=== PATIENT | male | born 1955 | race Caucasian/White ===

== ENCOUNTER 2016-08-08 09:49 | Inpatient (IN) | payer OTHER ==
[2016-08-08] MEDS ORDERED: NS 0.9% 1000 ML* 1,000 ML IV ONE (10:41)
[2016-08-08 10:58] LABS: Hematocrit 36 % (42-52); Hemoglobin 11.7 g/dl (14.0-18.0); Mean Corpuscular HGB Conc 33 g/dl (31-36); Mean Corpuscular Hemoglobin 27 pg (27-31); Mean Corpuscular Volume 82 fL (80-94); Mean Platelet Volume 8 um3 (7.4-10.4); Red Blood Count 4.42 10^6/ul (4.0-5.4); Red Cell Distribution Width 16 % (10.5-15); White Blood Count 9.4 10^3/ul (3.5-10.8)
--- NOTE | 2016-08-08 11:05 | RAD ---
HISTORY: Leg swelling COMPARISONS: June 24, 2016 VIEWS:1: Single frontal portable view of the chest at 10:30 AM FINDINGS: LINES AND TUBES: None. CARDIOMEDIASTINAL SILHOUETTE: The cardiomediastinal silhouette is stable. PLEURA: The costophrenic angles are sharp. No pleural abnormalities are noted. LUNG PARENCHYMA: There is prominence of the central pulmonary vasculature. ABDOMEN: The upper abdomen is clear. There is no subphrenic gas. BONES AND SOFT TISSUES: No bone or soft tissue abnormalities are noted. IMPRESSION: PULMONARY VASCULAR CONGESTION
[2016-08-08 11:08] LABS: Albumin 3.8 g/dL (3.2-5.2); C Reactive Protein 43.41 mg/L (< 5.00); Calcium 9.7 mg/dL (8.6-10.3); EGFR African American 125.4 (>60); EGFR Non-African American 97.5 (>60); Globulin 4.3 g/dL (2-4); Potassium 3.4 mmol/L (3.5-5.0); Total Bilirubin 0.4 mg/dL (0.2-1.0); Total Protein 8.1 g/dL (6.4-8.9)
[2016-08-08 11:10] LABS: Troponin I 0.01 ng/mL (<0.04)
--- NOTE | 2016-08-08 13:17 | RAD ---
HISTORY: Left lower extremity pain and edema TECHNIQUE: Multiple transverse and longitudinal ultrasound images were obtained of the veins of the left lower extremity using grayscale, color Doppler, and spectral Doppler imaging with and without compression and with augmentation. FINDINGS: VEINS: The common femoral vein, deep femoral vein, femoral vein and popliteal vein are compressible throughout their course, with normal flow on color Doppler imaging and normal response to augmentation on spectral Doppler imaging. SOFT TISSUES: Grossly normal. No large popliteal fossa cyst was identified. IMPRESSION: No sonographic evidence of deep vein thrombosis.
[2016-08-08 13:22] LABS: Urine Bilirubin Negative (Negative); Urine Glucose Negative (Negative); Urine Nitrite Negative (Negative)
[2016-08-08 13:52] LABS: Erythrocyte Sed Rate 94 mm/Hr (0-20)
[2016-08-08] MEDS ORDERED: Acetaminophen TAB* 325 MG PO PRN (14:12)
[2016-08-08] MEDS ORDERED: Dextrose 50% Syringe 50 ML* 25 GM/50 ML SYRINGE IV PUSH PRN (14:15)
[2016-08-08] MEDS ORDERED: Potassium Chlor TAB* 20 MEQ TAB.ER PO ONE (14:20)
[2016-08-08] MEDS ORDERED: Albuterol 2.5 MG/3 ML NEB.SOL* (0.083%) INH PRN (14:33)
[2016-08-08] MEDS ORDERED: NS 0.9% ONE (14:46)
[2016-08-08] MEDS ORDERED: Vancomycin(*) 2,000 MG in NS 0.9% 500 ML BAG* 500 ML IVPB ONE (15:00)
[2016-08-08] MEDS: Cefepime(*) 2 GM in NS 0.9% 50 ML* 50 ML IVPB SCH (15:05)
[2016-08-08] MEDS ORDERED: Vancomycin per Pharmacy* NOTE FOLLOW UP PRN (16:17)
[2016-08-08] MEDS: Insulin LISPRO* 1 UNITS UNIT SUBCUT SCH (17:28)
[2016-08-08] MEDS: oxyCODONE/Acetamin 5/325 MG* TAB PO PRN ×2 (18:04→22:55)
--- NOTE | 2016-08-08 20:44 | ED ---
alana Lawrence Timothy, scribed for Zaida Reddy MD on 08/08/16 at 1046 . Lower Extremity - HPI Summary HPI Summary: Priyank Cosby is a 60 yo DM male presenting to [facility], referred by Dr. Galo, as failure of outpt treatment with doxycycline for osteomyelitis and a nonhealing ulcer on his left heel for which he has been receiving Tx since 18 weeks, but has noticed increased swelling with 9/10 pain and erythema in the past few days. Dr. Galo is concerned about possible DVT or cellulitis. He states he had a fever of 99.6 but no fever since. He is c/o dizziness today. He denies any CP or SOB. He states he had a cast on his left leg for weeks, which came off in the last week. His glucose levels were 140 yesterday. His MHx includes CAD, HLD, HTN, COPD, BiPAP dependent, respiratory failure 2012, arthritis, DM, cellulitis tobacco use. He sees Dr. Renteria, Dr. Goode at the CT, Dr. Mosqueda (ID) and the wound clinic. - History of Current Complaint Chief Complaint: EDExtremityLower Stated Complaint: LT LEG COMPLAINT Time Seen by Provider: 08/08/16 10:50 Hx Obtained From: Patient, Medical Records Mechanism Of Injury: Unknown Onset of Pain: Prior to Arrival Onset/Duration: Still Present Severity Initially: Moderate Severity Currently: Moderate Pain Intensity: 9 Pain Scale Used: 0-10 Numeric Timing: Constant Location: Is Discrete @ - left heel Character Of Pain: Sharp Associated Signs And Symptoms: Positive: Swelling, Redness, Other - drainage from left heel Aggravating Factor(s): Standing Alleviating Factor(s): Nothing Able to Bear Weight: No - Risk Factors Gout Risk Factors: Age Over 40, Male - Allergies/Home Medications Allergies/Adverse Reactions: Allergies Allergy/AdvReac Type Severity Reaction Status Date / Time No Known Allergies Allergy Verified 07/05/16 13:11 Home Medications: Home Medications Atorvastatin* [Lipitor*] 80 mg PO DAILY 08/08/16 [History Confirmed 08/08/16] Buprenorphine HCl-Naloxone HCl [Suboxone] 0.5 strip SL BID 08/08/16 [History Confirmed 08/08/16] Calcium Carbonate CHEW TAB* [Tums*] 1,000 mg PO BID PRN 08/08/16 [History Confirmed 08/08/16] Cholecalciferol TAB* [Vitamin D TAB*] 400 unit PO DAILY 08/08/16 [History Confirmed 08/08/16] Insulin Aspart PEN(NF) [Novolog Flexpen(NF)] 0 - 100 unit SUBCUT DAILY 08/08/16 [History Confirmed 08/08/16] Lidocaine 4% GEL* [Topicaine 4% GEL*] 1 applic TOPICAL DAILY PRN 08/08/16 [ History Confirmed 08/08/16] Lisinopril [Lisinopril 30 MG-] 30 mg PO DAILY 08/08/16 [History Confirmed ] LoraTADine TAB(NF) [Claritin 10 MG TAB(NF)] 20 mg PO DAILY PRN 08/08/16 [ History Confirmed 08/08/16] Omeprazole CAP* [Prilosec CAP* 20 MG] 20 mg PO DAILY 08/08/16 [History Confirmed 08/08/16] Vitamin B Complex TAB* [Complex B-100*] 1 tab PO DAILY 08/08/16 [History Confirmed 08/08/16] metFORMIN* [Glucophage 1000 MG TAB *] 1,000 mg PO BID 08/08/16 [History Confirmed 08/08/16] zzInsulin GLARGINE(*) [zzLantus(*)] 38 units SUBCUT BID 08/08/16 [History Confirmed 08/08/16] PMH/Surg Hx/FS Hx/Imm Hx Endocrine/Hematology History: Reports: Hx Diabetes Denies: Hx Anticoagulant Therapy, Hx Thyroid Disease Cardiovascular History: Reports: Hx Coronary Artery Disease, Hx Hypercholesterolemia, Hx Hypertension - ON MEDS Denies: Hx Congestive Heart Failure, Hx Pacemaker/ICD, Other Cardiovascular Problems/Disorders Respiratory History: Reports: Hx Chronic Obstructive Pulmonary Disease (COPD), Hx Sleep Apnea Denies: Hx Asthma History: Denies: Hx Dialysis, Hx Renal Disease Musculoskeletal History: Reports: Hx Arthritis - DEGENERATIVE ARTHRITIS, Hx Back Problems - CHRONIC KNEE AND BACK PAIN Sensory History: Reports: Hx Contacts or Glasses Denies: Hx Hearing Aid Opthamlomology History: Reports: Hx Contacts or Glasses Neurological History: Denies: Hx Dementia, Hx Seizures, Other Neuro Impairments/Disorders Psychiatric History: Denies: Hx Panic Disorder, Hx Substance Abuse, Other Psychiatric Issues/ Disorders - Surgical History Surgery Procedure, Year, and Place: BARIATRIC SURGERY, RT FOOT OSTEO(LITTLE TOE) , RT KNEE SCOPE Hx Anesthesia Reactions: No Infectious Disease History: No Infectious Disease History: Denies: Hx Clostridium Difficile, Hx Hepatitis, Hx Human Immunodeficiency Virus (HIV), Hx of Known/Suspected MRSA, Hx Shingles, Hx Tuberculosis, Hx Known/ Suspected VRE, Hx Known/Suspected VRSA, History Other Infectious Disease, Traveled Outside the [place] in Last 30 Days - Family History Known Family History: Positive: Diabetes - grand parents - Social History Alcohol Use: None Substance Use Type: Reports: None Substance Use Comment - Amount & Last Used: OCCASIONAL Smoking Status (MU): Former Smoker Type: Cigarettes Amount Used/How Often: 1 PPD Length of Time of Smoking/Using Tobacco: 35 YEARS Have You Smoked in the Last Year: No Review of Systems Positive: Fever Eyes: Negative ENT: Negative Cardiovascular: Negative Respiratory: Negative Gastrointestinal: Negative Genitourinary: Negative Musculoskeletal: Other - left heel ulcer Positive: Edema - left heel/leg Skin: Other - erythema left heel and left lower leg Neurological: Other - dizziness Psychological: Normal All Other Systems Reviewed And Are Negative: Yes Physical Exam Triage Information Reviewed: Yes Vital Signs On Initial Exam: Initial Vitals Temp Pulse Resp Pulse Ox 97.7 F 73 20 97 08/08/16 09:52 08/08/16 09:52 08/08/16 09:52 08/08/16 09:52 BP 150/101 Vital Signs Reviewed: Yes Appearance: Positive: Well-Appearing, Well-Nourished, Pain Distress Skin: Positive: Warm, Skin Color Reflects Adequate Perfusion, Dry, Erythema @ - bilat lower extrem, left worse than right, Other - 7cm x 5cm x 2cm ulcer on left heel, open and draining, through the dermis. Diffuse redness, swelling, and open areas on the LLE and RLE from the foot to the knee. Weepy area between the great and second toe on the right. Open areas on the medial aspect of the RLE at the ankle, and the distal tip. Head/Face: Positive: Normal Head/Face Inspection Eyes: Positive: EOMI, Conjunctiva Clear ENT: Positive: Normal ENT inspection, Pharynx normal. Negative: Muffled/hoarse voice Neck: Positive: Supple, Nontender Respiratory/Lung Sounds: Positive: Clear to Auscultation, Breath Sounds Present Cardiovascular: Positive: RRR, Pulses are Symmetrical in both Upper and Lower Extremities. Negative: Murmur, Rub, Other - gallop Abdomen Description: Positive: Nontender, Soft Bowel Sounds: Positive: Present Musculoskeletal: Positive: Strength/ROM Intact, Edema Left, Edema Right, Other - external brace on the right knee. Lymphedema wraps on RLE. Post-op shoe on the left foot, bandages on the right leg. see skin exam above Neurological: Positive: Sensory/Motor Intact, Alert, Oriented to Person Place, Time. Negative: Focal Deficit @, Slurred Speech Psychiatric: Positive: Normal, Affect/Mood Appropriate Diagnostics - Vital Signs Vital Signs Temp Pulse Resp BP Pulse Ox 08/08/16 09:56 97.7 F 74 16 145/93 98 08/08/16 09:52 97.7 F 73 20 97 - Laboratory Lab Results: Lab Results 08/08/16 08/08/16 08/08/16 Range/Units 10:10 10:29 10:29 WBC 9.4 (3.5-10.8) 10^3/ul RBC 4.42 (4.0-5.4) 10^6/ul Hgb 11.7 L (14.0-18.0) g/dl Hct 36 L (42-52) % MCV 82 (80-94) fL MCH 27 (27-31) pg MCHC 33 (31-36) g/dl RDW 16 H (10.5-15) % Plt Count 326 (150-450) 10^3/ul MPV 8 (7.4-10.4) um3 Neut % (Auto) 74.1 (38-83) % Lymph % (Auto) 13.5 L (25-47) % [place] % (Auto) 10.0 H (1-9) % Eos % (Auto) 1.9 (0-6) % Baso % (Auto) 0.5 (0-2) % Absolute Neuts (auto) 7.0 (1.5-7.7) 10^3/ul Absolute Lymphs (auto) 1.3 (1.0-4.8) 10^3/ul Absolute Monos (auto) 0.9 H (0-0.8) 10^3/ul Absolute Eos (auto) 0.2 (0-0.6) 10^3/ul Absolute Basos (auto) 0 (0-0.2) 10^3/ul Absolute Nucleated RBC 0 10^3/ul Nucleated RBC % 0 ESR 94 H (0-20) mm/Hr INR (Anticoag Therapy) 0.98 (0.89-1.11) APTT 30.6 (26.0-36.3) seconds Sodium (133-145) mmol/L Potassium (3.5-5.0) mmol/L Chloride (101-111) mmol/L Carbon Dioxide (22-32) mmol/L Anion Gap (2-11) mmol/L BUN (6-24) mg/dL Creatinine (0.67-1.17) mg/dL Est GFR ( Amer) (>60) Est GFR (Non-Af Amer) (>60) BUN/Creatinine Ratio (8-20) Glucose (70-100) mg/dL Lactic Acid (0.5-2.0) mmol/L Calcium (8.6-10.3) mg/dL Total Bilirubin (0.2-1.0) mg/dL AST (13-39) U/L ALT (7-52) U/L Alkaline Phosphatase (34-104) U/L Total Creatine Kinase (10-223) U/L Troponin I (<0.04) ng/mL C-Reactive Protein (< 5.00) mg/L Total Protein (6.4-8.9) g/dL Albumin (3.2-5.2) g/dL Globulin (2-4) g/dL Albumin/Globulin Ratio (1-3) Urine Color Straw Urine Appearance Clear Urine pH 7.0 (5-9) Ur Specific [place] 1.008 L (1.010-1.030) Urine Protein Negative (Negative) Urine Ketones Negative (Negative) Urine Blood Negative (Negative) Urine Nitrate Negative (Negative) Urine Bilirubin Negative (Negative) Urine Urobilinogen Negative (Negative) Ur Leukocyte Esterase Negative (Negative) Urine Glucose Negative (Negative) 08/08/16 08/08/16 Range/Units 10:29 10:29 WBC (3.5-10.8) 10^3/ul RBC (4.0-5.4) 10^6/ul Hgb (14.0-18.0) g/dl Hct (42-52) % MCV (80-94) fL MCH (27-31) pg MCHC (31-36) g/dl RDW (10.5-15) % Plt Count (150-450) 10^3/ul MPV (7.4-10.4) um3 Neut % (Auto) (38-83) % Lymph % (Auto) (25-47) % [place] % (Auto) (1-9) % Eos % (Auto) (0-6) % Baso % (Auto) (0-2) % Absolute Neuts (auto) (1.5-7.7) 10^3/ul Absolute Lymphs (auto) (1.0-4.8) 10^3/ul Absolute Monos (auto) (0-0.8) 10^3/ul Absolute Eos (auto) (0-0.6) 10^3/ul Absolute Basos (auto) (0-0.2) 10^3/ul Absolute Nucleated RBC 10^3/ul Nucleated RBC % ESR (0-20) mm/Hr INR (Anticoag Therapy) (0.89-1.11) APTT (26.0-36.3) seconds Sodium 136 (133-145) mmol/L Potassium 3.4 L (3.5-5.0) mmol/L Chloride 94 L (101-111) mmol/L Carbon Dioxide 38 H (22-32) mmol/L Anion Gap 4 (2-11) mmol/L BUN 17 (6-24) mg/dL Creatinine 0.81 (0.67-1.17) mg/dL Est GFR ( Amer) 125.4 (>60) Est GFR (Non-Af Amer) 97.5 (>60) BUN/Creatinine Ratio 21.0 H (8-20) Glucose 61 L (70-100) mg/dL Lactic Acid 1.4 (0.5-2.0) mmol/L Calcium 9.7 (8.6-10.3) mg/dL Total Bilirubin 0.40 (0.2-1.0) mg/dL AST 10 L (13-39) U/L ALT 13 (7-52) U/L Alkaline Phosphatase 77 (34-104) U/L Total Creatine Kinase 37 (10-223) U/L Troponin I 0.01 (<0.04) ng/mL C-Reactive Protein 43.41 H (< 5.00) mg/L Total Protein 8.1 (6.4-8.9) g/dL Albumin 3.8 (3.2-5.2) g/dL Globulin 4.3 H (2-4) g/dL Albumin/Globulin Ratio 0.9 L (1-3) Urine Color Urine Appearance Urine pH (5-9) Ur Specific [place] (1.010-1.030) Urine Protein (Negative) Urine Ketones (Negative) Urine Blood (Negative) Urine Nitrate (Negative) Urine Bilirubin (Negative) Urine Urobilinogen (Negative) Ur Leukocyte Esterase (Negative) Urine Glucose (Negative) Result Diagrams: 08/08/16 10:29 08/08/16 10:29 Lab Statement: Any lab studies that have been ordered have been reviewed, and results considered in the medical decision making process. - Radiology CXR Xray Interpretation: Positive (See Comments) - IMPRESSION: PULMONARY VASCULAR CONGESTION Radiology Interpretation Completed By: Radiologist - Ultrasound No standard instances Ultrasound Interpretation: No Acute Changes - IMPRESSION: No sonographic evidence of deep vein thrombosis. Ultrasound Interpretation Completed By: Radiologist - venous doppler - EKG 1107 Cardiac Rate: NL - 71 BPM EKG Interpretation: NSR @ 71 BPM, prolonged IV, RBBB, LPFB, axis 113, no acute changes EKG Comparison: No Significant Change - compared to 04/05/2012 Re-Evaluation - Re-Evaluation First Eval Re-Evaluation Time: 13:58 Change: Unchanged Comment: Pt is informed of lab and imaging study results, and is agreeable to be admitted. Lower Extremity Course/Dx - Course Assessment/Plan: Priyank Cosby is a 60 yo male presenting to [facility] with 9/10 pain in his leftheel with edema and erythema, concerned for DVT/cellulitis. In the ED he received IV fluids. His CXR suggests pulmonary vascular congestion. His EKG shows NSR with prolonged IV conduction time and RBBB, LPFB. After clinical examination and review of his imaging and lab studies, as well as discussion with Dr. Rodgers, he will be admitted to [facility] for further evaluation and treatment due to failure of outpt treatment for osteomyelitis with doxycycline. No evidence for DVT on US of LLE. - Diagnoses Differential Diagnosis/HQI/PQRI: Positive: Cellulitis, DVT, Osteomyelitis Provider Diagnoses: Cellulitis, Osteomyelitis, DIABETIC FOOT ULCER - Physician Notifications Discussed Care of Patient With: 1344 - Dr. Rodgers (hospitalist) - discussed Pt condition, agrees to admit Instructed by Provider To: Admit As Inpatient Discharge - Discharge Plan Condition: Stable Disposition: ADMITTED TO [facility] Discharge Disposition Comment: admission for further evaluation and treatment The documentation as recorded by the alana morgan Timothy accurately reflects the service I personally performed and the decisions made by me, Zaida Reddy MD.
--- NOTE | 2016-08-08 21:47 | HP ---
HISTORY AND PHYSICAL: DATE OF ADMISSION: 08/08/16 ATTENDING PHYSICIAN WHILE IN THE HOSPITAL: Dr. Vikas Rodgers* (report being dictated by Jayson Eugene NP). PRIMARY CARE PHYSICIAN: Dr. Goode at the [facility]. CONSULTING ID SPECIALIST: Dr. Mosqueda. CONSULTING SURGEON: Dr. Carmona. CHIEF COMPLAINT: Left lower extremity redness and swelling. HISTORY OF PRESENT ILLNESS: Mr. Cosby is a 60-year-old male patient who has a history of diabetes. He has a history of MASON, COPD, lymphedema, chronic back pain, osteomyelitis in the past who recently completed a long course of IV antibiotics with Dr. Mosqueda in the outpatient setting. He had been off antibiotics for possibly 2 to 3 weeks. He has been doing okay, has been following with his wound clinic. Unfortunately though, the last couple of days he has noticed his left leg has gotten more red, swelling. It has become hot, he noticed that the redness had been increasing up into his groin. He does admit to having some clear discharge from both of his legs and he does state that he has not had any drainage from the wound or any purulent discharge. He did admit to having some chills. He states the redness was getting worse. He was evaluated 2 days ago and was started on doxycycline tablets by the wound clinic. He was reevaluated today and the redness, despite the doxycycline, was getting worse and he was sent to the ER for evaluation. He was evaluated here. It was noted that his ESR and CRP were climbing despite p.o. antibiotics. With his history of diabetes and the fact that the redness was getting worse and he had failed outpatient therapy, we were asked to evaluate in consult. He does state that the wound is not getting any bigger. He has been on a wound vac for sometime, but this had been discontinued because of the possibility of infection. He states that his sugars have been running in the 150s. He states that he has not had any fevers, but he did have some chills and there has been no other symptoms. No chest pain, shortness of breath, nausea, or vomiting. He was evaluated by Dr. Reddy here in the ER. We were asked to evaluate because it was felt he is going to need IV antibiotics. PAST MEDICAL HISTORY: Significant for: 1. Diabetes. 2. Hypertension. 3. Lymphedema. 4. Back pain. 5. COPD. 6. Osteomyelitis. 7. MASON. PAST SURGICAL HISTORY: 1. He has had a right partial toe amputation. 2. Cardiac catheterization with no intervention. 3. He has had a partial gastrectomy. 4. He has had knee arthroscopies. HOME MEDICATIONS: According to the list sent over from wound clinic include: 1. Lidocaine 4% 1 application topically daily as needed. 2. Doxycycline 100 mg p.o. b.i.d. 3. Vitamin B 1 tablet daily. 4. Omeprazole 20 mg daily. 5. Insulin aspart 0 to 100 units subcu with meals. 6. Lantus 38 units subcu b.i.d. 7. Lisinopril 30 mg daily. 8. Atorvastatin 80 mg daily. 9. Atenolol 50 mg daily. 10. Metformin 1000 mg p.o. b.i.d. 11. Claritin 20 mg p.o. daily as needed. 12. Vitamin D 400 units p.o. daily. 13. Calcium carbonate 1000 mg p.o. b.i.d. as needed. 14. Suboxone half a strip sublingual b.i.d. ALLERGIES TO MEDICATIONS: Include no known drug allergies. FAMILY HISTORY: His mother had cancer. Father had an AL. SOCIAL HISTORY: He is a former smoker, he quit about 4 years ago. He does not drink alcohol. Surrogate decision maker is his . REVIEW OF SYSTEMS: There is no documented fever. He did admit to having chills. There is no double vision. He denies having any rhinorrhea. No sore throat. No thyroid enlargement. Denies having any chest pain. There is no orthopnea. No nocturnal dyspnea. There is no abdominal pain. No nausea. No vomiting. No dysuria. No frequency. No seizure. No loss of consciousness. No pruritus. There is skin ulceration per my HPI. Review of 14 systems completed, all others negative. PHYSICAL EXAMINATION GENERAL: At this time, Mr. Cosby is a 60-year-old male patient. He is chronically ill appearing. He is morbidly obese. He is sitting on the ER stretcher. VITAL SIGNS: Blood pressure 118/63, pulse 75, respirations 16, O2 sat 100% on room air, temperature 97.7. HEENT: Head atraumatic and normocephalic. Eyes: EOMs intact. Sclerae anicteric. Throat: Oral mucosa appeared to be moist. No oropharyngeal erythema. NECK: Supple. LUNGS: Clear to auscultation bilaterally. No wheezes, rales, or rhonchi. HEART: Sounds S1 and S2. Regular rate and rhythm. No murmurs, rubs, or gallops. ABDOMEN: Soft, flat, nontender. Bowel sounds are present. EXTREMITIES: Pulses 2+ throughout. He had +2 pitting edema bilaterally. NEUROLOGICAL: He is awake, alert, oriented x3. Speech is clear. Tongue midline. No facial droops. No gross focal deficits. SKIN: Intact with the exception he has got a left heel ulcer measuring approximately 6 x 8 cm, it is about 1 cm deep to the left heel. He has erythema extending from his foot all the way up into his groin. The left leg is hot and edematous. The right leg does also have erythema and he also has a slight ulceration between his 2 toes as well and again erythema extending up into his midcalf region. Otherwise, skin is intact. LABORATORY DATA: Today revealed WBC 9.4, RBC of 4.42, hemoglobin 11.7, hematocrit of 36, platelet count 326. ESR is 94, last ESR was 456. INR 0.98, PTT at 30.6. The sodium was 136, potassium 3.4, chloride 94, bicarb 38, BUN 17, creatinine 0.81, glucose 61, lactate 1.4, calcium 9.7, total bili 0.4, AST 10, ALT 13, alk phos 77, troponin 0.01, CRP of 43, albumin of 3.8. Urine obtained was negative. He did have a venous Doppler study which revealed no evidence of DVT. He had an EKG obtained today which showed a normal sinus rhythm, rate of 71 with a right bundle branch block. He has had history of right bundle branch block. His last EKG from 5 years ago shows this as well. No acute changes. He had a chest x-ray obtained today, impression, pulmonary vascular congestion. Old medical records were reviewed. ASSESSMENT AND PLAN: Mr. Cosby is a 60-year-old male patient coming into the ER today with complaints of a worsening redness and swelling of the left lower extremity. The hospitalist service was asked to evaluate for admission. He will be admitted under inpatient status for: 1. Left lower extremity osteomyelitis. He did have an MRI on 08/14/15, which did show calcaneal osteomyelitis. In addition to this, he finished IV antibiotics, he thinks about 3 weeks ago and then now comes in with worsening redness and swelling despite being on 2 days of doxycycline. I will go ahead and put him on vancomycin and cefepime. I will get a consult with Dr. Carmona and a consult with Dr. Mosqueda to evaluate. For the time being, we will continue his vancomycin, continue his cefepime. We will send off blood cultures as well and we will continue to monitor. Cellulitis. There was a wound culture that was done in the ER according to Dr. Reddy. 2. Diabetes. We will go ahead and put him on Lispro sliding scale. I will check A1c tomorrow. I will continue his Lantus. 3. Lymphedema. Will elevate the extremities. 4. Diabetic foot ulcer. We will change this dressing daily. The wound care did put in recommendations for the care of this, which have been ordered. 5. Chronic obstructive pulmonary disease. We will go ahead and put him on p.r.n. albuterol. He does not appear to be having an exacerbation currently. 6. Obstructive sleep apnea. Continue with CPAP. 7. History of osteomyelitis. Again, he will be on IV antibiotics. 8. DVT prophylaxis. He will be placed on heparin subcu. 9. Fluids, electrolytes, nutrition. He can have a consistent carb diet. 10. Code status. He is a full code. TIME SPENT: On admission was approximately 60 minutes, greater than half the time was spent [id number] with the patient obtaining my history and physical, other half the time spent going over the plan of care with the patient and implementing plan of care. I did discuss the plan of care with my attending, Dr. Rodgers; he is in agreement. JAYSON EUGENE NP CC: Dr. Goode; Dr. Mosqueda; Dr. Carmona; Dr. Renteria* [id number]/[facility] #: [id number] MTDD
[2016-08-08] MEDS: Insulin GLARGINE(*) 1 UNITS UNIT SUBCUT SCH (22:52)
[2016-08-08] MEDS: Heparin VIAL(*) 5000 UNITS/ML VIAL (FIVE THOUSAND) SUBCUT SCH (22:53)
[2016-08-08] MEDS: Buprenorphine/Naloxone 8-2 MG SL TAB* 1 TAB SL SCH (22:56)
[2016-08-09] MEDS: Vancomycin(*) 1,250 MG in NS 0.9% 250 ML* 250 ML IVPB SCH ×3 (01:48→17:51)
[2016-08-09] MEDS ORDERED: NS 0.9% 250 ML* 500 ML ONE (03:03)
[2016-08-09] MEDS: oxyCODONE/Acetamin 5/325 MG* TAB PO PRN ×5 (03:04→21:03)
[2016-08-09] MEDS: Cefepime(*) 2 GM in NS 0.9% 50 ML* 50 ML IVPB SCH ×3 (04:34→15:48)
[2016-08-09] MEDS: Heparin VIAL(*) 5000 UNITS/ML VIAL (FIVE THOUSAND) SUBCUT SCH ×3 (04:35→21:05)
[2016-08-09 07:10] LABS: Hematocrit 34 % (42-52); Hemoglobin 10.9 g/dl (14.0-18.0); Mean Corpuscular HGB Conc 32 g/dl (31-36); Mean Corpuscular Hemoglobin 27 pg (27-31); Mean Corpuscular Volume 82 fL (80-94); Mean Platelet Volume 8 um3 (7.4-10.4); Red Blood Count 4.11 10^6/ul (4.0-5.4); Red Cell Distribution Width 16 % (10.5-15); White Blood Count 7.3 10^3/ul (3.5-10.8)
[2016-08-09 07:25] LABS: BUN/Creatinine Ratio 20.8 (8-20); EGFR Non-African American 103.4 (>60); Potassium 3.9 mmol/L (3.5-5.0)
[2016-08-09] MEDS: Lisinopril TAB* 10 MG PO SCH (07:46)
[2016-08-09] MEDS: Omeprazole CAP* 20 MG PO SCH (07:46)
[2016-08-09] MEDS: Insulin GLARGINE(*) 1 UNITS UNIT SUBCUT SCH ×2 (07:47→21:04)
[2016-08-09] MEDS: Atorvastatin* 80 MG TAB PO SCH (07:47)
[2016-08-09] MEDS: Atenolol TAB* 50 MG PO SCH (07:47)
[2016-08-09] MEDS: Buprenorphine/Naloxone 8-2 MG SL TAB* 1 TAB SL SCH ×2 (07:48→21:02)
[2016-08-09] MEDS: Insulin LISPRO* 1 UNITS UNIT SUBCUT SCH ×3 (09:53→17:51)
--- NOTE | 2016-08-09 10:25 | PN ---
Progress Note - Progress Note Note: Brief Surgery Note: (full note dictated) S: Mr. Cosby is well-known to us from his bariatric surgery (sleeve gastrectomy ) in 01/2016. He was admitted from wound clinic yesterday for worsening cellulitis of the Left LE. He has a pre-existing L heel ulcer (+ MRI and prior bone scan for osteo) for which he has completed a 6 week course of IV abx as well as wound care (debridement, total contact casting, off-loading footwear, and most recently a Wound VAC). The LLE pain and redness seemed to increase over the past 5-7 days. Pain is localized primarily to the posterior heel and lower leg. He has weeping of both LEs r/t his chronic venous insufficiency and lymphedema. He normally uses lymphedema wraps at home. He had a neg venous duplex on admission and a recent CTA that demonstrated moderate occlusive disease but nothing requiring intervention. O: Vital Signs - 8 hr 08/09/16 08/09/16 08/09/16 03:04 03:16 04:46 Temperature 98.2 F Pulse Rate 83 Respiratory 14 16 16 Rate Blood Pressure 136/92 (mmHg) O2 Sat by Pulse 94 Oximetry 08/09/16 08/09/16 08/09/16 07:27 07:48 09:27 Temperature Pulse Rate Respiratory 16 16 16 Rate Blood Pressure (mmHg) O2 Sat by Pulse Oximetry Right LE: chronic stasis changes w/ hyperpigmentation, scaling, weeping of clear serous fluid, and dull erythema. This includes the foot and toes. Left LE: similar to R LE; there is also an open heel wound (plantar surface) which is actually fairly clean w/ good granulation base, measuring ~ 4 x 6 cm. It is minimally tender, a bit boggy, but no obvious exposed bone. He is most tender over the posterior heel and lower leg. A: cellulitis Left LE; open Left heel wound (w/ osteo? based on most recent imaging) P: cont abx per hosp/ID; no need for surg debridement at present; he does need some form of compression in addition to his wound care (ordered). Will follow periodically and at your request if any changes.
--- NOTE | 2016-08-09 14:03 | PN ---
Subjective Date of Service: 08/09/16 Interval History: Patient reports his LE's appear "more red" today. Reports some weeping form his RLE. No fevers or chills. Reports good appetite. No abdominal pain. Objective Active Medications: Acetaminophen (Tylenol Tab*) 650 mg PO Q4H PRN PRN Reason: FEVER/PAIN Albuterol (Ventolin 2.5 Mg/3 Ml Neb.Malissa*) 2.5 mg INH Q2H PRN PRN Reason: SOB/WHEEZING Atenolol (Tenormin Tab*) 50 mg PO QAM [facility] Last Admin: 08/09/16 07:47 Dose: 50 mg Atorvastatin Calcium (Lipitor*) 80 mg PO DAILY [facility] Last Admin: 08/09/16 07:47 Dose: 80 mg Buprenorphine/Naloxone (Suboxone 8-2 Mg Sl Tab*) 0.5 tab.sl SL BID [facility] Last Admin: 08/09/16 07:48 Dose: 0.5 tab.sl Dextrose (D50w Syringe 50 Ml*) 12.5 gm IV PUSH .FOR FS < 60 - SS PRN PRN Reason: FS < 60 Heparin Sodium (Porcine) (Heparin Vial(*)) 5,000 units SUBCUT Q8HR [facility] Last Admin: 08/09/16 13:24 Dose: 5,000 units Cefepime HCl 2 gm/ Sodium (Chloride) 50 mls @ 100 mls/hr IVPB 0300,1500 [facility] Last Admin: 08/09/16 04:37 Dose: 100 mls/hr Vancomycin HCl 1,250 mg/ (Sodium Chloride) 250 mls @ 166.667 mls/hr IVPB Q8H [facility] Last Admin: 08/09/16 09:34 Dose: 166.667 mls/hr Insulin Glargine (Lantus(*)) 38 units SUBCUT BID [facility] Last Admin: 08/09/16 07:47 Dose: 38 units Insulin Human Lispro (Humalog*) 0 units SUBCUT AC [facility] PRN Reason: Protocol Last Admin: 08/09/16 13:23 Dose: 15 units Lisinopril (Prinivil Tab*) 30 mg PO DAILY [facility] Last Admin: 08/09/16 07:46 Dose: 30 mg Omeprazole (Prilosec Cap*) 20 mg PO DAILY@0730 [facility] Last Admin: 08/09/16 07:46 Dose: 20 mg Ondansetron HCl (Zofran Inj*) 4 mg IV Q6H PRN PRN Reason: NAUSEA Oxycodone/Acetaminophen (Percocet 5/325 Tab*) 2 tab PO Q4H PRN PRN Reason: PAIN Last Admin: 08/09/16 11:34 Dose: 2 tab Pharmacy Consult (Vancomycin Per Pharmacy*) 1 note FOLLOW UP . PRN PRN Reason: PER PROTOCOL Pharmacy Profile Note (Vancomycin Trough Check) 1 note FOLLOW UP 0900 ONE Stop: 08/10/16 09:01 Vital Signs 08/08/16 08/08/16 08/08/16 16:10 16:21 16:30 Temperature 98.4 F 98.4 F Pulse Rate 88 88 Respiratory 16 16 16 Rate Blood Pressure 150/101 150/101 (mmHg) O2 Sat by Pulse 97 97 Oximetry 08/08/16 08/08/16 08/08/16 18:04 20:04 22:55 Temperature Pulse Rate Respiratory 16 16 16 Rate Blood Pressure (mmHg) O2 Sat by Pulse Oximetry 08/08/16 08/08/16 08/08/16 22:56 23:47 23:55 Temperature 99.5 F Pulse Rate 85 Respiratory 16 16 16 Rate Blood Pressure 145/76 (mmHg) O2 Sat by Pulse 94 Oximetry 08/09/16 08/09/16 08/09/16 03:04 03:16 04:46 Temperature 98.2 F Pulse Rate 83 Respiratory 14 16 16 Rate Blood Pressure 136/92 (mmHg) O2 Sat by Pulse 94 Oximetry 08/09/16 08/09/16 08/09/16 07:27 07:40 07:48 Temperature 98.1 F Pulse Rate 84 Respiratory 16 16 16 Rate Blood Pressure 155/85 (mmHg) O2 Sat by Pulse 94 Oximetry 08/09/16 08/09/16 08/09/16 08:00 09:27 09:48 Temperature Pulse Rate Respiratory 16 16 16 Rate Blood Pressure (mmHg) O2 Sat by Pulse Oximetry 08/09/16 11:34 Temperature Pulse Rate Respiratory 16 Rate Blood Pressure (mmHg) O2 Sat by Pulse Oximetry Oxygen Devices in Use Now: None Appearance: morbidly obese male sitting up in a chair in NAD. A+O x3 Eyes: No Scleral Icterus, PERRLA Ears/Nose/Mouth/Throat: NL Teeth, Lips, Gums, Mucous Membranes Moist Neck: NL Appearance and Movements; NL JVP Respiratory: Symmetrical Chest Expansion and Respiratory Effort, Clear to Auscultation Cardiovascular: NL Sounds; No Murmurs; No JVD, RRR, - - 3+ B/L edema Abdominal: - - obese, round soft, nontender Extremities: - - B/L LE have bilateral chronic venous stasis changes and noted 2 -3+ edema. LLE: has noted erythema with heal ulcer (did not underess dressing which was just reapplied by surgery). RLE: has noted erythema, weeping, possible skin tear or weeping to inner LEs. Neurological: Alert and Oriented x 3, NL Muscle Strength and Tone Lines/Tubes/Other Access: Clean, Dry and Intact Peripheral IV Nutrition: Taking PO's Result Diagrams: 08/09/16 06:50 08/09/16 06:50 Additional Lab and Data: Lab Results 08/08/16 08/08/16 08/08/16 Range/Units 10:10 10:29 10:29 WBC 9.4 (3.5-10.8) 10^3/ul RBC 4.42 (4.0-5.4) 10^6/ul Hgb 11.7 L (14.0-18.0) g/dl Hct 36 L (42-52) % MCV 82 (80-94) fL MCH 27 (27-31) pg MCHC 33 (31-36) g/dl RDW 16 H (10.5-15) % Plt Count 326 (150-450) 10^3/ul MPV 8 (7.4-10.4) um3 Neut % (Auto) 74.1 (38-83) % Lymph % (Auto) 13.5 L (25-47) % Concho % (Auto) 10.0 H (1-9) % Eos % (Auto) 1.9 (0-6) % Baso % (Auto) 0.5 (0-2) % Absolute Neuts (auto) 7.0 (1.5-7.7) 10^3/ul Absolute Lymphs (auto) 1.3 (1.0-4.8) 10^3/ul Absolute Monos (auto) 0.9 H (0-0.8) 10^3/ul Absolute Eos (auto) 0.2 (0-0.6) 10^3/ul Absolute Basos (auto) 0 (0-0.2) 10^3/ul Absolute Nucleated RBC 0 10^3/ul Nucleated RBC % 0 ESR 94 H (0-20) mm/Hr INR (Anticoag Therapy) 0.98 (0.89-1.11) APTT 30.6 (26.0-36.3) seconds Sodium (133-145) mmol/L Potassium (3.5-5.0) mmol/L Chloride (101-111) mmol/L Carbon Dioxide (22-32) mmol/L Anion Gap (2-11) mmol/L BUN (6-24) mg/dL Creatinine (0.67-1.17) mg/dL Est GFR ( Amer) (>60) Est GFR (Non-Af Amer) (>60) BUN/Creatinine Ratio (8-20) Glucose (70-100) mg/dL Lactic Acid (0.5-2.0) mmol/L Calcium (8.6-10.3) mg/dL Total Bilirubin (0.2-1.0) mg/dL AST (13-39) U/L ALT (7-52) U/L Alkaline Phosphatase (34-104) U/L Total Creatine Kinase (10-223) U/L Troponin I (<0.04) ng/mL C-Reactive Protein (< 5.00) mg/L Total Protein (6.4-8.9) g/dL Albumin (3.2-5.2) g/dL Globulin (2-4) g/dL Albumin/Globulin Ratio (1-3) Urine Color Straw Urine Appearance Clear Urine pH 7.0 (5-9) Ur Specific Martin 1.008 L (1.010-1.030) Urine Protein Negative (Negative) Urine Ketones Negative (Negative) Urine Blood Negative (Negative) Urine Nitrate Negative (Negative) Urine Bilirubin Negative (Negative) Urine Urobilinogen Negative (Negative) Ur Leukocyte Esterase Negative (Negative) Urine Glucose Negative (Negative) 08/08/16 08/08/16 Range/Units 10:29 10:29 WBC (3.5-10.8) 10^3/ul RBC (4.0-5.4) 10^6/ul Hgb (14.0-18.0) g/dl Hct (42-52) % MCV (80-94) fL MCH (27-31) pg MCHC (31-36) g/dl RDW (10.5-15) % Plt Count (150-450) 10^3/ul MPV (7.4-10.4) um3 Neut % (Auto) (38-83) % Lymph % (Auto) (25-47) % Concho % (Auto) (1-9) % Eos % (Auto) (0-6) % Baso % (Auto) (0-2) % Absolute Neuts (auto) (1.5-7.7) 10^3/ul Absolute Lymphs (auto) (1.0-4.8) 10^3/ul Absolute Monos (auto) (0-0.8) 10^3/ul Absolute Eos (auto) (0-0.6) 10^3/ul Absolute Basos (auto) (0-0.2) 10^3/ul Absolute Nucleated RBC 10^3/ul Nucleated RBC % ESR (0-20) mm/Hr INR (Anticoag Therapy) (0.89-1.11) APTT (26.0-36.3) seconds Sodium 136 (133-145) mmol/L Potassium 3.4 L (3.5-5.0) mmol/L Chloride 94 L (101-111) mmol/L Carbon Dioxide 38 H (22-32) mmol/L Anion Gap 4 (2-11) mmol/L BUN 17 (6-24) mg/dL Creatinine 0.81 (0.67-1.17) mg/dL Est GFR ( Amer) 125.4 (>60) Est GFR (Non-Af Amer) 97.5 (>60) BUN/Creatinine Ratio 21.0 H (8-20) Glucose 61 L (70-100) mg/dL Lactic Acid 1.4 (0.5-2.0) mmol/L Calcium 9.7 (8.6-10.3) mg/dL Total Bilirubin 0.40 (0.2-1.0) mg/dL AST 10 L (13-39) U/L ALT 13 (7-52) U/L Alkaline Phosphatase 77 (34-104) U/L Total Creatine Kinase 37 (10-223) U/L Troponin I 0.01 (<0.04) ng/mL C-Reactive Protein 43.41 H (< 5.00) mg/L Total Protein 8.1 (6.4-8.9) g/dL Albumin 3.8 (3.2-5.2) g/dL Globulin 4.3 H (2-4) g/dL Albumin/Globulin Ratio 0.9 L (1-3) Urine Color Urine Appearance Urine pH (5-9) Ur Specific Martin (1.010-1.030) Urine Protein (Negative) Urine Ketones (Negative) Urine Blood (Negative) Urine Nitrate (Negative) Urine Bilirubin (Negative) Urine Urobilinogen (Negative) Ur Leukocyte Esterase (Negative) Urine Glucose (Negative) Assess/Plan/Problems-Billing Assessment: 60 yo male with a PMH of morbid obesity s/p sleeve gastrectomy, Diabetes, COPD, lymphedema, pre-existing L heel ulcer with osteo for which he recently finished 6 weeks of IV abx followed by Dr. Mosqueda (off abx for 2-3 weeks) also followed by wound clinic who started him on Doxy 2 days ago who presented 08/08 with increased LLE redness and pain sent from wound clinic - Patient Problems (1) Cellulitis Comment: - with chronic osteomyelitis and non-healing DM ulcer - recent 6 weeks of IV abx , followed by ID as outpt. - Surgery consulted stating no need for wound debridment at this time. - wound cx MRSA positive. Blood cx negative day 1. - c/w vanco, cefepime - await ID consult (2) Chronic pain Comment: - suboxone started a few months ago per pt pain clinic has been weaning down narcotics. - Patient continues to report a lot of pain. Continue Pecocet prn. (3) HTN (hypertension) Comment: controlled c/w lisinopril, Atenolol. (4) Type 2 diabetes mellitus Comment: High blood sugars Increase Lantus 45 units BID and lantus sliding scale (5) History of hypertension Comment: - continue lisinopril, atenolol (6) Lymphedema Comment: - denise wraps and elevation to LE's (7) Full code status (8) DVT prophylaxis Comment: HSQ Status and Disposition: inpatient requiring IV antibiotics. Estimated LOS > 2 days.
[2016-08-09] MEDS: Ketorolac INJ* 30 MG/ML 1 ML VIAL IV PUSH PRN (17:55)
[2016-08-09] MEDS: Ondansetron INJ* 2 MG/ML VIAL IV PRN (17:59)
--- NOTE | 2016-08-09 20:41 | CONS ---
CC: Dr. Jaxon Carmona; Dr. Goode, [facility] SURGICAL CONSULT NOTE: DATE OF CONSULT: 08/09/16 ATTENDING SURGEON: Dr. Jaxon Carmona. [facility] COMPLAINT: Cellulitis, left lower extremity. HISTORY OF PRESENT ILLNESS: This is a 60-year-old morbidly obese male with chronic venous insufficiency of both lower extremities and was followed by the wound clinic. He has had a preexisting left heel ulcer with osteomyelitis of the calcaneus, previously treated with 6-week course of IV antibiotics. He was seen in the wound clinic last Monday at which time the wound VAC was apparently placed. He experienced increased pain of the left lower extremity along with redness and increase in the temperature. He was sent to the emergency room for evaluation and possible admission from the wound clinic yesterday. He had been attending wound clinic for wound care in the form of total contact cast when the ulcer first started in March. He has undergone debridement. He also has an offloading shoe and has been undergoing dressing changes. He was recently changed to the wound VAC, was unclear if it would have contributed to his current cellulitis. He has chronic edema from venous insufficiency and sleeps in the chair with consequently little or no lower extremity elevation. He normally uses lymphedema wraps at home. He states that Dr. Renteria, who follows him in the wound clinic had been considering the option of hyperbaric oxygen treatment for this slow and nonhealing left calcaneal ulcer. Venous duplex on admission was negative for DVT. A CT angiogram done on 06/21/16, showed [id number] occlusive arterial disease, but vessels were essentially patent to both feet and did not require any intervention. MRI was performed on 07/13/16, which was consistent with osteomyelitis of the left calcaneus. He states that pain significantly increased over the past 4 to 5 days in the left lower extremity, particularly the posterior heel and posterior lower leg. PAST MEDICAL HISTORY: Type 2 diabetes, hypertension, morbid obesity (he is six months status post laparoscopic sleeve gastrectomy with Dr. White), chronic venous insufficiency and lymphedema of lower extremities, chronic back pain, COPD, sleep apnea. CURRENT MEDICATIONS: Reviewed and include: 1. Lidocaine topically. 2. Doxycycline 100 mg b.i.d. 3. Omeprazole 20 mg q. day. 4. Lantus 38 units subcu b.i.d. 5. Lisinopril. 6. Atorvastatin. 7. Atenolol. 8. Metformin. 9. Claritin. 10. Vitamin D. 11. Calcium carbonate. 12. Suboxone one-half strip sublingual b.i.d. FAMILY HISTORY: Per his admission history and physical. SOCIAL HISTORY: Per his admission history and physical. REVIEW OF SYSTEMS: Per his admission history and physical. PHYSICAL EXAM: Height 6 feet, weight 352 pounds which is down 30 pounds since his sleeve gastrectomy, BMI is 47.7, T-max 99.5, blood pressure systolic from 117 to 155, diastolic 63 to 101, pulse is 70s to 80s, room air saturation 95%. General: A morbidly obese male, in no acute distress. The remainder of the exam is limited to the lower extremities. Skin of both lower extremities shows chronic venous insufficiency changes with scaling, weeping clear serous fluid, and hyperpigmentation as well as lipodermatosclerosis. The right leg also has barrier cream applied to it. There is a question of some ulceration or superficial skin breakdown between toes on the right foot though I did not examine in detail. On the left, findings of the skin are similar to the right leg. In addition, there is an open wound on the inferior plantar surface of the heel measuring approximately 6 cm. There is a healthy-appearing base of granulation tissue. There is some minor tenderness and bogginess to palpation directly on the wound, but no evidence of undrained collection or deep infection. There is no obvious bone exposed. He is most tender in the posterior heel and posterior lower leg. There is some [id number] erythema throughout the leg. LABORATORY DATA: Recent labs, white blood cell count on admission 9400, repeat this morning 7300; hemoglobin 11.7 with 10.9 on repeat. CRP is 43. ESR is 94, which is up consistent with prior. CO2 somewhat elevated at 35. [id number]-je-eryk glucose has ranged from 271 to 396. A1c is 9.0. IMPRESSION: Cellulitis, left lower extremity with open heel wound (possibly with osteomyelitis). PLAN: No need for any surgical intervention, debridement, or otherwise. We would agree with continuation of antibiotics with further direction per ID. I did add some compression in the form of 4-inch Wan wraps x2 for each lower extremity to help with the edema. We will follow with you and see the patient periodically until he is able to return to his usual baseline and follow up with the wound clinic. ELIS MCCURDY [id number]/CPS #: [id number] CRISTINA
--- NOTE | 2016-08-09 21:39 | CONS ---
CONSULTATION REPORT: DATE OF CONSULTATION: 08/09/16 REQUESTING PHYSICIAN: Jayson Eugene NP. CONSULTING SERVICE: Infectious Disease. REASON FOR CONSULTATION: Right leg cellulitis and wound infection. IMPRESSION: 1. Left calcaneal wound. Followed at the wound clinic for few months. He had a course of IV antib iotics for calcaneal osteomyelitis, now with cellulitis of the ankle periwound area and into the leg in the setting of underlying lymphedema. He has grown MRSA and Enterobacter. He has not grown MRS A in the past, seems to be a new infection for him. 2. Diabetes with neuropathy. 3. Morbid obesity. 4. Hypertension. 5. Obstructive sleep apnea. RECOMMENDATION: Agree with vancomycin goal trough 10 to 15 and cefepime 2 g every 12 hours. I will follow his progress here and depending how he does may plan on another course of IV antibiotics. Vikki reeves had apparently recently been making more progress with his wound healing but seems to now have a s econdary infection of that wound, which is spread to the soft tissues. I do not think that there is further scanning, which would change the management at this point. HISTORY OF PRESENT ILLNESS: A 60-year-old male with diabetes and left heel wound, now with worsenin g left heel pain, swelling and redness. He had been on IV cefepime for a few weeks followed by oral antibiotics and then over about the last 3 to 4 days, he started to get redness, pain, and swelling around the wound that seemed to develop he feels after removal of the cast, that seemed to help whe n it was on as far as wound healing goes. Because of those symptoms, he was seen in the wound clini c. He was directed to the ER on the . The wound culture was taken. A Gram stain showed gram-po sitive cocci and gram-negative bacilli that is growing Enterobacter. The PCR was positive for Staph aureus and MRSA. He was started on antibiotics. He has had some improvement in redness and swelli ng as well as pain, but was quite severe. He has had no fever, chills, or sweats. An ultrasound wa s negative for DVT. PAST MEDICAL HISTORY: 1. Diabetes. 2. Peripheral neuropathy. 3. Chronic left calcaneal ulceration and osteomyelitis. 4. Hypertension. 5. Lymphedema bilaterally. 6. Chronic back pain. 7. COPD. 8. Obstructive sleep apnea. 9. Status post right toe partial amputation. 10. Status post partial gastrectomy. 11. Status post bilateral knee arthroscopies. ALLERGIES: No known drug allergies. HOME MEDICATIONS: 1. Tylenol. 2. Albuterol. 3. Atenolol. 4. Lipitor. 5. Suboxone. 6. Cefepime 2 g every 12 hours. 7. Insulin glargine. 8. Ketorolac. 9. Lisinopril. 10. Omeprazole. 11. Vancomycin 1250 mg every 8 hours. SOCIAL HISTORY: He lives in [place]. No travel. No sick contacts. FAMILY HISTORY: No recurrent infections. REVIEW OF SYSTEMS: All negative except as noted above. PHYSICAL EXAMINATION: Vital Signs: Temperature is 36.7, heart rate 80, respiratory rate 14, blood pressure 150/80, O2 sat 95% on room air. General: He is awake, not in distress. Neurologic: He i s oriented x3. Follows all commands. He has decreased sensation to light touch in both feet bilater ally. HEENT: There is no conjunctival hemorrhage. Oropharynx without lesions. Neck was supple wi thout nuchal rigidity. Lymph nodes: There is no cervical, supraclavicular, inguinal, axillary or e pitrochlear lymphadenopathy. Heart: Regular rate and rhythm without murmurs, rubs, or gallops. Debbie ngs are clear to auscultation bilaterally. Abdomen: Soft, nontender, and obese. Skin: There is no rash or splinter hemorrhages. Musculoskeletal: There is no spine tenderness to palpation. There i s a left calcaneal ulcer with underlying granulation tissue. There is no foul drainage. Edges are without necrotic tissue. There is erythema extending from the heel up to the ankle and lower leg wi th tenderness. No fluctuance or crepitus. Extremities: There was no lower extremity edema. DP an d PT pulses were 2+ and symmetric. DIAGNOSTIC STUDIES/LABORATORY DATA: White blood cell count is 7, hemoglobin 10, platelets 257, crea tinine is 0.7. CRP was 40. Blood cultures are negative. Please see impression and recommendations as outlined above. Thanks for asking me to see Mr. Cosby in consultation. [id number]/[facility] #: [id number]
[2016-08-09] MEDS ORDERED: Calcium Carbonate CHEW TAB* 500 MG (TUMS) PO ONE (22:19)
[2016-08-09] MEDS ORDERED: PROCHLORPERAZINE INJ 5 MG/ML 2 ML VIAL IV PRN (22:19)
[2016-08-10] MEDS: Ketorolac INJ* 30 MG/ML 1 ML VIAL IV PUSH PRN ×3 (00:42→19:54)
[2016-08-10] MEDS: Vancomycin(*) 1,250 MG in NS 0.9% 250 ML* 250 ML IVPB SCH ×3 (00:42→17:27)
[2016-08-10] MEDS: Ondansetron INJ* 2 MG/ML VIAL IV PRN ×4 (00:43→19:54)
[2016-08-10] MEDS: oxyCODONE/Acetamin 5/325 MG* TAB PO PRN ×6 (00:47→23:47)
[2016-08-10] MEDS ORDERED: Calcium Carbonate CHEW TAB* 500 MG (TUMS) ONE (02:10)
[2016-08-10] MEDS: Calcium Carbonate CHEW TAB* 500 MG (TUMS) PO PRN ×5 (02:12→21:39)
[2016-08-10] MEDS: Cefepime(*) 2 GM in NS 0.9% 50 ML* 50 ML IVPB SCH ×2 (03:28→15:07)
[2016-08-10] MEDS: Heparin VIAL(*) 5000 UNITS/ML VIAL (FIVE THOUSAND) SUBCUT SCH ×3 (05:06→21:28)
[2016-08-10] MEDS: Omeprazole CAP* 20 MG PO SCH (07:19)
[2016-08-10] MEDS: Atenolol TAB* 50 MG PO SCH (08:47)
[2016-08-10] MEDS: Buprenorphine/Naloxone 8-2 MG SL TAB* 1 TAB SL SCH ×2 (08:47→21:21)
[2016-08-10] MEDS: Atorvastatin* 80 MG TAB PO SCH (08:47)
[2016-08-10] MEDS: Insulin LISPRO* 1 UNITS UNIT SUBCUT SCH ×3 (08:48→17:28)
[2016-08-10] MEDS: Insulin GLARGINE(*) 1 UNITS UNIT SUBCUT SCH ×2 (08:48→21:22)
[2016-08-10] MEDS: Lisinopril TAB* 10 MG PO SCH (08:48)
[2016-08-10 09:00] LABS: BUN/Creatinine Ratio 25.7 (8-20); Calcium 8.7 mg/dL (8.6-10.3); EGFR Non-African American 72.3 (>60); Potassium 4.5 mmol/L (3.5-5.0)
[2016-08-10] MEDS ORDERED: Vancomycin Trough Check NOTE FOLLOW UP ONE (09:00)
[2016-08-10 09:21] LABS: Hematocrit 34 % (42-52); Hemoglobin 11.1 g/dl (14.0-18.0); Mean Corpuscular HGB Conc 32 g/dl (31-36); Mean Corpuscular Hemoglobin 27 pg (27-31); Mean Corpuscular Volume 83 fL (80-94); Mean Platelet Volume 8 um3 (7.4-10.4); Red Blood Count 4.13 10^6/ul (4.0-5.4); Red Cell Distribution Width 16 % (10.5-15); White Blood Count 6.4 10^3/ul (3.5-10.8)
--- NOTE | 2016-08-10 12:43 | PN ---
Subjective Date of Service: 08/10/16 Interval History: Pt reports he feels better today, less LE pain. Denies fever or chills. No N/V/ D. Objective Active Medications: Acetaminophen (Tylenol Tab*) 650 mg PO Q4H PRN PRN Reason: FEVER/PAIN Albuterol (Ventolin 2.5 Mg/3 Ml Neb.Malissa*) 2.5 mg INH Q2H PRN PRN Reason: SOB/WHEEZING Atenolol (Tenormin Tab*) 50 mg PO QAM [facility] Last Admin: 08/10/16 08:47 Dose: 50 mg Atorvastatin Calcium (Lipitor*) 80 mg PO DAILY [facility] Last Admin: 08/10/16 08:47 Dose: 80 mg Buprenorphine/Naloxone (Suboxone 8-2 Mg Sl Tab*) 0.5 tab.sl SL BID [facility] Last Admin: 08/10/16 08:47 Dose: 0.5 tab.sl Calcium Carbonate (Tums*) 1,000 mg PO Q4H PRN PRN Reason: INDIGESTION Last Admin: 08/10/16 07:19 Dose: 1,000 mg Cholecalciferol (Vitamin D Tab*) 400 unit PO DAILY [facility] Dextrose (D50w Syringe 50 Ml*) 12.5 gm IV PUSH .FOR FS < 60 - SS PRN PRN Reason: FS < 60 Heparin Sodium (Porcine) (Heparin Vial(*)) 5,000 units SUBCUT Q8HR [facility] Last Admin: 08/10/16 05:06 Dose: 5,000 units Cefepime HCl 2 gm/ Sodium (Chloride) 50 mls @ 100 mls/hr IVPB 0300,1500 [facility] Last Admin: 08/10/16 03:28 Dose: 100 mls/hr Vancomycin HCl 1,250 mg/ (Sodium Chloride) 250 mls @ 166.667 mls/hr IVPB Q8H [facility] Last Admin: 08/10/16 10:47 Dose: 166.667 mls/hr Insulin Glargine (Lantus(*)) 45 units SUBCUT BID [facility] Last Admin: 08/10/16 08:48 Dose: 45 units Insulin Human Lispro (Humalog*) 0 units SUBCUT AC [facility] PRN Reason: Protocol Last Admin: 08/10/16 08:48 Dose: 9 units Ketorolac Tromethamine (Toradol Inj*) 30 mg IV PUSH Q6H PRN PRN Reason: PAIN Last Admin: 08/10/16 10:48 Dose: 30 mg Lactobacillus Rhamnosus (Culturelle*) 1 cap PO BID [facility] Lisinopril (Prinivil Tab*) 30 mg PO DAILY [facility] Last Admin: 08/10/16 08:48 Dose: 30 mg Multivitamins/Minerals (Theragran/Minerals Tab*) 1 tab PO DAILY [facility] Omeprazole (Prilosec Cap*) 20 mg PO DAILY@0730 [facility] Last Admin: 08/10/16 07:19 Dose: 20 mg Ondansetron HCl (Zofran Inj*) 4 mg IV Q6H PRN PRN Reason: NAUSEA Last Admin: 08/10/16 05:27 Dose: 4 mg Oxycodone/Acetaminophen (Percocet 5/325 Tab*) 2 tab PO Q4H PRN PRN Reason: PAIN Last Admin: 08/10/16 09:53 Dose: 2 tab Pharmacy Consult (Vancomycin Per Pharmacy*) 1 note FOLLOW UP . PRN PRN Reason: PER PROTOCOL Prochlorperazine Edisylate (Compazine Inj*) 5 mg IV Q6H PRN PRN Reason: NAUSEA/VOMITING Last Admin: 08/09/16 22:49 Dose: 5 mg Vitamin B Complex/Vitamin E (Complex B-100*) 1 tab PO DAILY [facility] Vital Signs 08/09/16 08/09/16 08/09/16 13:34 15:46 16:21 Temperature 98.9 F Pulse Rate 68 Respiratory 16 14 17 Rate Blood Pressure 128/67 (mmHg) O2 Sat by Pulse 96 Oximetry 08/09/16 08/09/16 08/09/16 17:46 20:00 21:02 Temperature Pulse Rate Respiratory 14 18 18 Rate Blood Pressure (mmHg) O2 Sat by Pulse Oximetry 08/09/16 08/09/16 08/09/16 21:03 21:39 23:02 Temperature 97.8 F Pulse Rate 67 Respiratory 18 16 18 Rate Blood Pressure 115/60 (mmHg) O2 Sat by Pulse 96 Oximetry 08/09/16 08/10/16 08/10/16 23:22 00:47 02:47 Temperature 98.8 F Pulse Rate 69 Respiratory 20 18 16 Rate Blood Pressure 129/75 (mmHg) O2 Sat by Pulse 93 Oximetry 08/10/16 08/10/16 08/10/16 05:04 07:04 08:00 Temperature Pulse Rate Respiratory 18 16 16 Rate Blood Pressure (mmHg) O2 Sat by Pulse 92 Oximetry 08/10/16 08/10/16 08/10/16 08:47 09:53 09:54 Temperature Pulse Rate 71 Respiratory 16 16 Rate Blood Pressure 114/62 (mmHg) O2 Sat by Pulse 91 Oximetry 08/10/16 08/10/16 08/10/16 09:58 10:47 11:14 Temperature 98.9 F Pulse Rate 68 63 Respiratory 14 16 14 Rate Blood Pressure 112/59 (mmHg) O2 Sat by Pulse 94 92 Oximetry 08/10/16 11:53 Temperature Pulse Rate Respiratory 16 Rate Blood Pressure (mmHg) O2 Sat by Pulse Oximetry Oxygen Devices in Use Now: None Appearance: morbidly obese male sitting up in a chair in NAD. A+O x3 Eyes: No Scleral Icterus, PERRLA Ears/Nose/Mouth/Throat: NL Teeth, Lips, Gums, Mucous Membranes Moist Neck: NL Appearance and Movements; NL JVP Respiratory: Symmetrical Chest Expansion and Respiratory Effort, Clear to Auscultation Cardiovascular: NL Sounds; No Murmurs; No JVD, RRR Abdominal: - - obese, round, soft, nontender Skin: - - B/L LE's wrapped with dressings and denise wraps Neurological: Alert and Oriented x 3, NL Sensation, NL Muscle Strength and Tone Lines/Tubes/Other Access: Clean, Dry and Intact Peripheral IV Nutrition: Taking PO's Result Diagrams: 08/10/16 09:00 08/10/16 08:23 Additional Lab and Data: Lab Results 08/08/16 08/08/16 08/08/16 Range/Units 10:10 10:29 10:29 WBC 9.4 (3.5-10.8) 10^3/ul RBC 4.42 (4.0-5.4) 10^6/ul Hgb 11.7 L (14.0-18.0) g/dl Hct 36 L (42-52) % MCV 82 (80-94) fL MCH 27 (27-31) pg MCHC 33 (31-36) g/dl RDW 16 H (10.5-15) % Plt Count 326 (150-450) 10^3/ul MPV 8 (7.4-10.4) um3 Neut % (Auto) 74.1 (38-83) % Lymph % (Auto) 13.5 L (25-47) % [place] % (Auto) 10.0 H (1-9) % Eos % (Auto) 1.9 (0-6) % Baso % (Auto) 0.5 (0-2) % Absolute Neuts (auto) 7.0 (1.5-7.7) 10^3/ul Absolute Lymphs (auto) 1.3 (1.0-4.8) 10^3/ul Absolute Monos (auto) 0.9 H (0-0.8) 10^3/ul Absolute Eos (auto) 0.2 (0-0.6) 10^3/ul Absolute Basos (auto) 0 (0-0.2) 10^3/ul Absolute Nucleated RBC 0 10^3/ul Nucleated RBC % 0 ESR 94 H (0-20) mm/Hr INR (Anticoag Therapy) 0.98 (0.89-1.11) APTT 30.6 (26.0-36.3) seconds Sodium (133-145) mmol/L Potassium (3.5-5.0) mmol/L Chloride (101-111) mmol/L Carbon Dioxide (22-32) mmol/L Anion Gap (2-11) mmol/L BUN (6-24) mg/dL Creatinine (0.67-1.17) mg/dL Est GFR ( Amer) (>60) Est GFR (Non-Af Amer) (>60) BUN/Creatinine Ratio (8-20) Glucose (70-100) mg/dL Lactic Acid (0.5-2.0) mmol/L Calcium (8.6-10.3) mg/dL Total Bilirubin (0.2-1.0) mg/dL AST (13-39) U/L ALT (7-52) U/L Alkaline Phosphatase (34-104) U/L Total Creatine Kinase (10-223) U/L Troponin I (<0.04) ng/mL C-Reactive Protein (< 5.00) mg/L Total Protein (6.4-8.9) g/dL Albumin (3.2-5.2) g/dL Globulin (2-4) g/dL Albumin/Globulin Ratio (1-3) Urine Color Straw Urine Appearance Clear Urine pH 7.0 (5-9) Ur Specific [place] 1.008 L (1.010-1.030) Urine Protein Negative (Negative) Urine Ketones Negative (Negative) Urine Blood Negative (Negative) Urine Nitrate Negative (Negative) Urine Bilirubin Negative (Negative) Urine Urobilinogen Negative (Negative) Ur Leukocyte Esterase Negative (Negative) Urine Glucose Negative (Negative) 08/08/16 08/08/16 Range/Units 10:29 10:29 WBC (3.5-10.8) 10^3/ul RBC (4.0-5.4) 10^6/ul Hgb (14.0-18.0) g/dl Hct (42-52) % MCV (80-94) fL MCH (27-31) pg MCHC (31-36) g/dl RDW (10.5-15) % Plt Count (150-450) 10^3/ul MPV (7.4-10.4) um3 Neut % (Auto) (38-83) % Lymph % (Auto) (25-47) % [place] % (Auto) (1-9) % Eos % (Auto) (0-6) % Baso % (Auto) (0-2) % Absolute Neuts (auto) (1.5-7.7) 10^3/ul Absolute Lymphs (auto) (1.0-4.8) 10^3/ul Absolute Monos (auto) (0-0.8) 10^3/ul Absolute Eos (auto) (0-0.6) 10^3/ul Absolute Basos (auto) (0-0.2) 10^3/ul Absolute Nucleated RBC 10^3/ul Nucleated RBC % ESR (0-20) mm/Hr INR (Anticoag Therapy) (0.89-1.11) APTT (26.0-36.3) seconds Sodium 136 (133-145) mmol/L Potassium 3.4 L (3.5-5.0) mmol/L Chloride 94 L (101-111) mmol/L Carbon Dioxide 38 H (22-32) mmol/L Anion Gap 4 (2-11) mmol/L BUN 17 (6-24) mg/dL Creatinine 0.81 (0.67-1.17) mg/dL Est GFR ( Amer) 125.4 (>60) Est GFR (Non-Af Amer) 97.5 (>60) BUN/Creatinine Ratio 21.0 H (8-20) Glucose 61 L (70-100) mg/dL Lactic Acid 1.4 (0.5-2.0) mmol/L Calcium 9.7 (8.6-10.3) mg/dL Total Bilirubin 0.40 (0.2-1.0) mg/dL AST 10 L (13-39) U/L ALT 13 (7-52) U/L Alkaline Phosphatase 77 (34-104) U/L Total Creatine Kinase 37 (10-223) U/L Troponin I 0.01 (<0.04) ng/mL C-Reactive Protein 43.41 H (< 5.00) mg/L Total Protein 8.1 (6.4-8.9) g/dL Albumin 3.8 (3.2-5.2) g/dL Globulin 4.3 H (2-4) g/dL Albumin/Globulin Ratio 0.9 L (1-3) Urine Color Urine Appearance Urine pH (5-9) Ur Specific [place] (1.010-1.030) Urine Protein (Negative) Urine Ketones (Negative) Urine Blood (Negative) Urine Nitrate (Negative) Urine Bilirubin (Negative) Urine Urobilinogen (Negative) Ur Leukocyte Esterase (Negative) Urine Glucose (Negative) Assess/Plan/Problems-Billing Assessment: 60 yo male with a PMH of morbid obesity s/p sleeve gastrectomy, Diabetes, COPD, lymphedema, pre-existing L heel ulcer with osteo for which he recently finished 6 weeks of IV abx followed by Dr. Mosqueda (off abx for 2-3 weeks) also followed by wound clinic who started him on Doxy 2 days ago who presented 08/08 with increased LLE redness and pain sent from wound clinic - Patient Problems (1) Cellulitis Comment: - with chronic osteomyelitis and non-healing DM ulcer - recent 6 weeks of IV abx , followed by ID as outpt. - Surgery consulted stating no need for wound debridment at this time. - wound cx MRSA positive. Blood cx negative day 1. - c/w vanco, cefepime - ID following, (2) Chronic pain Comment: - suboxone started a few months ago per pt pain clinic has been weaning down narcotics. - Patient continues to report a lot of pain. Continue Pecocet prn. (3) HTN (hypertension) Comment: controlled c/w lisinopril, Atenolol. (4) Type 2 diabetes mellitus Comment: Continues to have high blood sugars, slightly improved today Continue increased Lantus 45 units BID and lantus sliding scale (5) History of hypertension Comment: - continue lisinopril, atenolol (6) Lymphedema Comment: - denise wraps and elevation to LE's (7) Full code status (8) DVT prophylaxis Comment: HSQ Status and Disposition: inpatient requiring IV antibiotics. Estimated LOS > 2 days.
[2016-08-10] MEDS ORDERED: NS 0.9% 1000 ML* 1,000 ML IV SCH (12:45)
[2016-08-10] MEDS: Lactobacillus Acidophilu (GG)* 1 CAP CAP PO SCH (21:23)
[2016-08-11] MEDS: Calcium Carbonate CHEW TAB* 500 MG (TUMS) PO PRN ×4 (02:00→22:43)
[2016-08-11] MEDS: Vancomycin(*) 1,250 MG in NS 0.9% 250 ML* 250 ML IVPB SCH ×3 (02:30→17:22)
[2016-08-11] MEDS: Ketorolac INJ* 30 MG/ML 1 ML VIAL IV PUSH PRN ×3 (02:40→22:47)
[2016-08-11] MEDS: Cefepime(*) 2 GM in NS 0.9% 50 ML* 50 ML IVPB SCH ×2 (04:30→15:01)
[2016-08-11] MEDS: oxyCODONE/Acetamin 5/325 MG* TAB PO PRN ×4 (05:26→20:32)
[2016-08-11] MEDS: Heparin VIAL(*) 5000 UNITS/ML VIAL (FIVE THOUSAND) SUBCUT SCH ×3 (05:40→20:34)
[2016-08-11] MEDS: Lisinopril TAB* 10 MG PO SCH (07:53)
[2016-08-11] MEDS: Multivitamins/Minerals TAB PO SCH (07:54)
[2016-08-11] MEDS: Cholecalciferol TAB* 400 UNIT PO SCH (07:54)
[2016-08-11] MEDS: Atenolol TAB* 50 MG PO SCH (07:54)
[2016-08-11] MEDS: Atorvastatin* 80 MG TAB PO SCH (07:54)
[2016-08-11] MEDS: Buprenorphine/Naloxone 8-2 MG SL TAB* 1 TAB SL SCH ×2 (07:54→20:32)
[2016-08-11] MEDS: Omeprazole CAP* 20 MG PO SCH (07:55)
[2016-08-11] MEDS: Insulin LISPRO* 1 UNITS UNIT SUBCUT SCH ×3 (07:55→16:56)
[2016-08-11 08:03] LABS: BUN/Creatinine Ratio 27.4 (8-20); Calcium 8.8 mg/dL (8.6-10.3); EGFR African American 104.4 (>60); EGFR Non-African American 81.1 (>60); Potassium 4.8 mmol/L (3.5-5.0)
[2016-08-11 08:05] LABS: Hematocrit 34 % (42-52); Hemoglobin 10.8 g/dl (14.0-18.0); Mean Corpuscular HGB Conc 32 g/dl (31-36); Mean Corpuscular Hemoglobin 27 pg (27-31); Mean Corpuscular Volume 83 fL (80-94); Mean Platelet Volume 8 um3 (7.4-10.4); Red Blood Count 4.07 10^6/ul (4.0-5.4); Red Cell Distribution Width 16 % (10.5-15)
[2016-08-11] MEDS ORDERED: NS 0.9% 250 ML* 250 ML ONE (09:39)
[2016-08-11] MEDS: Insulin GLARGINE(*) 1 UNITS UNIT SUBCUT SCH ×2 (09:44→20:34)
[2016-08-11] MEDS: Vitamin B Complex TAB PO SCH (09:45)
[2016-08-11] MEDS: Lactobacillus Acidophilu (GG)* 1 CAP CAP PO SCH ×2 (09:45→20:41)
--- NOTE | 2016-08-11 09:48 | PN ---
Subjective Date of Service: 08/11/16 Interval History: Patient reports he feels "much, much better and has a lot less pain". Reports less LE swelling. Denies fever or chills. No SOB or CP. Reports good appetite. No N/V/D or rash noted. Objective Active Medications: Acetaminophen (Tylenol Tab*) 650 mg PO Q4H PRN PRN Reason: FEVER/PAIN Albuterol (Ventolin 2.5 Mg/3 Ml Neb.Malissa*) 2.5 mg INH Q2H PRN PRN Reason: SOB/WHEEZING Atenolol (Tenormin Tab*) 50 mg PO QAM [facility] Last Admin: 08/11/16 07:54 Dose: 50 mg Atorvastatin Calcium (Lipitor*) 80 mg PO DAILY [facility] Last Admin: 08/11/16 07:54 Dose: 80 mg Buprenorphine/Naloxone (Suboxone 8-2 Mg Sl Tab*) 0.5 tab.sl SL BID [facility] Last Admin: 08/11/16 07:54 Dose: 0.5 tab.sl Calcium Carbonate (Tums*) 1,000 mg PO Q4H PRN PRN Reason: INDIGESTION Last Admin: 08/11/16 05:40 Dose: 1,000 mg Cholecalciferol (Vitamin D Tab*) 400 unit PO DAILY [facility] Last Admin: 08/11/16 07:54 Dose: 400 unit Dextrose (D50w Syringe 50 Ml*) 12.5 gm IV PUSH .FOR FS < 60 - SS PRN PRN Reason: FS < 60 Heparin Sodium (Porcine) (Heparin Vial(*)) 5,000 units SUBCUT Q8HR [facility] Last Admin: 08/11/16 05:40 Dose: 5,000 units Cefepime HCl 2 gm/ Sodium (Chloride) 50 mls @ 100 mls/hr IVPB 0300,1500 [facility] Last Admin: 08/11/16 04:30 Dose: 100 mls/hr Vancomycin HCl 1,250 mg/ (Sodium Chloride) 250 mls @ 166.667 mls/hr IVPB Q8H [facility] Last Admin: 08/11/16 02:30 Dose: 166.667 mls/hr Insulin Glargine (Lantus(*)) 45 units SUBCUT BID [facility] Last Admin: 08/10/16 21:22 Dose: 45 units Insulin Human Lispro (Humalog*) 0 units SUBCUT AC [facility] PRN Reason: Protocol Last Admin: 08/11/16 07:55 Dose: 9 units Ketorolac Tromethamine (Toradol Inj*) 30 mg IV PUSH Q6H PRN PRN Reason: PAIN Last Admin: 08/11/16 02:40 Dose: 30 mg Lactobacillus Rhamnosus (Culturelle*) 1 cap PO BID [facility] Last Admin: 08/10/16 21:23 Dose: 1 cap Lisinopril (Prinivil Tab*) 30 mg PO DAILY [facility] Last Admin: 08/11/16 07:53 Dose: 30 mg Multivitamins/Minerals (Theragran/Minerals Tab*) 1 tab PO DAILY [facility] Last Admin: 08/11/16 07:54 Dose: 1 tab Omeprazole (Prilosec Cap*) 20 mg PO DAILY@0730 [facility] Last Admin: 08/11/16 07:55 Dose: 20 mg Ondansetron HCl (Zofran Inj*) 4 mg IV Q6H PRN PRN Reason: NAUSEA Last Admin: 08/10/16 19:54 Dose: 4 mg Oxycodone/Acetaminophen (Percocet 5/325 Tab*) 2 tab PO Q4H PRN PRN Reason: PAIN Last Admin: 08/11/16 05:26 Dose: 2 tab Pharmacy Consult (Vancomycin Per Pharmacy*) 1 note FOLLOW UP . PRN PRN Reason: PER PROTOCOL Pharmacy Profile Note (Vancomycin Trough Check) 1 note FOLLOW UP .ENTER TIME ONE Stop: 08/12/16 09:01 Prochlorperazine Edisylate (Compazine Inj*) 5 mg IV Q6H PRN PRN Reason: NAUSEA/VOMITING Last Admin: 08/09/16 22:49 Dose: 5 mg Vitamin B Complex/Vitamin E (Complex B-100*) 1 tab PO DAILY [facility] 08/10/16 08/10/16 08/10/16 22:54 23:21 23:22 Temperature 97.9 F Pulse Rate 59 Respiratory 16 16 16 Rate Blood Pressure 129/78 (mmHg) O2 Sat by Pulse 96 Oximetry 08/10/16 08/11/16 08/11/16 23:47 00:28 01:47 Temperature Pulse Rate Respiratory 16 16 Rate Blood Pressure (mmHg) O2 Sat by Pulse 97 Oximetry 08/11/16 08/11/16 08/11/16 05:26 07:29 07:54 Temperature 98.1 F Pulse Rate 59 Respiratory 16 18 19 Rate Blood Pressure 143/83 (mmHg) O2 Sat by Pulse 96 Oximetry Oxygen Devices in Use Now: None Appearance: morbidly obese male sitting up in a chair in NAD. A+O x3 Eyes: No Scleral Icterus, PERRLA Ears/Nose/Mouth/Throat: NL Teeth, Lips, Gums, Mucous Membranes Moist Neck: NL Appearance and Movements; NL JVP Respiratory: Symmetrical Chest Expansion and Respiratory Effort, Clear to Auscultation Cardiovascular: NL Sounds; No Murmurs; No JVD, RRR Abdominal: NL Sounds; No Tenderness; No Distention, - - obese, soft, nontender Extremities: No Clubbing, Cyanosis Skin: - - BLE are wrapped with CD+I dressing - just evaluated by ID - did not take off dressings Neurological: Alert and Oriented x 3, NL Sensation, NL Muscle Strength and Tone Lines/Tubes/Other Access: Clean, Dry and Intact Peripheral IV Nutrition: Taking PO's Result Diagrams: 08/11/16 06:04 08/11/16 06:04 Additional Lab and Data: Lab Results 08/08/16 08/08/16 08/08/16 Range/Units 10:10 10:29 10:29 WBC 9.4 (3.5-10.8) 10^3/ul RBC 4.42 (4.0-5.4) 10^6/ul Hgb 11.7 L (14.0-18.0) g/dl Hct 36 L (42-52) % MCV 82 (80-94) fL MCH 27 (27-31) pg MCHC 33 (31-36) g/dl RDW 16 H (10.5-15) % Plt Count 326 (150-450) 10^3/ul MPV 8 (7.4-10.4) um3 Neut % (Auto) 74.1 (38-83) % Lymph % (Auto) 13.5 L (25-47) % [place] % (Auto) 10.0 H (1-9) % Eos % (Auto) 1.9 (0-6) % Baso % (Auto) 0.5 (0-2) % Absolute Neuts (auto) 7.0 (1.5-7.7) 10^3/ul Absolute Lymphs (auto) 1.3 (1.0-4.8) 10^3/ul Absolute Monos (auto) 0.9 H (0-0.8) 10^3/ul Absolute Eos (auto) 0.2 (0-0.6) 10^3/ul Absolute Basos (auto) 0 (0-0.2) 10^3/ul Absolute Nucleated RBC 0 10^3/ul Nucleated RBC % 0 ESR 94 H (0-20) mm/Hr INR (Anticoag Therapy) 0.98 (0.89-1.11) APTT 30.6 (26.0-36.3) seconds Sodium (133-145) mmol/L Potassium (3.5-5.0) mmol/L Chloride (101-111) mmol/L Carbon Dioxide (22-32) mmol/L Anion Gap (2-11) mmol/L BUN (6-24) mg/dL Creatinine (0.67-1.17) mg/dL Est GFR ( Amer) (>60) Est GFR (Non-Af Amer) (>60) BUN/Creatinine Ratio (8-20) Glucose (70-100) mg/dL Lactic Acid (0.5-2.0) mmol/L Calcium (8.6-10.3) mg/dL Total Bilirubin (0.2-1.0) mg/dL AST (13-39) U/L ALT (7-52) U/L Alkaline Phosphatase (34-104) U/L Total Creatine Kinase (10-223) U/L Troponin I (<0.04) ng/mL C-Reactive Protein (< 5.00) mg/L Total Protein (6.4-8.9) g/dL Albumin (3.2-5.2) g/dL Globulin (2-4) g/dL Albumin/Globulin Ratio (1-3) Urine Color Straw Urine Appearance Clear Urine pH 7.0 (5-9) Ur Specific [place] 1.008 L (1.010-1.030) Urine Protein Negative (Negative) Urine Ketones Negative (Negative) Urine Blood Negative (Negative) Urine Nitrate Negative (Negative) Urine Bilirubin Negative (Negative) Urine Urobilinogen Negative (Negative) Ur Leukocyte Esterase Negative (Negative) Urine Glucose Negative (Negative) 04/17/17 04/17/17 Range/Units 10:29 10:29 WBC (3.5-10.8) 10^3/ul RBC (4.0-5.4) 10^6/ul Hgb (14.0-18.0) g/dl Hct (42-52) % MCV (80-94) fL MCH (27-31) pg MCHC (31-36) g/dl RDW (10.5-15) % Plt Count (150-450) 10^3/ul MPV (7.4-10.4) um3 Neut % (Auto) (38-83) % Lymph % (Auto) (25-47) % [place] % (Auto) (1-9) % Eos % (Auto) (0-6) % Baso % (Auto) (0-2) % Absolute Neuts (auto) (1.5-7.7) 10^3/ul Absolute Lymphs (auto) (1.0-4.8) 10^3/ul Absolute Monos (auto) (0-0.8) 10^3/ul Absolute Eos (auto) (0-0.6) 10^3/ul Absolute Basos (auto) (0-0.2) 10^3/ul Absolute Nucleated RBC 10^3/ul Nucleated RBC % ESR (0-20) mm/Hr INR (Anticoag Therapy) (0.89-1.11) APTT (26.0-36.3) seconds Sodium 136 (133-145) mmol/L Potassium 3.4 L (3.5-5.0) mmol/L Chloride 94 L (101-111) mmol/L Carbon Dioxide 38 H (22-32) mmol/L Anion Gap 4 (2-11) mmol/L BUN 17 (6-24) mg/dL Creatinine 0.81 (0.67-1.17) mg/dL Est GFR ( Amer) 125.4 (>60) Est GFR (Non-Af Amer) 97.5 (>60) BUN/Creatinine Ratio 21.0 H (8-20) Glucose 61 L (70-100) mg/dL Lactic Acid 1.4 (0.5-2.0) mmol/L Calcium 9.7 (8.6-10.3) mg/dL Total Bilirubin 0.40 (0.2-1.0) mg/dL AST 10 L (13-39) U/L ALT 13 (7-52) U/L Alkaline Phosphatase 77 (34-104) U/L Total Creatine Kinase 37 (10-223) U/L Troponin I 0.01 (<0.04) ng/mL C-Reactive Protein 43.41 H (< 5.00) mg/L Total Protein 8.1 (6.4-8.9) g/dL Albumin 3.8 (3.2-5.2) g/dL Globulin 4.3 H (2-4) g/dL Albumin/Globulin Ratio 0.9 L (1-3) Urine Color Urine Appearance Urine pH (5-9) Ur Specific [place] (1.010-1.030) Urine Protein (Negative) Urine Ketones (Negative) Urine Blood (Negative) Urine Nitrate (Negative) Urine Bilirubin (Negative) Urine Urobilinogen (Negative) Ur Leukocyte Esterase (Negative) Urine Glucose (Negative) Assess/Plan/Problems-Billing Assessment: 60 yo male with a PMH of morbid obesity s/p sleeve gastrectomy, Diabetes, COPD, lymphedema, pre-existing L heel ulcer with osteo for which he recently finished 6 weeks of IV abx followed by Dr. Mosqueda (off abx for 2-3 weeks) also followed by wound clinic who started him on Doxy 2 days ago who presented 08/08 with increased LLE redness and pain sent from wound clinic - Patient Problems (1) Cellulitis Comment: - with chronic osteomyelitis and non-healing DM ulcer - recent 6 weeks of IV abx , followed by ID and wound clinic as outpt. - Surgery consulted stating no need for wound debridment at this time. - wound cx growing MRSA, enterobacter & enterococcus . Blood cx negative - c/w vanco, cefepime - ID following. Plan for PICC with plan to send home with Vanco for a few weeks. (2) Chronic pain Comment: - suboxone started a few months ago per pt pain clinic has been weaning down narcotics. - Patient continues to report a lot of pain. Continue Pecocet prn. (3) HTN (hypertension) Comment: controlled c/w lisinopril, Atenolol. (4) Type 2 diabetes mellitus Comment: Continues to have high blood sugars, slightly improved today Increased Lantus 50 units BID and lantus sliding scale (5) History of hypertension Comment: - continue lisinopril, atenolol (6) Lymphedema Comment: - denise wraps and elevation to LE's (7) Full code status (8) DVT prophylaxis Comment: HSQ Status and Disposition: inpatient requiring IV antibiotics. Estimated LOS > 2 days.
--- NOTE | 2016-08-11 10:54 | PN ---
Progress Note - Progress Note SOAP: Subjective: DOS: 08/11/16 CC: left leg infection HPI: 60 year old man with chronic left calcaneous ulcer,recently treated for osteomyelitis, now with heel pain up to calf with diffuse erythema and swelling. Improved on antibiotics, pain, redness, swelling better. No fever, rash, or diarrhea. Objective: [] Vital Signs Temp 36.7 C 08/11/16 07:29 Pulse 59 08/11/16 07:29 Resp 20 08/11/16 10:14 BP 143/83 08/11/16 07:29 Pulse Ox 96 08/11/16 07:29 Intake & Output 08/10/16 08/11/16 08/11/16 18:59 06:59 18:59 Intake Total 3160 2337 350 Output Total 400 2100 Balance 2760 237 350 Intake: IV Fluids 1035 NS (0.9%) 1035 IVPB 300 722 ABX - CEFEPIME 50 ABX - VANCOMYCIN 250 NS (0.9%) 722 Oral 2860 580 350 Output: Urine 400 2100 Other: Estimated Void Medium Medium # Bowel Movements 0 Estimated Stool Amount Large # Voids 1 Gen:awake, no distress HEENT:PERRL, MMM Neck:supple Heart:RRR no murmur Lungs:CTA BL Abd:+BS NTND soft Skin: no rash MSK: left heel ulcer, erythema decreased in intensity up the leg and receded from thigh BL non pitting edema Laboratory Results - last 24 hr 08/10/16 08/10/16 08/10/16 12:22 12:43 16:58 WBC RBC Hgb Hct MCV MCH MCHC RDW Plt Count MPV Neut % (Auto) Lymph % (Auto) [place] % (Auto) Eos % (Auto) Baso % (Auto) Absolute Neuts (auto) Absolute Lymphs (auto) Absolute Monos (auto) Absolute Eos (auto) Absolute Basos (auto) Absolute Nucleated RBC Nucleated RBC % Sodium Potassium Chloride Carbon Dioxide Anion Gap BUN Creatinine Est GFR ( Amer) Est GFR (Non-Af Amer) BUN/Creatinine Ratio Glucose 356 H POC Glucose (mg/dL) 414 H* 335 H Calcium 08/10/16 08/11/16 08/11/16 21:11 06:04 06:04 WBC 6.0 RBC 4.07 Hgb 10.8 L Hct 34 L MCV 83 MCH 27 MCHC 32 RDW 16 H Plt Count 227 MPV 8 Neut % (Auto) 72.6 Lymph % (Auto) 11.1 L [place] % (Auto) 9.8 H Eos % (Auto) 5.9 Baso % (Auto) 0.6 Absolute Neuts (auto) 4.4 Absolute Lymphs (auto) 0.7 L Absolute Monos (auto) 0.6 Absolute Eos (auto) 0.4 Absolute Basos (auto) 0 Absolute Nucleated RBC 0.01 Nucleated RBC % 0.2 Sodium 132 L Potassium 4.8 Chloride 96 L Carbon Dioxide 30 Anion Gap 6 BUN 26 H Creatinine 0.95 Est GFR ( Amer) 104.4 Est GFR (Non-Af Amer) 81.1 BUN/Creatinine Ratio 27.4 H Glucose 175 H POC Glucose (mg/dL) 259 H Calcium 8.8 08/11/16 07:32 WBC RBC Hgb Hct MCV MCH MCHC RDW Plt Count MPV Neut % (Auto) Lymph % (Auto) [place] % (Auto) Eos % (Auto) Baso % (Auto) Absolute Neuts (auto) Absolute Lymphs (auto) Absolute Monos (auto) Absolute Eos (auto) Absolute Basos (auto) Absolute Nucleated RBC Nucleated RBC % Sodium Potassium Chloride Carbon Dioxide Anion Gap BUN Creatinine Est GFR ( Amer) Est GFR (Non-Af Amer) BUN/Creatinine Ratio Glucose POC Glucose (mg/dL) 261 H Calcium Assessment: 1. polymicrobial wound infection and cellulitis, left lower leg; improving 2. chronic left calcaneal ulcer non pressure related 3. diabetes 4. morbid obesity 5. bilateral LE lymphedema Plan: 1. continue vancomycin goal tr 10-15, cefepime; orders written for 2 more weeks of vancomycin at home with weekly lab testing, in addition to cipro 750 mg po bid x14 days. Discussed with Merary Rhodes NP 35 minutes floor time >50% face to face time in counseling regarding next steps in abx treatment, side effect monitoring, lymphedema management.
--- NOTE | 2016-08-11 14:33 | RAD ---
Indication: PICC line placement. Single frontal view of the chest performed at 1405 hours was reviewed. Comparison is made with previous exam dated August 08, 2016. Cardiomegaly is noted. Interstitial edema and hyperinflated lung laughlin are noted. No alveolar consolidation is noted. PICC line tip is in the superior vena cava. IMPRESSION: HYPERINFLATED LUNG LAUGHLIN WITHOUT EVIDENCE OF ACTIVE CARDIOPULMONARY DISEASE. PICC LINE IS IN THE SUPERIOR VENA CAVA
[2016-08-11] MEDS: Ondansetron INJ* 2 MG/ML VIAL IV PRN (15:01)
[2016-08-12] MEDS: Vancomycin(*) 1,250 MG in NS 0.9% 250 ML* 250 ML IVPB SCH ×3 (02:01→17:24)
[2016-08-12] MEDS: Cefepime(*) 2 GM in NS 0.9% 50 ML* 50 ML IVPB SCH ×2 (03:48→14:46)
[2016-08-12] MEDS: Lactobacillus Acidophilu (GG)* 1 CAP CAP PO SCH ×2 (07:24→20:22)
[2016-08-12] MEDS: Vitamin B Complex TAB PO SCH (07:25)
[2016-08-12] MEDS: Heparin VIAL(*) 5000 UNITS/ML VIAL (FIVE THOUSAND) SUBCUT SCH ×3 (07:26→21:58)
[2016-08-12] MEDS: Calcium Carbonate CHEW TAB* 500 MG (TUMS) PO PRN ×2 (07:28→21:57)
[2016-08-12] MEDS: oxyCODONE/Acetamin 5/325 MG* TAB PO PRN ×2 (07:28→12:05)
[2016-08-12] MEDS: Omeprazole CAP* 20 MG PO SCH (07:28)
[2016-08-12] MEDS: Cholecalciferol TAB* 400 UNIT PO SCH (08:53)
[2016-08-12] MEDS: Atenolol TAB* 50 MG PO SCH (08:53)
[2016-08-12] MEDS: Lisinopril TAB* 10 MG PO SCH (08:53)
[2016-08-12] MEDS: Atorvastatin* 80 MG TAB PO SCH (08:53)
[2016-08-12] MEDS: Buprenorphine/Naloxone 8-2 MG SL TAB* 1 TAB SL SCH ×2 (08:53→20:22)
[2016-08-12] MEDS: Multivitamins/Minerals TAB PO SCH (08:53)
[2016-08-12] MEDS: Insulin LISPRO* 1 UNITS UNIT SUBCUT SCH ×6 (08:54→20:25)
[2016-08-12] MEDS: Insulin GLARGINE(*) 1 UNITS UNIT SUBCUT SCH ×2 (08:54→20:20)
[2016-08-12] MEDS ORDERED: Vancomycin Trough Check NOTE FOLLOW UP ONE (09:00)
--- NOTE | 2016-08-12 09:43 | PN ---
Progress Note - Progress Note SOAP: Subjective: Doing much better today, ambulatory. Denies lower extremities pain or welling. Seen by ID consultations, plan for him to go home soon on Vanco. Denies fever or chills. Objective: Awake and alert, up walking around, in NAD. VSS, afebrile Lower extremities RHONDA wrap appears clean and dry. Assessment: A 60 y/o male with chronic LLE wounds. Plan: Patient is likely to be discharged home today. Had a PICC line placed and will be going home on IV Vanco. He will also F/U with wound clinic as an outpatient for his chronic LE wounds. At this point, no surgical interventions needed, will sign off patient. Please contact surgical services if any issues arise.
[2016-08-12] MEDS ORDERED: Dextrose 50% Syringe 50 ML* 25 GM/50 ML SYRINGE IV PUSH PRN (13:29)
--- NOTE | 2016-08-12 13:33 | PN ---
Subjective Date of Service: 08/12/16 Interval History: Patient reports he is feeling better everyday. He continues to c/o LE pain and is asking for pain medication at discharge but states overall he is feeling much better. I explained to the patient that since he is on suboxone the goal will be to wean him off the narcotics he has been receiving, Pt agrees with this plan at this time. He denies CP or SOB. No fevers or chills. Reports mild nausea but states this is common due to his gastric sleeve. No vomiting. Denies diarrhea. Objective Active Medications: Acetaminophen (Tylenol Tab*) 650 mg PO Q4H PRN PRN Reason: FEVER/PAIN Albuterol (Ventolin 2.5 Mg/3 Ml Neb.Malissa*) 2.5 mg INH Q2H PRN PRN Reason: SOB/WHEEZING Atenolol (Tenormin Tab*) 50 mg PO QAM [facility] Last Admin: 08/12/16 08:53 Dose: 50 mg Atorvastatin Calcium (Lipitor*) 80 mg PO DAILY [facility] Last Admin: 08/12/16 08:53 Dose: 80 mg Buprenorphine/Naloxone (Suboxone 8-2 Mg Sl Tab*) 0.5 tab.sl SL BID [facility] Last Admin: 08/12/16 08:53 Dose: 0.5 tab.sl Calcium Carbonate (Tums*) 1,000 mg PO Q4H PRN PRN Reason: INDIGESTION Last Admin: 08/12/16 07:28 Dose: 1,000 mg Cholecalciferol (Vitamin D Tab*) 400 unit PO DAILY [facility] Last Admin: 08/12/16 08:53 Dose: 400 unit Dextrose (D50w Syringe 50 Ml*) 12.5 gm IV PUSH .FOR FS < 60 - SS PRN PRN Reason: FS < 60 Dextrose (D50w Syringe 50 Ml*) 12.5 gm IV PUSH .FOR FS < 60 - SS PRN PRN Reason: FS < 60 Heparin Sodium (Porcine) (Heparin Vial(*)) 5,000 units SUBCUT Q8HR [facility] Last Admin: 08/12/16 07:26 Dose: 5,000 units Heparin Sodium (Porcine) (Heparin Flush Picc/Ml/Cvc(*)) 1 - 3 ml FLUSH 0600, 1800 [facility] PRN Reason: Protocol Last Admin: 08/12/16 07:32 Dose: 1 ml Cefepime HCl 2 gm/ Sodium (Chloride) 50 mls @ 100 mls/hr IVPB 0300,1500 [facility] Last Admin: 08/12/16 03:48 Dose: 100 mls/hr Vancomycin HCl 1,250 mg/ (Sodium Chloride) 250 mls @ 166.667 mls/hr IVPB Q8H [facility] Last Admin: 08/12/16 10:34 Dose: 166.667 mls/hr Insulin Glargine (Lantus(*)) 50 units SUBCUT BID [facility] Last Admin: 08/12/16 08:54 Dose: 50 units Insulin Human Lispro (Humalog*) 0 units SUBCUT ACHS [facility] PRN Reason: Protocol Insulin Human Lispro (Humalog*) 0 units SUBCUT ACHS [facility] PRN Reason: Protocol Ketorolac Tromethamine (Toradol Inj*) 30 mg IV PUSH Q6H PRN PRN Reason: PAIN Last Admin: 08/11/16 22:47 Dose: 30 mg Lactobacillus Rhamnosus (Culturelle*) 1 cap PO BID [facility] Last Admin: 08/12/16 07:24 Dose: 1 cap Lisinopril (Prinivil Tab*) 30 mg PO DAILY [facility] Last Admin: 08/12/16 08:53 Dose: 30 mg Multivitamins/Minerals (Theragran/Minerals Tab*) 1 tab PO DAILY [facility] Last Admin: 08/12/16 08:53 Dose: 1 tab Omeprazole (Prilosec Cap*) 20 mg PO DAILY@0730 [facility] Last Admin: 08/12/16 07:28 Dose: 20 mg Ondansetron HCl (Zofran Inj*) 4 mg IV Q6H PRN PRN Reason: NAUSEA Last Admin: 08/11/16 15:01 Dose: 4 mg Oxycodone/Acetaminophen (Percocet 5/325 Tab*) 2 tab PO Q4H PRN PRN Reason: PAIN Last Admin: 08/12/16 12:05 Dose: 2 tab Pharmacy Consult (Vancomycin Per Pharmacy*) 1 note FOLLOW UP . PRN PRN Reason: PER PROTOCOL Prochlorperazine Edisylate (Compazine Inj*) 5 mg IV Q6H PRN PRN Reason: NAUSEA/VOMITING Last Admin: 08/09/16 22:49 Dose: 5 mg Vitamin B Complex/Vitamin E (Complex B-100*) 1 tab PO DAILY [facility] Last Admin: 08/12/16 07:25 Dose: 1 tab Vital Signs 08/11/16 08/11/16 08/11/16 14:52 16:52 20:32 Temperature Pulse Rate Respiratory 14 18 18 Rate Blood Pressure (mmHg) O2 Sat by Pulse Oximetry 08/11/16 08/11/16 08/11/16 20:45 22:32 23:10 Temperature 97.3 F Pulse Rate 65 Respiratory 20 20 16 Rate Blood Pressure 166/87 (mmHg) O2 Sat by Pulse 96 Oximetry 08/12/16 08/12/16 08/12/16 07:28 07:59 08:00 Temperature Pulse Rate 69 Respiratory 18 18 20 Rate Blood Pressure 183/76 (mmHg) O2 Sat by Pulse 94 Oximetry 08/12/16 08/12/16 08/12/16 08:01 08:44 08:53 Temperature Pulse Rate 66 68 Respiratory 14 16 Rate Blood Pressure 170/68 (mmHg) O2 Sat by Pulse 94 Oximetry 08/12/16 08/12/16 08/12/16 09:28 10:53 12:05 Temperature Pulse Rate Respiratory 18 18 18 Rate Blood Pressure (mmHg) O2 Sat by Pulse Oximetry Oxygen Devices in Use Now: None Appearance: mornidly obese male standing in his room A+O x3 in NAD Eyes: No Scleral Icterus, PERRLA Ears/Nose/Mouth/Throat: NL Teeth, Lips, Gums, Mucous Membranes Moist Neck: NL Appearance and Movements; NL JVP Respiratory: Symmetrical Chest Expansion and Respiratory Effort, Clear to Auscultation Cardiovascular: NL Sounds; No Murmurs; No JVD, RRR, - - 2-3+ b/l edema Abdominal: - - obese distended soft non tender Extremities: No Clubbing, Cyanosis, - - B/L LE appears less erythematous, no weeping noted Neurological: Alert and Oriented x 3, NL Sensation Lines/Tubes/Other Access: Clean, Dry and Intact PICC Line Nutrition: Taking PO's Result Diagrams: 08/11/16 06:04 08/11/16 06:04 Additional Lab and Data: Lab Results 08/08/16 08/08/16 08/08/16 Range/Units 10:10 10:29 10:29 WBC 9.4 (3.5-10.8) 10^3/ul RBC 4.42 (4.0-5.4) 10^6/ul Hgb 11.7 L (14.0-18.0) g/dl Hct 36 L (42-52) % MCV 82 (80-94) fL MCH 27 (27-31) pg MCHC 33 (31-36) g/dl RDW 16 H (10.5-15) % Plt Count 326 (150-450) 10^3/ul MPV 8 (7.4-10.4) um3 Neut % (Auto) 74.1 (38-83) % Lymph % (Auto) 13.5 L (25-47) % [place] % (Auto) 10.0 H (1-9) % Eos % (Auto) 1.9 (0-6) % Baso % (Auto) 0.5 (0-2) % Absolute Neuts (auto) 7.0 (1.5-7.7) 10^3/ul Absolute Lymphs (auto) 1.3 (1.0-4.8) 10^3/ul Absolute Monos (auto) 0.9 H (0-0.8) 10^3/ul Absolute Eos (auto) 0.2 (0-0.6) 10^3/ul Absolute Basos (auto) 0 (0-0.2) 10^3/ul Absolute Nucleated RBC 0 10^3/ul Nucleated RBC % 0 ESR 94 H (0-20) mm/Hr INR (Anticoag Therapy) 0.98 (0.89-1.11) APTT 30.6 (26.0-36.3) seconds Sodium (133-145) mmol/L Potassium (3.5-5.0) mmol/L Chloride (101-111) mmol/L Carbon Dioxide (22-32) mmol/L Anion Gap (2-11) mmol/L BUN (6-24) mg/dL Creatinine (0.67-1.17) mg/dL Est GFR ( Amer) (>60) Est GFR (Non-Af Amer) (>60) BUN/Creatinine Ratio (8-20) Glucose (70-100) mg/dL Lactic Acid (0.5-2.0) mmol/L Calcium (8.6-10.3) mg/dL Total Bilirubin (0.2-1.0) mg/dL AST (13-39) U/L ALT (7-52) U/L Alkaline Phosphatase (34-104) U/L Total Creatine Kinase (10-223) U/L Troponin I (<0.04) ng/mL C-Reactive Protein (< 5.00) mg/L Total Protein (6.4-8.9) g/dL Albumin (3.2-5.2) g/dL Globulin (2-4) g/dL Albumin/Globulin Ratio (1-3) Urine Color Straw Urine Appearance Clear Urine pH 7.0 (5-9) Ur Specific [place] 1.008 L (1.010-1.030) Urine Protein Negative (Negative) Urine Ketones Negative (Negative) Urine Blood Negative (Negative) Urine Nitrate Negative (Negative) Urine Bilirubin Negative (Negative) Urine Urobilinogen Negative (Negative) Ur Leukocyte Esterase Negative (Negative) Urine Glucose Negative (Negative) 08/08/16 08/08/16 Range/Units 10:29 10:29 WBC (3.5-10.8) 10^3/ul RBC (4.0-5.4) 10^6/ul Hgb (14.0-18.0) g/dl Hct (42-52) % MCV (80-94) fL MCH (27-31) pg MCHC (31-36) g/dl RDW (10.5-15) % Plt Count (150-450) 10^3/ul MPV (7.4-10.4) um3 Neut % (Auto) (38-83) % Lymph % (Auto) (25-47) % [place] % (Auto) (1-9) % Eos % (Auto) (0-6) % Baso % (Auto) (0-2) % Absolute Neuts (auto) (1.5-7.7) 10^3/ul Absolute Lymphs (auto) (1.0-4.8) 10^3/ul Absolute Monos (auto) (0-0.8) 10^3/ul Absolute Eos (auto) (0-0.6) 10^3/ul Absolute Basos (auto) (0-0.2) 10^3/ul Absolute Nucleated RBC 10^3/ul Nucleated RBC % ESR (0-20) mm/Hr INR (Anticoag Therapy) (0.89-1.11) APTT (26.0-36.3) seconds Sodium 136 (133-145) mmol/L Potassium 3.4 L (3.5-5.0) mmol/L Chloride 94 L (101-111) mmol/L Carbon Dioxide 38 H (22-32) mmol/L Anion Gap 4 (2-11) mmol/L BUN 17 (6-24) mg/dL Creatinine 0.81 (0.67-1.17) mg/dL Est GFR ( Amer) 125.4 (>60) Est GFR (Non-Af Amer) 97.5 (>60) BUN/Creatinine Ratio 21.0 H (8-20) Glucose 61 L (70-100) mg/dL Lactic Acid 1.4 (0.5-2.0) mmol/L Calcium 9.7 (8.6-10.3) mg/dL Total Bilirubin 0.40 (0.2-1.0) mg/dL AST 10 L (13-39) U/L ALT 13 (7-52) U/L Alkaline Phosphatase 77 (34-104) U/L Total Creatine Kinase 37 (10-223) U/L Troponin I 0.01 (<0.04) ng/mL C-Reactive Protein 43.41 H (< 5.00) mg/L Total Protein 8.1 (6.4-8.9) g/dL Albumin 3.8 (3.2-5.2) g/dL Globulin 4.3 H (2-4) g/dL Albumin/Globulin Ratio 0.9 L (1-3) Urine Color Urine Appearance Urine pH (5-9) Ur Specific [place] (1.010-1.030) Urine Protein (Negative) Urine Ketones (Negative) Urine Blood (Negative) Urine Nitrate (Negative) Urine Bilirubin (Negative) Urine Urobilinogen (Negative) Ur Leukocyte Esterase (Negative) Urine Glucose (Negative) Assess/Plan/Problems-Billing Assessment: 60 yo male with a PMH of morbid obesity s/p sleeve gastrectomy, Diabetes, COPD, lymphedema, pre-existing L heel ulcer with osteo for which he recently finished 6 weeks of IV abx followed by Dr. Mosqueda (off abx for 2-3 weeks) also followed by wound clinic who started him on Doxy 2 days ago who presented 4/17 with increased LLE redness and pain sent from wound clinic - Patient Problems (1) Cellulitis Comment: - with chronic osteomyelitis and non-healing DM ulcer - recent 6 weeks of IV abx , followed by ID and wound clinic as outpt. - Surgery consulted stating no need for wound debridment at this time. - wound cx growing MRSA, enterobacter & enterococcus . Blood cx negative - c/w vanco, cefepime - ID following. PICC with plan to send home with Vanco for a few weeks. Plan for DC tomorrow (2) Chronic pain Comment: - suboxone started a few months ago per pt pain clinic due to chronic opioid use (3) HTN (hypertension) Comment: mostly well controlled, a little high today - will continue to monitor. c/w lisinopril, Atenolol. (4) Type 2 diabetes mellitus Comment: Continues to have high blood sugars Continue Lantus 50 units BID and lantus sliding scale with addition of carb counting lispro scale (5) History of hypertension Comment: - continue lisinopril, atenolol (6) Lymphedema Comment: - denise wraps and elevation to LE's (7) Full code status (8) DVT prophylaxis Comment: HSQ Status and Disposition: inpatient requiring IV antibiotics. Plan for DC to home tomorrow
[2016-08-12] MEDS ORDERED: oxyCODONE/Acetamin 5/325 MG* TAB PO PRN (13:34)
[2016-08-12] MEDS: Acetaminophen TAB* 325 MG PO SCH ×3 (14:45→21:57)
[2016-08-12] MEDS: oxyCODONE TAB* 5 MG TAB PO PRN ×2 (16:27→21:57)
[2016-08-12] MEDS ORDERED: Insulin LISPRO* 1 UNITS UNIT SUBCUT SCH (16:30)
[2016-08-13] MEDS: Vancomycin(*) 1,250 MG in NS 0.9% 250 ML* 250 ML IVPB SCH ×2 (01:07→08:51)
[2016-08-13] MEDS: Acetaminophen TAB* 325 MG PO SCH ×3 (02:07→09:35)
[2016-08-13] MEDS: Cefepime(*) 2 GM in NS 0.9% 50 ML* 50 ML IVPB SCH (03:08)
[2016-08-13] MEDS: oxyCODONE TAB* 5 MG TAB PO PRN (04:37)
[2016-08-13] MEDS: Heparin VIAL(*) 5000 UNITS/ML VIAL (FIVE THOUSAND) SUBCUT SCH (05:18)
[2016-08-13] MEDS: Buprenorphine/Naloxone 8-2 MG SL TAB* 1 TAB SL SCH (08:13)
[2016-08-13] MEDS: Atorvastatin* 80 MG TAB PO SCH (08:13)
[2016-08-13] MEDS: Cholecalciferol TAB* 400 UNIT PO SCH (08:13)
[2016-08-13] MEDS: Vitamin B Complex TAB PO SCH (08:13)
[2016-08-13] MEDS: Lisinopril TAB* 10 MG PO SCH (08:14)
[2016-08-13] MEDS: Multivitamins/Minerals TAB PO SCH (08:14)
[2016-08-13] MEDS: Atenolol TAB* 50 MG PO SCH (08:14)
[2016-08-13] MEDS: Omeprazole CAP* 20 MG PO SCH (08:14)
[2016-08-13] MEDS: Lactobacillus Acidophilu (GG)* 1 CAP CAP PO SCH (08:14)
[2016-08-13] MEDS: Insulin GLARGINE(*) 1 UNITS UNIT SUBCUT SCH (08:50)
[2016-08-13] MEDS: Insulin LISPRO* 1 UNITS UNIT SUBCUT SCH ×2 (08:50)
[2016-08-13] MEDS: Calcium Carbonate CHEW TAB* 500 MG (TUMS) PO PRN (09:34)
[2016-08-13 09:40] VITALS: BP 157/91
--- NOTE | 2016-08-13 11:34 | DCNOTE ---
Subjective Date of Service: 08/13/16 Interval History: patient reports he feels ready to go home but is concerned about the pain he is in. I discussed with him the concerns about percocet/opioids and suboxone, he plans to follow up with Dr. Gan on Monday. The patient denies any fever chills N/V/D. Objective Active Medications: Acetaminophen (Tylenol Tab*) 650 mg PO Q4H [facility] Last Admin: 08/13/16 09:35 Dose: 650 mg Albuterol (Ventolin 2.5 Mg/3 Ml Neb.Malissa*) 2.5 mg INH Q2H PRN PRN Reason: SOB/WHEEZING Atenolol (Tenormin Tab*) 50 mg PO QAM [facility] Last Admin: 08/13/16 08:14 Dose: 50 mg Atorvastatin Calcium (Lipitor*) 80 mg PO DAILY [facility] Last Admin: 08/13/16 08:13 Dose: 80 mg Buprenorphine/Naloxone (Suboxone 8-2 Mg Sl Tab*) 0.5 tab.sl SL BID [facility] Last Admin: 08/13/16 08:13 Dose: 0.5 tab.sl Calcium Carbonate (Tums*) 1,000 mg PO Q4H PRN PRN Reason: INDIGESTION Last Admin: 08/13/16 09:34 Dose: 1,000 mg Cholecalciferol (Vitamin D Tab*) 400 unit PO DAILY [facility] Last Admin: 08/13/16 08:13 Dose: 400 unit Dextrose (D50w Syringe 50 Ml*) 12.5 gm IV PUSH .FOR FS < 60 - SS PRN PRN Reason: FS < 60 Heparin Sodium (Porcine) (Heparin Vial(*)) 5,000 units SUBCUT Q8HR [facility] Last Admin: 08/13/16 05:18 Dose: 5,000 units Heparin Sodium (Porcine) (Heparin Flush Picc/Ml/Cvc(*)) 1 - 3 ml FLUSH 0600, 1800 [facility] PRN Reason: Protocol Last Admin: 08/13/16 05:17 Dose: 1 ml Cefepime HCl 2 gm/ Sodium (Chloride) 50 mls @ 100 mls/hr IVPB 0300,1500 [facility] Last Admin: 08/13/16 03:08 Dose: 100 mls/hr Vancomycin HCl 1,250 mg/ (Sodium Chloride) 250 mls @ 166.667 mls/hr IVPB Q8H [facility] Last Admin: 08/13/16 08:51 Dose: 166.667 mls/hr Insulin Glargine (Lantus(*)) 50 units SUBCUT BID [facility] Last Admin: 08/13/16 08:50 Dose: 50 units Insulin Human Lispro (Humalog*) 0 units SUBCUT ACHS [facility] PRN Reason: Protocol Last Admin: 08/13/16 08:50 Dose: 6 units Insulin Human Lispro (Humalog*) 0 units SUBCUT ACHS [facility] PRN Reason: Protocol Last Admin: 08/13/16 08:50 Dose: 6 unit Lactobacillus Rhamnosus (Culturelle*) 1 cap PO BID [facility] Last Admin: 08/13/16 08:14 Dose: 1 cap Lisinopril (Prinivil Tab*) 30 mg PO DAILY [facility] Last Admin: 08/13/16 08:14 Dose: 30 mg Multivitamins/Minerals (Theragran/Minerals Tab*) 1 tab PO DAILY [facility] Last Admin: 08/13/16 08:14 Dose: 1 tab Omeprazole (Prilosec Cap*) 20 mg PO DAILY@0730 [facility] Last Admin: 08/13/16 08:14 Dose: 20 mg Ondansetron HCl (Zofran Inj*) 4 mg IV Q6H PRN PRN Reason: NAUSEA Last Admin: 08/11/16 15:01 Dose: 4 mg Oxycodone HCl (Roxycodone Tab*) 5 mg PO Q6H PRN PRN Reason: PAIN Last Admin: 08/13/16 04:37 Dose: 5 mg Pharmacy Consult (Vancomycin Per Pharmacy*) 1 note FOLLOW UP . PRN PRN Reason: PER PROTOCOL Prochlorperazine Edisylate (Compazine Inj*) 5 mg IV Q6H PRN PRN Reason: NAUSEA/VOMITING Last Admin: 08/09/16 22:49 Dose: 5 mg Vitamin B Complex/Vitamin E (Complex B-100*) 1 tab PO DAILY [facility] Last Admin: 08/13/16 08:13 Dose: 1 tab Vital Signs 08/12/16 08/12/16 08/12/16 12:05 14:05 15:07 Temperature 98.2 F Pulse Rate 64 Respiratory 18 16 20 Rate Blood Pressure 150/78 (mmHg) O2 Sat by Pulse 92 Oximetry 08/12/16 08/12/16 08/12/16 16:27 18:27 20:00 Temperature Pulse Rate Respiratory 18 18 18 Rate Blood Pressure (mmHg) O2 Sat by Pulse Oximetry 08/12/16 08/12/16 08/12/16 20:22 21:11 21:57 Temperature 98.1 F Pulse Rate 63 Respiratory 18 16 18 Rate Blood Pressure 151/83 (mmHg) O2 Sat by Pulse Oximetry 08/12/16 08/12/16 08/13/16 22:22 23:57 01:25 Temperature 97.9 F Pulse Rate 69 Respiratory 18 18 16 Rate Blood Pressure 180/98 (mmHg) O2 Sat by Pulse 95 Oximetry 08/13/16 08/13/16 08/13/16 01:29 04:37 06:37 Temperature Pulse Rate 68 Respiratory 16 18 Rate Blood Pressure 184/89 (mmHg) O2 Sat by Pulse 98 Oximetry 08/13/16 08/13/16 08/13/16 08:00 08:13 09:03 Temperature 97.4 F Pulse Rate 75 Respiratory 18 18 16 Rate Blood Pressure 157/91 (mmHg) O2 Sat by Pulse 96 Oximetry Oxygen Devices in Use Now: None Result Diagrams: 08/11/16 06:04 08/11/16 06:04 Additional Lab and Data: Lab Results 08/08/16 08/08/16 08/08/16 Range/Units 10:10 10:29 10:29 WBC 9.4 (3.5-10.8) 10^3/ul RBC 4.42 (4.0-5.4) 10^6/ul Hgb 11.7 L (14.0-18.0) g/dl Hct 36 L (42-52) % MCV 82 (80-94) fL MCH 27 (27-31) pg MCHC 33 (31-36) g/dl RDW 16 H (10.5-15) % Plt Count 326 (150-450) 10^3/ul MPV 8 (7.4-10.4) um3 Neut % (Auto) 74.1 (38-83) % Lymph % (Auto) 13.5 L (25-47) % [place] % (Auto) 10.0 H (1-9) % Eos % (Auto) 1.9 (0-6) % Baso % (Auto) 0.5 (0-2) % Absolute Neuts (auto) 7.0 (1.5-7.7) 10^3/ul Absolute Lymphs (auto) 1.3 (1.0-4.8) 10^3/ul Absolute Monos (auto) 0.9 H (0-0.8) 10^3/ul Absolute Eos (auto) 0.2 (0-0.6) 10^3/ul Absolute Basos (auto) 0 (0-0.2) 10^3/ul Absolute Nucleated RBC 0 10^3/ul Nucleated RBC % 0 ESR 94 H (0-20) mm/Hr INR (Anticoag Therapy) 0.98 (0.89-1.11) APTT 30.6 (26.0-36.3) seconds Sodium (133-145) mmol/L Potassium (3.5-5.0) mmol/L Chloride (101-111) mmol/L Carbon Dioxide (22-32) mmol/L Anion Gap (2-11) mmol/L BUN (6-24) mg/dL Creatinine (0.67-1.17) mg/dL Est GFR ( Amer) (>60) Est GFR (Non-Af Amer) (>60) BUN/Creatinine Ratio (8-20) Glucose (70-100) mg/dL Lactic Acid (0.5-2.0) mmol/L Calcium (8.6-10.3) mg/dL Total Bilirubin (0.2-1.0) mg/dL AST (13-39) U/L ALT (7-52) U/L Alkaline Phosphatase (34-104) U/L Total Creatine Kinase (10-223) U/L Troponin I (<0.04) ng/mL C-Reactive Protein (< 5.00) mg/L Total Protein (6.4-8.9) g/dL Albumin (3.2-5.2) g/dL Globulin (2-4) g/dL Albumin/Globulin Ratio (1-3) Urine Color Straw Urine Appearance Clear Urine pH 7.0 (5-9) Ur Specific [place] 1.008 L (1.010-1.030) Urine Protein Negative (Negative) Urine Ketones Negative (Negative) Urine Blood Negative (Negative) Urine Nitrate Negative (Negative) Urine Bilirubin Negative (Negative) Urine Urobilinogen Negative (Negative) Ur Leukocyte Esterase Negative (Negative) Urine Glucose Negative (Negative) 08/08/16 08/08/16 Range/Units 10:29 10:29 WBC (3.5-10.8) 10^3/ul RBC (4.0-5.4) 10^6/ul Hgb (14.0-18.0) g/dl Hct (42-52) % MCV (80-94) fL MCH (27-31) pg MCHC (31-36) g/dl RDW (10.5-15) % Plt Count (150-450) 10^3/ul MPV (7.4-10.4) um3 Neut % (Auto) (38-83) % Lymph % (Auto) (25-47) % [place] % (Auto) (1-9) % Eos % (Auto) (0-6) % Baso % (Auto) (0-2) % Absolute Neuts (auto) (1.5-7.7) 10^3/ul Absolute Lymphs (auto) (1.0-4.8) 10^3/ul Absolute Monos (auto) (0-0.8) 10^3/ul Absolute Eos (auto) (0-0.6) 10^3/ul Absolute Basos (auto) (0-0.2) 10^3/ul Absolute Nucleated RBC 10^3/ul Nucleated RBC % ESR (0-20) mm/Hr INR (Anticoag Therapy) (0.89-1.11) APTT (26.0-36.3) seconds Sodium 136 (133-145) mmol/L Potassium 3.4 L (3.5-5.0) mmol/L Chloride 94 L (101-111) mmol/L Carbon Dioxide 38 H (22-32) mmol/L Anion Gap 4 (2-11) mmol/L BUN 17 (6-24) mg/dL Creatinine 0.81 (0.67-1.17) mg/dL Est GFR ( Amer) 125.4 (>60) Est GFR (Non-Af Amer) 97.5 (>60) BUN/Creatinine Ratio 21.0 H (8-20) Glucose 61 L (70-100) mg/dL Lactic Acid 1.4 (0.5-2.0) mmol/L Calcium 9.7 (8.6-10.3) mg/dL Total Bilirubin 0.40 (0.2-1.0) mg/dL AST 10 L (13-39) U/L ALT 13 (7-52) U/L Alkaline Phosphatase 77 (34-104) U/L Total Creatine Kinase 37 (10-223) U/L Troponin I 0.01 (<0.04) ng/mL C-Reactive Protein 43.41 H (< 5.00) mg/L Total Protein 8.1 (6.4-8.9) g/dL Albumin 3.8 (3.2-5.2) g/dL Globulin 4.3 H (2-4) g/dL Albumin/Globulin Ratio 0.9 L (1-3) Urine Color Urine Appearance Urine pH (5-9) Ur Specific [place] (1.010-1.030) Urine Protein (Negative) Urine Ketones (Negative) Urine Blood (Negative) Urine Nitrate (Negative) Urine Bilirubin (Negative) Urine Urobilinogen (Negative) Ur Leukocyte Esterase (Negative) Urine Glucose (Negative) Assess/Plan/Problems-Billing Assessment: 60 yo male with a PMH of morbid obesity s/p sleeve gastrectomy, Diabetes, COPD, lymphedema, pre-existing L heel ulcer with osteo for which he recently finished 6 weeks of IV abx followed by Dr. Mosqueda (off abx for 2-3 weeks) also followed by wound clinic who started him on Doxy 2 days ago who presented 08/08 with increased LLE redness and pain sent from wound clinic - Patient Problems (1) Cellulitis Comment: - with chronic osteomyelitis and non-healing DM ulcer - recent 6 weeks of IV abx , followed by ID and wound clinic as outpt now with cellulitis - Surgery consulted stating no need for wound debridment at this time. Plan to follow up with wound clinic. - wound cx growing MRSA, enterobacter & enterococcus . Blood cx negative - ID following. PICC with plan to send home with Vanco for a few weeks. Plan for DC today (2) Chronic pain Comment: - chronic back pain and acute leg pain - suboxone started a few months ago per pt pain clinic due to chronic opioid use. Tried to call Dr. Gan to discuss chronic pain and management but he is away until Monday. Discussed with patient to follow up this week with Dr. Gan. Discussed with Dr. Aponte attending and we agreed to send pt home on a few days of opoids for breakthrough pain since pt has been reporting improvement with percocet - plan to f/u closely with [facility] this week. (3) HTN (hypertension) Comment: mostly well controlled, a little high during the night c/w lisinopril, Atenolol - added on norvasc at night (4) Type 2 diabetes mellitus Comment: improving but continues to be in the 200s plan for patient to restart home meds and regimen on discharge (5) History of hypertension Comment: - continue lisinopril, atenolol (6) Lymphedema Comment: - denise wraps and elevation to LE's (7) Full code status (8) DVT prophylaxis Comment: HSQ Status and Disposition: inpatient requiring IV antibiotics. Plan for DC to home today
[2016-08-13] MEDS ORDERED: Atenolol TAB* 50 MG PO SCH (21:00)
--- NOTE | 2016-08-13 23:26 | DS ---
DISCHARGE SUMMARY: DATE OF ADMISSION: 08/08/16 DATE OF DISCHARGE: 08/13/16 ATTENDING PHYSICIAN: Kary Jacobson MD *(report dictated by Mita Colón NP). PRIMARY CARE PROVIDER: Dr. Goode at the [facility]. PAIN SPECIALIST: Dr. aGn. ID SPECIALIST: Dr. Mosqueda. OUTSIDE SALES CONSULTANT: Dr. Torres. PRIMARY DIAGNOSES: 1. Left lower extremity cellulitis with left calcaneal wound with osteomyelitis in the setting of underlying lymphedema with positive wound cultures for MRSA and Enterobacter. 2. Insulin-dependent diabetes with neuropathy. 3. Morbid obesity. 4. Hypertension, uncontrolled. SECONDARY DIAGNOSES: 1. Obstructive sleep apnea. 2. Back pain/chronic pain, on Suboxone. 3. Chronic obstructive pulmonary disease, on CPAP. DISCHARGE MEDICATIONS: 1. Lidocaine 4% 1 application topical daily as needed. 2. Vitamin B12, 1 tablet p.o. daily. 3. Omeprazole 20 mg p.o. daily. 4. Insulin aspart 0 to 100 units subcu with meals per sliding scale. 5. Lantus 38 units subcu b.i.d. 6. Lisinopril 30 mg p.o. daily. 7. Atorvastatin 80 mg p.o. daily. 8. Atenolol 50 mg p.o. daily. 9. Metformin 1000 mg p.o. b.i.d. 10. Claritin 20 mg p.o. daily p.r.n. 11. Vitamin D 400 units p.o. daily. 12. Calcium carbonate 1000 mg p.o. b.i.d. as needed. 13. Suboxone 8/2 mg half strip sublingual b.i.d. 14. Ciprofloxacin 750 mg p.o. b.i.d. x2 weeks. 15. Vancomycin 2 weeks. This has been set up per Dr. Mosqueda. NEW MEDICATIONS: 1. Percocet 5/325 mg 1 to 2 tablets p.o. q.6 hours p.r.n., max daily dose 8. 2. Norvasc 5 mg p.o. at bedtime for uncontrolled hypertension. 3. Probiotic Culturelle 1 cap p.o. b.i.d. HISTORY OF PRESENT ILLNESS AND HOSPITAL COURSE: Please see history and physical by Jayson Eugene NP, for full admission details, but in summary this is a 60-year-old male who has a past medical history as stated above who presented to the emergency department on 08/08/16 for increase in left lower extremity redness, swelling, and pain. The patient had recently been on a long course of IV antibiotics and followed by Dr. Mosqueda as an outpatient. IV anti -biotics were discontinued a few weeks ago followed by oral antibiotics and recently had a wound VAC removed. Over the course of the past 3 to 4 days prior to admission, he started to get some redness, pain, swelling around the left calcaneus wound and he was directed to the emergency department on by the wound clinic for concern for worsening infection. The wound culture was taken and a Gram stain showed showed gram- positive cocci, gram-negative bacilli that is growing Enterobacter. The PCR was positive for Staph aureus and MRSA. The patient was started on IV antibiotics with vancomycin and cefepime. He has had much improvement throughout his hospitalization with decrease in pain, redness, and swelling. However, he has continued to complain of lot of lower extremity pain, which is not being covered by his Suboxone. I discussed this with Dr. Mosqueda as well as my attending physician who agree that the patient probably is requiring opiates in the setting of this acute on chronic pain. I do know the patient is on Suboxone. I discussed with the patient at length. He reports the Percocet for breakthrough has been improving his pain. I did call Dr. Gan's office yesterday on 08/12/16, and he is out of the office until Monday. I discussed with the patient. The plan will be to send him home on a few days' supply of Percocet, but he needs to follow up closely with Dr. Gan as he is managing his pain and is currently on Suboxone. The patient has been set up with a PICC line and the plan will be for the patient to go home with IV infusions of vancomycin. Dr. Mosqueda will continue to follow as an outpatient. The patient will also follow closely with the wound clinic. The patient was seen in consultation by our surgical team, Dr. Carmona, who did not feel that the patient needed debridement of his wound. The patient's blood sugars were noted to be quite high in the 200s; however, we did take him off his home regimen. This is most likely part of the problem along with the initial infection that was going on. His blood sugars have trended down to the low 200s and the plan will be for the patient to restart his home regimen on discharge and monitor closely. It was discussed with the patient if he consistently is over 200s in the next couple of days, he needs to contact his primary care provider. The patient has been noted to have some uncontrolled hypertension with systolic blood pressures in the 180s early in the morning or in the middle of the night. I have added on an additional Norvasc to be taken at bedtime. The patient has been started on probiotic b.i.d. He has been tolerating the IV antibiotics well with no diarrhea or rash noted. He has remained afebrile throughout hospitalization and hemodynamically stable. He has had no leukocytosis throughout hospitalization. His labs have been fairly unremarkable other than requiring some electrolyte replacement of potassium. The patient's blood cultures were no growth, day 5. DISCHARGE PLAN: 1. The patient will be discharged to home today. I discussed the discharge plan with the patient as well as his . Again, the pain management was discussed with the patient and the . At this time, the patient will continue the Suboxone and has been given a couple of days' supply of Percocet and was instructed to call Dr. Gan on Monday morning for a followup appointment this week. 2. Follow up with Dr. Mosqueda. Please call his office for a followup appointment. 3. The patient was instructed to call Dr. Goode's office for a followup within 1 week. 4. The patient has been set up with IV infusions at home that Dr. Mosqueda will be following for vancomycin 2 weeks with weekly labs. TIME SPENT: Approximately 60 minutes was spent on this admission. MITA COLÓN NP CC: Dr. Gan; Dr. Mosqueda; Dr. Torres; Dr. Goode * [id number]/[facility] #: [id number] MTDD
== END 2016-08-13 12:30 | disposition home or self-care (01) | DRG 638 ==
LOC: ED 09:49 → MED 14:10
PROVIDERS: ADMIT Internal Medicine; ATTEND Internal Medicine
PROC: 5A09357 Assistance with Respiratory Ventilation, Less than 24 Consecutive Hours, Continuous Positive Airway Pressure (ICD-10-PCS; principal; 2016-08-09)
PROC: 02HV33Z Insertion of Infusion Device into Superior Vena Cava, Percutaneous Approach (ICD-10-PCS; 2016-08-11)
DX: E11.69 Type 2 diabetes mellitus with other specified complication (principal); M86.672 Other chronic osteomyelitis, left ankle and foot; E11.42 Type 2 diabetes mellitus with diabetic polyneuropathy; E11.621 Type 2 diabetes mellitus with foot ulcer; L03.116 Cellulitis of left lower limb; E11.65 Type 2 diabetes mellitus with hyperglycemia; Z68.42 Body mass index [BMI] 45.0-49.9, adult; L97.429 Non-pressure chronic ulcer of left heel and midfoot with unspecified severity; I25.10 Atherosclerotic heart disease of native coronary artery without angina pectoris; E78.5 Hyperlipidemia, unspecified; I10 Essential (primary) hypertension; J44.9 Chronic obstructive pulmonary disease, unspecified; M19.90 Unspecified osteoarthritis, unspecified site; E78.00 Pure hypercholesterolemia, unspecified; G47.33 Obstructive sleep apnea (adult) (pediatric); G89.29 Other chronic pain; M54.9 Dorsalgia, unspecified; M25.569 Pain in unspecified knee; F17.210 Nicotine dependence, cigarettes, uncomplicated; I45.10 Unspecified right bundle-branch block; I89.0 Lymphedema, not elsewhere classified; E66.01 Morbid (severe) obesity due to excess calories; I87.2 Venous insufficiency (chronic) (peripheral); B95.62 Methicillin resistant Staphylococcus aureus infection as the cause of diseases classified elsewhere; B95.2 Enterococcus as the cause of diseases classified elsewhere; B96.89 Other specified bacterial agents as the cause of diseases classified elsewhere; Z98.84 Bariatric surgery status; Z83.3 Family history of diabetes mellitus; Z89.421 Acquired absence of other right toe(s); Z82.49 Family history of ischemic heart disease and other diseases of the circulatory system; Z80.9 Family history of malignant neoplasm, unspecified; Z79.4 Long term (current) use of insulin
CPT/HCPCS: 36415; 71010; 80048; 80053; 80202; 81003; 82550; 82947; 83036; 83605; 84484; 85025; 85610; 85652; 85730; 86140; 87040; 87070; 87077; 87186; 87205; 87640; 87641; 93005; 94660; 94760; A9270-GY; C1751; J0692; J0780; J1644; J1885; J2405; J3370

== ENCOUNTER 2016-09-20 11:24 | Inpatient (IN) | payer OTHER ==
--- NOTE | 2016-09-20 13:08 | HP ---
ADMISSION HISTORY AND PHYSICAL: DATE OF ADMISSION: 09/20/16 ADMISSION DIAGNOSES: Diabetes with neuropathic ulcer, right forefoot and left heel, with cellulitis and edema. HISTORY OF PRESENT ILLNESS: Priyank is a 60-year-old gentleman who has had chronic lymphedema, cellulitis of both lower extremities. He has been treated in the wound clinic and by software applications specialist for the left heel ulcer which is right in the plantar heel. He has had IV antibiotics, silver alginate dressings and has been recently seen by Infectious Disease. He also in the last week has had breakdown and swelling and drainage of his right forefoot, second and great toe. This has caused foul smelling discharge and increased cellulitis of the right foot. He presents to my office today with these above findings. Purulent drainage from the left heel and the right forefoot, symptoms of fevers and chills and malaise for the last 3 to 4 days, and slightly elevated sugars. The plan currently will be an admission to the medical service for elevation of IV antibiotics and evaluation by the infectious disease service as well as medical optimization. Orthopedics will follow along with recommendations for surgery as indicated. PAST MEDICAL HISTORY: Priyank has multiple diagnoses including hypertension, high cholesterol, osteoarthritis, type 2 diabetes, and chronic pain issues. PAST SURGICAL HISTORY: He has had previous surgeries including arthroscopy, right foot surgery by Podiatry. Bariatric surgery January 2016. MEDICATIONS: Include: 1. Doxycycline 100 mg twice a day. 2. Suboxone 8 mg 3 times a day. 3. Metformin 1000 mg twice a day. 4. Lisinopril twice a day. 5. Atenolol 50 mg per day. 6. Atorvastatin 80 mg per day. 7. Lantus 38 units b.i.d. 8. NovoLog sliding scale. 9. Omeprazole 20 mg a day. ALLERGIES: He has no known drug allergies. SOCIAL HISTORY: The patient lives with his . He is disabled. Previously worked in [employer] and no tobacco use. He has been in pain treatment off and on, recently been started on the Suboxone by Dr. Gan in [place]. PHYSICAL EXAMINATION GENERAL: Priyank is a heavy set gentleman with a slightly flat affect, appropriate mood and conversant and knowledgeable with his history. He is complaining of persistent pain throughout the encounter and claiming that his Suboxone is not helping his pain. VITAL SIGNS: Currently are as follows: Temperature 98.6, pulse 64, respirations 16, and the patient is 6 feet 1 inches, 340 pounds, and pressure 98 /62. HEENT: His oropharynx is clear. Dentition is poor. NECK: Supple. CHEST EXAM: Clear to auscultation in all lung sandoval. I do not hear wheezing or rales. CARDIAC EXAM: Shows a regular rate. No extra sounds noted. ABDOMEN: Large, distended, relatively soft, nontender. EXTREMITIES: Exam shows him to have warm feet bilaterally but massive cellulitis with thickened skin and weeping lymphedema diffusely below the mid calf bilaterally. Very difficult to feel the pulse because of the induration and edema in both ankles. Right forefoot with weeping, enlarged second and great toe, slightly foul smelling discharge, and again massive cellulitis. Left heel with a silver dollar sized ulcer chronic, edematous, weeping serous thick, foul smelling fluid. DIAGNOSTIC STUDIES/LABORATORY DATA: MRI previously showed some edema in the left calcaneus, posterior and lateral portions. IMPRESSION: The patient with massive lymphedema cellulitis and draining ulcers , bilateral lower extremity, in the case of diabetes and neuropathy. PLAN: At this point is admission for elevation, dressing changes, IV antibiotics, Infectious Disease consultation, and medical optimization. Orthopedics to follow up in the hospital. [id number]/CPS #: [id number] CRISTINA
--- NOTE | 2016-09-20 14:20 | RAD ---
INDICATION: Fever. COMPARISON: Comparison is made with prior chest x-ray studies from our 2016 and August 11, 2016. TECHNIQUE: Dual-energy PA and lateral views of the chest were obtained. FINDINGS: The heart is within normal limits in size. Mediastinal and hilar contours appear within normal limits. The lungs are hyperinflated. There is mild diffuse prominence of the interstitial markings which are unchanged. No focal infiltrate or pleural effusion is seen. IMPRESSION: FINDINGS CONSISTENT WITH COPD, NO EVIDENCE FOR ACUTE FINDING.
[2016-09-20 14:39] LABS: Hematocrit 35 % (42-52); Mean Corpuscular HGB Conc 31 g/dl (31-36); Mean Corpuscular Hemoglobin 25 pg (27-31); Mean Corpuscular Volume 79 fL (80-94); Mean Platelet Volume 7 um3 (7.4-10.4); Red Blood Count 4.43 10^6/ul (4.0-5.4); Red Cell Distribution Width 17 % (10.5-15); White Blood Count 11.7 10^3/ul (3.5-10.8)
[2016-09-20 14:54] LABS: Albumin 3.5 g/dL (3.2-5.2); Calcium 9.3 mg/dL (8.6-10.3); EGFR African American 88.1 (>60); EGFR Non-African American 68.5 (>60); Globulin 3.8 g/dL (2-4); Potassium 4.5 mmol/L (3.5-5.0); Total Bilirubin 0.4 mg/dL (0.2-1.0); Total Protein 7.3 g/dL (6.4-8.9)
[2016-09-20] MEDS: oxyCODONE TAB* 5 MG TAB PO PRN ×2 (14:57→19:46)
[2016-09-20] MEDS: Acetaminophen TAB* 325 MG PO PRN (14:57)
[2016-09-20] MEDS ORDERED: Dextrose 50% Syringe 50 ML* 25 GM/50 ML SYRINGE IV PUSH PRN (15:02)
[2016-09-20] MEDS: Heparin VIAL(*) 5000 UNITS/ML VIAL (FIVE THOUSAND) SUBCUT SCH ×2 (15:13→22:42)
[2016-09-20] MEDS ORDERED: Vancomycin(*) 2,000 MG in NS 0.9% 500 ML BAG* 500 ML IVPB ONE (16:00)
[2016-09-20 16:58] LABS: C Reactive Protein 51.05 mg/L (< 5.00)
[2016-09-20] MEDS: metFORMIN* 1,000 MG TAB PO SCH (17:42)
[2016-09-20] MEDS: Insulin LISPRO* 1 UNITS UNIT SUBCUT SCH (17:42)
[2016-09-20] MEDS: Ondansetron INJ* 2 MG/ML VIAL IV PRN (19:45)
[2016-09-20] MEDS: Calcium Carbonate CHEW TAB* 500 MG (TUMS) PO PRN (19:45)
[2016-09-20] MEDS: amLODIPine TAB* 5 MG PO SCH (19:51)
--- NOTE | 2016-09-20 21:06 | HP ---
ADMISSION HISTORY AND PHYSICAL: DATE OF ADMISSION: 09/20/16 PRIMARY CARE PROVIDER: Dr. Goode associated with [place]. INFECTIOUS DISEASE SPECIALIST: Abbe Mosqueda MD. REFERRING ORTHOPEDIC SURGEON: Dr. Meyers. ADMITTING PROVIDER: ELIS Arce. SUPERVISING PHYSICIAN: FRANC Florence (dictated by ELIS Arce). CHIEF COMPLAINT: Chronic osteomyelitis of the left calcaneus with concern for acute cellulitis and increased edema. HISTORY OF PRESENT ILLNESS: This is a 60-year-old gentleman with insulin- dependent diabetes, chronic lymphedema, known osteomyelitis of the left calcaneus as well as obstructive sleep apnea, significant chronic pain as well as hypertension who was referred directly to the hospital following an office visit with Dr. Meyers earlier today. The patient had a wound on his left heel for several months and was actually admitted just over a month ago in July of this year for treatment of ulcer of his left foot with an associated cellulitis at that time. MRI imaging from the month prior in June had confirmed the presence of osteomyelitis. Micro from his prior admission grew Enterobacter. PCR was positive for MRSA and the patient received 6 to 8 weeks of IV vancomycin and has been continued on oral doxycycline which he states that he has been compliant with. The patient has also been participating with the wound care center. Over perhaps the last week or so, there may have been some increased breakdown and drainage noted from his wound. The osteomyelitis is in his left heel, but he had some additional breakdown in his right foot as well. He believes that the leg perhaps looks slightly more erythematous and edematous and he has been kind of chilled and had some occasional sweats recently. No documented fevers. In terms of wound care, the patient has been applying calcium alginate to his left heel ulcer and has been otherwise keeping both legs wrapped to the knees with Wan bandages and changing this daily. The patient also reports that he has been struggling with pain control. He is prescribed Suboxone 8 mg [address] Gan out of [place], but states that he has been receiving incomplete pain relief from the Suboxone and took himself off it a couple of days ago in hopes of finding an alternate medication that may provide better relief. PAST MEDICAL HISTORY: 1. Chronic lymphedema. 2. Insulin-dependent diabetes - poor control. 3. COPD. 4. Hypertension. 5. Osteomyelitis of the left calcaneus. 6. Obstructive sleep apnea, noncompliant with CPAP. 7. Chronic pain for which he is currently prescribed Suboxone. 8. Morbid obesity with a BMI of 50. PAST SURGICAL HISTORY: 1. Partial amputation of the right toe. 2. Gastric sleeve procedure within the last 12 months. 3. Knee arthroscopy. HOME MEDICATIONS: 1. Atenolol 50 mg p.o. daily. 2. Atorvastatin 80 mg p.o. daily. 3. Suboxone 8 mg sublingual 3 times daily. 4. Tums 1000 mg p.o. twice daily. 5. Vitamin D 400 units p.o. daily. 6. NovoLog at mealtime per sliding scale. 7. Lactobacillus 1 capsule p.o. twice daily. 8. Lisinopril 30 mg p.o. daily. 9. Loratadine 20 mg p.o. daily. 10. Omeprazole 20 mg p.o. daily. 11. Vitamin B complex 1 tablet p.o. daily. 12. Amlodipine 5 mg p.o. at bedtime. 13. Metformin 1000 mg p.o. twice daily. 14. Lantus 38 units subcu twice daily. SOCIAL HISTORY: The patient lives at home with his . 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 He is a former smoker, quit several years ago, unsure of exact pack year history. No regular alcohol consumption. REVIEW OF SYSTEMS: As listed above in HPI. All other systems reviewed and otherwise negative. PHYSICAL EXAMINATION GENERAL: This is a pleasant middle-aged gentleman who is in no acute distress. INITIAL VITAL SIGNS: Temperature 98.1 degrees Fahrenheit, pulse 72 beats per minute, respiratory rate 18 per minute, oxygen saturation 91% on room air, and blood pressure 115/58 mmHg. HEENT: Head is normocephalic, atraumatic. Mucous membranes are pink and moist. RESPIRATORY: Lungs are clear to auscultation without wheezes, crackles, or rhonchi. CARDIOVASCULAR: Heart has a regular rate and rhythm without murmurs, rubs, or gallops. ABDOMEN: Soft and nontender to palpation. EXTREMITIES: The patient has Wan wraps to just below the knee which are taken down revealing perhaps 1+ to 2+ edema bilaterally. SKIN: The patient has severely macerated skin over both feet with some breakdown over the dorsal aspect of his first and second toes with what appears to be a new blister on the medial aspect of his right great toe without associated ulceration. On the left side, he has a large what appears to be chronic ulcer over the plantar aspect of his left calcaneus measuring perhaps 6 x 4 cm and approximately 1 cm in depth. No active drainage appreciated. There is some perhaps faint hyperpigmentation versus erythema covering both lower extremities to just below the knee. There is a weeping drainage coming from both legs, right greater than left. PSYCH: The patient is alert and appropriately oriented. LABORATORY EVALUATION: CBC shows a white blood cell count of 11,000, hemoglobin of 11, platelet count of 320,000. Comprehensive metabolic panel largely unremarkable. Sodium of 137 mmol/L, potassium 4.5, BUN of 33, creatinine 1.1, estimated GFR of 68, random glucose of 104 mg/dL. Transaminases and total bilirubin within normal limits. CRP is pending. IMAGING: Chest x-ray shows chronic findings consistent with COPD, but no acute findings. EKG is pending. MRI reviewed from June 2016 which confirmed presence of osteomyelitis in the left calcaneus. ASSESSMENT AND PLAN: This is a 60-year-old gentleman with chronic lymphedema, insulin-dependent diabetes, hypertension, chronic obstructive pulmonary disease , and known osteomyelitis of the left calcaneus as well as obstructive sleep apnea and chronic pain who was referred to the hospital by Dr. Meyers for concern for an acute cellulitis on top of a known left calcaneal osteomyelitis. 1. Left calcaneal osteomyelitis with perhaps a secondary cellulitis - the patient is currently afebrile with a mild leukocytosis. CRP is currently pending. There is no purulent drainage appreciated from the left foot ulcer at this time, but there is significant serous weeping from both legs with significant breakdown of both feet and what appears to be wet macerated skin. In terms of treatment, we will resume IV vancomycin at this time. We will ask Dr. Abbe Mosqueda to reevaluate. I do not see utility in re-imaging at this time as there is known osteomyelitis in the left calcaneus. In terms of surgical planning, we will defer to Orthopedic Surgery to help with decision. I do not see that there is obvious debridement necessary at this time with the left ulcer, but perhaps consideration for amputation may be necessary as there seems to have been very little wound healing over the last several months despite active engagement in the wound care center and appropriate antibiotics. We will ask the wound care nurses to please evaluate for appropriate dressings , but it seems like the amount of moisture present is the biggest culprit. Advised nursing to wrap an ABD pads to help whip away some of the moisture and then secure with Wan bandages and silver alginate to be applied to the left heel ulcer. Requested Dr. Mosqueda to please evaluate this patient tomorrow. 2. Chronic lymphedema - this is managed with lower extremity compression. 3. Insulin-dependent diabetes - the patient has a normal random glucose at this time. His hemoglobin A1c from about a month ago was 9%. Plan to repeat this and continue his home insulin regimen including twice daily Lantus, oral metformin, and mealtime short-acting insulin. 4. Chronic obstructive pulmonary disease - without acute exacerbation. 5. Chronic pain - the patient is followed by Dr. Gan who prescribed Suboxone at high doses. The patient reports that he gets incomplete pain relief from this. Reviewed prescription monitoring program online and it does appear that he has filled his Suboxone from Dr. Gan only at appropriate intervals. Called and spoke with Dr. Gan as after my interview with him, I was concerned about him discontinuing his own Suboxone and requesting an alternate medication. Had a nice discussion with Dr. Gan who states that he started seeing the patient about 9 months ago and he had inherited the patient from Dr. James. There does not appear to be a significant abuse history and agrees with the assessment that he is likely receiving incomplete pain relief from the Suboxone. The patient had been telling him that as well for the last several months and prior to that, his pain control was relatively good. The patient's sources of pain involved multiple joints including his back , shoulders, knees, and feet. We will plan to discontinue his Suboxone at this time and start oral oxycodone. The patient will like a referral to pain management here through our hospital at the time of discharge. 6. Obstructive sleep apnea - noncompliant with CPAP. 7. Hypertension - continue home antihypertensives at this time. 8. Morbid obesity with a BMI of 50. 9. Code status: The patient is a full code. Healthcare proxy is the patient' s . 10. DVT prophylaxis: The patient will be started on subcu heparin. DISPOSITION: He is being admitted to inpatient status with anticipated length of stay to be greater than 2 days. ELIS ARCE CC: Dr. Goode, CHRISTIANA* [id number]/[facility] #: [id number] MTDD
[2016-09-20] MEDS: Insulin GLARGINE(*) 1 UNITS UNIT SUBCUT SCH (22:42)
[2016-09-20] MEDS: Lactobacillus Acidophilu (GG)* 1 CAP CAP PO SCH (22:43)
[2016-09-21] MEDS: Vancomycin(*) 1,250 MG in NS 0.9% 250 ML* 250 ML IVPB SCH ×4 (00:32→23:09)
[2016-09-21] MEDS: oxyCODONE TAB* 5 MG TAB PO PRN ×4 (03:51→15:57)
[2016-09-21] MEDS: Heparin VIAL(*) 5000 UNITS/ML VIAL (FIVE THOUSAND) SUBCUT SCH ×3 (07:16→21:58)
[2016-09-21] MEDS: Omeprazole CAP* 20 MG PO SCH (07:30)
[2016-09-21] MEDS: Insulin LISPRO* 1 UNITS UNIT SUBCUT SCH ×3 (07:46→17:40)
[2016-09-21 08:09] LABS: Hematocrit 36 % (42-52); Hemoglobin 11.1 g/dl (14.0-18.0); Mean Corpuscular HGB Conc 31 g/dl (31-36); Mean Corpuscular Hemoglobin 25 pg (27-31); Mean Corpuscular Volume 79 fL (80-94); Mean Platelet Volume 8 um3 (7.4-10.4); Red Blood Count 4.49 10^6/ul (4.0-5.4); Red Cell Distribution Width 17 % (10.5-15); White Blood Count 11.4 10^3/ul (3.5-10.8)
[2016-09-21 08:20] LABS: Calcium 9.1 mg/dL (8.6-10.3); EGFR Non-African American 83.2 (>60); Potassium 4.9 mmol/L (3.5-5.0)
[2016-09-21] MEDS: Lactobacillus Acidophilu (GG)* 1 CAP CAP PO SCH ×2 (08:25→21:58)
[2016-09-21] MEDS: metFORMIN* 1,000 MG TAB PO SCH ×2 (08:25→17:39)
[2016-09-21] MEDS: Lisinopril TAB* 10 MG PO SCH (08:25)
[2016-09-21] MEDS: Atenolol TAB* 50 MG PO SCH (08:25)
[2016-09-21] MEDS: Atorvastatin* 80 MG TAB PO SCH (08:25)
[2016-09-21] MEDS: Morphine INJ* 4 MG/ML 1 ML SYRINGE IV PRN ×6 (09:19→23:05)
[2016-09-21] MEDS: Insulin GLARGINE(*) 1 UNITS UNIT SUBCUT SCH ×2 (09:19→21:57)
[2016-09-21] MEDS: Calcium Carbonate CHEW TAB* 500 MG (TUMS) PO PRN ×2 (10:55→21:58)
--- NOTE | 2016-09-21 12:12 | CONS ---
CONSULTATION REPORT: DATE OF CONSULT: 09/21/16 REQUESTING PROVIDER: ELIS Aguirre. CONSULTING SERVICE: Infectious Disease. REASON FOR CONSULTATION: Right great toe ulceration, left heel ulcer and associated cellulitis. IMPRESSION: 1. Chronic left calcaneal ulceration with chronic osteomyelitis, diabetes related now associated with cellulitis usually gram positive organisms. 2. Right great toe blister and ulceration with associated cellulitis underlying osteomyelitis is a distinct possibility. 3. Bilateral lower extremity lymphedema. 4. Morbid obesity. 5. Diabetes with neuropathy. RECOMMENDATIONS: Agree with vancomycin goal trough of 15 to 20. Will follow his leg exma and continue the efforts at leg elevation and perhaps some diuresis to see about improving his lymphedema, which is a contributing factor to all of his conditions. HISTORY OF PRESENT ILLNESS: This is a 60-year-old man with morbid obesity, diabetes, bilateral lower extremity lymphedema admitted with worsening left foot pain, swelling, and new right toe blister. He was seen by Dr. Meyers recently who noted him to have a large blister on the medial aspect of the right great toe with worsening lymphedema in both legs. He has had more pain in the left heel over the last 2 days with associated redness and swelling. He has been on doxycycline, which he had tolerated well. A couple of months ago, he had a long course of cefepime and Flagyl with some improvement. He is followed by the wound clinic. His white blood cell count on admission was 11. He is afebrile. His CRP was 50. He is started on vancomycin overnight. The pain is a little bit better today though that is the worst in his left calcaneus. He has had no fever, chills, or sweats. PAST MEDICAL HISTORY: 1. Diabetes with neuropathy. 2. Left calcaneus osteomyelitis, chronic. 3. Hyperlipidemia. 4. Hypertension. 5. Morbid obesity. 6. Chronic lower extremity lymphedema bilaterally. 7. Obstructive sleep apnea. 8. Chronic pain had been on Suboxone. ALLERGIES: SULFA. MEDICATIONS: 1. Tylenol. 2. Altenol. 3. Lipitor. 4. Calcium carbonate. 5. Heparin subcutaneous injection. 6. Insulin glargine. 7. Lactobacillus. 8. Lisinopril. 9. Omeprazole. 10. Vancomycin 1250 mg every 8 hours. 11. Amlodipine. 12. Metformin. 13. Oxycodone. SOCIAL HISTORY: He lives in [place] with his . He is on disability. No travel. No sick contacts. He is nonsmoker. FAMILY HISTORY: No recurrent infections. REVIEW OF SYSTEMS: All negative except as noted above. PHYSICAL EXAM: Vital Signs: Temperature 37, heart rate 80, respiratory rate 17 , blood pressure 130/60, O2 sat 97% on room air. In general, he is awake not in distress. Neurologic: He is oriented x3. Follows all commands. He has decreased sensation to light touch in both feet bilaterally. Neck is supple without nuchal rigidity. HEENT: There is no conjunctival hemorrhage. Oropharynx without lesions. Heart: Regular rate and rhythm without murmurs, rubs, or gallops. Lungs are clear to auscultation bilaterally. Abdomen: Soft , nontender, nondistended, it is obese. There are bowel sounds present. Skin: There are no splinter hemorrhages. He has bilateral lower extremity venous stasis changes with bilateral lower extremity lymphedema and active serous weeping from both legs. Musculoskeletal: There is no spine tenderness to palpation. He has a large left calcaneal ulcer, most of the left lateral foot is macerated. There is erythema from there up through the ankle. There is no other ulceration. On the right great toe, there is a medial ulceration with blister and some serous fluid. There is maceration of the right foot as well with diffuse edema. LABORATORY DATA: Creatinine 0.9, white blood cell count 11, hemoglobin 11, platelets 322, MCV 79, vancomycin trough 13.7. Please see impressions and recommendations as outlined above, which I have discussed. [id number]/[facility] #: [id number] CRISTINA
[2016-09-21] MEDS: Ondansetron INJ* 2 MG/ML VIAL IV PRN ×2 (13:36→23:04)
--- NOTE | 2016-09-21 13:54 | PN ---
Progress Note - Progress Note SOAP: Subjective: []Patient seen today OOB in chair with legs in a dependent position. He is awaiting dressing change on both lower extremities. He states his pain is better managed today. Objective: [] Vital Signs Temp 98.6 F 09/21/16 11:40 Pulse 67 09/21/16 11:40 Resp 20 09/21/16 13:32 BP 105/57 09/21/16 11:40 Pulse Ox 96 09/21/16 11:40 Intake & Output 09/20/16 09/21/16 09/21/16 18:59 06:59 18:59 Intake Total 0 1720 880 Output Total 500 200 Balance 0 1220 680 Weight 367 lb Intake: IV Fluids 1060 ABX - VANCOMYCIN 1000 NS (0.9%) 60 Oral 0 660 880 Output: Urine 500 200 Other: Estimated Void Medium # Bowel Movements 0 0 # Voids 1 Laboratory Results - last 24 hr 09/20/16 09/20/16 09/20/16 14:31 14:31 14:31 WBC 11.7 H RBC 4.43 Hgb 11.0 L Hct 35 L MCV 79 L MCH 25 L MCHC 31 RDW 17 H Plt Count 320 MPV 7 L Neut % (Auto) 76.1 Lymph % (Auto) 9.3 L [place] % (Auto) 10.8 H Eos % (Auto) 2.9 Baso % (Auto) 0.9 Absolute Neuts (auto) 8.9 H Absolute Lymphs (auto) 1.1 Absolute Monos (auto) 1.3 H Absolute Eos (auto) 0.3 Absolute Basos (auto) 0.1 Absolute Nucleated RBC 0 Nucleated RBC % 0 Sodium 137 Potassium 4.5 Chloride 96 L Carbon Dioxide 34 H Anion Gap 7 BUN 33 H Creatinine 1.10 Est GFR ( Amer) 88.1 Est GFR (Non-Af Amer) 68.5 BUN/Creatinine Ratio 30.0 H Glucose 104 H POC Glucose (mg/dL) Hemoglobin A1c 9.7 H Calcium 9.3 Total Bilirubin 0.40 AST 11 L ALT 12 Alkaline Phosphatase 69 C-Reactive Protein 51.05 H Total Protein 7.3 Albumin 3.5 Globulin 3.8 Albumin/Globulin Ratio 0.9 L Vancomycin Trough 09/20/16 09/20/16 09/21/16 16:44 22:34 07:42 WBC RBC Hgb Hct MCV MCH MCHC RDW Plt Count MPV Neut % (Auto) Lymph % (Auto) [place] % (Auto) Eos % (Auto) Baso % (Auto) Absolute Neuts (auto) Absolute Lymphs (auto) Absolute Monos (auto) Absolute Eos (auto) Absolute Basos (auto) Absolute Nucleated RBC Nucleated RBC % Sodium Potassium Chloride Carbon Dioxide Anion Gap BUN Creatinine Est GFR ( Amer) Est GFR (Non-Af Amer) BUN/Creatinine Ratio Glucose POC Glucose (mg/dL) 168 H 228 H 265 H Hemoglobin A1c Calcium Total Bilirubin AST ALT Alkaline Phosphatase C-Reactive Protein Total Protein Albumin Globulin Albumin/Globulin Ratio Vancomycin Trough 09/21/16 09/21/16 09/21/16 07:54 07:55 07:55 WBC 11.4 H RBC 4.49 Hgb 11.1 L Hct 36 L MCV 79 L MCH 25 L MCHC 31 RDW 17 H Plt Count 322 MPV 8 Neut % (Auto) 86.5 H Lymph % (Auto) 5.2 L [place] % (Auto) 6.1 Eos % (Auto) 1.5 Baso % (Auto) 0.7 Absolute Neuts (auto) 9.8 H Absolute Lymphs (auto) 0.6 L Absolute Monos (auto) 0.7 Absolute Eos (auto) 0.2 Absolute Basos (auto) 0.1 Absolute Nucleated RBC 0 Nucleated RBC % 0 Sodium 134 Potassium 4.9 Chloride 93 L Carbon Dioxide 35 H Anion Gap 6 BUN 26 H Creatinine 0.93 Est GFR ( Amer) 107.0 Est GFR (Non-Af Amer) 83.2 BUN/Creatinine Ratio 28.0 H Glucose 250 H POC Glucose (mg/dL) Hemoglobin A1c Calcium 9.1 Total Bilirubin AST ALT Alkaline Phosphatase C-Reactive Protein Total Protein Albumin Globulin Albumin/Globulin Ratio Vancomycin Trough 13.7 09/21/16 11:00 WBC RBC Hgb Hct MCV MCH MCHC RDW Plt Count MPV Neut % (Auto) Lymph % (Auto) [place] % (Auto) Eos % (Auto) Baso % (Auto) Absolute Neuts (auto) Absolute Lymphs (auto) Absolute Monos (auto) Absolute Eos (auto) Absolute Basos (auto) Absolute Nucleated RBC Nucleated RBC % Sodium Potassium Chloride Carbon Dioxide Anion Gap BUN Creatinine Est GFR ( Amer) Est GFR (Non-Af Amer) BUN/Creatinine Ratio Glucose POC Glucose (mg/dL) 319 H Hemoglobin A1c Calcium Total Bilirubin AST ALT Alkaline Phosphatase C-Reactive Protein Total Protein Albumin Globulin Albumin/Globulin Ratio Vancomycin Trough Dressings were removed from bilateral lower extremities with help of nursing staff. Both legs continue to weep serous fluid from mid calf down to ankles Right foot G toe blister is dry, 2nd toe dorsally and dorsum of the foot also weepy and erythematous Left foot large plantar heel ulcer noted with moderately macerated base slight foul odor noted Silver alginate dressings with ABD and RHONDA wraps applied as directed to bilateral low extremities Assessment: []Bilateral LE weepy lympadema Bilateral LE cellulitis Chronic Osteomyelitis left calcaneous, with large plantar ulceration Right great toe ulceration/ cellulitis Plan: []Elevation lower extremites Dressing changes 1-2 times daily as instructed Vancomycin as recommended by Dr. Mosqueda Continued diuresis and medical optimization Will continue to follow
--- NOTE | 2016-09-21 14:45 | PN ---
Subjective Date of Service: 09/21/16 Interval History: Patient reports some improvement in pain control, but this is still a major concern. No fevers, CP, SOB, abd pain, n/v. Noted hypoxia overnight. Objective Active Medications: Acetaminophen (Tylenol Tab*) 650 mg PO Q4H PRN PRN Reason: FEVER/PAIN Last Admin: 09/20/16 14:57 Dose: 650 mg Amlodipine Besylate (Norvasc Tab*) 5 mg PO BEDTIME [facility] Last Admin: 09/20/16 19:51 Dose: 5 mg Atenolol (Tenormin Tab*) 50 mg PO QAM [facility] Last Admin: 09/21/16 08:25 Dose: 50 mg Atorvastatin Calcium (Lipitor*) 80 mg PO DAILY [facility] Last Admin: 09/21/16 08:25 Dose: 80 mg Calcium Carbonate (Tums*) 1,000 mg PO Q4H PRN PRN Reason: reflux Last Admin: 09/21/16 10:55 Dose: 1,000 mg Dextrose (D50w Syringe 50 Ml*) 12.5 gm IV PUSH .FOR FS < 60 - SS PRN PRN Reason: FS < 60 Furosemide (Lasix Tab*) 20 mg PO DAILY [facility] Heparin Sodium (Porcine) (Heparin Vial(*)) 5,000 units SUBCUT Q8HR [facility] Last Admin: 09/21/16 13:36 Dose: 5,000 units Vancomycin HCl 1,250 mg/ (Sodium Chloride) 250 mls @ 166.667 mls/hr IVPB Q8H [facility] Last Admin: 09/21/16 08:02 Dose: 166.667 mls/hr Insulin Glargine (Lantus(*)) 38 units SUBCUT BID [facility] Last Admin: 09/21/16 09:19 Dose: 38 units Insulin Human Lispro (Humalog*) 0 units SUBCUT AC [facility] PRN Reason: Protocol Last Admin: 09/21/16 12:49 Dose: 12 units Lactobacillus Rhamnosus (Culturelle*) 1 cap PO BID [facility] Last Admin: 09/21/16 08:25 Dose: 1 cap Lisinopril (Prinivil Tab*) 30 mg PO DAILY [facility] Last Admin: 09/21/16 08:25 Dose: 30 mg Metformin HCl (Glucophage*) 1,000 mg PO BID WITH MEALS [facility] Last Admin: 09/21/16 08:25 Dose: 1,000 mg Morphine Sulfate (Morphine Inj (Syringe)*) 4 mg IV Q4H PRN PRN Reason: PAIN Last Admin: 09/21/16 13:32 Dose: 4 mg Omeprazole (Prilosec Cap*) 20 mg PO DAILY@0730 [facility] Last Admin: 09/21/16 07:30 Dose: 20 mg Ondansetron HCl (Zofran Inj*) 4 mg IV Q4H PRN PRN Reason: NAUSEA/VOMITING Last Admin: 09/21/16 13:36 Dose: 4 mg Oxycodone HCl (Roxycodone Tab*) 10 mg PO Q4H PRN PRN Reason: PAIN Last Admin: 09/21/16 11:35 Dose: 10 mg Oxycodone HCl (Oxycontin(*)) 20 mg PO BID [facility] Pharmacy Profile Note (Vancomycin Trough Check) 1 note FOLLOW UP ONCE ONE Stop: 09/22/16 07:31 Vital Signs: Temp Pulse Resp BP Pulse Ox 98.6 F 67 20 105/57 96 09/21/16 11:40 09/21/16 11:40 09/21/16 13:32 09/21/16 11:40 09/21/16 11:40 Oxygen Devices in Use Now: None Appearance: Slightly uncomfortable appearing middle aged gentleman in NAD Respiratory: Symmetrical Chest Expansion and Respiratory Effort, Clear to Auscultation Cardiovascular: NL Sounds; No Murmurs; No JVD, RRR Abdominal: NL Sounds; No Tenderness; No Distention Extremities: - - 2+ LE edema, lower legs covered in HRONDA wraps Neurological: Alert and Oriented x 3 Result Diagrams: 09/21/16 07:55 09/21/16 07:55 Diagnostic Imaging: Echo 08/29/16 - LVEF 55-60%, mod LVH, diastolic dysfunction, mild to mod reduced RV function, unable to assess RV function Assess/Plan/Problems-Billing Assessment: This is a 60 yo gentleman with known osteomyelitis of L calcaneus, poorly controlled diabetes, chronic RV failure and diastolic dysfunction with significant LE edema as well as untreated MASON, HTN, COPD, morbid obesity and chronic pain who was referred to the hospital by Dr Meyers - Patient Problems (1) Cellulitis Comment: With chronic osteomyelitis and non-healing DM ulcer Recently treated with 6-8 weeks of Vanco and oral doxycycline Vanco resumed per ID recommendations (2) Osteomyelitis Comment: Chronic L calcaneal osteomyelitis Ortho surgery team following, unsure of surgical plan, will work to clarify with Dr Meyers (3) Chronic heart failure Comment: Review of echo from earlier this month shows RV failure and diastolic dysfunction which appears to be chronic in nature. RV pressure unable to be measured, but assumed he has pulm HTN from untreated MASON Start diuretics and patient agreed to trying CPAP again (4) Lymphedema Comment: Chronic Likely related to RV and diastolic failure Cont compression and will start diuresis (5) MASON (obstructive sleep apnea) Comment: Non-compliant with CPAP at home He reports that the machine woke him up so he stopped using it He is willing to try CPAP again during his hospital stay after explanation as to how it may be contributing to his edema and poorly healing wounds (6) COPD (chronic obstructive pulmonary disease) Comment: No acute exacerbation (7) Diabetes Comment: IDDM HgbA1c 9.7% Increase Lantus, cont SS mealtime coverage with Humalog (8) Chronic pain Comment: Chronic back, knee, shoulder, and leg pain Prescribed Suboxone by Dr Gan Spoke with Dr Gan at admission He had incomplete pain relief from Suboxone, which has been stopped Incomplete relief from prn oxycodone Start oxycontin with cont prn oxycodone Referral to pain management at discharge (9) Hyperlipidemia Comment: Cont statin (10) Morbid obesity Comment: BMI 50 Bariatric surgery within the last 12 months with 65# weight loss (11) HTN (hypertension) Comment: Normotensive Cont home antihypertensives (12) Full code status (13) DVT prophylaxis Comment: HSQ Status and Disposition: Inpatient. Discharge planning will depend on surgical plan, call has been placed to Dr Meyers to discuss
[2016-09-21] MEDS: oxyCODONE SR TAB(*) 20 MG TAB.SR PO SCH ×2 (15:21→21:58)
[2016-09-21] MEDS: Furosemide TAB* 20 MG PO SCH (15:22)
[2016-09-21] MEDS: amLODIPine TAB* 5 MG PO SCH (21:58)
[2016-09-22] MEDS: Heparin VIAL(*) 5000 UNITS/ML VIAL (FIVE THOUSAND) SUBCUT SCH ×3 (06:13→21:26)
[2016-09-22] MEDS: Calcium Carbonate CHEW TAB* 500 MG (TUMS) PO PRN (06:14)
[2016-09-22] MEDS: oxyCODONE TAB* 5 MG TAB PO PRN (06:14)
[2016-09-22] MEDS ORDERED: Vancomycin Trough Check NOTE FOLLOW UP ONE (07:30)
[2016-09-22 07:35] LABS: Hematocrit 35 % (42-52); Mean Corpuscular HGB Conc 31 g/dl (31-36); Mean Corpuscular Hemoglobin 25 pg (27-31); Mean Corpuscular Volume 80 fL (80-94); Mean Platelet Volume 8 um3 (7.4-10.4); Red Blood Count 4.43 10^6/ul (4.0-5.4); Red Cell Distribution Width 17 % (10.5-15); White Blood Count 9.6 10^3/ul (3.5-10.8)
[2016-09-22 08:13] LABS: BUN/Creatinine Ratio 29.3 (8-20); Calcium 9.4 mg/dL (8.6-10.3); EGFR African American 108.3 (>60); EGFR Non-African American 84.2 (>60); Potassium 5.2 mmol/L (3.5-5.0)
[2016-09-22] MEDS ORDERED: LORazepam TAB(*) 1 MG PO ONE (08:34)
[2016-09-22] MEDS: Insulin GLARGINE(*) 1 UNITS UNIT SUBCUT SCH ×2 (08:35→21:28)
[2016-09-22] MEDS: Insulin LISPRO* 1 UNITS UNIT SUBCUT SCH ×4 (08:35→17:23)
[2016-09-22] MEDS: Atorvastatin* 80 MG TAB PO SCH (08:36)
[2016-09-22] MEDS: Omeprazole CAP* 20 MG PO SCH (08:36)
[2016-09-22] MEDS: Atenolol TAB* 50 MG PO SCH (08:36)
[2016-09-22] MEDS: Lactobacillus Acidophilu (GG)* 1 CAP CAP PO SCH ×2 (08:36→21:25)
[2016-09-22] MEDS: Vancomycin(*) 1,250 MG in NS 0.9% 250 ML* 250 ML IVPB SCH ×2 (08:36→16:26)
[2016-09-22] MEDS: metFORMIN* 1,000 MG TAB PO SCH ×2 (08:36→17:23)
[2016-09-22] MEDS: Furosemide TAB* 20 MG PO SCH (08:36)
[2016-09-22] MEDS: Lisinopril TAB* 10 MG PO SCH (08:37)
[2016-09-22] MEDS: oxyCODONE SR TAB(*) 20 MG TAB.SR PO SCH ×2 (08:39→21:30)
[2016-09-22] MEDS: Morphine INJ* 4 MG/ML 1 ML SYRINGE IV PRN ×3 (10:26→21:27)
[2016-09-22] MEDS ORDERED: Vancomycin per Pharmacy* NOTE FOLLOW UP PRN (11:50)
--- NOTE | 2016-09-22 12:20 | RAD ---
INDICATION: Calcaneal osteomyelitis, reevaluation. COMPARISON: Comparison is made with a prior MRI of the left ankle from July 13, 2016. TECHNIQUE: Axial, sagittal and coronal T1 and T2-weighted images of the left ankle were obtained. FINDINGS: There is diffuse soft tissue swelling and fluid tracking within the subcutaneous tissues which is most prominent along the dorsal aspect of the foot. There is a moderate size area of bone marrow edema present in the posterior inferior aspect of the calcaneus. This involves a larger portion of the calcaneus than on the prior study and would be most consistent with osteomyelitis. No abscess is seen. IMPRESSION: FINDINGS MOST CONSISTENT WITH CALCANEAL OSTEOMYELITIS CENTERED IN THE POSTERIOR INFERIOR ASPECT OF THE CALCANEUS DEMONSTRATING INTERVAL PROGRESSION.
[2016-09-22 13:03] LABS: BUN/Creatinine Ratio 26.3 (8-20); Calcium 9.2 mg/dL (8.6-10.3); EGFR African American 104.4 (>60); EGFR Non-African American 81.1 (>60); Potassium 4.9 mmol/L (3.5-5.0)
[2016-09-22] MEDS: Nystatin CREAM* 15 GM TUBE TOPICAL SCH ×2 (13:24→21:25)
--- NOTE | 2016-09-22 13:56 | PN ---
Subjective Date of Service: 09/22/16 Interval History: Patient reports that he was unable to tolerate CPAP last night, it caused severe heart burn. He worn O2 overnight and stated he slept well. He refused the MRI last night due to pain and agreed this am, but only able to tolerate the L side. He is agreeable to try again with more pain medication to the get the R imaged as well. He was started on Lasix but states he has not diuressed significantly with that. Denies CP and SOB. Objective Active Medications: Acetaminophen (Tylenol Tab*) 650 mg PO Q4H PRN PRN Reason: FEVER/PAIN Last Admin: 09/20/16 14:57 Dose: 650 mg Amlodipine Besylate (Norvasc Tab*) 5 mg PO BEDTIME [facility] Last Admin: 09/21/16 21:58 Dose: 5 mg Atenolol (Tenormin Tab*) 50 mg PO QAM [facility] Last Admin: 09/22/16 08:36 Dose: 50 mg Atorvastatin Calcium (Lipitor*) 80 mg PO DAILY [facility] Last Admin: 09/22/16 08:36 Dose: 80 mg Calcium Carbonate (Tums*) 1,000 mg PO Q4H PRN PRN Reason: reflux Last Admin: 09/22/16 06:14 Dose: 1,000 mg Dextrose (D50w Syringe 50 Ml*) 12.5 gm IV PUSH .FOR FS < 60 - SS PRN PRN Reason: FS < 60 Furosemide (Lasix Tab*) 20 mg PO DAILY [facility] Last Admin: 09/22/16 08:36 Dose: 20 mg Heparin Sodium (Porcine) (Heparin Vial(*)) 5,000 units SUBCUT Q8HR [facility] Last Admin: 09/22/16 13:24 Dose: 5,000 units Vancomycin HCl 1,250 mg/ (Sodium Chloride) 250 mls @ 166.667 mls/hr IVPB Q8H [facility] Last Admin: 09/22/16 08:36 Dose: 166.667 mls/hr Insulin Glargine (Lantus(*)) 45 units SUBCUT BID [facility] Last Admin: 09/22/16 08:35 Dose: 45 units Insulin Human Lispro (Humalog*) 15 units SUBCUT AC [facility] PRN Reason: Protocol Last Admin: 09/22/16 13:23 Dose: 15 units Lactobacillus Rhamnosus (Culturelle*) 1 cap PO BID [facility] Last Admin: 09/22/16 08:36 Dose: 1 cap Lisinopril (Prinivil Tab*) 30 mg PO DAILY [facility] Last Admin: 09/22/16 08:37 Dose: 30 mg Metformin HCl (Glucophage*) 1,000 mg PO BID WITH MEALS [facility] Last Admin: 09/22/16 08:36 Dose: 1,000 mg Morphine Sulfate (Morphine Inj (Syringe)*) 4 mg IV Q2H PRN PRN Reason: PAIN Last Admin: 09/22/16 10:26 Dose: 4 mg Nystatin (Nystatin Cream*) 1 applic TOPICAL BID [facility] Last Admin: 09/22/16 13:24 Dose: 1 applic Omeprazole (Prilosec Cap*) 20 mg PO DAILY@0730 [facility] Last Admin: 09/22/16 08:36 Dose: 20 mg Ondansetron HCl (Zofran Inj*) 4 mg IV Q4H PRN PRN Reason: NAUSEA/VOMITING Last Admin: 09/21/16 23:04 Dose: 4 mg Oxycodone HCl (Roxycodone Tab*) 10 mg PO Q4H PRN PRN Reason: PAIN Last Admin: 09/22/16 06:14 Dose: 10 mg Oxycodone HCl (Oxycontin(*)) 20 mg PO BID [facility] Last Admin: 09/22/16 08:39 Dose: 20 mg Pharmacy Consult (Vancomycin Per Pharmacy*) 1 note FOLLOW UP . PRN PRN Reason: PER PROTOCOL Vital Signs: Temp Pulse Resp BP Pulse Ox 98.6 F 73 17 116/76 94 09/22/16 08:04 09/22/16 08:04 09/22/16 11:58 09/22/16 08:04 09/22/16 08:04 Oxygen Devices in Use Now: None Appearance: Well appearing middle aged gentleman in [facility]. Lying in recliner with legs elevated. Respiratory: Symmetrical Chest Expansion and Respiratory Effort, Clear to Auscultation Cardiovascular: NL Sounds; No Murmurs; No JVD, RRR Extremities: - - both legs covered in RHONDA wraps, obvious firm edema still present and mostly unchanged Neurological: Alert and Oriented x 3 Result Diagrams: 09/22/16 07:25 09/22/16 12:35 Microbiology and Other Data: Microbiology 09/21/16 07:54 Aerobic Blood Culture - Preliminary Blood Venous No Growth Day 1 Anaerobic Blood Culture - Preliminary No Growth Day 1 09/20/16 23:34 Aerobic Blood Culture - Preliminary Blood Venous No Growth Day 1 Anaerobic Blood Culture - Preliminary No Growth Day 1 Diagnostic Imaging: Echo 08/29/16 - LVEF 55-60%, mod LVH, diastolic dysfunction, mild to mod reduced RV function, unable to assess RV function MRI L ankle - osteomyelitis of the L calcaneus that looks to have significantly advanced when compared to 06/2016 Assess/Plan/Problems-Billing Assessment: This is a 60 yo gentleman with known osteomyelitis of L calcaneus, poorly controlled diabetes, chronic RV failure and diastolic dysfunction with significant LE edema as well as untreated MASON, HTN, COPD, morbid obesity and chronic pain who was referred to the hospital by Dr Meyers - Patient Problems (1) Cellulitis Comment: With chronic osteomyelitis and non-healing DM ulcer Recently treated with 6-8 weeks of Vanco and oral doxycycline Vanco resumed per ID recommendations (2) Osteomyelitis Comment: Chronic L calcaneal osteomyelitis Discussed case with Dr Meyers yesterday Repeat MRI completed today which shows rather significant progression of the osteomyelitis since June BKA appears to be indicated, Dr Meyers still to re-evaluate MRI of the R foot is pending (3) Chronic heart failure Comment: Review of echo from earlier this month shows RV failure and diastolic dysfunction which appears to be chronic in nature. RV pressure unable to be measured, but assumed he has pulm HTN from untreated MASON Attempted CPAP, but still unable to tolerate Little diuresis with oral Lasix, will get more aggressive with IV Lasix (4) Lymphedema Comment: Chronic Likely related to RV and diastolic failure Cont compression and will start diuresis (5) MASON (obstructive sleep apnea) Comment: Non-compliant with CPAP at home He reports that the machine woke him up so he stopped using it Attempted CPAP again last night, unable to tolerate (6) COPD (chronic obstructive pulmonary disease) Comment: No acute exacerbation (7) Diabetes Comment: IDDM HgbA1c 9.7% Increased Lantus, will also increase mealtime Humalog coverage (8) Chronic pain Comment: Chronic back, knee, shoulder, and leg pain Prescribed Suboxone by Dr Gan Spoke with Dr Gan at admission He had incomplete pain relief from Suboxone, which has been stopped Incomplete relief from prn oxycodone Start oxycontin with cont prn oxycodone Referral to pain management at discharge (9) Hyperlipidemia Comment: Cont statin (10) Morbid obesity Comment: BMI 50 Bariatric surgery within the last 12 months with 65# weight loss (11) HTN (hypertension) Comment: Normotensive Cont home antihypertensives (12) Full code status (13) DVT prophylaxis Comment: HSQ Status and Disposition: Inpatient.
--- NOTE | 2016-09-22 14:50 | PN ---
Progress Note - Progress Note SOAP: Subjective: []Patient seen OOB sitting in chair with BLE in dependent position. No new complaints. He understands the gravity of the situation in his lower extremities, most notably the left heel, which shows worsening of the osteomyelitis in the calcaneous. He continues to have the dressings changed 1- 2 times daily and continue to saturate through the ABDs and RHONDA wraps. Objective: [] Vital Signs Temp 98.6 F 09/22/16 08:04 Pulse 73 09/22/16 08:04 Resp 17 09/22/16 11:58 BP 116/76 09/22/16 08:04 Pulse Ox 94 09/22/16 08:04 Intake & Output 09/21/16 09/22/16 09/22/16 18:59 06:59 18:59 Intake Total 1620 1850 640 Output Total 200 2300 1050 Balance 1420 -450 -410 Weight 367 lb Intake: IVPB 260 250 ABX - VANCOMYCIN 260 250 Oral 1360 1600 640 Output: Urine 200 2300 1050 Other: Estimated Void Medium Medium # Bowel Movements 0 0 # Voids 3 3 Laboratory Results - last 24 hr 09/21/16 09/21/16 09/22/16 17:20 21:09 07:25 WBC RBC Hgb Hct MCV MCH MCHC RDW Plt Count MPV Neut % (Auto) Lymph % (Auto) [place] % (Auto) Eos % (Auto) Baso % (Auto) Absolute Neuts (auto) Absolute Lymphs (auto) Absolute Monos (auto) Absolute Eos (auto) Absolute Basos (auto) Absolute Nucleated RBC Nucleated RBC % Sodium Potassium Chloride Carbon Dioxide Anion Gap BUN Creatinine Est GFR ( Amer) Est GFR (Non-Af Amer) BUN/Creatinine Ratio Glucose POC Glucose (mg/dL) 231 H 269 H Calcium C-Reactive Protein Vancomycin Trough 15.5 09/22/16 09/22/16 09/22/16 07:25 07:25 07:57 WBC 9.6 RBC 4.43 Hgb 11.0 L Hct 35 L MCV 80 MCH 25 L MCHC 31 RDW 17 H Plt Count 271 MPV 8 Neut % (Auto) 79.6 Lymph % (Auto) 7.4 L [place] % (Auto) 10.1 H Eos % (Auto) 2.2 Baso % (Auto) 0.7 Absolute Neuts (auto) 7.7 Absolute Lymphs (auto) 0.7 L Absolute Monos (auto) 1.0 H Absolute Eos (auto) 0.2 Absolute Basos (auto) 0.1 Absolute Nucleated RBC 0 Nucleated RBC % 0 Sodium 130 L Potassium 5.2 H Chloride 95 L Carbon Dioxide 29 Anion Gap 6 BUN 27 H Creatinine 0.92 Est GFR ( Amer) 108.3 Est GFR (Non-Af Amer) 84.2 BUN/Creatinine Ratio 29.3 H Glucose 278 H POC Glucose (mg/dL) 306 H Calcium 9.4 C-Reactive Protein 39.00 H Vancomycin Trough 09/22/16 12:35 WBC RBC Hgb Hct MCV MCH MCHC RDW Plt Count MPV Neut % (Auto) Lymph % (Auto) [place] % (Auto) Eos % (Auto) Baso % (Auto) Absolute Neuts (auto) Absolute Lymphs (auto) Absolute Monos (auto) Absolute Eos (auto) Absolute Basos (auto) Absolute Nucleated RBC Nucleated RBC % Sodium 132 L Potassium 4.9 Chloride 94 L Carbon Dioxide 33 H Anion Gap 5 BUN 25 H Creatinine 0.95 Est GFR ( Amer) 104.4 Est GFR (Non-Af Amer) 81.1 BUN/Creatinine Ratio 26.3 H Glucose 247 H POC Glucose (mg/dL) Calcium 9.2 C-Reactive Protein Vancomycin Trough Foul odor noted upon entering the room BLE LE ulcers and weeping lymphadema unchanged from yesterday Assessment: []Left calcaneal osteomyelitis- worsening Right great toe ulcer- new MRI pending weepy lymphedema BL LE's mid calf down Plan: []Continue diuresis Continue dressing changes prn saturation, minimally BID Continue Vancomycin Encourage elevation of lower extremities Await MRI Right LE Probable BKA Left LE, await Dr. Meyers's final recommendations
[2016-09-22] MEDS: Acetaminophen TAB* 325 MG PO PRN (16:24)
[2016-09-22] MEDS: Furosemide IV* 10 MG/ML 2 ML VIAL (20 MG) IV SLOW PU SCH (16:24)
--- NOTE | 2016-09-22 16:40 | RAD ---
Indication: Evaluate for osteomyelitis. Sequences: Sagittal T1, STIR, axial T1, STIR, coronal T1 and STIR images of the right foot were obtained. The phalanges and metatarsals demonstrates no evidence of increased signal to suggest osteomyelitis. No evidence of bone marrow replacement is noted. Motion artifact degrades the images. There is mild diffuse soft tissue swelling in the lateral aspect of the foot as well as in the dorsal aspect of the foot. No drainable fluid collections are identified. IMPRESSION: Moderate degree of subcutaneous edema. No evidence of bone marrow edema or replacement to suggest osteomyelitis is present.
[2016-09-22] MEDS: amLODIPine TAB* 5 MG PO SCH (21:25)
[2016-09-23] MEDS: Vancomycin(*) 1,250 MG in NS 0.9% 250 ML* 250 ML IVPB SCH ×3 (02:24→18:10)
[2016-09-23] MEDS: Heparin VIAL(*) 5000 UNITS/ML VIAL (FIVE THOUSAND) SUBCUT SCH ×3 (06:26→21:28)
[2016-09-23 06:48] LABS: Hematocrit 36 % (42-52); Hemoglobin 11.3 g/dl (14.0-18.0); Mean Corpuscular HGB Conc 32 g/dl (31-36); Mean Corpuscular Hemoglobin 25 pg (27-31); Mean Corpuscular Volume 78 fL (80-94); Mean Platelet Volume 8 um3 (7.4-10.4); Red Blood Count 4.56 10^6/ul (4.0-5.4); Red Cell Distribution Width 16 % (10.5-15); White Blood Count 9.5 10^3/ul (3.5-10.8)
[2016-09-23 07:01] LABS: BUN/Creatinine Ratio 22.8 (8-20); C Reactive Protein 31.7 mg/L (< 5.00); Calcium 9.5 mg/dL (8.6-10.3); EGFR African American 129.1 (>60); EGFR Non-African American 100.4 (>60); Potassium 4.4 mmol/L (3.5-5.0)
[2016-09-23] MEDS: Omeprazole CAP* 20 MG PO SCH (08:50)
[2016-09-23] MEDS: metFORMIN* 1,000 MG TAB PO SCH ×2 (08:51→17:07)
[2016-09-23] MEDS: Atenolol TAB* 50 MG PO SCH (08:51)
[2016-09-23] MEDS: Lisinopril TAB* 10 MG PO SCH (08:51)
[2016-09-23] MEDS: oxyCODONE SR TAB(*) 20 MG TAB.SR PO SCH ×2 (08:51→21:25)
[2016-09-23] MEDS: Insulin LISPRO* 1 UNITS UNIT SUBCUT SCH ×3 (08:53→17:08)
[2016-09-23] MEDS: Atorvastatin* 80 MG TAB PO SCH (09:06)
[2016-09-23] MEDS: Morphine INJ* 4 MG/ML 1 ML SYRINGE IV PRN ×6 (09:57→23:07)
[2016-09-23] MEDS: Lactobacillus Acidophilu (GG)* 1 CAP CAP PO SCH ×2 (09:58→23:04)
[2016-09-23] MEDS: Nystatin CREAM* 15 GM TUBE TOPICAL SCH ×2 (09:58→23:00)
[2016-09-23] MEDS: Furosemide IV* 10 MG/ML 2 ML VIAL (20 MG) IV SLOW PU SCH (09:58)
[2016-09-23] MEDS: Insulin GLARGINE(*) 1 UNITS UNIT SUBCUT SCH ×2 (10:00→21:27)
--- NOTE | 2016-09-23 10:20 | PN ---
PROGRESS NOTE: DATE: 09/23/16 - ROOM #415 HISTORY OF PRESENT ILLNESS: Priyank is now going on his third day of his in- house stay for lower extremity lymphedema, borderline cardiac failure, and cellulitis and osteomyelitis of the left foot. As stated numerous times in the record, he is a 60- year-old gentleman with insulin-dependent diabetes, lymphedema, osteomyelitis of his left calcaneus, obstructive sleep apnea, chronic back pain, mostly back pain, hypertension. He has been on IV vancomycin, oral doxycycline, and there has been no significant improvement in either lower extremity. The right lower extremity recently becoming increasingly cellulitic, swollen, and weeping serous fluid. He has had an MRI of the right forefoot, which has not shown osteomyelitis. The examination today at the bedside shows the right forefoot still significantly edematous and weeping serous fluid, but there is no significant skin failure in the first or second toe. There is no significant cracking or ulceration noted clinically. The left foot MRI does reveal significant calcaneal osteomyelitis. The ulcer is large on the plantar aspect, and is clearly a burden to him in terms of recurrent bacteremia. His examination of the left leg has shown significant lymphedema and thickened hyperkeratotic skin. In my opinion, no foot salvage procedure would be feasible given the extreme lymphedema and poor generalized lymph drainage from the left dependent extremity. Mr. Cosby and I have discussed frankly his situation with the chronic calcaneal osteomyelitis, persistent pain in the left heel, poor control of his glucose, generalized metabolic decline. I would recommend to him that he consider a transtibial amputation, which I think at least comes close to a good healing level in the proximal calf where his skin improves. This is something that we could consider in the near future, potentially in 2 or 3 days, and I will contact his spouse to discuss this as well as the medical team. [id number]/[facility] #: [id number] CRISTINA
--- NOTE | 2016-09-23 12:11 | PN ---
Progress Note - Progress Note SOAP: Subjective: [] Objective: General -sitting in chair, c/o pain LE's MSK- RLE- dressing removed, + muliple areas of weeping skin, + erythema diffuse from knee down, + edematous from knee down, dry, flaking skin. Dressing with silver alg applied. LLE- + weeping skin from knee down, ~ 3.5 cm ulceration at bottom heel, + severe tender to touch, + purulent drainage noted. Redressed with silver alg, ABD, RHONDA. Vital Signs Temp 97.5 F 09/23/16 08:33 Pulse 84 09/23/16 08:33 Resp 16 09/23/16 10:57 BP 133/87 09/23/16 08:33 Pulse Ox 93 09/23/16 08:33 Intake & Output 09/22/16 09/23/16 09/23/16 18:59 06:59 18:59 Intake Total 1340 2257 1020 Output Total 1800 1950 Balance -847 613 9513 Weight 367 lb 362 lb 3.2 oz Intake: IV Fluids 307 ABX - VANCOMYCIN 257 NS (0.9%) 50 IVPB 510 ABX - VANCOMYCIN 510 Oral 1340 1440 1020 Output: Urine 1050 1950 Mckee 750 Other: Estimated Void Large # Bowel Movements 0 # Voids 4 Laboratory Results - last 24 hr 09/22/16 09/22/16 09/23/16 12:35 16:32 06:42 WBC 9.5 RBC 4.56 Hgb 11.3 L Hct 36 L MCV 78 L MCH 25 L MCHC 32 RDW 16 H Plt Count 333 MPV 8 Neut % (Auto) 77.7 Lymph % (Auto) 10.1 L [place] % (Auto) 8.7 Eos % (Auto) 2.9 Baso % (Auto) 0.6 Absolute Neuts (auto) 7.4 Absolute Lymphs (auto) 1.0 Absolute Monos (auto) 0.8 Absolute Eos (auto) 0.3 Absolute Basos (auto) 0.1 Absolute Nucleated RBC 0 Nucleated RBC % 0 Sodium 132 L Potassium 4.9 Chloride 94 L Carbon Dioxide 33 H Anion Gap 5 BUN 25 H Creatinine 0.95 Est GFR ( Amer) 104.4 Est GFR (Non-Af Amer) 81.1 BUN/Creatinine Ratio 26.3 H Glucose 247 H POC Glucose (mg/dL) 268 H Calcium 9.2 C-Reactive Protein 09/23/16 09/23/16 06:42 07:43 WBC RBC Hgb Hct MCV MCH MCHC RDW Plt Count MPV Neut % (Auto) Lymph % (Auto) [place] % (Auto) Eos % (Auto) Baso % (Auto) Absolute Neuts (auto) Absolute Lymphs (auto) Absolute Monos (auto) Absolute Eos (auto) Absolute Basos (auto) Absolute Nucleated RBC Nucleated RBC % Sodium 134 Potassium 4.4 Chloride 93 L Carbon Dioxide 37 H Anion Gap 4 BUN 18 Creatinine 0.79 Est GFR ( Amer) 129.1 Est GFR (Non-Af Amer) 100.4 BUN/Creatinine Ratio 22.8 H Glucose 162 H POC Glucose (mg/dL) 175 H Calcium 9.5 C-Reactive Protein 31.70 H Assessment: []Left calcaneal osteomyelitis- worsening RIght weepy lymphedema BL LE's mid calf down Plan: Continue dressing changes prn saturation, minimally BID- leave silver alginate in place x 24 hours Continue Vancomycin per ID recs Encourage elevation of lower extremities MRI- RLE- negative for osteo, continue silver, abx for cellulitis Probable BKA Left LE, await Dr. Meyers's final recommendations, NPOpMN Monday , pending clearance per hospitalist Active Medications Generic Name Dose Route Start Last Admin Trade Name Freq PRN Reason Stop Dose Admin Acetaminophen 650 mg 09/20/16 13:29 09/22/16 16:24 Tylenol Tab* PO 650 mg Q4H PRN Administration FEVER/PAIN Amlodipine Besylate 5 mg 09/20/16 21:00 09/22/16 21:25 Norvasc Tab* PO 5 mg BEDTIME MICHELLE Administration Atenolol 50 mg 09/21/16 09:00 09/23/16 08:51 Tenormin Tab* PO 50 mg QAM MICHELLE Administration Atorvastatin Calcium 80 mg 09/21/16 09:00 09/23/16 09:06 Lipitor* PO 80 mg DAILY MICHELLE Administration Calcium Carbonate 1,000 mg 09/20/16 16:56 09/22/16 06:14 Tums* PO 1,000 mg Q4H PRN Administration reflux Dextrose 12.5 gm 09/20/16 15:02 D50w Syringe 50 Ml* IV PUSH .FOR FS < 60 - SS PRN FS < 60 Furosemide 20 mg 09/22/16 15:00 09/23/16 09:58 Lasix Iv* IV SLOW PU 20 mg DAILY MICHELLE Administration Heparin Sodium (Porcine) 5,000 units 09/20/16 14:00 09/23/16 06:26 Heparin Vial(*) SUBCUT 5,000 units Q8HR MICHELLE Administration Heparin Sodium (Porcine) 1 ml 09/23/16 18:00 Heparin Flush Picc/Ml/Cvc(*) FLUSH 0600,1800 [facility] Protocol Vancomycin HCl 1,250 mg/ 250 mls @ 166.667 mls/hr 09/21/16 00:00 09/23/16 09: 58 Sodium Chloride IVPB 166.667 mls/hr Q8H MICHELLE Administration Insulin Glargine 50 units 09/22/16 21:00 09/23/16 10:00 Lantus(*) SUBCUT 50 units BID MICHELLE Administration Insulin Human Lispro 15 units 09/22/16 16:37 09/23/16 08:53 Humalog* SUBCUT 15 units AC MICHELLE Administration Protocol Lactobacillus Rhamnosus 1 cap 09/20/16 21:00 09/23/16 09:58 Culturelle* PO 1 cap BID MICHELLE Administration Lisinopril 30 mg 09/21/16 09:00 09/23/16 08:51 Prinivil Tab* PO 30 mg DAILY MICHELLE Administration Metformin HCl 1,000 mg 09/20/16 17:00 09/23/16 08:51 Glucophage* PO 1,000 mg BID WITH MEALS MICHELLE Administration Morphine Sulfate 4 mg 09/21/16 15:48 09/23/16 09:57 Morphine Inj (Syringe)* IV 4 mg Q2H PRN Administration PAIN Nystatin 1 applic 09/22/16 12:00 09/23/16 09:58 Nystatin Cream* TOPICAL 1 applic BID MICHELLE Administration Omeprazole 20 mg 09/21/16 07:30 09/23/16 08:50 Prilosec Cap* PO 20 mg DAILY@0730 MICHELLE Administration Ondansetron HCl 4 mg 09/20/16 13:29 09/21/16 23:04 Zofran Inj* IV 4 mg Q4H PRN Administration NAUSEA/VOMITING Oxycodone HCl 10 mg 09/20/16 14:46 09/22/16 06:14 Roxycodone Tab* PO 10 mg Q4H PRN Administration PAIN Oxycodone HCl 20 mg 09/21/16 14:40 09/23/16 08:51 Oxycontin(*) PO 20 mg BID MICHELLE Administration Pharmacy Consult 1 note 09/22/16 11:50 Vancomycin Per Pharmacy* FOLLOW UP . PRN PER PROTOCOL Pharmacy Profile Note 1 note 09/24/16 07:30 Vancomycin Trough Check FOLLOW UP 09/24/16 07:31 0730 ONE
[2016-09-23] MEDS: oxyCODONE TAB* 5 MG TAB PO PRN ×2 (14:02→19:56)
--- NOTE | 2016-09-23 15:17 | PN ---
Subjective Date of Service: 09/23/16 Interval History: Patient reports that he is urinating quite a bit and he feels that his edema is improving. He is having some trouble emotionally processing the idea of a BKA. No SOB, CP, abd pain, n/v. Objective Active Medications: Acetaminophen (Tylenol Tab*) 650 mg PO Q4H PRN PRN Reason: FEVER/PAIN Last Admin: 09/22/16 16:24 Dose: 650 mg Amlodipine Besylate (Norvasc Tab*) 5 mg PO BEDTIME [facility] Last Admin: 09/22/16 21:25 Dose: 5 mg Atenolol (Tenormin Tab*) 50 mg PO QAM [facility] Last Admin: 09/23/16 08:51 Dose: 50 mg Atorvastatin Calcium (Lipitor*) 80 mg PO DAILY [facility] Last Admin: 09/23/16 09:06 Dose: 80 mg Calcium Carbonate (Tums*) 1,000 mg PO Q4H PRN PRN Reason: reflux Last Admin: 09/22/16 06:14 Dose: 1,000 mg Dextrose (D50w Syringe 50 Ml*) 12.5 gm IV PUSH .FOR FS < 60 - SS PRN PRN Reason: FS < 60 Furosemide (Lasix Iv*) 20 mg IV SLOW PU DAILY [facility] Last Admin: 09/23/16 09:58 Dose: 20 mg Heparin Sodium (Porcine) (Heparin Vial(*)) 5,000 units SUBCUT Q8HR [facility] Last Admin: 09/23/16 13:44 Dose: 5,000 units Heparin Sodium (Porcine) (Heparin Flush Picc/Ml/Cvc(*)) 1 ml FLUSH 0600,1800 MICHELLE PRN Reason: Protocol Vancomycin HCl 1,250 mg/ (Sodium Chloride) 250 mls @ 166.667 mls/hr IVPB Q8H [facility] Last Admin: 09/23/16 09:58 Dose: 166.667 mls/hr Insulin Glargine (Lantus(*)) 50 units SUBCUT BID [facility] Last Admin: 09/23/16 10:00 Dose: 50 units Insulin Human Lispro (Humalog*) 15 units SUBCUT AC MICHELLE PRN Reason: Protocol Last Admin: 09/23/16 12:52 Dose: 15 units Lactobacillus Rhamnosus (Culturelle*) 1 cap PO BID [facility] Last Admin: 09/23/16 09:58 Dose: 1 cap Lisinopril (Prinivil Tab*) 30 mg PO DAILY [facility] Last Admin: 09/23/16 08:51 Dose: 30 mg Metformin HCl (Glucophage*) 1,000 mg PO BID WITH MEALS [facility] Last Admin: 09/23/16 08:51 Dose: 1,000 mg Morphine Sulfate (Morphine Inj (Syringe)*) 4 mg IV Q2H PRN PRN Reason: PAIN Last Admin: 09/23/16 12:31 Dose: 4 mg Nystatin (Nystatin Cream*) 1 applic TOPICAL BID [facility] Last Admin: 09/23/16 09:58 Dose: 1 applic Omeprazole (Prilosec Cap*) 20 mg PO DAILY@0730 [facility] Last Admin: 09/23/16 08:50 Dose: 20 mg Ondansetron HCl (Zofran Inj*) 4 mg IV Q4H PRN PRN Reason: NAUSEA/VOMITING Last Admin: 09/21/16 23:04 Dose: 4 mg Oxycodone HCl (Roxycodone Tab*) 10 mg PO Q4H PRN PRN Reason: PAIN Last Admin: 09/23/16 14:02 Dose: 10 mg Oxycodone HCl (Oxycontin(*)) 20 mg PO BID [facility] Last Admin: 09/23/16 08:51 Dose: 20 mg Pharmacy Consult (Vancomycin Per Pharmacy*) 1 note FOLLOW UP . PRN PRN Reason: PER PROTOCOL Pharmacy Profile Note (Vancomycin Trough Check) 1 note FOLLOW UP 0730 ONE Stop: 09/24/16 07:31 Vital Signs: Temp Pulse Resp BP Pulse Ox 97.5 F 84 16 133/87 93 09/23/16 08:33 09/23/16 08:33 09/23/16 14:02 09/23/16 08:33 09/23/16 08:33 Oxygen Devices in Use Now: None Appearance: This is a well appearing middle aged male in NAD Respiratory: Symmetrical Chest Expansion and Respiratory Effort, Clear to Auscultation Cardiovascular: NL Sounds; No Murmurs; No JVD, RRR Extremities: - - improving, non-pitting LE edema Skin: - - RHONDA wraps to the distal knee bilaterally Neurological: Alert and Oriented x 3 Result Diagrams: 09/23/16 06:42 09/23/16 06:42 Microbiology and Other Data: Microbiology 09/21/16 07:54 Aerobic Blood Culture - Preliminary Blood Venous No Growth Day 1 Anaerobic Blood Culture - Preliminary No Growth Day 1 09/20/16 23:34 Aerobic Blood Culture - Preliminary Blood Venous No Growth Day 1 Anaerobic Blood Culture - Preliminary No Growth Day 1 Diagnostic Imaging: Echo 08/29/16 - LVEF 55-60%, mod LVH, diastolic dysfunction, mild to mod reduced RV function, unable to assess RV function MRI L ankle - osteomyelitis of the L calcaneus that looks to have significantly advanced when compared to 06/2016 Assess/Plan/Problems-Billing Assessment: This is a 60 yo gentleman with known osteomyelitis of L calcaneus, poorly controlled diabetes, chronic RV failure and diastolic dysfunction with significant LE edema as well as untreated MASON, HTN, COPD, morbid obesity and chronic pain who was referred to the hospital by Dr Meyers - Patient Problems (1) Cellulitis Comment: With chronic osteomyelitis and non-healing DM ulcer Recently treated with 6-8 weeks of Vanco and oral doxycycline Vanco resumed per ID recommendations (2) Osteomyelitis Comment: Chronic L calcaneal osteomyelitis Repeat MRI completed today which shows rather significant progression of the osteomyelitis since June Plan for BKA by Dr Meyers Monday MRI of the R foot is pending (3) Chronic heart failure Comment: Review of echo from earlier this month shows RV failure and diastolic dysfunction which appears to be chronic in nature. RV pressure unable to be measured, but assumed he has pulm HTN from untreated MASON Attempted CPAP, but still unable to tolerate Edema improving with IV Lasix (4) Lymphedema Comment: Chronic Likely related to RV and diastolic failure Cont compression and diuresis (5) MASON (obstructive sleep apnea) Comment: Non-compliant with CPAP at home He reports that the machine woke him up so he stopped using it Attempted CPAP again last night, unable to tolerate (6) COPD (chronic obstructive pulmonary disease) Comment: No acute exacerbation (7) Diabetes Comment: IDDM HgbA1c 9.7% Increased Lantus, will also cont to increase mealtime Humalog coverage (8) Chronic pain Comment: Chronic back, knee, shoulder, and leg pain Prescribed Suboxone by Dr Gan Spoke with Dr Gan at admission He had incomplete pain relief from Suboxone, which has been stopped Incomplete relief from prn oxycodone Start oxycontin with cont prn oxycodone Referral to pain management at discharge (9) Hyperlipidemia Comment: Cont statin (10) Morbid obesity Comment: BMI 50 Bariatric surgery within the last 12 months with 65# weight loss (11) HTN (hypertension) Comment: Normotensive Cont home antihypertensives (12) Full code status (13) DVT prophylaxis Comment: HSQ Status and Disposition: Inpatient. SAMEERA planned for Monday
[2016-09-23] MEDS: amLODIPine TAB* 5 MG PO SCH (21:25)
[2016-09-23] MEDS: Calcium Carbonate CHEW TAB* 500 MG (TUMS) PO PRN (23:17)
[2016-09-24] MEDS: oxyCODONE TAB* 5 MG TAB PO PRN ×4 (00:34→21:49)
[2016-09-24] MEDS: Vancomycin(*) 1,250 MG in NS 0.9% 250 ML* 250 ML IVPB SCH ×3 (01:16→18:31)
[2016-09-24] MEDS: Morphine INJ* 4 MG/ML 1 ML SYRINGE IV PRN ×8 (01:17→19:42)
[2016-09-24] MEDS: Heparin VIAL(*) 5000 UNITS/ML VIAL (FIVE THOUSAND) SUBCUT SCH ×3 (05:22→21:52)
[2016-09-24] MEDS ORDERED: Vancomycin Trough Check NOTE FOLLOW UP ONE (07:30)
[2016-09-24] MEDS: Furosemide IV* 10 MG/ML 2 ML VIAL (20 MG) IV SLOW PU SCH (08:01)
[2016-09-24] MEDS: Atorvastatin* 80 MG TAB PO SCH (08:08)
[2016-09-24] MEDS: Omeprazole CAP* 20 MG PO SCH (08:08)
[2016-09-24] MEDS: oxyCODONE SR TAB(*) 20 MG TAB.SR PO SCH ×2 (08:08→21:49)
[2016-09-24] MEDS: Lactobacillus Acidophilu (GG)* 1 CAP CAP PO SCH ×2 (08:08→21:48)
[2016-09-24] MEDS: metFORMIN* 1,000 MG TAB PO SCH ×2 (08:08→16:41)
[2016-09-24] MEDS: Atenolol TAB* 50 MG PO SCH (08:08)
[2016-09-24] MEDS: Lisinopril TAB* 10 MG PO SCH (08:08)
[2016-09-24] MEDS: Insulin GLARGINE(*) 1 UNITS UNIT SUBCUT SCH ×2 (08:09→21:50)
[2016-09-24] MEDS: Insulin LISPRO* 1 UNITS UNIT SUBCUT SCH ×3 (08:09→16:39)
[2016-09-24] MEDS: Nystatin CREAM* 15 GM TUBE TOPICAL SCH ×2 (08:11→21:52)
[2016-09-24 09:08] LABS: Vancomycin Trough 16.9 mcg/mL
--- NOTE | 2016-09-24 09:57 | PN ---
Progress Note - Progress Note SOAP: Subjective: Pt states that he is having discomfort in his left lower leg. The pain medications help reduce the pain. He denies f/c, CP or SOB. VSS overnight Objective: PE: General- 60 y/o M in NAD sitting comfortably in chair Bilateral lower extremities- dressing intact, able to flex and extend toes, edema with chronic skin changes of the LE, + 2 DP pulse, sensation intact to light touch distally Vital Signs Temp Pulse Resp BP Pulse Ox 98.5 F 76 14 119/62 100 09/23/16 19:50 09/23/16 19:50 09/24/16 08:08 09/23/16 19:50 09/23/16 19:50 Laboratory Results - last 24 hr 09/23/16 09/23/16 09/24/16 12:40 17:04 07:54 BUN Creatinine Est GFR ( Amer) Est GFR (Non-Af Amer) POC Glucose (mg/dL) 294 H 229 H 218 H Vancomycin Trough 09/24/16 08:20 BUN 14 Creatinine 0.76 Est GFR ( Amer) 135.0 Est GFR (Non-Af Amer) 105.0 POC Glucose (mg/dL) Vancomycin Trough 16.9 Assessment: Left calcaneal osteomyelitis- worsening Right weepy lymphedema BL LE's mid calf down Plan: Continue dressing changes prn saturation, minimally BID- leave silver alginate in place x 24 hours Continue Vanco per ID recommendation Encourage elevation of lower extremities MRI- RLE- negative for osteo, continue silver, abx for cellulitis Dressing change by provider tomorrow am. Probable BKA Left LE, await Dr. Meyers's final recommendations, NPO after midnight Monday, pending clearance per hospitalist
[2016-09-24] MEDS: Calcium Carbonate CHEW TAB* 500 MG (TUMS) PO PRN ×2 (11:30→21:47)
--- NOTE | 2016-09-24 16:40 | PN ---
Subjective Date of Service: 09/24/16 Interval History: Patient seen and examined at bedside. Patient states that he is feeling well today, but reports nasal congestion. Denies fever, chills, shortness of breath, chest discomfort, N/V/D. Pt states that he is urinating a large amount and feels that his edema is overall improving. Pt reports a blister that appeared yesterday on his right lower lip. Family History: Unchanged from Admission Social History: Unchanged from Admission Past Medical History: Unchanged from Admission Objective Active Medications: Acetaminophen (Tylenol Tab*) 650 mg PO Q4H PRN Reason: FEVER/PAIN Amlodipine Besylate (Norvasc Tab*) 5 mg PO BEDTIME MICHELLE Atenolol (Tenormin Tab*) 50 mg PO QAM MICHELLE Atorvastatin Calcium (Lipitor*) 80 mg PO DAILY MICHELLE Calcium Carbonate (Tums*) 1,000 mg PO Q4H PRN Reason: reflux Dextrose (D50w Syringe 50 Ml*) 12.5 gm IV PUSH .FOR FS < 60 - SS PRN Reason: FS < 60 Furosemide (Lasix Iv*) 20 mg IV SLOW PU DAILY [facility] Heparin Sodium (Porcine) (Heparin Vial(*)) 5,000 units SUBCUT Q8HR [facility] Heparin Sodium (Porcine) (Heparin Flush Picc/Ml/Cvc(*)) 1 ml FLUSH 0600,1800 [facility] Reason: Protocol Vancomycin HCl 1,250 mg/ (Sodium Chloride) 250 mls @ 166.667 mls/hr IVPB Q8H [facility] Insulin Glargine (Lantus(*)) 50 units SUBCUT BID [facility] Insulin Human Lispro (Humalog*) 20 units SUBCUT AC [facility] Reason: Protocol Lactobacillus Rhamnosus (Culturelle*) 1 cap PO BID MICHELLE Lisinopril (Prinivil Tab*) 30 mg PO DAILY [facility] Metformin HCl (Glucophage*) 1,000 mg PO BID WITH MEALS MICHELLE Morphine Sulfate (Morphine Inj (Syringe)*) 4 mg IV Q2H PRN Reason: PAIN Nystatin (Nystatin Cream*) 1 applic TOPICAL BID MICHELLE Omeprazole (Prilosec Cap*) 20 mg PO DAILY@0730 [facility] Ondansetron HCl (Zofran Inj*) 4 mg IV Q4H PRN Reason: NAUSEA/VOMITING Oxycodone HCl (Roxycodone Tab*) 10 mg PO Q4H PRN Reason: PAIN Oxycodone HCl (Oxycontin(*)) 20 mg PO BID [facility] Pharmacy Consult (Vancomycin Per Pharmacy*) 1 note FOLLOW UP . PRN Vital Signs 09/23/16 09/23/16 09/23/16 18:10 19:10 19:50 Temperature 98.5 F Pulse Rate 76 Respiratory 20 12 20 Rate Blood Pressure 119/62 (mmHg) O2 Sat by Pulse 100 Oximetry 09/24/16 09/24/16 09/24/16 07:59 08:08 08:31 Temperature 98.2 F Pulse Rate 78 Respiratory 14 14 18 Rate Blood Pressure 126/69 (mmHg) O2 Sat by Pulse 100 Oximetry 09/24/16 09/24/16 09/24/16 12:31 14:00 15:54 Temperature 98.1 F Pulse Rate 78 Respiratory 16 16 16 Rate Blood Pressure 131/70 (mmHg) O2 Sat by Pulse 98 Oximetry Oxygen Devices in Use Now: None Appearance: NAD, sitting up in a chair Eyes: No Scleral Icterus Respiratory: Symmetrical Chest Expansion and Respiratory Effort, Clear to Auscultation Cardiovascular: NL Sounds; No Murmurs; No JVD, RRR, - - Bilateral LE non- pitting edema Abdominal: NL Sounds; No Tenderness; No Distention Extremities: No Edema Skin: - - RHONDA wraps to bilateral LEs, there is some mild blancable redness to right LE from the knee down. Blister noted to right side of lower lip. Neurological: Alert and Oriented x 3, NL Muscle Strength and Tone Lines/Tubes/Other Access: Clean, Dry and Intact Peripheral IV - site benign Nutrition: Taking PO's Result Diagrams: 09/23/16 06:42 09/24/16 08:20 Microbiology and Other Data: Microbiology 09/21/16 07:54 Aerobic Blood Culture - Preliminary Blood Venous No Growth Day 1 Anaerobic Blood Culture - Preliminary No Growth Day 1 09/20/16 23:34 Aerobic Blood Culture - Preliminary Blood Venous No Growth Day 1 Anaerobic Blood Culture - Preliminary No Growth Day 1 Diagnostic Imaging: Echo 08/29/16 - LVEF 55-60%, mod LVH, diastolic dysfunction, mild to mod reduced RV function, unable to assess RV function MRI L ankle - osteomyelitis of the L calcaneus that looks to have significantly advanced when compared to 06/2016 Assess/Plan/Problems-Billing Assessment: Mr. Cosby is a 60 yo gentleman with known osteomyelitis of L calcaneus, poorly controlled diabetes, chronic RV failure and diastolic dysfunction with significant LE edema as well as untreated MASON, HTN, COPD, morbid obesity and chronic pain who was referred to the hospital by Dr Meyers. - Patient Problems (1) Cellulitis Code(s): L03.90 - CELLULITIS, UNSPECIFIED SNOMED Code(s): 485341185 Comment: - With chronic osteomyelitis and non-healing DM ulcer - Recently treated with 6-8 weeks of Vanco and oral doxycycline - Continue Vanco per ID recommendations - Plan for left BKA on Monday (2) Osteomyelitis Code(s): M86.9 - OSTEOMYELITIS, UNSPECIFIED SNOMED Code(s): 33177841 Comment: - Chronic L calcaneal osteomyelitis - Repeat MRI shows rather significant progression of the osteomyelitis since June - Plan for left BKA by Dr Meyers Monday - MRI of the R foot is pending (3) Chronic heart failure Code(s): I50.9 - HEART FAILURE, UNSPECIFIED SNOMED Code(s): 41048709 Comment: - Echo from earlier this month shows RV failure and diastolic dysfunction which appears to be chronic in nature. RV pressure unable to be measured, but assumed he has pulm HTN from untreated MASON - Attempted CPAP, but still unable to tolerate - Edema improving with IV Lasix (4) Lymphedema Code(s): I89.0 - LYMPHEDEMA, NOT ELSEWHERE CLASSIFIED SNOMED Code(s): 172601076 Comment: - Chronic - Likely related to RV and diastolic failure - Continue compression and diuresis (5) MASON (obstructive sleep apnea) Code(s): G47.33 - OBSTRUCTIVE SLEEP APNEA (ADULT) (PEDIATRIC) SNOMED Code(s): 04209553 Comment: - Non-compliant with CPAP at home - He reports that the machine woke him up so he stopped using it - Attempted CPAP again last night, unable to tolerate (6) COPD (chronic obstructive pulmonary disease) Code(s): J44.9 - CHRONIC OBSTRUCTIVE PULMONARY DISEASE, UNSPECIFIED SNOMED Code(s): 08163463 Comment: - No acute exacerbation (7) Diabetes Code(s): E11.9 - TYPE 2 DIABETES MELLITUS WITHOUT COMPLICATIONS SNOMED Code(s) : 03947879 Comment: - IDDM - HgbA1c 9.7% - Continue mealtime Humalog coverage - Will increase Lantus (8) Hyperlipidemia Code(s): E78.5 - HYPERLIPIDEMIA, UNSPECIFIED SNOMED Code(s): 10047317 Comment: - Continue statin (9) Chronic pain Code(s): G89.29 - OTHER CHRONIC PAIN SNOMED Code(s): 37382457 Comment: - Chronic back, knee, shoulder, and leg pain - Prescribed Suboxone by Dr Gan, He had incomplete pain relief from Suboxone , which has been stopped - Incomplete relief from prn oxycodone - Start oxycontin with continue prn oxycodone - Referral to pain management at discharge (10) HTN (hypertension) Code(s): I10 - ESSENTIAL (PRIMARY) HYPERTENSION SNOMED Code(s): 42377031 Comment: - Normotensive - Continue home antihypertensives (11) DVT prophylaxis Code(s): CDA7996 - SNOMED Code(s): 084839798 Comment: - HSQ (12) Full code status Code(s): Z78.9 - OTHER SPECIFIED HEALTH STATUS SNOMED Code(s): 281483884 Status and Disposition: Inpatient. BKA planned for Monday.
[2016-09-24] MEDS: Ondansetron INJ* 2 MG/ML VIAL IV PRN (18:36)
[2016-09-24] MEDS: Cetirizine* 10 MG TAB PO SCH (18:36)
[2016-09-24] MEDS: Docosanol 10%* CREAM 2 GM TUBE TOPICAL SCH ×2 (19:43→21:52)
[2016-09-24] MEDS: amLODIPine TAB* 5 MG PO SCH (21:48)
[2016-09-25] MEDS: Morphine INJ* 4 MG/ML 1 ML SYRINGE IV PRN ×6 (00:36→21:02)
[2016-09-25] MEDS: Vancomycin(*) 1,250 MG in NS 0.9% 250 ML* 250 ML IVPB SCH ×4 (00:37→23:37)
[2016-09-25] MEDS: Calcium Carbonate CHEW TAB* 500 MG (TUMS) PO PRN ×2 (00:43→05:16)
[2016-09-25] MEDS: Ondansetron INJ* 2 MG/ML VIAL IV PRN (02:01)
[2016-09-25] MEDS: oxyCODONE TAB* 5 MG TAB PO PRN (02:47)
[2016-09-25] MEDS: Heparin VIAL(*) 5000 UNITS/ML VIAL (FIVE THOUSAND) SUBCUT SCH ×3 (05:18→23:37)
[2016-09-25] MEDS: Docosanol 10%* CREAM 2 GM TUBE TOPICAL SCH ×5 (05:19→20:55)
[2016-09-25] MEDS: Lactobacillus Acidophilu (GG)* 1 CAP CAP PO SCH ×2 (07:49→20:55)
[2016-09-25] MEDS: Atorvastatin* 80 MG TAB PO SCH (07:49)
[2016-09-25] MEDS: Furosemide IV* 10 MG/ML 2 ML VIAL (20 MG) IV SLOW PU SCH (07:49)
[2016-09-25] MEDS: Omeprazole CAP* 20 MG PO SCH (07:50)
[2016-09-25] MEDS: Atenolol TAB* 50 MG PO SCH (07:50)
[2016-09-25] MEDS: Lisinopril TAB* 10 MG PO SCH (07:50)
[2016-09-25] MEDS: metFORMIN* 1,000 MG TAB PO SCH ×2 (07:50→17:27)
[2016-09-25] MEDS: Cetirizine* 10 MG TAB PO SCH (07:51)
[2016-09-25] MEDS: oxyCODONE SR TAB(*) 20 MG TAB.SR PO SCH ×2 (07:51→20:55)
[2016-09-25] MEDS: Insulin LISPRO* 1 UNITS UNIT SUBCUT SCH ×3 (07:51→17:28)
[2016-09-25] MEDS: Insulin GLARGINE(*) 1 UNITS UNIT SUBCUT SCH ×2 (07:52→20:54)
[2016-09-25] MEDS: Nystatin CREAM* 15 GM TUBE TOPICAL SCH ×2 (07:54→23:37)
[2016-09-25 08:24] LABS: Hematocrit 36 % (42-52); Hemoglobin 11.4 g/dl (14.0-18.0); Mean Corpuscular HGB Conc 32 g/dl (31-36); Mean Corpuscular Hemoglobin 25 pg (27-31); Mean Corpuscular Volume 78 fL (80-94); Mean Platelet Volume 8 um3 (7.4-10.4); Red Blood Count 4.58 10^6/ul (4.0-5.4); Red Cell Distribution Width 17 % (10.5-15); White Blood Count 12.9 10^3/ul (3.5-10.8)
--- NOTE | 2016-09-25 10:03 | PN ---
Progress Note - Progress Note SOAP: Subjective: Pt is doing well. He continues to have pain in his left lower leg. He denies CP, SOB, or F/C. I spoke to his on the phone who [facility] [place] [facility] like [facility] have pt go there after surgery. Objective: 60 y/o overweight male in NAD, sitting comfortably in chair, A&Ox3 LLE- skin flaking, weeping discharge, deep ulcer on the heel, lower extremity swelling, calf nontender, able PF/DF ankle, +2 DP pulse sensation intact RLE- Skin flaking, weeping discharge, lower leg edema, closed blister on posterior aspect of heel, calf nontender, + DF/PF ankle, +2 DP pulse, sensation intact Vital Signs Temp Pulse Resp BP Pulse Ox 98.5 F 72 18 130/73 91 09/25/16 16:08 09/25/16 16:08 09/25/16 17:28 09/25/16 16:08 09/25/16 16:08 Laboratory Results - last 24 hr 09/25/16 09/25/16 09/25/16 07:17 08:12 11:38 WBC 12.9 H RBC 4.58 Hgb 11.4 L Hct 36 L MCV 78 L MCH 25 L MCHC 32 RDW 17 H Plt Count 315 MPV 8 Neut % (Auto) 79.3 Lymph % (Auto) 7.6 L [place] % (Auto) 9.1 H Eos % (Auto) 2.4 Baso % (Auto) 1.6 Absolute Neuts (auto) 10.2 H Absolute Lymphs (auto) 1.0 Absolute Monos (auto) 1.2 H Absolute Eos (auto) 0.3 Absolute Basos (auto) 0.2 Absolute Nucleated RBC 0 Nucleated RBC % 0 POC Glucose (mg/dL) 258 H 251 H 09/25/16 16:28 WBC RBC Hgb Hct MCV MCH MCHC RDW Plt Count MPV Neut % (Auto) Lymph % (Auto) [place] % (Auto) Eos % (Auto) Baso % (Auto) Absolute Neuts (auto) Absolute Lymphs (auto) Absolute Monos (auto) Absolute Eos (auto) Absolute Basos (auto) Absolute Nucleated RBC Nucleated RBC % POC Glucose (mg/dL) 297 H Assessment: Left calcaneal osteomyelitis- worsening Right weeping lymphedema BL LE's mid calf down Plan: Continue dressing changes prn saturation, minimally BID- leave silver alginate in place x 24 hours Continue Vanco per ID recommendation Encourage elevation of lower extremities MRI- RLE- negative for osteo, continue silver, abx for cellulitis Plan for BKA Left LE Monday, await Dr. Meyers's final recommendations, NPO after midnight Monday, spoke to hospitalist who plans to clear him for surgery Dispo: [facility]covery [facility]
[2016-09-25] MEDS ORDERED: Al Hydrox/Mg Hydrox/Simet LIQ* 30 ML UDC PO PRN (17:45)
--- NOTE | 2016-09-25 17:45 | PN ---
Subjective Date of Service: 09/25/16 Interval History: Patient seen and examined at bedside. Pt states that he is feeling well today with the exception of some breakthrough heat burn and nasal congestion. Denies fever, chills, shortness of breath, chest discomfort, N/V/D. Pt continues to report frequent urination and feels that overall his edema in the LEs is improving. Family History: Unchanged from Admission Social History: Unchanged from Admission Past Medical History: Unchanged from Admission Objective Active Medications: Acetaminophen (Tylenol Tab*) 650 mg PO Q4H PRN Reason: FEVER/PAIN Amlodipine Besylate (Norvasc Tab*) 5 mg PO BEDTIME MICHELLE Atenolol (Tenormin Tab*) 50 mg PO QAM MICHELLE Atorvastatin Calcium (Lipitor*) 80 mg PO DAILY MICHELLE Calcium Carbonate (Tums*) 1,000 mg PO Q4H PRN Reason: reflux Cetirizine HCl (Zyrtec*) 10 mg PO DAILY MICHELLE Reason: Protocol Dextrose (D50w Syringe 50 Ml*) 12.5 gm IV PUSH .FOR FS < 60 - SS PRN Reason: FS < 60 Docosanol (Abreva 10%*) 1 applic TOPICAL FIVE TIMES DAILY MICHELLE Furosemide (Lasix Iv*) 20 mg IV SLOW PU DAILY MICHELLE Heparin Sodium (Porcine) (Heparin Vial(*)) 5,000 units SUBCUT Q8HR MICHELLE Heparin Sodium (Porcine) (Heparin Flush Picc/Ml/Cvc(*)) 1 ml FLUSH 0600,1800 MICHELLE Reason: Protocol Vancomycin HCl 1,250 mg/ (Sodium Chloride) 250 mls @ 166.667 mls/hr IVPB Q8H MICHELLE Insulin Glargine (Lantus(*)) 55 units SUBCUT BID MICHELLE Insulin Human Lispro (Humalog*) 20 units SUBCUT AC MICHELLE Reason: Protocol Lactobacillus Rhamnosus (Culturelle*) 1 cap PO BID MICHELLE Lisinopril (Prinivil Tab*) 30 mg PO DAILY MICHELLE Metformin HCl (Glucophage*) 1,000 mg PO BID WITH MEALS MICHELLE Morphine Sulfate (Morphine Inj (Syringe)*) 4 mg IV Q2H PRN Reason: PAIN Nystatin (Nystatin Cream*) 1 applic TOPICAL BID MICHELLE Omeprazole (Prilosec Cap*) 20 mg PO DAILY@0730 MICHELLE Ondansetron HCl (Zofran Inj*) 4 mg IV Q4H PRN Reason: NAUSEA/VOMITING Oxycodone HCl (Roxycodone Tab*) 10 mg PO Q4H PRN Reason: PAIN Oxycodone HCl (Oxycontin(*)) 20 mg PO BID [facility] Pharmacy Consult (Vancomycin Per Pharmacy*) 1 note FOLLOW UP . PRN Reason: PER PROTOCOL Vital Signs 09/24/16 09/24/16 09/25/16 21:49 23:49 00:07 Temperature 99.2 F Pulse Rate 76 Respiratory 18 18 16 Rate Blood Pressure 103/55 (mmHg) O2 Sat by Pulse 95 Oximetry 09/25/16 09/25/16 09/25/16 04:47 05:01 05:14 Temperature 98.4 F Pulse Rate 92 Respiratory 18 16 18 Rate Blood Pressure 137/80 (mmHg) O2 Sat by Pulse 89 Oximetry 09/25/16 09/25/16 09/25/16 06:14 07:45 07:51 Temperature 98.6 F Pulse Rate 75 Respiratory 18 16 20 Rate Blood Pressure 103/71 (mmHg) O2 Sat by Pulse 90 Oximetry 09/25/16 09/25/16 16:08 17:28 Temperature 98.5 F Pulse Rate 72 Respiratory 17 18 Rate Blood Pressure 130/73 (mmHg) O2 Sat by Pulse 91 Oximetry Oxygen Devices in Use Now: None Appearance: NAD, sitting up in a chair Eyes: No Scleral Icterus Respiratory: Symmetrical Chest Expansion and Respiratory Effort, Clear to Auscultation - , diminished Cardiovascular: NL Sounds; No Murmurs; No JVD, RRR Abdominal: NL Sounds; No Tenderness; No Distention Extremities: - - Bilateral LE edema Skin: - - Dressings to bilateral LE with drainage Neurological: Alert and Oriented x 3, NL Muscle Strength and Tone Nutrition: Taking PO's Result Diagrams: 09/25/16 08:12 09/24/16 08:20 Microbiology and Other Data: Microbiology 09/21/16 07:54 Aerobic Blood Culture - Preliminary Blood Venous No Growth Day 1 Anaerobic Blood Culture - Preliminary No Growth Day 1 09/20/16 23:34 Aerobic Blood Culture - Preliminary Blood Venous No Growth Day 1 Anaerobic Blood Culture - Preliminary No Growth Day 1 Diagnostic Imaging: Echo 08/29/16 - LVEF 55-60%, mod LVH, diastolic dysfunction, mild to mod reduced RV function, unable to assess RV function MRI L ankle - osteomyelitis of the L calcaneus that looks to have significantly advanced when compared to 06/2016 Assess/Plan/Problems-Billing Assessment: Mr. Cosby is a 60 yo gentleman with known osteomyelitis of L calcaneus, poorly controlled diabetes, chronic RV failure and diastolic dysfunction with significant LE edema as well as untreated MASON, HTN, COPD, morbid obesity and chronic pain who was referred to the hospital by Dr Meyers. - Patient Problems (1) Cellulitis Code(s): L03.90 - CELLULITIS, UNSPECIFIED SNOMED Code(s): 820850280 Comment: - With chronic osteomyelitis and non-healing DM ulcer - Recently treated with 6-8 weeks of Vanco and oral doxycycline - Continue Vanco per ID recommendations - Plan for left BKA on Monday According to the RCRI the patient has 2 point, placing him at a class III risk and a 6.6% chance of a major cardiac event. METs score <4. The patient is medically optimized at this time and may proceed to the OR. (2) Osteomyelitis Code(s): M86.9 - OSTEOMYELITIS, UNSPECIFIED SNOMED Code(s): 55666265 Comment: - Chronic L calcaneal osteomyelitis - Repeat MRI shows rather significant progression of the osteomyelitis since June - Plan for left BKA by Dr Meyers Monday - MRI of the R foot is pending (3) Chronic heart failure Code(s): I50.9 - HEART FAILURE, UNSPECIFIED SNOMED Code(s): 41649315 Comment: - Echo from earlier this month shows RV failure and diastolic dysfunction which appears to be chronic in nature. RV pressure unable to be measured, but assumed he has pulm HTN from untreated MASON - Attempted CPAP, but still unable to tolerate - Edema improving with IV Lasix (4) Lymphedema Code(s): I89.0 - LYMPHEDEMA, NOT ELSEWHERE CLASSIFIED SNOMED Code(s): 428566947 Comment: - Chronic - Likely related to RV and diastolic failure - Continue compression and diuresis (5) MASON (obstructive sleep apnea) Code(s): G47.33 - OBSTRUCTIVE SLEEP APNEA (ADULT) (PEDIATRIC) SNOMED Code(s): 71796226 Comment: - Non-compliant with CPAP at home - He reports that the machine woke him up so he stopped using it - Attempted CPAP unable to tolerate (6) COPD (chronic obstructive pulmonary disease) Code(s): J44.9 - CHRONIC OBSTRUCTIVE PULMONARY DISEASE, UNSPECIFIED SNOMED Code(s): 54575347 Comment: - No acute exacerbation (7) Diabetes Code(s): E11.9 - TYPE 2 DIABETES MELLITUS WITHOUT COMPLICATIONS SNOMED Code(s) : 88583097 Comment: - IDDM - HgbA1c 9.7% - Continue mealtime Humalog coverage - Will increase Lantus (8) Hyperlipidemia Code(s): E78.5 - HYPERLIPIDEMIA, UNSPECIFIED SNOMED Code(s): 76689137 Comment: - Continue statin (9) Chronic pain Code(s): G89.29 - OTHER CHRONIC PAIN SNOMED Code(s): 55711035 Comment: - Chronic back, knee, shoulder, and leg pain - Prescribed Suboxone by Dr Gan, He had incomplete pain relief from Suboxone , which has been stopped - Incomplete relief from prn oxycodone - Start oxycontin with continue prn oxycodone - Referral to pain management at discharge (10) HTN (hypertension) Code(s): I10 - ESSENTIAL (PRIMARY) HYPERTENSION SNOMED Code(s): 06873908 Comment: - Normotensive - Continue home antihypertensives (11) DVT prophylaxis Code(s): VWD4979 - SNOMED Code(s): 184343090 Comment: - HSQ (12) Full code status Code(s): Z78.9 - OTHER SPECIFIED HEALTH STATUS SNOMED Code(s): 869336750 Status and Disposition: Inpatient. BKA planned for Monday.
[2016-09-25] MEDS: amLODIPine TAB* 5 MG PO SCH (20:54)
[2016-09-26] MEDS: Heparin VIAL(*) 5000 UNITS/ML VIAL (FIVE THOUSAND) SUBCUT SCH ×3 (04:20→22:44)
[2016-09-26] MEDS: Morphine INJ* 4 MG/ML 1 ML SYRINGE IV PRN ×3 (06:08→11:05)
[2016-09-26] MEDS: Docosanol 10%* CREAM 2 GM TUBE TOPICAL SCH ×5 (06:08→22:45)
[2016-09-26] MEDS: metFORMIN* 1,000 MG TAB PO SCH ×2 (07:21→19:59)
[2016-09-26] MEDS: Vancomycin(*) 1,250 MG in NS 0.9% 250 ML* 250 ML IVPB SCH ×2 (08:08→20:32)
[2016-09-26] MEDS: Insulin GLARGINE(*) 1 UNITS UNIT SUBCUT SCH ×2 (08:09→20:01)
[2016-09-26] MEDS: Furosemide IV* 10 MG/ML 2 ML VIAL (20 MG) IV SLOW PU SCH (08:09)
[2016-09-26] MEDS: Nystatin CREAM* 15 GM TUBE TOPICAL SCH ×2 (08:17→22:22)
[2016-09-26] MEDS: Insulin LISPRO* 1 UNITS UNIT SUBCUT SCH ×3 (08:34→20:28)
--- NOTE | 2016-09-26 11:13 | PN ---
Subjective Date of Service: 09/26/16 Interval History: Patient seen and examined at bedside. Pt states that he is feeling well with the exception of increased pain in his left LE, he states that it hurts to bear weight on it today. Denies fever, chill, lightheadedness, shortness of breath, chest discomfort, N/V/D. Pt states that he is urinating and moving his bowels without difficultly. Pt also feels that the blister on his lip is improving. Family History: Unchanged from Admission Social History: Unchanged from Admission Past Medical History: Unchanged from Admission Objective Active Medications: Acetaminophen (Tylenol Tab*) 650 mg PO Q4H PRN Reason: FEVER/PAIN Al Hydrox/Mg Hydrox/Simethicone (Maalox Plus*) 30 ml PO Q6H PRN Reason: INDIGESTION Amlodipine Besylate (Norvasc Tab*) 5 mg PO BEDTIME MICHELLE Atenolol (Tenormin Tab*) 50 mg PO QAM MICHELLE Atorvastatin Calcium (Lipitor*) 80 mg PO DAILY MICHELLE Calcium Carbonate (Tums*) 1,000 mg PO Q4H PRN Reason: reflux Cetirizine HCl (Zyrtec*) 10 mg PO DAILY MICHELLE Reason: Protocol Dextrose (D50w Syringe 50 Ml*) 12.5 gm IV PUSH .FOR FS < 60 - SS PRN Reason: FS < 60 Docosanol (Abreva 10%*) 1 applic TOPICAL FIVE TIMES DAILY MICHELLE Furosemide (Lasix Iv*) 20 mg IV SLOW PU DAILY [facility] Heparin Sodium (Porcine) (Heparin Vial(*)) 5,000 units SUBCUT Q8HR [facility] Heparin Sodium (Porcine) (Heparin Flush Picc/Ml/Cvc(*)) 1 ml FLUSH 0600,1800 MICHELLE Reason: Protocol Vancomycin HCl 1,250 mg/ (Sodium Chloride) 250 mls @ 166.667 mls/hr IVPB Q8H MICHELLE Insulin Glargine (Lantus(*)) 55 units SUBCUT BID MICHELLE Insulin Human Lispro (Humalog*) 20 units SUBCUT AC MICHELLE Reason: Protocol Lactobacillus Rhamnosus (Culturelle*) 1 cap PO BID MICHELLE Lisinopril (Prinivil Tab*) 30 mg PO DAILY MICHELLE Metformin HCl (Glucophage*) 1,000 mg PO BID WITH MEALS [facility] Morphine Sulfate (Morphine Inj (Syringe)*) 4 mg IV Q2H PRN Reason: PAIN Nystatin (Nystatin Cream*) 1 applic TOPICAL BID [facility] Omeprazole (Prilosec Cap*) 20 mg PO DAILY@0730 [facility] Ondansetron HCl (Zofran Inj*) 4 mg IV Q4H PRN Reason: NAUSEA/VOMITING Oxycodone HCl (Roxycodone Tab*) 10 mg PO Q4H PRN Reason: PAIN Oxycodone HCl (Oxycontin(*)) 20 mg PO BID [facility] Pharmacy Consult (Vancomycin Per Pharmacy*) 1 note FOLLOW UP . PRN Reason: PER PROTOCOL Pharmacy Profile Note (Vancomycin Trough Check) 1 note FOLLOW UP 0730 ONE Stop : 09/27/16 07:31 Vital Signs 09/25/16 09/25/16 09/25/16 12:31 13:31 16:08 Temperature 98.5 F Pulse Rate 72 Respiratory 18 18 17 Rate Blood Pressure 130/73 (mmHg) O2 Sat by Pulse 91 Oximetry 09/26/16 09/26/16 09/26/16 00:22 06:08 07:08 Temperature 99.7 F Pulse Rate 88 Respiratory 17 16 18 Rate Blood Pressure 115/52 (mmHg) O2 Sat by Pulse 94 Oximetry 09/26/16 09/26/16 09/26/16 07:54 08:00 08:08 Temperature 98.0 F Pulse Rate 77 Respiratory 16 18 16 Rate Blood Pressure 115/56 (mmHg) O2 Sat by Pulse 86 Oximetry Oxygen Devices in Use Now: None Appearance: NAD, sitting up in a chair Eyes: No Scleral Icterus Ears/Nose/Mouth/Throat: Mucous Membranes Moist Respiratory: Symmetrical Chest Expansion and Respiratory Effort, Clear to Auscultation - , diminished Cardiovascular: NL Sounds; No Murmurs; No JVD, RRR, - - Bilateral LE edema Skin: - - RHONDA wrap dressings to bilateral LE with drainage. Bilster to right side of lower lip improving. Neurological: Alert and Oriented x 3, NL Muscle Strength and Tone Nutrition: Taking PO's Result Diagrams: 09/25/16 08:12 09/24/16 08:20 Microbiology and Other Data: Microbiology 09/21/16 07:54 Aerobic Blood Culture - Preliminary Blood Venous No Growth Day 1 Anaerobic Blood Culture - Preliminary No Growth Day 1 09/20/16 23:34 Aerobic Blood Culture - Preliminary Blood Venous No Growth Day 1 Anaerobic Blood Culture - Preliminary No Growth Day 1 Diagnostic Imaging: Echo 08/29/16 - LVEF 55-60%, mod LVH, diastolic dysfunction, mild to mod reduced RV function, unable to assess RV function MRI L ankle - osteomyelitis of the L calcaneus that looks to have significantly advanced when compared to 06/2016 MRI R foot - Moderate degree of subcutaneous edema. No evidence of bone marrow edema or replacement to suggest osteomyelitis is present. Assess/Plan/Problems-Billing Assessment: Mr. Cosby is a 60 yo gentleman with known osteomyelitis of L calcaneus, poorly controlled diabetes, chronic RV failure and diastolic dysfunction with significant LE edema as well as untreated MASON, HTN, COPD, morbid obesity and chronic pain who was referred to the hospital by Dr Meyers. - Patient Problems (1) Cellulitis Code(s): L03.90 - CELLULITIS, UNSPECIFIED SNOMED Code(s): 449307845 Comment: - With chronic osteomyelitis and non-healing DM ulcer - Recently treated with 6-8 weeks of Vanco and oral doxycycline - Continue Vanco per ID recommendations - Plan for left BKA Today According to the RCRI the patient has 2 point, placing him at a class III risk and a 6.6% chance of a major cardiac event. METs score <4. The patient is medically optimized at this time and may proceed to the OR. (2) Osteomyelitis Code(s): M86.9 - OSTEOMYELITIS, UNSPECIFIED SNOMED Code(s): 35034116 Comment: - Chronic L calcaneal osteomyelitis - Repeat MRI shows rather significant progression of the osteomyelitis since June - MRI of the R foot - moderate degree of subcutaneous edema. No evidence bone marrow edema ot replacement to suggest ostromyelitits. - Plan for left BKA by Dr Meyers Today (3) Chronic heart failure Code(s): I50.9 - HEART FAILURE, UNSPECIFIED SNOMED Code(s): 45819320 Comment: - Echo from earlier this month shows RV failure and diastolic dysfunction which appears to be chronic in nature. RV pressure unable to be measured, but assumed he has pulm HTN from untreated MASON - Attempted CPAP, but still unable to tolerate - Edema improving with IV Lasix - Continue IV Lasix for now (4) Lymphedema Code(s): I89.0 - LYMPHEDEMA, NOT ELSEWHERE CLASSIFIED SNOMED Code(s): 101417940 Comment: - Chronic - Likely related to RV and diastolic failure - Continue compression and diuresis (5) MASON (obstructive sleep apnea) Code(s): G47.33 - OBSTRUCTIVE SLEEP APNEA (ADULT) (PEDIATRIC) SNOMED Code(s): 92380504 Comment: - Non-compliant with CPAP at home - He reports that the machine woke him up so he stopped using it - Attempted CPAP unable to tolerate (6) COPD (chronic obstructive pulmonary disease) Code(s): J44.9 - CHRONIC OBSTRUCTIVE PULMONARY DISEASE, UNSPECIFIED SNOMED Code(s): 72920533 Comment: - No acute exacerbation (7) Diabetes Code(s): E11.9 - TYPE 2 DIABETES MELLITUS WITHOUT COMPLICATIONS SNOMED Code(s) : 30993543 Comment: - IDDM - HgbA1c 9.7% - Continue mealtime Humalog coverage - Continue Lantus BID (8) Hyperlipidemia Code(s): E78.5 - HYPERLIPIDEMIA, UNSPECIFIED SNOMED Code(s): 50180221 Comment: - Continue statin (9) Chronic pain Code(s): G89.29 - OTHER CHRONIC PAIN SNOMED Code(s): 49448094 Comment: - Chronic back, knee, shoulder, and leg pain - Prescribed Suboxone by Dr Gan, He had incomplete pain relief from Suboxone , which has been stopped - Incomplete relief from prn oxycodone - Continue oxycontin with prn oxycodone - Referral to pain management at discharge (10) HTN (hypertension) Code(s): I10 - ESSENTIAL (PRIMARY) HYPERTENSION SNOMED Code(s): 80703947 Comment: - Normotensive - Continue home antihypertensives (11) DVT prophylaxis Code(s): TZJ8423 - SNOMED Code(s): 904984273 Comment: - HSQ (12) Full code status Code(s): Z78.9 - OTHER SPECIFIED HEALTH STATUS SNOMED Code(s): 348456766 Status and Disposition: Inpatient. BKA planned for Monday. Pt will likely need rehab.
[2016-09-26] MEDS ORDERED: oxyCODONE SR TAB(*) 10 MG TAB.SR ONE (13:42)
[2016-09-26] MEDS ORDERED: Atenolol TAB* 25 MG ONE (13:43)
[2016-09-26] MEDS: Atenolol TAB* 50 MG PO SCH (13:46)
[2016-09-26] MEDS: oxyCODONE TAB* 5 MG TAB PO PRN ×2 (13:47→20:31)
[2016-09-26] MEDS ORDERED: Midazolam* 1 MG/ML 5 ML VIAL (5 MG) ONE ×3 (15:53→17:02)
[2016-09-26] MEDS ORDERED: fentaNYL* 50 MCG/ML 2 ML VIAL (100 MCG VIAL) ONE ×3 (15:59→17:42)
[2016-09-26] MEDS ORDERED: Propofol* 10 MG/ML 20 ML BTL IV PUSH ONE (16:50)
[2016-09-26] MEDS ORDERED: KETAMINE HCL* 50 MG/ML 10 ML VIAL ONE (17:09)
[2016-09-26] MEDS ORDERED: Ondansetron INJ* 2 MG/ML VIAL IV PRN (17:13)
[2016-09-26] MEDS ORDERED: HYDROmorphone* 1 MG/ML 1 ML SYR ONE (17:42)
[2016-09-26] MEDS: HYDROmorphone* 1 MG/ML 1 ML SYR IV PRN ×5 (17:44→18:19)
[2016-09-26] MEDS: fentaNYL* 50 MCG/ML 2 ML VIAL (100 MCG VIAL) IV PRN ×4 (17:45→17:55)
[2016-09-26] MEDS ORDERED: HYDROmorphone PCA* 20 MG/20 ML PCA.SYRING PCA SCH (18:00)
[2016-09-26] MEDS ORDERED: HYDROmorphone PCA* 20 MG/20 ML PCA.SYRING ONE (18:00)
[2016-09-26] MEDS: oxyCODONE SR TAB(*) 20 MG TAB.SR PO SCH ×2 (19:59→20:35)
[2016-09-26] MEDS: amLODIPine TAB* 5 MG PO SCH (19:59)
[2016-09-26] MEDS: Lisinopril TAB* 10 MG PO SCH (20:27)
[2016-09-26] MEDS: Cetirizine* 10 MG TAB PO SCH (20:27)
[2016-09-26] MEDS: Lactobacillus Acidophilu (GG)* 1 CAP CAP PO SCH ×2 (20:27→20:32)
[2016-09-26] MEDS: Omeprazole CAP* 20 MG PO SCH (20:28)
[2016-09-26] MEDS: Atorvastatin* 80 MG TAB PO SCH (20:29)
[2016-09-26] MEDS ORDERED: LORazepam INJ* 2 MG/ML 1 ML VIAL IV PUSH PRN (23:40)
[2016-09-27] MEDS: oxyCODONE TAB* 5 MG TAB PO PRN ×4 (00:11→18:19)
[2016-09-27] MEDS: Vancomycin(*) 1,250 MG in NS 0.9% 250 ML* 250 ML IVPB SCH ×3 (04:14→21:16)
[2016-09-27] MEDS: Docosanol 10%* CREAM 2 GM TUBE TOPICAL SCH ×5 (05:01→23:12)
[2016-09-27] MEDS: Heparin VIAL(*) 5000 UNITS/ML VIAL (FIVE THOUSAND) SUBCUT SCH ×3 (05:03→22:24)
[2016-09-27 06:20] LABS: Hematocrit 34 % (42-52); Hemoglobin 10.6 g/dl (14.0-18.0); Mean Corpuscular HGB Conc 32 g/dl (31-36); Mean Corpuscular Hemoglobin 25 pg (27-31); Mean Corpuscular Volume 77 fL (80-94); Mean Platelet Volume 7 um3 (7.4-10.4); Red Blood Count 4.33 10^6/ul (4.0-5.4); Red Cell Distribution Width 16 % (10.5-15); White Blood Count 18.2 10^3/ul (3.5-10.8)
[2016-09-27 06:40] LABS: BUN/Creatinine Ratio 23.8 (8-20); EGFR African American 167.6 (>60); EGFR Non-African American 130.4 (>60); Potassium 3.9 mmol/L (3.5-5.0)
[2016-09-27] MEDS ORDERED: Vancomycin Trough Check NOTE FOLLOW UP ONE ×2 (07:30→12:00)
--- NOTE | 2016-09-27 08:30 | OP ---
DATE OF OPERATION: 09/26/16 - ROOM #336 DATE OF : 57 SURGEON: Vikas Meyers MD FACILITIES COORDINATOR: Bibi Sheldon PA-C ANESTHESIOLOGIST: Tod Laguerre MD ANESTHESIA: Spinal PRE-OP DIAGNOSIS: Chronic osteomyelitis, left calcaneus. POST-OP DIAGNOSIS: Chronic osteomyelitis, left calcaneus. OPERATIVE PROCEDURE: Left transtibial amputation. DESCRIPTION OF PROCEDURE: The patient was taken to the operating room where isolation bag was placed around his infected left foot. With the thigh tourniquet raised, we made a fishmouth incision at the midthird of his left calf with a shorter anterior flap. This was retracted proximally where we divided the tibia handbreadth below the tubercle and the fibula just a centimeter proximal to that. We divided the soft tissues of the anterior compartment, flexed through the osteotomy to expose the posterior compartment; this was divided with a #10 blade. The leg was then delivered to Pathology. Local cultures were made at this level. There was significant edema in the limb and some hyperemia. We attempted suture ligature of all the major vessels and then dropped the tourniquet, but there was still some fresh bleeding particularly at the inner osseous vessels, these were controlled also with suture ligature and then generally oozing controlled with the electrocautery. The irrigation was performed 2 L and then closure of #1 Vicryl for the deep fascial layers and 0 Vicryl for the more subcutaneous tissue. It was difficult closing the subcutaneous tissue because of the edema and the friability of the skin itself. 2-0 Surgipro sutures were used as well. Compression dressing, plaster splint was applied to the amputation. The blood loss was approximately 250 cc. [id number]/[facility] #: [id number] [facility]
[2016-09-27] MEDS: Cetirizine* 10 MG TAB PO SCH (09:56)
[2016-09-27] MEDS: Lactobacillus Acidophilu (GG)* 1 CAP CAP PO SCH ×2 (09:56→21:13)
[2016-09-27] MEDS: Lisinopril TAB* 10 MG PO SCH (09:57)
[2016-09-27] MEDS: Atorvastatin* 80 MG TAB PO SCH (09:57)
[2016-09-27] MEDS: Atenolol TAB* 50 MG PO SCH (09:57)
[2016-09-27] MEDS: Furosemide IV* 10 MG/ML 2 ML VIAL (20 MG) IV SLOW PU SCH (09:57)
[2016-09-27] MEDS: Omeprazole CAP* 20 MG PO SCH (09:57)
[2016-09-27] MEDS: Insulin GLARGINE(*) 1 UNITS UNIT SUBCUT SCH ×2 (09:57→21:14)
[2016-09-27] MEDS: metFORMIN* 1,000 MG TAB PO SCH (09:57)
[2016-09-27] MEDS: oxyCODONE SR TAB(*) 20 MG TAB.SR PO SCH ×2 (10:00→21:13)
[2016-09-27] MEDS: Nystatin CREAM* 15 GM TUBE TOPICAL SCH (10:05)
[2016-09-27] MEDS: Insulin LISPRO* 1 UNITS UNIT SUBCUT SCH ×3 (10:09→18:20)
--- NOTE | 2016-09-27 10:21 | PN ---
Progress Note - Progress Note SOAP: Subjective: []Patient seen after being moved via Toro lift to his chair. Reports 10 out of 10 pain despite oral pain meds and [employer]. Alert and oriented but dozes off intermittantly with myself and Linda from therapy present. 02 mask on. Objective: [] Vital Signs Temp 97.9 F 09/27/16 08:05 Pulse 110 09/27/16 08:05 Resp 16 09/27/16 10:00 BP 131/81 09/27/16 08:05 Pulse Ox 90 09/27/16 08:05 Intake & Output 09/26/16 09/27/16 09/27/16 18:59 06:59 18:59 Intake Total 1120 840 Output Total 2150 550 Balance -1030 290 Weight 350 lb 11.2 oz Intake: IV Fluids 1120 ABX - VANCOMYCIN 290 NS (0.9%) 30 lr 800 Oral 0 840 Output: Urine 2150 550 Other: Estimated Void Large Large Medium # Bowel Movements 0 0 # Voids 1 1 Laboratory Results - last 24 hr 09/26/16 09/26/16 09/26/16 11:34 13:44 17:48 WBC RBC Hgb Hct MCV MCH MCHC RDW Plt Count MPV Neut % (Auto) Lymph % (Auto) [place] % (Auto) Eos % (Auto) Baso % (Auto) Absolute Neuts (auto) Absolute Lymphs (auto) Absolute Monos (auto) Absolute Eos (auto) Absolute Basos (auto) Absolute Nucleated RBC Nucleated RBC % Sodium Potassium Chloride Carbon Dioxide Anion Gap BUN Creatinine Est GFR ( Amer) Est GFR (Non-Af Amer) BUN/Creatinine Ratio Glucose POC Glucose (mg/dL) 213 H 192 H 142 H Calcium 09/26/16 09/26/16 09/27/16 19:57 23:58 06:05 WBC RBC Hgb Hct MCV MCH MCHC RDW Plt Count MPV Neut % (Auto) Lymph % (Auto) [place] % (Auto) Eos % (Auto) Baso % (Auto) Absolute Neuts (auto) Absolute Lymphs (auto) Absolute Monos (auto) Absolute Eos (auto) Absolute Basos (auto) Absolute Nucleated RBC Nucleated RBC % Sodium Potassium Chloride Carbon Dioxide Anion Gap BUN 14 Creatinine Est GFR ( Amer) Est GFR (Non-Af Amer) BUN/Creatinine Ratio Glucose POC Glucose (mg/dL) 153 H 162 H Calcium 09/27/16 09/27/16 09/27/16 06:05 06:05 08:05 WBC 18.2 H RBC 4.33 Hgb 10.6 L Hct 34 L MCV 77 L MCH 25 L MCHC 32 RDW 16 H Plt Count 304 MPV 7 L Neut % (Auto) 87.9 H Lymph % (Auto) 3.6 L [place] % (Auto) 7.8 Eos % (Auto) 0 Baso % (Auto) 0.7 Absolute Neuts (auto) 16.0 H Absolute Lymphs (auto) 0.7 L Absolute Monos (auto) 1.4 H Absolute Eos (auto) 0 Absolute Basos (auto) 0.1 Absolute Nucleated RBC 0 Nucleated RBC % 0 Sodium 133 Potassium 3.9 Chloride 93 L Carbon Dioxide 35 H Anion Gap 5 BUN 15 Creatinine 0.63 L Est GFR ( Amer) 167.6 Est GFR (Non-Af Amer) 130.4 BUN/Creatinine Ratio 23.8 H Glucose 128 H POC Glucose (mg/dL) 169 H Calcium 9.0 Left LE stump dressing is dry and intact Assessment: []s/p transtibial amputation Left LE for chronic calcaneal osteomyelitis Plan: []PT/OT as tolerated Pain control Vancomycin Will need short term rehab
--- NOTE | 2016-09-27 12:27 | PN ---
Subjective Date of Service: 09/27/16 Interval History: Mr. Cosby denies complaint today. He specifically denies pain to her left leg. He denies chest pain, SOB, nausea, or abdominal pain. Family History: Unchanged from Admission Social History: Unchanged from Admission Past Medical History: Unchanged from Admission Objective Active Medications: Acetaminophen (Tylenol Tab*) 650 mg PO Q4H PRN Al Hydrox/Mg Hydrox/Simethicone (Maalox Plus*) 30 ml PO Q6H PRN Amlodipine Besylate (Norvasc Tab*) 5 mg PO BEDTIME [facility] Atenolol (Tenormin Tab*) 50 mg PO QAM [facility] Atorvastatin Calcium (Lipitor*) 80 mg PO DAILY [facility] Calcium Carbonate (Tums*) 1,000 mg PO Q4H PRN Cetirizine HCl (Zyrtec*) 10 mg PO DAILY [facility] Dextrose (D50w Syringe 50 Ml*) 12.5 gm IV PUSH .FOR FS < 60 - SS PRN Docosanol (Abreva 10%*) 1 applic TOPICAL FIVE TIMES DAILY [facility] Furosemide (Lasix Iv*) 20 mg IV SLOW PU DAILY [facility] Heparin Sodium (Porcine) (Heparin Vial(*)) 5,000 units SUBCUT Q8HR [facility]HEL[facility] Heparin Sodium (Porcine) (Heparin Flush Picc/Ml/Cvc(*)) 1 ml FLUSH 0600,1800 [facility] Hydromorphone HCl (Dilaudid Burring Wheel Operator*) 20 mg in 20 mls @ 0 mls/hr 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 PEER COUNSELOR .change Q24H MICHELLE; Per Protocol Lactated Ringer's (Lactated Ringers 1000 Ml Bag*) 1,000 mls @ 75 mls/hr IV PER RATE [facility] Vancomycin HCl 1,250 mg/ (Sodium Chloride) 250 mls @ 166.667 mls/hr IVPB 0430, 1230,2030 [facility] Insulin Glargine (Lantus(*)) 55 units SUBCUT BID [facility] Insulin Human Lispro (Humalog*) 20 units SUBCUT AC [facility]HEL[facility] Lactobacillus Rhamnosus (Culturelle*) 1 cap PO BID [facility] Lorazepam (Ativan Inj*) 1 mg IV PUSH Q6H PRN Metformin HCl (Glucophage*) 1,000 mg PO BID WITH MEALS MICHEL[facility] Morphine Sulfate (Morphine Inj (Syringe)*) 4 mg IV Q2H PRN Nystatin (Nystatin Cream*) 1 applic TOPICAL BID [facility] Omeprazole (Prilosec Cap*) 20 mg PO DAILY@0730 [facility] Ondansetron HCl (Zofran Inj*) 4 mg IV Q4H PRN Oxycodone HCl (Roxycodone Tab*) 10 mg PO Q4H PRN Oxycodone HCl (Oxycontin(*)) 20 mg PO BID [facility] Pharmacy Consult (Vancomycin Per Pharmacy*) 1 note FOLLOW UP . PRN Vital Signs 09/26/16 09/26/16 09/26/16 13:47 17:36 17:40 Temperature 97.9 F Pulse Rate 79 79 Respiratory 20 18 16 Rate Blood Pressure 146/99 184/106 (mmHg) O2 Sat by Pulse 95 96 Oximetry 09/26/16 09/26/16 09/26/16 17:44 17:45 17:49 Temperature Pulse Rate 79 Respiratory 16 16 15 Rate Blood Pressure 170/98 (mmHg) O2 Sat by Pulse 97 Oximetry 09/26/16 09/26/16 09/26/16 17:50 17:52 17:54 Temperature Pulse Rate 79 Respiratory 15 22 20 Rate Blood Pressure 158/99 (mmHg) O2 Sat by Pulse 97 Oximetry 09/26/16 09/26/16 09/26/16 17:55 18:00 18:10 Temperature Pulse Rate 79 Respiratory 16 20 17 Rate Blood Pressure 136/95 (mmHg) O2 Sat by Pulse 96 Oximetry 09/26/16 09/26/16 09/26/16 18:15 18:19 18:30 Temperature 97.2 F Pulse Rate 78 78 Respiratory 24 20 15 Rate Blood Pressure 123/86 147/83 (mmHg) O2 Sat by Pulse 96 96 Oximetry 09/26/16 09/26/16 09/26/16 18:45 19:00 19:15 Temperature Pulse Rate 79 80 82 Respiratory 15 15 17 Rate Blood Pressure 165/90 177/70 138/73 (mmHg) O2 Sat by Pulse 96 96 96 Oximetry 09/26/16 09/26/16 09/26/16 19:38 19:42 19:59 Temperature 98.0 F Pulse Rate 84 Respiratory 22 20 18 Rate Blood Pressure 148/71 (mmHg) O2 Sat by Pulse 92 96 Oximetry 09/26/16 09/26/16 09/26/16 20:31 20:38 20:48 Temperature Pulse Rate Respiratory 22 22 22 Rate Blood Pressure (mmHg) O2 Sat by Pulse 94 Oximetry 09/26/16 09/26/16 09/26/16 20:57 21:38 21:49 Temperature 98.5 F 98.5 F Pulse Rate 91 92 Respiratory 18 22 19 Rate Blood Pressure 151/81 158/69 (mmHg) O2 Sat by Pulse 95 94 95 Oximetry 09/26/16 09/26/16 09/26/16 21:59 22:31 22:38 Temperature Pulse Rate Respiratory 18 22 20 Rate Blood Pressure (mmHg) O2 Sat by Pulse 92 Oximetry 09/26/16 09/27/16 09/27/16 23:59 00:00 00:11 Temperature 98.8 F Pulse Rate 102 Respiratory 18 22 Rate Blood Pressure 149/76 (mmHg) O2 Sat by Pulse 96 96 Oximetry 09/27/16 09/27/16 09/27/16 00:12 00:38 01:12 Temperature Pulse Rate Respiratory 22 20 18 Rate Blood Pressure (mmHg) O2 Sat by Pulse 92 Oximetry 09/27/16 09/27/16 09/27/16 02:00 02:11 02:19 Temperature 99.6 F Pulse Rate 107 Respiratory 20 16 16 Rate Blood Pressure 166/83 (mmHg) O2 Sat by Pulse 94 95 Oximetry 09/27/16 09/27/16 09/27/16 02:22 02:24 03:39 Temperature 99.1 F Pulse Rate 107 108 Respiratory 18 Rate Blood Pressure 152/82 158/76 (mmHg) O2 Sat by Pulse 96 98 Oximetry 09/27/16 09/27/16 09/27/16 04:00 04:59 06:00 Temperature Pulse Rate Respiratory 16 18 18 Rate Blood Pressure (mmHg) O2 Sat by Pulse 92 94 Oximetry 09/27/16 09/27/16 09/27/16 06:45 08:00 08:05 Temperature 97.9 F Pulse Rate 110 Respiratory 18 18 20 Rate Blood Pressure 131/81 (mmHg) O2 Sat by Pulse 93 89 Oximetry 09/27/16 09/27/16 09/27/16 09:36 10:00 10:45 Temperature Pulse Rate Respiratory 16 16 16 Rate Blood Pressure (mmHg) O2 Sat by Pulse 94 Oximetry 09/27/16 09/27/16 09/27/16 11:36 12:00 12:01 Temperature 98.6 F Pulse Rate 82 Respiratory 18 16 20 Rate Blood Pressure 133/69 (mmHg) O2 Sat by Pulse 96 97 Oximetry Oxygen Devices in Use Now: None Eyes: No Scleral Icterus Ears/Nose/Mouth/Throat: Mucous Membranes Moist Neck: NL Appearance and Movements; NL JVP Respiratory: Symmetrical Chest Expansion and Respiratory Effort, - - diminished bilaterally Cardiovascular: NL Sounds; No Murmurs; No JVD, - - +2 pitting edema to LEs Abdominal: NL Sounds; No Tenderness; No Distention Extremities: - - +2 pitting edema to LEs Skin: - - Left BKA dressing CDI Neurological: NL Muscle Strength and Tone, - - drowsy but oriented x 3 Nutrition: Taking PO's Result Diagrams: 09/27/16 06:05 09/27/16 06:05 Microbiology and Other Data: Microbiology 09/21/16 07:54 Aerobic Blood Culture - Preliminary Blood Venous No Growth Day 1 Anaerobic Blood Culture - Preliminary No Growth Day 1 09/20/16 23:34 Aerobic Blood Culture - Preliminary Blood Venous No Growth Day 1 Anaerobic Blood Culture - Preliminary No Growth Day 1 Diagnostic Imaging: Echo 08/29/16 - LVEF 55-60%, mod LVH, diastolic dysfunction, mild to mod reduced RV function, unable to assess RV function MRI L ankle - osteomyelitis of the L calcaneus that looks to have significantly advanced when compared to 06/2016 MRI R foot - Moderate degree of subcutaneous edema. No evidence of bone marrow edema or replacement to suggest osteomyelitis is present. Assess/Plan/Problems-Billing Assessment: Mr. Cosby is a 60 yo gentleman with known osteomyelitis of L calcaneus, poorly controlled diabetes, chronic RV failure and diastolic dysfunction with significant LE edema as well as untreated MASON, HTN, COPD, morbid obesity and chronic pain who was referred to the hospital by Dr Meyers. - Patient Problems (1) Cellulitis Comment: Now s/p left BKA. Continue Vanco per ID recommendation. (2) COPD (chronic obstructive pulmonary disease) Comment: No acute exacerbation (3) Chronic heart failure Comment: Asymptomatic. Echo from earlier this month shows RV failure and diastolic dysfunction which appears to be chronic in nature. RV pressure unable to be measured, but assumed he has pulm HTN from untreated MASON. Attempted CPAP, but still unable to tolerate. Switch to oral lasix, stop IV fluids. (4) MASON (obstructive sleep apnea) Comment: Non-compliant with CPAP at home. Attempted CPAP here but pt unable to tolerate. (5) Diabetes Comment: IDDM. HgbA1c 9.7%. BG 120 this AM. Continue lantus with mealtime Humalog coverage. (6) Hyperlipidemia Comment: Continue statin (7) Morbid obesity Comment: BMI 50. Bariatric surgery within the last 12 months with 65# weight loss (8) Chronic pain Comment: Chronic back, knee, shoulder, and leg pain. Prescribed Suboxone by Dr Gan, He had incomplete pain relief from Suboxone, which has been stopped. Continue oxycontin with prn oxycodone. Referral to pain management at discharge (9) HTN (hypertension) Comment: BP well controlled. Continue lisinopril, atenolol. (10) Lymphedema Comment: Chronic, Likely related to RV and diastolic failure, Continue compression and diuresis. (11) DVT prophylaxis Comment: HSQ (12) Full code status Status and Disposition: Inpatient. Pt will likely need rehab.
[2016-09-27] MEDS ORDERED: NS 0.9% 500 ML BAG* 500 ML IV SCH (13:00)
[2016-09-27] MEDS ORDERED: HYDROmorphone PCA* 20 MG/20 ML PCA.SYRING PCA SCH (13:36)
[2016-09-27] MEDS: amLODIPine TAB* 5 MG PO SCH (21:13)
[2016-09-27] MEDS ORDERED: HYDROmorphone* 2 MG/ML 1 ML SYR IV SLOW PU PRN (22:16)
[2016-09-27] MEDS ORDERED: HYDROmorphone* 2 MG/ML 1 ML SYR ONE (22:19)
[2016-09-28] MEDS: Vancomycin(*) 1,250 MG in NS 0.9% 250 ML* 250 ML IVPB SCH ×3 (04:26→19:31)
[2016-09-28] MEDS: Nystatin TOP POWDER* 15 GM BTL TOPICAL SCH ×3 (05:45→21:17)
[2016-09-28] MEDS: oxyCODONE TAB* 5 MG TAB PO PRN (05:46)
[2016-09-28] MEDS: Heparin VIAL(*) 5000 UNITS/ML VIAL (FIVE THOUSAND) SUBCUT SCH ×3 (05:49→22:39)
[2016-09-28] MEDS: Docosanol 10%* CREAM 2 GM TUBE TOPICAL SCH ×5 (05:52→22:39)
[2016-09-28] MEDS: Atorvastatin* 80 MG TAB PO SCH (09:24)
[2016-09-28] MEDS: oxyCODONE SR TAB(*) 20 MG TAB.SR PO SCH ×2 (09:24→21:16)
[2016-09-28] MEDS: Lisinopril TAB* 10 MG PO SCH (09:25)
[2016-09-28] MEDS: Omeprazole CAP* 20 MG PO SCH (09:26)
[2016-09-28] MEDS: Atenolol TAB* 50 MG PO SCH (09:26)
[2016-09-28] MEDS: Cetirizine* 10 MG TAB PO SCH (09:26)
[2016-09-28] MEDS: Furosemide TAB* 20 MG PO SCH (09:26)
[2016-09-28] MEDS: Insulin LISPRO* 1 UNITS UNIT SUBCUT SCH ×3 (09:27→18:25)
[2016-09-28] MEDS: Insulin GLARGINE(*) 1 UNITS UNIT SUBCUT SCH ×2 (09:31→21:16)
--- NOTE | 2016-09-28 10:58 | PN ---
Progress Note - Progress Note SOAP: Subjective: []Patient working with PT and about ready to be Toro lifted from bed to chair. Pain levels are still moderate to severe, but only when moved. At rest pain is tolerable. 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 This has improved. Objective: [] Vital Signs Temp 98.3 F 09/28/16 07:29 Pulse 101 09/28/16 07:29 Resp 16 09/28/16 09:24 BP 128/64 09/28/16 07:29 Pulse Ox 94 09/28/16 09:00 Intake & Output 09/27/16 09/28/16 09/28/16 18:59 06:59 18:59 Intake Total 1275 4130 Output Total 1450 700 Balance -175 3430 Weight 350 lb 11.2 oz 340 lb 8 oz Intake: IV Fluids 985 1710 ABX - VANCOMYCIN 1110 LR 985 NS (0.9%) 600 Oral 290 2420 Output: Urine 1450 700 Other: Estimated Void Medium Large # Voids 1 1 Laboratory Results - last 24 hr 09/27/16 09/27/16 09/27/16 11:36 11:47 16:56 POC Glucose (mg/dL) 233 H 219 H Vancomycin Trough 14.0 09/27/16 09/28/16 21:25 08:39 POC Glucose (mg/dL) 313 H 186 H Vancomycin Trough Microbiology 09/26/16 18:30 Anaerobic Culture - Preliminary Wound - Left Gram Stain - Final Wound Culture - Preliminary Serratia Marcescens 09/21/16 07:54 Aerobic Blood Culture - Final Blood Venous No Growth Day 5 Anaerobic Blood Culture - Final No Growth Day 5 Blood Culture - Final 09/20/16 23:34 Aerobic Blood Culture - Final Blood Venous No Growth Day 5 Anaerobic Blood Culture - Final No Growth Day 5 Blood Culture - Final Left LE stump dressing remains dry and intact Right toe blister dried and looks improved, overall LE ankle/foot improving with minimal drainage on dressings Assessment: []s/p Left BKA for chronic osteomyelitis- wound culture grew S. marcescens Right G. toe blister and weeping lymphadema RLE- improving Plan: []Currently on Vancomycin, additional recommendations per Dr. Mosqueda based on wound culture Continue daily dressing changes to RLE Padded boot and elevation of right heel off of bed to prevent heel breakdown Continue current pain management Rehab when stable for discharge
--- NOTE | 2016-09-28 11:18 | PN ---
Progress Note - Progress Note SOAP: Subjective: DOS: 09/29/15 CC: leg infection HPI: 60 year old man with lymphedema, chronic left heel ulcer s/p BKA. Pain left foot/amp site. Right foot blister, foot wrapped. No fever, rash, or diarrhea. Objective: [] Temp Pulse Resp BP Pulse Ox 36.8 C 101 16 128/64 94 09/28/16 07:29 09/28/16 07:29 09/28/16 09:24 09/28/16 07:29 09/28/16 09:00 Gen:Awake, no distress Neuro:AAOx3 HEENT:PERRL, MMM Neck:supple Heart:RRR no murmur Lungs:CTA BL Abd:+BS NT ND soft Skin: no rash MSK:L BKA, wrapped; R foot trace edema and erythema , calcaneous and great toe small bullae; no wound Laboratory Results - last 24 hr 09/27/16 09/27/16 09/27/16 11:36 11:47 16:56 POC Glucose (mg/dL) 233 H 219 H Vancomycin Trough 14.0 09/27/16 09/28/16 21:25 08:39 POC Glucose (mg/dL) 313 H 186 H Vancomycin Trough Microbiology 09/26/16 18:30 Anaerobic Culture - Preliminary Wound - Left Gram Stain - Final Wound Culture - Preliminary Serratia Marcescens Assessment: 1. Left foot chronic osteomyelitis and cellulitis s/p BKA 2. Left foot cellulitis 3. diabetes, T2 4. obesity Plan: 1. continue vancomycin, will add cefepime for left leg soft tissue infection and right foot infection, has midline, will eventually need PICC for technician terminal and repeater antibiotics. Continue leg elevation and diuresis.
[2016-09-28] MEDS: Cefepime(*) 2 GM in NS 0.9% 50 ML* 50 ML IVPB SCH ×2 (11:30→22:37)
[2016-09-28] MEDS: Lactobacillus Acidophilu (GG)* 1 CAP CAP PO SCH ×2 (11:30→21:18)
--- NOTE | 2016-09-28 16:18 | PN ---
Subjective Date of Service: 09/28/16 Interval History: Mr. Cosby states that he is feeling relatively well. He denies chest pain, SOB , nausea, or abdominal pain. Family History: Unchanged from Admission Social History: Unchanged from Admission Past Medical History: Unchanged from Admission Objective Active Medications: Acetaminophen (Tylenol Tab*) 650 mg PO Q4H PRN Al Hydrox/Mg Hydrox/Simethicone (Maalox Plus*) 30 ml PO Q6H PRN Amlodipine Besylate (Norvasc Tab*) 5 mg PO BEDTIME MICHELLE Atenolol (Tenormin Tab*) 50 mg PO QAM [facility] Atorvastatin Calcium (Lipitor*) 80 mg PO DAILY [facility] Calcium Carbonate (Tums*) 1,000 mg PO Q4H PRN Cetirizine HCl (Zyrtec*) 10 mg PO DAILY [facility] Dextrose (D50w Syringe 50 Ml*) 12.5 gm IV PUSH .FOR FS < 60 - SS PRN Docosanol (Abreva 10%*) 1 applic TOPICAL FIVE TIMES DAILY [facility] Furosemide (Lasix Tab*) 20 mg PO DAILY [facility] Heparin Sodium (Porcine) (Heparin Vial(*)) 5,000 units SUBCUT Q8HR [facility] Heparin Sodium (Porcine) (Heparin Flush Picc/Ml/Cvc(*)) 1 ml FLUSH 0600,1800 [facility] Hydromorphone HCl (Dilaudid Iv*) 2 mg IV SLOW PU Q4H PRN Sodium Chloride (Ns 0.9% 500 Ml Bag*) 500 mls @ 0 mls/hr IV KVO MICHELLE Hydromorphone HCl (Dilaudid Audio Production Manager*) 20 mg in 20 mls @ 0 mls/hr ALLERGIST/IMMUNOLOGIST PHYSICIAN .change Q24H MICHELLE; Per Protocol Cefepime HCl 2 gm/ Sodium (Chloride) 50 mls @ 100 mls/hr IVPB Q12H [facility] Vancomycin HCl 1,250 mg/ (Sodium Chloride) 250 mls @ 166.667 mls/hr IVPB Q8H [facility] Insulin Glargine (Lantus(*)) 55 units SUBCUT BID [facility] Insulin Human Lispro (Humalog*) 0 units SUBCUT AC [facility] Lactobacillus Rhamnosus (Culturelle*) 1 cap PO BID [facility] Lisinopril (Prinivil Tab*) 30 mg PO DAILY [facility] Lorazepam (Ativan Inj*) 1 mg IV PUSH Q6H PRN Morphine Sulfate (Morphine Inj (Syringe)*) 4 mg IV Q2H PRN Nystatin (Nystatin Top Powder*) 1 applic TOPICAL BID [facility] Omeprazole (Prilosec Cap*) 20 mg PO DAILY@0730 [facility] Ondansetron HCl (Zofran Inj*) 4 mg IV Q4H PRN Oxycodone HCl (Roxycodone Tab*) 10 mg PO Q4H PRN Oxycodone HCl (Oxycontin(*)) 20 mg PO BID [facility] Pharmacy Consult (Vancomycin Per Pharmacy*) 1 note FOLLOW UP . PRN Vital Signs 09/27/16 09/27/16 09/27/16 16:20 18:19 18:37 Temperature 98.5 F Pulse Rate 80 Respiratory 20 16 16 Rate Blood Pressure 120/58 (mmHg) O2 Sat by Pulse 98 98 Oximetry 09/27/16 09/27/16 09/27/16 19:34 20:00 20:19 Temperature 98.7 F Pulse Rate 80 Respiratory 20 20 22 Rate Blood Pressure 138/66 (mmHg) O2 Sat by Pulse 99 95 Oximetry 09/27/16 09/27/16 09/27/16 20:45 21:13 22:00 Temperature Pulse Rate Respiratory 20 20 20 Rate Blood Pressure (mmHg) O2 Sat by Pulse 95 Oximetry 09/27/16 09/27/16 09/27/16 22:26 23:13 23:26 Temperature Pulse Rate Respiratory 20 20 20 Rate Blood Pressure (mmHg) O2 Sat by Pulse Oximetry 09/27/16 09/28/16 09/28/16 23:45 00:00 02:38 Temperature 99.1 F Pulse Rate 88 Respiratory 22 20 18 Rate Blood Pressure 135/72 (mmHg) O2 Sat by Pulse 97 95 98 Oximetry 09/28/16 09/28/16 09/28/16 03:51 04:27 05:46 Temperature 98.8 F Pulse Rate 91 Respiratory 20 20 20 Rate Blood Pressure 128/68 (mmHg) O2 Sat by Pulse 96 98 Oximetry 09/28/16 09/28/16 09/28/16 07:03 07:29 07:46 Temperature 98.3 F Pulse Rate 101 Respiratory 20 18 16 Rate Blood Pressure 128/64 (mmHg) O2 Sat by Pulse 98 99 Oximetry 09/28/16 09/28/16 09/28/16 08:40 09:00 09:19 Temperature Pulse Rate Respiratory 16 16 18 Rate Blood Pressure (mmHg) O2 Sat by Pulse 99 94 Oximetry 09/28/16 09/28/16 09/28/16 09:24 10:19 11:00 Temperature Pulse Rate Respiratory 16 18 18 Rate Blood Pressure (mmHg) O2 Sat by Pulse 96 Oximetry 09/28/16 09/28/16 09/28/16 11:24 11:42 13:00 Temperature 98.5 F Pulse Rate 73 Respiratory 16 18 18 Rate Blood Pressure 136/50 (mmHg) O2 Sat by Pulse 97 98 Oximetry Oxygen Devices in Use Now: None Appearance: Male sitting up in chair in NAD Eyes: No Scleral Icterus Ears/Nose/Mouth/Throat: Mucous Membranes Moist Neck: Trachea Midline Respiratory: Symmetrical Chest Expansion and Respiratory Effort, Clear to Auscultation Cardiovascular: NL Sounds; No Murmurs; No JVD Abdominal: NL Sounds; No Tenderness; No Distention Lymphatic: No Cervical Adenopathy Skin: - - R BKA stump dressing CDI Nutrition: Taking PO's Result Diagrams: 09/27/16 06:05 09/27/16 06:05 Microbiology and Other Data: Microbiology 09/21/16 07:54 Aerobic Blood Culture - Preliminary Blood Venous No Growth Day 1 Anaerobic Blood Culture - Preliminary No Growth Day 1 09/20/16 23:34 Aerobic Blood Culture - Preliminary Blood Venous No Growth Day 1 Anaerobic Blood Culture - Preliminary No Growth Day 1 Diagnostic Imaging: Echo 08/29/16 - LVEF 55-60%, mod LVH, diastolic dysfunction, mild to mod reduced RV function, unable to assess RV function MRI L ankle - osteomyelitis of the L calcaneus that looks to have significantly advanced when compared to 06/2016 MRI R foot - Moderate degree of subcutaneous edema. No evidence of bone marrow edema or replacement to suggest osteomyelitis is present. Assess/Plan/Problems-Billing Assessment: Mr. Cosby is a 60 yo gentleman with known osteomyelitis of L calcaneus, poorly controlled diabetes, chronic RV failure and diastolic dysfunction with significant LE edema as well as untreated MASON, HTN, COPD, morbid obesity and chronic pain who was referred to the hospital by Dr Meyers. - Patient Problems (1) Cellulitis Comment: Now s/p left BKA. Continue Vanco and cefepime per ID recommendation. (2) COPD (chronic obstructive pulmonary disease) Comment: No acute exacerbation (3) Chronic heart failure Comment: Asymptomatic. Echo from earlier this month shows RV failure and diastolic dysfunction which appears to be chronic in nature. RV pressure unable to be measured, but assumed he has pulm HTN from untreated MASON. Attempted CPAP, but still unable to tolerate. Switch to oral lasix, stop IV fluids. (4) MASON (obstructive sleep apnea) Comment: Non-compliant with CPAP at home. Attempted CPAP here but pt unable to tolerate. (5) Diabetes Comment: IDDM. HgbA1c 9.7%. BG 120 this AM. Continue lantus with mealtime Humalog coverage. (6) Hyperlipidemia Comment: Continue statin (7) Morbid obesity Comment: BMI 50. Bariatric surgery within the last 12 months with 65# weight loss (8) Chronic pain Comment: Chronic back, knee, shoulder, and leg pain. Prescribed Suboxone by Dr Gan, He had incomplete pain relief from Suboxone, which has been stopped. Continue oxycontin with prn oxycodone. Referral to pain management at discharge (9) HTN (hypertension) Comment: BP well controlled. Continue lisinopril, atenolol. (10) Lymphedema Comment: Chronic, Likely related to RV and diastolic failure, Continue compression and diuresis. (11) DVT prophylaxis Comment: HSQ (12) Full code status Status and Disposition: Inpatient. Pt will likely need rehab.
[2016-09-28] MEDS: amLODIPine TAB* 5 MG PO SCH (21:16)
[2016-09-28] MEDS: Acetaminophen TAB* 325 MG PO PRN (21:16)
[2016-09-29] MEDS: oxyCODONE TAB* 5 MG TAB PO PRN ×5 (00:24→21:33)
[2016-09-29] MEDS: Vancomycin(*) 1,250 MG in NS 0.9% 250 ML* 250 ML IVPB SCH ×3 (04:15→20:13)
[2016-09-29] MEDS: Docosanol 10%* CREAM 2 GM TUBE TOPICAL SCH ×5 (05:48→21:01)
[2016-09-29] MEDS: Heparin VIAL(*) 5000 UNITS/ML VIAL (FIVE THOUSAND) SUBCUT SCH ×3 (05:48→21:01)
[2016-09-29] MEDS: Omeprazole CAP* 20 MG PO SCH (07:56)
[2016-09-29] MEDS: Insulin GLARGINE(*) 1 UNITS UNIT SUBCUT SCH ×2 (08:28→21:02)
[2016-09-29] MEDS: Insulin LISPRO* 1 UNITS UNIT SUBCUT SCH ×3 (08:28→17:25)
[2016-09-29] MEDS: oxyCODONE SR TAB(*) 20 MG TAB.SR PO SCH (08:30)
[2016-09-29] MEDS: Lactobacillus Acidophilu (GG)* 1 CAP CAP PO SCH ×2 (08:31→21:01)
[2016-09-29] MEDS: Furosemide TAB* 20 MG PO SCH (08:31)
[2016-09-29] MEDS: Cetirizine* 10 MG TAB PO SCH (08:31)
[2016-09-29] MEDS: Lisinopril TAB* 10 MG PO SCH (08:31)
[2016-09-29] MEDS: Atenolol TAB* 50 MG PO SCH (08:31)
[2016-09-29] MEDS: Atorvastatin* 80 MG TAB PO SCH (08:31)
--- NOTE | 2016-09-29 09:56 | PN ---
Progress Note - Progress Note SOAP: Subjective: []Patient was seen at bedside. Pic line just placed. Overall pain a little better in the amputation site. Objective: [] Vital Signs Temp 98.1 F 09/29/16 07:45 Pulse 86 09/29/16 07:45 Resp 18 09/29/16 08:30 BP 112/58 09/29/16 07:45 Pulse Ox 95 09/29/16 08:00 Intake & Output 09/28/16 09/29/16 09/29/16 18:59 06:59 18:59 Intake Total 370 3273 320 Output Total 350 750 Balance 20 2523 320 Intake: IV Fluids 1323 ABX - VANCOMYCIN 854 NS (0.9%) 469 Oral 370 1950 320 Output: Urine 350 750 Other: Estimated Void Medium Date of Last Bowel 09/29/16 Movement # Bowel Movements 2 Estimated Stool Amount Large # Voids 1 Laboratory Results - last 24 hr 09/28/16 09/28/16 09/28/16 12:24 18:04 21:23 POC Glucose (mg/dL) 327 H 245 H 245 H 09/29/16 07:36 POC Glucose (mg/dL) 192 H Microbiology 09/26/16 18:30 Anaerobic Culture - Preliminary Wound - Left Gram Stain - Final Wound Culture - Preliminary Serratia Marcescens Staphylococcus Lugdenensis 09/21/16 07:54 Aerobic Blood Culture - Final Blood Venous No Growth Day 5 Anaerobic Blood Culture - Final No Growth Day 5 Blood Culture - Final 09/20/16 23:34 Aerobic Blood Culture - Final Blood Venous No Growth Day 5 Anaerobic Blood Culture - Final No Growth Day 5 Blood Culture - Final Left LE stump dressing/splint remains dry and intact Right foot padded boot donned, skin continues to improve, toe ulcer healing and dry Assessment: []s/p BKA LLE for chronic osteo calcaneus POD#3 Right toe ulcer, weeping lymphadema, much improved Plan: []Continue IV ABX per Dr. Mosqueda, Cefepime added 09/28 with the [facility] for transfers as needed Discharge when medically stable
[2016-09-29] MEDS: Nystatin TOP POWDER* 15 GM BTL TOPICAL SCH ×2 (10:07→21:02)
[2016-09-29] MEDS: Cefepime(*) 2 GM in NS 0.9% 50 ML* 50 ML IVPB SCH ×2 (11:02→22:59)
[2016-09-29] MEDS ORDERED: HYDROmorphone PCA* 20 MG/20 ML PCA.SYRING PCA SCH (12:34)
[2016-09-29] MEDS ORDERED: oxyCODONE SR TAB(*) 10 MG TAB.SR PO ONE (15:30)
--- NOTE | 2016-09-29 15:38 | PN ---
Subjective Date of Service: 09/29/16 Interval History: Mr. Cosby complains of generalized pain but denies other complaint including chest pain, SOB, nausea, or abdominal pain. Family History: Unchanged from Admission Social History: Unchanged from Admission Past Medical History: Unchanged from Admission Objective Active Medications: Acetaminophen (Tylenol Tab*) 650 mg PO Q4H PRN Al Hydrox/Mg Hydrox/Simethicone (Maalox Plus*) 30 ml PO Q6H PRN Amlodipine Besylate (Norvasc Tab*) 5 mg PO BEDTIME MICHELLE Atenolol (Tenormin Tab*) 50 mg PO QAM MICHELLE Atorvastatin Calcium (Lipitor*) 80 mg PO DAILY MICHELLE Calcium Carbonate (Tums*) 1,000 mg PO Q4H PRN Cetirizine HCl (Zyrtec*) 10 mg PO DAILY [facility] Dextrose (D50w Syringe 50 Ml*) 12.5 gm IV PUSH .FOR FS < 60 - SS PRN Docosanol (Abreva 10%*) 1 applic TOPICAL FIVE TIMES DAILY MICHELLE Furosemide (Lasix Tab*) 20 mg PO DAILY MICHELLE Heparin Sodium (Porcine) (Heparin Vial(*)) 5,000 units SUBCUT Q8HR MICHELLE Heparin Sodium (Porcine) (Heparin Flush Picc/Ml/Cvc(*)) 1 ml FLUSH 0600,1800 MICHELLE Heparin Sodium (Porcine) (Heparin Flush Picc/Ml/Cvc(*)) 1 - 3 ml FLUSH 0600, 1800 MICHELLE Hydromorphone HCl (Dilaudid Iv*) 1 mg IV SLOW PU Q4H PRN Sodium Chloride (Ns 0.9% 500 Ml Bag*) 500 mls @ 0 mls/hr IV KVO MICHELLE Cefepime HCl 2 gm/ Sodium (Chloride) 50 mls @ 100 mls/hr IVPB Q12H MICHELLE Vancomycin HCl 1,250 mg/ (Sodium Chloride) 250 mls @ 166.667 mls/hr IVPB Q8H MICHELLE Insulin Glargine (Lantus(*)) 55 units SUBCUT BID MICHELLE Insulin Human Lispro (Humalog*) 0 units SUBCUT AC MICHELLE Lactobacillus Rhamnosus (Culturelle*) 1 cap PO BID MICHELLE Lisinopril (Prinivil Tab*) 30 mg PO DAILY MICHELLE Lorazepam (Ativan Inj*) 1 mg IV PUSH Q6H PRN Nystatin (Nystatin Top Powder*) 1 applic TOPICAL BID [facility] Omeprazole (Prilosec Cap*) 20 mg PO DAILY@0730 [facility] Ondansetron HCl (Zofran Inj*) 4 mg IV Q4H PRN Oxycodone HCl (Roxycodone Tab*) 10 mg PO Q4H PRN Oxycodone HCl (Oxycontin(*)) 30 mg PO 0900,2100 [facility] Pharmacy Consult (Vancomycin Per Pharmacy*) 1 note FOLLOW UP . PRN Pharmacy Profile Note (Vancomycin Trough Check) 1 note FOLLOW UP ONCE ONE Vital Signs 09/28/16 09/28/16 09/28/16 15:34 16:00 17:00 Temperature 99.9 F Pulse Rate 73 Respiratory 18 18 Rate Blood Pressure 120/55 (mmHg) O2 Sat by Pulse 97 98 98 Oximetry 09/28/16 09/28/16 09/28/16 18:55 19:00 19:44 Temperature 101.0 F Pulse Rate 79 Respiratory 17 16 16 Rate Blood Pressure 124/58 (mmHg) O2 Sat by Pulse 98 92 Oximetry 09/28/16 09/28/16 09/28/16 21:00 21:16 22:50 Temperature Pulse Rate Respiratory 15 16 16 Rate Blood Pressure (mmHg) O2 Sat by Pulse 98 Oximetry 09/28/16 09/28/16 09/29/16 23:00 23:21 00:24 Temperature 98.5 F Pulse Rate 76 Respiratory 15 16 19 Rate Blood Pressure 115/61 (mmHg) O2 Sat by Pulse 96 97 Oximetry 09/29/16 09/29/16 09/29/16 01:00 02:07 03:00 Temperature Pulse Rate Respiratory 14 14 14 Rate Blood Pressure (mmHg) O2 Sat by Pulse 98 97 Oximetry 09/29/16 09/29/16 09/29/16 03:34 05:00 06:41 Temperature 98.5 F Pulse Rate 78 92 Respiratory 16 14 Rate Blood Pressure 112/62 (mmHg) O2 Sat by Pulse 94 97 92 Oximetry 09/29/16 09/29/16 09/29/16 07:00 07:45 07:56 Temperature 98.1 F Pulse Rate 86 Respiratory 15 20 18 Rate Blood Pressure 112/58 (mmHg) O2 Sat by Pulse 97 95 Oximetry 09/29/16 09/29/16 09/29/16 08:00 08:30 09:00 Temperature Pulse Rate Respiratory 16 18 18 Rate Blood Pressure (mmHg) O2 Sat by Pulse 95 96 Oximetry 09/29/16 09/29/16 09/29/16 09:56 10:30 11:00 Temperature Pulse Rate Respiratory 18 18 20 Rate Blood Pressure (mmHg) O2 Sat by Pulse 94 Oximetry 09/29/16 09/29/16 09/29/16 11:26 12:47 13:31 Temperature 98.1 F Pulse Rate 80 76 Respiratory 16 18 Rate Blood Pressure 113/58 (mmHg) O2 Sat by Pulse 96 96 Oximetry Oxygen Devices in Use Now: None Appearance: Male sitting up in bed in NAD Eyes: No Scleral Icterus Ears/Nose/Mouth/Throat: Mucous Membranes Moist Neck: NL Appearance and Movements; NL JVP Respiratory: Symmetrical Chest Expansion and Respiratory Effort, Clear to Auscultation Cardiovascular: NL Sounds; No Murmurs; No JVD, No Edema Abdominal: NL Sounds; No Tenderness; No Distention Lymphatic: No Cervical Adenopathy Extremities: No Edema Skin: - - Left BKA dressing CDI, ulceration noted to Neurological: Alert and Oriented x 3, NL Muscle Strength and Tone Nutrition: Taking PO's Result Diagrams: 09/27/16 06:05 09/27/16 06:05 Microbiology and Other Data: Microbiology 09/21/16 07:54 Aerobic Blood Culture - Preliminary Blood Venous No Growth Day 1 Anaerobic Blood Culture - Preliminary No Growth Day 1 09/20/16 23:34 Aerobic Blood Culture - Preliminary Blood Venous No Growth Day 1 Anaerobic Blood Culture - Preliminary No Growth Day 1 Diagnostic Imaging: Echo 08/29/16 - LVEF 55-60%, mod LVH, diastolic dysfunction, mild to mod reduced RV function, unable to assess RV function MRI L ankle - osteomyelitis of the L calcaneus that looks to have significantly advanced when compared to 06/2016 MRI R foot - Moderate degree of subcutaneous edema. No evidence of bone marrow edema or replacement to suggest osteomyelitis is present. Assess/Plan/Problems-Billing Assessment: Mr. Cosby is a 60 yo gentleman with known osteomyelitis of L calcaneus, poorly controlled diabetes, chronic RV failure and diastolic dysfunction with significant LE edema as well as untreated MASON, HTN, COPD, morbid obesity and chronic pain who was referred to the hospital by Dr Meyers. - Patient Problems (1) Cellulitis Comment: Now s/p left BKA. Also has blister to R great toe with erythema. Continue Vanco and cefepime per ID recommendation. PICC line placed. D/C ALGOLOGIST. (2) Chronic pain Comment: Chronic back, knee, shoulder, and leg pain. Was let go from Dr. James' s practice due to improper use of pain meds. Prescribed Suboxone by Dr Gan outpatient. D/C ALGOLOGIST and increase oxycontin with prn oxycodone. Dr. Jean consulted for management recommendations. (3) COPD (chronic obstructive pulmonary disease) Comment: No acute exacerbation (4) Chronic heart failure Comment: Asymptomatic. Echo from earlier this month shows RV failure and diastolic dysfunction which appears to be chronic in nature. RV pressure unable to be measured, but assumed he has pulm HTN from untreated MASON. Attempted CPAP, but still unable to tolerate. Continue lasix. (5) MASON (obstructive sleep apnea) Comment: Non-compliant with CPAP at home. Attempted CPAP here but pt unable to tolerate. (6) Diabetes Comment: IDDM. HgbA1c 9.7%. BG 120 this AM. Continue lantus with mealtime Humalog coverage. (7) Hyperlipidemia Comment: Continue statin (8) Morbid obesity Comment: BMI 50. Bariatric surgery within the last 12 months with 65# weight loss (9) HTN (hypertension) Comment: BP well controlled. Continue lisinopril, atenolol. (10) Lymphedema Comment: Chronic, Likely related to RV and diastolic failure, Continue compression and diuresis. (11) DVT prophylaxis Comment: HSQ (12) Full code status Status and Disposition: Inpatient. Pt will likely need rehab.
[2016-09-29] MEDS: oxyCODONE SR TAB(*) 10 MG TAB.SR PO SCH (21:00)
[2016-09-29] MEDS: amLODIPine TAB* 5 MG PO SCH (21:01)
[2016-09-29] MEDS: Acetaminophen TAB* 325 MG PO PRN (21:33)
[2016-09-29] MEDS: HYDROmorphone* 1 MG/ML 1 ML SYR IV SLOW PU PRN (21:33)
[2016-09-30] MEDS: Vancomycin(*) 1,250 MG in NS 0.9% 250 ML* 250 ML IVPB SCH ×3 (03:52→20:00)
[2016-09-30] MEDS: oxyCODONE TAB* 5 MG TAB PO PRN ×5 (03:52→22:18)
[2016-09-30] MEDS: Acetaminophen TAB* 325 MG PO PRN (05:50)
[2016-09-30] MEDS: Heparin VIAL(*) 5000 UNITS/ML VIAL (FIVE THOUSAND) SUBCUT SCH ×3 (05:51→21:00)
[2016-09-30] MEDS: Docosanol 10%* CREAM 2 GM TUBE TOPICAL SCH ×5 (05:57→21:00)
[2016-09-30] MEDS: HYDROmorphone* 1 MG/ML 1 ML SYR IV SLOW PU PRN (06:32)
[2016-09-30] MEDS: Omeprazole CAP* 20 MG PO SCH (07:59)
[2016-09-30] MEDS: Atorvastatin* 80 MG TAB PO SCH (09:41)
[2016-09-30] MEDS: Atenolol TAB* 50 MG PO SCH (09:41)
[2016-09-30] MEDS: oxyCODONE SR TAB(*) 10 MG TAB.SR PO SCH ×2 (09:41→20:53)
[2016-09-30] MEDS: Lisinopril TAB* 10 MG PO SCH (09:41)
[2016-09-30] MEDS: Lactobacillus Acidophilu (GG)* 1 CAP CAP PO SCH ×2 (09:41→20:54)
[2016-09-30] MEDS: Furosemide TAB* 20 MG PO SCH (09:41)
[2016-09-30] MEDS: Cetirizine* 10 MG TAB PO SCH (09:43)
[2016-09-30] MEDS: Insulin LISPRO* 1 UNITS UNIT SUBCUT SCH ×3 (09:43→18:01)
[2016-09-30] MEDS: Insulin GLARGINE(*) 1 UNITS UNIT SUBCUT SCH ×2 (09:44→20:55)
[2016-09-30] MEDS: Nystatin TOP POWDER* 15 GM BTL TOPICAL SCH ×2 (09:51→21:35)
--- NOTE | 2016-09-30 09:56 | PN ---
Progress Note - Progress Note SOAP: Subjective: 60 y/o male s/p L BKA 09/[address] Meyers. Patient resting in chair, c/o fatigue , falls asleep quickly, difficult to arouse. A&O to person, place. VSS overnight Objective: General- Lethargic, AO, rousable. SItting in chair comfortably MSK- Surgical dressing intact over L LE, no drainage noted, no erythema/ lymphatic streaking noted L thigh. R leg dressing intact, minimal weeping from 2nd R toe, no odor noted, dressing dry/ intact over R ankle, decreased erythema, edema from prior examinations. + tender to touch R LE. Vital Signs Temp 98.4 F 09/30/16 07:43 Pulse 89 09/30/16 07:43 Resp 16 09/30/16 09:58 BP 118/69 09/30/16 07:43 Pulse Ox 93 09/30/16 07:43 Intake & Output 09/29/16 09/30/16 09/30/16 18:59 06:59 18:59 Intake Total 1747 2330 0 Output Total 400 900 350 Balance 1347 1430 -350 Weight 345 lb 4.8 oz Intake: IV Fluids 947 ABX - VANCOMYCIN 539 NS (0.9%) 348 cefepime 60 IVPB 590 ABX - VANCOMYCIN 530 cefepime 60 Oral 800 1740 0 Output: Urine 400 900 350 Other: Estimated Void Large Medium Laboratory Results - last 24 hr 09/29/16 09/29/16 09/29/16 11:50 17:10 20:46 POC Glucose (mg/dL) 342 H 272 H 297 H 09/30/16 07:58 POC Glucose (mg/dL) 215 H Assessment: 60 y/o male s/p L BKA 09/[address] Meeyrs. Plan: - Leucocytosis- likely post-op continue to monitor - PICC placed, IV ABX per Dr. Mosqueda - F/U with Dr. Meyers within 10-14 days post-op - Likely rehab placement - Continue PT/ OT - Decrease pain medication, spoke with hosp. - Continue dressing changes Active Medications Generic Name Dose Route Start Last Admin Trade Name Freq PRN Reason Stop Dose Admin Acetaminophen 650 mg 09/20/16 13:29 09/30/16 05:50 Tylenol Tab* PO 650 mg Q4H PRN Administration FEVER/PAIN Al Hydrox/Mg Hydrox/Simethicone 30 ml 09/25/16 17:45 Maalox Plus* PO Q6H PRN INDIGESTION Amlodipine Besylate 5 mg 09/20/16 21:00 09/29/16 21:01 Norvasc Tab* PO 5 mg BEDTIME MICHELLE Administration Atenolol 50 mg 09/21/16 09:00 09/30/16 09:41 Tenormin Tab* PO 50 mg QAM MICHELLE Administration Atorvastatin Calcium 80 mg 09/21/16 09:00 09/30/16 09:41 Lipitor* PO 80 mg DAILY MICHELLE Administration Calcium Carbonate 1,000 mg 09/20/16 16:56 09/25/16 05:16 Tums* PO 1,000 mg Q4H PRN Administration reflux Cetirizine HCl 10 mg 09/24/16 18:00 09/30/16 09:43 Zyrtec* PO 10 mg DAILY MICHELLE Administration Protocol Dextrose 12.5 gm 09/20/16 15:02 D50w Syringe 50 Ml* IV PUSH .FOR FS < 60 - SS PRN FS < 60 Docosanol 1 applic 09/24/16 18:00 09/30/16 09:55 Abreva 10%* TOPICAL Not Given FIVE TIMES DAILY [facility] Furosemide 20 mg 09/28/16 09:00 09/30/16 09:41 Lasix Tab* PO 20 mg DAILY MICHELLE Administration Heparin Sodium (Porcine) 5,000 units 09/20/16 14:00 09/30/16 05:51 Heparin Vial(*) SUBCUT 5,000 units Q8HR MICHELLE Administration Heparin Sodium (Porcine) 1 ml 09/23/16 18:00 09/30/16 05:51 Heparin Flush Picc/Ml/Cvc(*) FLUSH 1 ml 0600,1800 [facility] Administration Protocol Heparin Sodium (Porcine) 1 - 3 ml 09/29/16 18:00 09/30/16 05:57 Heparin Flush Picc/Ml/Cvc(*) FLUSH Not Given 0600,1800 [facility] Protocol Hydromorphone HCl 1 mg 09/29/16 15:30 09/30/16 06:32 Dilaudid Iv* IV SLOW PU 1 mg Q4H PRN Administration PAIN Sodium Chloride 500 mls @ 0 mls/hr 09/27/16 13:00 Ns 0.9% 500 Ml Bag* IV KVO MICHELLE KVO Cefepime HCl 2 gm/ Sodium 50 mls @ 100 mls/hr 09/28/16 11:00 09/29/16 22:59 Chloride IVPB 100 mls/hr Q12H MICHELLE Administration Vancomycin HCl 1,250 mg/ 250 mls @ 166.667 mls/hr 09/28/16 12:00 09/30/16 03: 52 Sodium Chloride IVPB 166.667 mls/hr Q8H MICHELLE Administration Insulin Glargine 55 units 09/24/16 21:00 09/30/16 09:44 Lantus(*) SUBCUT 55 unit BID MICHELLE Administration Insulin Human Lispro 0 units 09/27/16 16:30 09/30/16 09:43 Humalog* SUBCUT 6 unit AC MICHELLE Administration Protocol Lactobacillus Rhamnosus 1 cap 09/20/16 21:00 09/30/16 09:41 Culturelle* PO 1 cap BID MICHELLE Administration Lisinopril 30 mg 09/21/16 09:00 09/30/16 09:41 Prinivil Tab* PO 30 mg DAILY MICHELLE Administration Lorazepam 1 mg 09/26/16 23:40 09/27/16 00:12 Ativan Inj* IV PUSH 1 mg Q6H PRN Administration ANXIETY Nystatin 1 applic 09/28/16 09:00 09/30/16 09:51 Nystatin Top Powder* TOPICAL 1 applic BID MICHELLE Administration Omeprazole 20 mg 09/21/16 07:30 09/30/16 07:59 Prilosec Cap* PO 20 mg DAILY@0730 MICHELLE Administration Ondansetron HCl 4 mg 09/20/16 13:29 09/25/16 02:01 Zofran Inj* IV 4 mg Q4H PRN Administration NAUSEA/VOMITING Oxycodone HCl 10 mg 09/20/16 14:46 09/30/16 07:58 Roxycodone Tab* PO 10 mg Q4H PRN Administration PAIN Oxycodone HCl 30 mg 09/29/16 21:00 09/30/16 09:41 Oxycontin(*) PO 30 mg 0900,2100 MICHELLE Administration Pharmacy Consult 1 note 09/22/16 11:50 Vancomycin Per Pharmacy* FOLLOW UP . PRN PER PROTOCOL Pharmacy Profile Note 1 note 10/01/16 11:30 Vancomycin Trough Check FOLLOW UP 10/01/16 11:31 ONCE ONE
[2016-09-30] MEDS ORDERED: oxyCODONE TAB* 5 MG TAB PO PRN (10:03)
[2016-09-30] MEDS: Cefepime(*) 2 GM in NS 0.9% 50 ML* 50 ML IVPB SCH ×2 (11:48→22:32)
--- NOTE | 2016-09-30 13:48 | PN ---
Subjective Date of Service: 09/30/16 Interval History: Mr. Cosby continues to complain of pain at times but feels that it is reasonably well controlled and is not requesting additional pain meds. He denies chest pain, SOB, nausea, or abdominal pain. Family History: Unchanged from Admission Social History: Unchanged from Admission Past Medical History: Unchanged from Admission Objective Active Medications: Acetaminophen (Tylenol Tab*) 650 mg PO Q4H PRN PRN Reason: FEVER/PAIN Last Admin: 09/30/16 05:50 Dose: 650 mg Al Hydrox/Mg Hydrox/Simethicone (Maalox Plus*) 30 ml PO Q6H PRN PRN Reason: INDIGESTION Amlodipine Besylate (Norvasc Tab*) 5 mg PO BEDTIME [facility] Last Admin: 09/29/16 21:01 Dose: 5 mg Atenolol (Tenormin Tab*) 50 mg PO QAM [facility] Last Admin: 09/30/16 09:41 Dose: 50 mg Atorvastatin Calcium (Lipitor*) 80 mg PO DAILY [facility] Last Admin: 09/30/16 09:41 Dose: 80 mg Calcium Carbonate (Tums*) 1,000 mg PO Q4H PRN PRN Reason: reflux Last Admin: 09/25/16 05:16 Dose: 1,000 mg Cetirizine HCl (Zyrtec*) 10 mg PO DAILY MICHELLE PRN Reason: Protocol Last Admin: 09/30/16 09:43 Dose: 10 mg Dextrose (D50w Syringe 50 Ml*) 12.5 gm IV PUSH .FOR FS < 60 - SS PRN PRN Reason: FS < 60 Docosanol (Abreva 10%*) 1 applic TOPICAL FIVE TIMES DAILY [facility] Last Admin: 09/30/16 12:28 Dose: Not Given Furosemide (Lasix Tab*) 20 mg PO DAILY [facility] Last Admin: 09/30/16 09:41 Dose: 20 mg Heparin Sodium (Porcine) (Heparin Vial(*)) 5,000 units SUBCUT Q8HR [facility] Last Admin: 09/30/16 13:24 Dose: 5,000 units Heparin Sodium (Porcine) (Heparin Flush Picc/Ml/Cvc(*)) 1 ml FLUSH 0600,1800 MICHELLE PRN Reason: Protocol Last Admin: 09/30/16 05:51 Dose: 1 ml Heparin Sodium (Porcine) (Heparin Flush Picc/Ml/Cvc(*)) 1 - 3 ml FLUSH 0600, 1800 [facility] PRN Reason: Protocol Last Admin: 09/30/16 05:57 Dose: Not Given Sodium Chloride (Ns 0.9% 500 Ml Bag*) 500 mls @ 0 mls/hr IV KVO MICHELLE PRN Reason: KVO Cefepime HCl 2 gm/ Sodium (Chloride) 50 mls @ 100 mls/hr IVPB Q12H [facility] Last Admin: 09/30/16 11:48 Dose: 100 mls/hr Vancomycin HCl 1,250 mg/ (Sodium Chloride) 250 mls @ 166.667 mls/hr IVPB Q8H [facility] Last Admin: 09/30/16 12:27 Dose: 166.667 mls/hr Insulin Glargine (Lantus(*)) 55 units SUBCUT BID [facility] Last Admin: 09/30/16 09:44 Dose: 55 unit Insulin Human Lispro (Humalog*) 0 units SUBCUT AC [facility] PRN Reason: Protocol Last Admin: 09/30/16 13:23 Dose: 3 unit Lactobacillus Rhamnosus (Culturelle*) 1 cap PO BID [facility] Last Admin: 09/30/16 09:41 Dose: 1 cap Lisinopril (Prinivil Tab*) 30 mg PO DAILY [facility] Last Admin: 09/30/16 09:41 Dose: 30 mg Nystatin (Nystatin Top Powder*) 1 applic TOPICAL BID [facility] Last Admin: 09/30/16 09:51 Dose: 1 applic Omeprazole (Prilosec Cap*) 20 mg PO DAILY@0730 [facility] Last Admin: 09/30/16 07:59 Dose: 20 mg Ondansetron HCl (Zofran Inj*) 4 mg IV Q4H PRN PRN Reason: NAUSEA/VOMITING Last Admin: 09/25/16 02:01 Dose: 4 mg Oxycodone HCl (Oxycontin(*)) 30 mg PO 0900,2100 [facility] Last Admin: 09/30/16 09:41 Dose: 30 mg Oxycodone HCl (Roxycodone Tab*) 10 mg PO Q4H PRN PRN Reason: PAIN Last Admin: 09/30/16 13:23 Dose: 10 mg Pharmacy Consult (Vancomycin Per Pharmacy*) 1 note FOLLOW UP . PRN PRN Reason: PER PROTOCOL Pharmacy Profile Note (Vancomycin Trough Check) 1 note FOLLOW UP ONCE ONE Stop: 10/01/16 11:31 Vital Signs 09/29/16 09/29/16 09/29/16 15:00 15:31 15:33 Temperature 98.5 F Pulse Rate 74 Respiratory 16 16 16 Rate Blood Pressure 107/52 (mmHg) O2 Sat by Pulse 94 94 Oximetry 09/29/16 09/29/16 09/29/16 15:36 15:45 16:14 Temperature Pulse Rate 75 Respiratory 16 Rate Blood Pressure (mmHg) O2 Sat by Pulse 94 96 Oximetry 09/29/16 09/29/16 09/29/16 17:27 17:32 19:30 Temperature 99.5 F Pulse Rate 84 Respiratory 20 16 22 Rate Blood Pressure 108/42 (mmHg) O2 Sat by Pulse 93 Oximetry 09/29/16 09/29/16 09/29/16 19:32 20:00 21:00 Temperature Pulse Rate Respiratory 16 16 18 Rate Blood Pressure (mmHg) O2 Sat by Pulse Oximetry 09/29/16 09/29/16 09/29/16 21:33 22:33 23:00 Temperature Pulse Rate Respiratory 16 12 14 Rate Blood Pressure (mmHg) O2 Sat by Pulse Oximetry 09/29/16 09/30/16 09/30/16 23:33 00:00 00:18 Temperature 98.2 F Pulse Rate 77 Respiratory 14 14 Rate Blood Pressure 114/50 (mmHg) O2 Sat by Pulse 94 94 Oximetry 09/30/16 09/30/16 09/30/16 03:49 03:52 05:52 Temperature 98.1 F Pulse Rate 83 Respiratory 16 16 14 Rate Blood Pressure 134/64 (mmHg) O2 Sat by Pulse 94 Oximetry 09/30/16 09/30/16 09/30/16 06:32 07:32 07:43 Temperature 98.4 F Pulse Rate 89 Respiratory 20 18 20 Rate Blood Pressure 118/69 (mmHg) O2 Sat by Pulse 93 Oximetry 09/30/16 09/30/16 09/30/16 07:58 08:00 09:41 Temperature Pulse Rate Respiratory 18 16 18 Rate Blood Pressure (mmHg) O2 Sat by Pulse 93 Oximetry 09/30/16 09/30/16 09/30/16 09:58 11:41 11:58 Temperature 98.2 F Pulse Rate 74 Respiratory 16 16 12 Rate Blood Pressure 102/55 (mmHg) O2 Sat by Pulse 98 Oximetry 09/30/16 13:23 Temperature Pulse Rate Respiratory 18 Rate Blood Pressure (mmHg) O2 Sat by Pulse Oximetry Oxygen Devices in Use Now: None Appearance: Obese male sitting up in chair in NAD Eyes: No Scleral Icterus Ears/Nose/Mouth/Throat: Mucous Membranes Moist Neck: Trachea Midline Respiratory: Symmetrical Chest Expansion and Respiratory Effort, Clear to Auscultation Cardiovascular: NL Sounds; No Murmurs; No JVD, No Edema Abdominal: NL Sounds; No Tenderness; No Distention Lymphatic: No Cervical Adenopathy Extremities: - - Blister to R great toe, L BKA dressing CDI Skin: No Rash or Ulcers Neurological: Alert and Oriented x 3, NL Muscle Strength and Tone Nutrition: Taking PO's Result Diagrams: 09/27/16 06:05 09/27/16 06:05 Microbiology and Other Data: Microbiology 09/21/16 07:54 Aerobic Blood Culture - Preliminary Blood Venous No Growth Day 1 Anaerobic Blood Culture - Preliminary No Growth Day 1 09/20/16 23:34 Aerobic Blood Culture - Preliminary Blood Venous No Growth Day 1 Anaerobic Blood Culture - Preliminary No Growth Day 1 Diagnostic Imaging: Echo 08/29/16 - LVEF 55-60%, mod LVH, diastolic dysfunction, mild to mod reduced RV function, unable to assess RV function MRI L ankle - osteomyelitis of the L calcaneus that looks to have significantly advanced when compared to 06/2016 MRI R foot - Moderate degree of subcutaneous edema. No evidence of bone marrow edema or replacement to suggest osteomyelitis is present. Assess/Plan/Problems-Billing Assessment: Mr. Cosby is a 60 yo gentleman with known osteomyelitis of L calcaneus, poorly controlled diabetes, chronic RV failure and diastolic dysfunction with significant LE edema as well as untreated MASON, HTN, COPD, morbid obesity and chronic pain who was referred to the hospital by Dr Meyers. - Patient Problems (1) Cellulitis Comment: Now s/p left BKA. Also has blister to R great toe with erythema. Continue Vanco and cefepime per ID recommendation. PICC line placed. D/C SAFETY SPEC. (2) Chronic pain Comment: Chronic back, knee, shoulder, and leg pain. Was let go from Dr. James' s practice due to improper use of pain meds. Prescribed Suboxone by Dr Gan outpatient. Continue oxycontin with prn oxycodone. Dr. Jean consulted for management recommendations. (3) COPD (chronic obstructive pulmonary disease) Comment: No acute exacerbation (4) Chronic heart failure Comment: Asymptomatic. Echo from earlier this month shows RV failure and diastolic dysfunction which appears to be chronic in nature. RV pressure unable to be measured, but assumed he has pulm HTN from untreated MASON. Attempted CPAP, but still unable to tolerate. Continue lasix. (5) MASON (obstructive sleep apnea) Comment: Non-compliant with CPAP at home. Attempted CPAP here but pt unable to tolerate. (6) Diabetes Comment: IDDM. HgbA1c 9.7%. BG 120 this AM. Continue lantus with mealtime Humalog coverage. (7) Hyperlipidemia Comment: Continue statin (8) Morbid obesity Comment: BMI 50. Bariatric surgery within the last 12 months with 65# weight loss (9) HTN (hypertension) Comment: BP well controlled. Continue lisinopril, atenolol. (10) Lymphedema Comment: Chronic, Likely related to RV and diastolic failure, Continue compression and diuresis. (11) DVT prophylaxis Comment: HSQ (12) Full code status Status and Disposition: Inpatient. Pt will likely need rehab.
[2016-09-30] MEDS ORDERED: oxyCODONE TAB* 5 MG TAB PO ONE (15:19)
[2016-09-30] MEDS ORDERED: HYDROmorphone* 1 MG/ML 1 ML SYR ONE (16:28)
[2016-09-30] MEDS ORDERED: HYDROmorphone* 1 MG/ML 1 ML SYR IV SLOW PU ONE (16:29)
[2016-09-30] MEDS: amLODIPine TAB* 5 MG PO SCH (20:53)
[2016-10-01] MEDS: oxyCODONE TAB* 5 MG TAB PO PRN ×6 (02:10→23:49)
[2016-10-01] MEDS: Vancomycin(*) 1,250 MG in NS 0.9% 250 ML* 250 ML IVPB SCH ×3 (03:55→19:49)
[2016-10-01] MEDS: Heparin VIAL(*) 5000 UNITS/ML VIAL (FIVE THOUSAND) SUBCUT SCH ×3 (05:55→22:29)
[2016-10-01] MEDS: Docosanol 10%* CREAM 2 GM TUBE TOPICAL SCH ×2 (06:10→08:51)
[2016-10-01 06:46] LABS: EGFR African American 143.7 (>60); EGFR Non-African American 111.7 (>60)
[2016-10-01] MEDS: Omeprazole CAP* 20 MG PO SCH (07:28)
[2016-10-01] MEDS: Nystatin TOP POWDER* 15 GM BTL TOPICAL SCH ×2 (08:25→22:27)
[2016-10-01] MEDS: Lisinopril TAB* 10 MG PO SCH (08:58)
[2016-10-01] MEDS: Lactobacillus Acidophilu (GG)* 1 CAP CAP PO SCH ×2 (08:58→22:28)
[2016-10-01] MEDS: Atorvastatin* 80 MG TAB PO SCH (08:58)
[2016-10-01] MEDS: Atenolol TAB* 50 MG PO SCH (08:59)
[2016-10-01] MEDS: oxyCODONE SR TAB(*) 10 MG TAB.SR PO SCH ×2 (08:59→22:25)
[2016-10-01] MEDS: Cetirizine* 10 MG TAB PO SCH (08:59)
[2016-10-01] MEDS: Insulin LISPRO* 1 UNITS UNIT SUBCUT SCH ×3 (08:59→17:25)
[2016-10-01] MEDS: Furosemide TAB* 20 MG PO SCH (08:59)
[2016-10-01] MEDS: Insulin GLARGINE(*) 1 UNITS UNIT SUBCUT SCH ×2 (08:59→22:26)
--- NOTE | 2016-10-01 09:51 | PN ---
Progress Note - Progress Note SOAP: Subjective: 60 y/o male s/p L BKA 09/[address] Meyers. Patient more awake, alert then yesterday, c/o pain with movement/ transfer from chair. Objective: General- Sitting in chair comfortably, NAD MSK- Dressing intact, no drainage noted, decreased edema from prior examination , Working with PT Vital Signs Temp 98.2 F 10/01/16 07:34 Pulse 84 10/01/16 07:34 Resp 18 10/01/16 08:59 BP 125/55 10/01/16 07:34 Pulse Ox 96 10/01/16 08:00 Intake & Output 09/30/16 10/01/16 10/01/16 18:59 06:59 18:59 Intake Total 564 2135 Output Total 650 2250 200 Balance -86 -115 -200 Weight 328 lb 4.8 oz Intake: IV Fluids 98 NS (0.9%) 98 IVPB 384 657 ABX - VANCOMYCIN 295 586 LR 0 NS (0.9%) 89 cefepime 71 Oral 180 1380 Output: Urine 650 2250 200 Other: Estimated Stool Amount Large Laboratory Results - last 24 hr 09/30/16 09/30/16 09/30/16 11:53 16:37 20:52 BUN Creatinine Est GFR ( Amer) Est GFR (Non-Af Amer) POC Glucose (mg/dL) 180 H 270 H 306 H 10/01/16 10/01/16 06:05 07:28 BUN 15 Creatinine 0.72 Est GFR ( Amer) 143.7 Est GFR (Non-Af Amer) 111.7 POC Glucose (mg/dL) 176 H Assessment: 60 y/o male s/p L BKA 09/[address] Meyers. Plan: - PICC placed, IV ABX per Dr. Mosqueda - F/U with Dr. Meyers within 10-14 days post-op - Likely rehab placement - Continue PT/ OT - Continue dressing changes Active Medications Generic Name Dose Route Start Last Admin Trade Name Freq PRN Reason Stop Dose Admin Acetaminophen 650 mg 09/20/16 13:29 09/30/16 05:50 Tylenol Tab* PO 650 mg Q4H PRN Administration FEVER/PAIN Al Hydrox/Mg Hydrox/Simethicone 30 ml 09/25/16 17:45 Maalox Plus* PO Q6H PRN INDIGESTION Amlodipine Besylate 5 mg 09/20/16 21:00 09/30/16 20:53 Norvasc Tab* PO 5 mg BEDTIME MICHELLE Administration Atenolol 50 mg 09/21/16 09:00 10/01/16 08:59 Tenormin Tab* PO 50 mg QAM MICHELLE Administration Atorvastatin Calcium 80 mg 09/21/16 09:00 10/01/16 08:58 Lipitor* PO 80 mg DAILY MICHELLE Administration Calcium Carbonate 1,000 mg 09/20/16 16:56 09/25/16 05:16 Tums* PO 1,000 mg Q4H PRN Administration reflux Cetirizine HCl 10 mg 09/24/16 18:00 10/01/16 08:59 Zyrtec* PO 10 mg DAILY MICHELLE Administration Protocol Dextrose 12.5 gm 09/20/16 15:02 D50w Syringe 50 Ml* IV PUSH .FOR FS < 60 - SS PRN FS < 60 Docosanol 1 applic 09/24/16 18:00 10/01/16 08:51 Abreva 10%* TOPICAL Not Given FIVE TIMES DAILY MICHELLE Furosemide 20 mg 09/28/16 09:00 10/01/16 08:59 Lasix Tab* PO 20 mg DAILY MICHELLE Administration Heparin Sodium (Porcine) 5,000 units 09/20/16 14:00 10/01/16 05:55 Heparin Vial(*) SUBCUT 5,000 units Q8HR MICHELLE Administration Heparin Sodium (Porcine) 1 ml 09/23/16 18:00 10/01/16 06:09 Heparin Flush Picc/Ml/Cvc(*) FLUSH Not Given 0600,1800 [facility] Protocol Heparin Sodium (Porcine) 1 - 3 ml 09/29/16 18:00 10/01/16 06:09 Heparin Flush Picc/Ml/Cvc(*) FLUSH 1 ml 0600,1800 [facility] Administration Protocol Sodium Chloride 500 mls @ 0 mls/hr 09/27/16 13:00 Ns 0.9% 500 Ml Bag* IV KVO MICHELLE KVO Cefepime HCl 2 gm/ Sodium 50 mls @ 100 mls/hr 09/28/16 11:00 09/30/16 22:32 Chloride IVPB 100 mls/hr Q12H MICHELLE Administration Vancomycin HCl 1,250 mg/ 250 mls @ 166.667 mls/hr 09/28/16 12:00 10/01/16 03: 55 Sodium Chloride IVPB 166.667 mls/hr Q8H MICHELLE Administration Insulin Glargine 55 units 09/24/16 21:00 10/01/16 08:59 Lantus(*) SUBCUT 55 unit BID MICHELLE Administration Insulin Human Lispro 0 units 09/27/16 16:30 10/01/16 08:59 Humalog* SUBCUT 3 unit AC MICHELLE Administration Protocol Lactobacillus Rhamnosus 1 cap 09/20/16 21:00 10/01/16 08:58 Culturelle* PO 1 cap BID MICHELLE Administration Lisinopril 30 mg 09/21/16 09:00 10/01/16 08:58 Prinivil Tab* PO 30 mg DAILY MICHELLE Administration Nystatin 1 applic 09/28/16 09:00 10/01/16 08:25 Nystatin Top Powder* TOPICAL 1 applic BID MICHELLE Administration Omeprazole 20 mg 09/21/16 07:30 10/01/16 07:28 Prilosec Cap* PO 20 mg DAILY@0730 MICHELLE Administration Ondansetron HCl 4 mg 09/20/16 13:29 09/25/16 02:01 Zofran Inj* IV 4 mg Q4H PRN Administration NAUSEA/VOMITING Oxycodone HCl 30 mg 09/29/16 21:00 10/01/16 08:59 Oxycontin(*) PO 30 mg 0900,2100 MICHELLE Administration Oxycodone HCl 15 mg 09/30/16 18:31 10/01/16 06:00 Roxycodone Tab* PO 15 mg Q4H PRN Administration PAIN Pharmacy Consult 1 note 09/22/16 11:50 Vancomycin Per Pharmacy* FOLLOW UP . PRN PER PROTOCOL Pharmacy Profile Note 1 note 10/01/16 11:30 Vancomycin Trough Check FOLLOW UP 10/01/16 11:31 ONCE ONE
[2016-10-01] MEDS: Cefepime(*) 2 GM in NS 0.9% 50 ML* 50 ML IVPB SCH ×2 (10:01→22:25)
[2016-10-01] MEDS ORDERED: Vancomycin Trough Check NOTE FOLLOW UP ONE (11:30)
[2016-10-01] MEDS ORDERED: CMCS - Melatonin (NF) 3 MG TAB PO PRN (16:40)
[2016-10-01] MEDS ORDERED: HYDROmorphone* 1 MG/ML 1 ML SYR IV SLOW PU PRN (17:15)
--- NOTE | 2016-10-01 17:15 | PN ---
Subjective Date of Service: 10/01/16 Interval History: Patient seen and examined at bedside. Pt states that he is having "burning pain " in his left LE. He is requesting more pain medication. Pt also reports that he is having difficulty sleeping. Denies fever, chills, shortness of breath, chest discomfort, N/V/D. NS staff reporting excoriation to triny area from urinary incontinence and pt only able to void a small amount at a time. Pt had a simpson placed and was found to have 1,200 ml in his bladder. Family History: Unchanged from Admission Social History: Unchanged from Admission Past Medical History: Unchanged from Admission Objective Active Medications: Acetaminophen (Tylenol Tab*) 650 mg PO Q4H PRN Reason: FEVER/PAIN Al Hydrox/Mg Hydrox/Simethicone (Maalox Plus*) 30 ml PO Q6H PRN Reason: INDIGESTION Amlodipine Besylate (Norvasc Tab*) 5 mg PO BEDTIME MICHELLE Atenolol (Tenormin Tab*) 50 mg PO QAM MICHELLE Atorvastatin Calcium (Lipitor*) 80 mg PO DAILY MICHELLE Calcium Carbonate (Tums*) 1,000 mg PO Q4H PRN Reason: reflux Cetirizine HCl (Zyrtec*) 10 mg PO DAILY MICHELLE Reason: Protocol Dextrose (D50w Syringe 50 Ml*) 12.5 gm IV PUSH .FOR FS < 60 - SS PRN Reason: FS < 60 Furosemide (Lasix Tab*) 20 mg PO DAILY [facility] Heparin Sodium (Porcine) (Heparin Vial(*)) 5,000 units SUBCUT Q8HR MICHELLE Heparin Sodium (Porcine) (Heparin Flush Picc/Ml/Cvc(*)) 1 ml FLUSH 0600,1800 MICHELLE Reason: Protocol Sodium Chloride (Ns 0.9% 500 Ml Bag*) 500 mls @ 0 mls/hr IV KVO MICHELLE Reason: KVO Cefepime HCl 2 gm/ Sodium (Chloride) 50 mls @ 100 mls/hr IVPB Q12H MICHELLE Vancomycin HCl 1,250 mg/ (Sodium Chloride) 250 mls @ 166.667 mls/hr IVPB Q8H MICHELLE Insulin Glargine (Lantus(*)) 55 units SUBCUT BID MICHELLE Insulin Human Lispro (Humalog*) 0 units SUBCUT AC MICHELLE Reason: Protocol Lactobacillus Rhamnosus (Culturelle*) 1 cap PO BID MICHELLE Lisinopril (Prinivil Tab*) 30 mg PO DAILY MICHELLE Nystatin (Nystatin Top Powder*) 1 applic TOPICAL BID MICHELLE Omeprazole (Prilosec Cap*) 20 mg PO DAILY@0730 MICHELLE Ondansetron HCl (Zofran Inj*) 4 mg IV Q4H PRN Reason: NAUSEA/VOMITING Oxycodone HCl (Oxycontin(*)) 30 mg PO 0900,2100 [facility] Oxycodone HCl (Roxycodone Tab*) 15 mg PO Q4H PRN Reason: PAIN Pharmacy Consult (Vancomycin Per Pharmacy*) 1 note FOLLOW UP . PRN Reason: PER PROTOCOL Vital Signs 09/30/16 09/30/16 09/30/16 17:27 18:25 19:15 Temperature 98.4 F Pulse Rate 77 Respiratory 18 20 18 Rate Blood Pressure 130/52 (mmHg) O2 Sat by Pulse 97 Oximetry 09/30/16 09/30/16 09/30/16 22:18 22:24 22:53 Temperature 98.3 F Pulse Rate 79 Respiratory 16 16 18 Rate Blood Pressure 109/68 (mmHg) O2 Sat by Pulse 99 Oximetry 10/01/16 10/01/16 10/01/16 00:18 02:10 03:49 Temperature 97.9 F Pulse Rate 78 Respiratory 16 18 18 Rate Blood Pressure 105/54 (mmHg) O2 Sat by Pulse 95 Oximetry 10/01/16 10/01/16 10/01/16 04:10 06:00 07:34 Temperature 98.2 F Pulse Rate 84 Respiratory 18 16 18 Rate Blood Pressure 125/55 (mmHg) O2 Sat by Pulse 96 Oximetry 10/01/16 10/01/16 10/01/16 08:00 08:59 10:59 Temperature Pulse Rate Respiratory 18 18 18 Rate Blood Pressure (mmHg) O2 Sat by Pulse 96 Oximetry 10/01/16 10/01/16 10/01/16 11:34 11:39 11:41 Temperature 99.7 F Pulse Rate 76 Respiratory 16 18 Rate Blood Pressure 126/60 (mmHg) O2 Sat by Pulse 90 Oximetry 10/01/16 10/01/16 10/01/16 13:14 15:25 15:38 Temperature Pulse Rate Respiratory 18 18 Rate Blood Pressure (mmHg) O2 Sat by Pulse 90 Oximetry 10/01/16 15:46 Temperature 98.2 F Pulse Rate 75 Respiratory 18 Rate Blood Pressure 132/70 (mmHg) O2 Sat by Pulse 94 Oximetry Oxygen Devices in Use Now: None Appearance: NAD, laying in bed Eyes: No Scleral Icterus Respiratory: Symmetrical Chest Expansion and Respiratory Effort, Clear to Auscultation Cardiovascular: NL Sounds; No Murmurs; No JVD, RRR Abdominal: NL Sounds; No Tenderness; No Distention Skin: - - Dressing to right LE intact, dressing to left BKA intact. Neurological: Alert and Oriented x 3, NL Muscle Strength and Tone Lines/Tubes/Other Access: Clean, Dry and Intact PICC Line - site benign Nutrition: Taking PO's Result Diagrams: 09/27/16 06:05 10/01/16 06:05 Microbiology and Other Data: Microbiology 09/21/16 07:54 Aerobic Blood Culture - Preliminary Blood Venous No Growth Day 1 Anaerobic Blood Culture - Preliminary No Growth Day 1 09/20/16 23:34 Aerobic Blood Culture - Preliminary Blood Venous No Growth Day 1 Anaerobic Blood Culture - Preliminary No Growth Day 1 Diagnostic Imaging: Echo 08/29/16 - LVEF 55-60%, mod LVH, diastolic dysfunction, mild to mod reduced RV function, unable to assess RV function MRI L ankle - osteomyelitis of the L calcaneus that looks to have significantly advanced when compared to 06/2016 MRI R foot - Moderate degree of subcutaneous edema. No evidence of bone marrow edema or replacement to suggest osteomyelitis is present. Assess/Plan/Problems-Billing Assessment: Mr. Cosby is a 60 yo gentleman with known osteomyelitis of L calcaneus, poorly controlled diabetes, chronic RV failure and diastolic dysfunction with significant LE edema as well as untreated AMSON, HTN, COPD, morbid obesity and chronic pain who was referred to the hospital by Dr Meyers. - Patient Problems (1) Cellulitis Code(s): L03.90 - CELLULITIS, UNSPECIFIED SNOMED Code(s): 976862925 Comment: - Now s/p left BKA. - Also has blister to R great toe with erythema. - Continue Vanco and cefepime per ID recommendation. PICC line placed. (2) Urinary retention Code(s): R33.9 - RETENTION OF URINE, UNSPECIFIED SNOMED Code(s): 418102587 Comment: - Suspect related to narcotic use and Pt not being able to get up to use the bathroom - Simpson placed and will continue for now (3) Osteomyelitis Code(s): M86.9 - OSTEOMYELITIS, UNSPECIFIED SNOMED Code(s): 94758677 Comment: - Chronic L calcaneal osteomyelitis - Repeat MRI shows rather significant progression of the osteomyelitis since June - MRI of the R foot - moderate degree of subcutaneous edema. No evidence bone marrow edema or replacement to suggest ostromyelitits. - S/P left BKA by Dr Meyers on 09/26 (4) Chronic pain Code(s): G89.29 - OTHER CHRONIC PAIN SNOMED Code(s): 23331678 Comment: - Chronic back, knee, shoulder, and leg pain. - Was let go from Dr. James's practice due to improper use of pain meds. - Prescribed Suboxone by Dr Gan outpatient. - Continue oxycontin with prn oxycodone. Dilaudid PRN for breakthrough pain - Dr. Jean consulted for pain management recommendations. (5) Chronic heart failure Code(s): I50.9 - HEART FAILURE, UNSPECIFIED SNOMED Code(s): 96902254 Comment: - Asymptomatic. - Echo from earlier this month shows RV failure and diastolic dysfunction which appears to be chronic in nature. RV pressure unable to be measured, but assumed he has pulm HTN from untreated MASON. - Attempted CPAP, but still unable to tolerate. - Continue lasix. (6) MASON (obstructive sleep apnea) Code(s): G47.33 - OBSTRUCTIVE SLEEP APNEA (ADULT) (PEDIATRIC) SNOMED Code(s): 42444051 Comment: - Non-compliant with CPAP at home. Attempted CPAP here but pt unable to tolerate. (7) COPD (chronic obstructive pulmonary disease) Code(s): J44.9 - CHRONIC OBSTRUCTIVE PULMONARY DISEASE, UNSPECIFIED SNOMED Code(s): 59345537 Comment: - No acute exacerbation (8) Lymphedema Code(s): I89.0 - LYMPHEDEMA, NOT ELSEWHERE CLASSIFIED SNOMED Code(s): 858532677 Comment: - Chronic, Likely related to RV and diastolic failure. - Continue compression and diuresis. (9) Diabetes Code(s): E11.9 - TYPE 2 DIABETES MELLITUS WITHOUT COMPLICATIONS SNOMED Code(s) : 70289521 Comment: - IDDM. - HgbA1c 9.7%. - BG 170's-260's today. - Continue lantus with mealtime Humalog coverage. (10) Hyperlipidemia Code(s): E78.5 - HYPERLIPIDEMIA, UNSPECIFIED SNOMED Code(s): 30453266 Comment: - Continue statin (11) HTN (hypertension) Code(s): I10 - ESSENTIAL (PRIMARY) HYPERTENSION SNOMED Code(s): 57635210 Comment: - BP well controlled. - Continue lisinopril and atenolol. (12) Morbid obesity Code(s): E66.01 - MORBID (SEVERE) OBESITY DUE TO EXCESS CALORIES SNOMED Code(s ): 229144803 Comment: - BMI 50. - Bariatric surgery within the last 12 months with 65# weight loss (13) DVT prophylaxis Code(s): UTL4421 - SNOMED Code(s): 307313695 Comment: - HSQ (14) Full code status Code(s): Z78.9 - OTHER SPECIFIED HEALTH STATUS SNOMED Code(s): 228868399 Status and Disposition: Inpatient. Pt will likely need rehab.
[2016-10-01] MEDS ORDERED: Pregabalin CAP(*) 25 MG PO ONE (21:30)
[2016-10-01] MEDS: amLODIPine TAB* 5 MG PO SCH (22:26)
[2016-10-01] MEDS: HYDROmorphone* 1 MG/ML 1 ML SYR IV SLOW PU PRN (23:49)
--- NOTE | 2016-10-01 23:50 | CONS ---
CONSULTATION REPORT: DATE OF CONSULT: 10/01/16 REASON FOR REFERRAL: Pain in left stump. HISTORY OF PRESENT ILLNESS: Priyank Cosby is a 60-year-old male. Somewhere around 7 years ago, he was sent by Dr. Dylon Villegas to see Dr. Narendra James for pain management regarding bilateral knee pain. 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 He saw Dr. James and was originally given oxycodone and other medications such as OxyContin. The patient was discharged from Dr. James's practice because he failed a urine test. The nature of the failure, the patient seemed to be a little vague on. He was put on Suboxone [address] James. He transferred his care to Dr. Gan and continued on 8 mg of Suboxone. The patient is an insulin-dependent diabetic with known osteomyelitis of his left calcaneus. He was admitted directly to the hospital on September [address] Meyers that day. He had an MRI showing osteomyelitis in June. He was given 8 weeks of IV vancomycin and then put on oral doxycycline and seeing the wound center, but the patient continued to have breakdowns. He was admitted to the hospital and underwent a left below the knee amputation on September 26. Postoperatively, he has had lot of difficulty with pain control. He was put on IV Dilaudid, OxyContin 30 twice a day, and oxycodone 15 mg up to 6 times a day. I am asked to see him in consultation. PAST MEDICAL HISTORY: Significant for the aforementioned diabetes mellitus. In addition, he has a history of chronic lymphedema, COPD, hypertension, morbid obesity. He has had a gastric sleeve procedure. CURRENT MEDICATIONS: Includin. Dilaudid 1 mg IV q.4. 2. OxyContin 30 twice a day. 3. Oxycodone 15 mg up to 6 times a day. 4. Insulin. 5. Vancomycin intravenously. 6. Lasix. 7. Maxipime. 8. Zyrtec. 9. Heparin. 10. Lisinopril. 11. Lipitor. 12. Tenormin. 13. Prilosec. 14. Culturelle. 15. Norvasc. 16. Tums. 17. Tylenol. ALLERGIES: No known drug allergies. SOCIAL HISTORY: He is a nonsmoker, nondrinker. He lives with his in a split- level house in [place]. According to the patient, there is [facility]. REVIEW OF SYSTEMS: No current shortness of breath. PHYSICAL EXAM: The patient's temperature is 98.2, blood pressure is 130/70, pulse 75, respirations 18. HEENT: His extraocular movements are intact. Tongue is midline. Neck is supple. Lungs sound . His left leg is bandaged. I did not examine his stump. He does have edema noted in his right leg. Functional Exam: He transfers with a Toro lift. ASSESSMENT: 1. Left below the knee amputation. 2. Chronic pain. PLAN: I think we should probably add Lyrica or Neurontin. As Lyrica is easier to dose, we will go ahead and add Lyrica. I will start him at 75 mg twice a day. As far as his narcotic pain medications, I would be very careful with IV pain medications with somebody previously on Suboxone. As I do not know the nature of what caused Dr. James to switch him from oxycodone to Suboxone and discharge him from his practice, I would be cautious. Suboxone 8 mg was probably not sufficient to control his pain and he would probably do better with Suboxone 12. I will try to contact Dr. James on Monday. In the meantime, I would need to get consent from the patient to do so. In the meantime, we will try to cut back on his IV Dilaudid. I am going to add in Lyrica 75 mg twice a day. As far as following up when he is done, hopefully he will be able to go back on Suboxone [address] Gan. Thank you for the consult. [id number]/[facility] #: [id number] CRISTINA
[2016-10-02] MEDS: oxyCODONE TAB* 5 MG TAB PO PRN ×3 (04:28→20:35)
[2016-10-02] MEDS: Vancomycin(*) 1,250 MG in NS 0.9% 250 ML* 250 ML IVPB SCH ×3 (04:28→20:47)
[2016-10-02] MEDS: Heparin VIAL(*) 5000 UNITS/ML VIAL (FIVE THOUSAND) SUBCUT SCH ×3 (06:13→22:50)
[2016-10-02 06:53] LABS: Hematocrit 32 % (42-52); Hemoglobin 10.1 g/dl (14.0-18.0); Mean Corpuscular HGB Conc 31 g/dl (31-36); Mean Corpuscular Hemoglobin 24 pg (27-31); Mean Corpuscular Volume 78 fL (80-94); Mean Platelet Volume 8 um3 (7.4-10.4); Red Blood Count 4.14 10^6/ul (4.0-5.4); Red Cell Distribution Width 17 % (10.5-15); White Blood Count 7.8 10^3/ul (3.5-10.8)
[2016-10-02] MEDS: Omeprazole CAP* 20 MG PO SCH (07:35)
[2016-10-02] MEDS: Insulin LISPRO* 1 UNITS UNIT SUBCUT SCH ×3 (09:03→17:24)
[2016-10-02] MEDS: Insulin GLARGINE(*) 1 UNITS UNIT SUBCUT SCH ×2 (09:03→20:47)
[2016-10-02] MEDS: Nystatin TOP POWDER* 15 GM BTL TOPICAL SCH ×2 (09:04→20:47)
[2016-10-02] MEDS: Atenolol TAB* 50 MG PO SCH (09:04)
[2016-10-02] MEDS: Cetirizine* 10 MG TAB PO SCH (09:05)
[2016-10-02] MEDS: Atorvastatin* 80 MG TAB PO SCH (09:05)
[2016-10-02] MEDS: Pregabalin CAP(*) 25 MG PO SCH ×2 (09:05→20:35)
[2016-10-02] MEDS: Lactobacillus Acidophilu (GG)* 1 CAP CAP PO SCH ×2 (09:05→20:35)
[2016-10-02] MEDS: oxyCODONE SR TAB(*) 10 MG TAB.SR PO SCH ×2 (09:05→20:34)
[2016-10-02] MEDS: Furosemide TAB* 20 MG PO SCH (09:06)
[2016-10-02] MEDS: Lisinopril TAB* 10 MG PO SCH (09:06)
--- NOTE | 2016-10-02 09:24 | PN ---
Progress Note - Progress Note SOAP: Subjective: 61 y/o male s/p L BKA 09/[address] Meyers. Patient states feeling better with addition of dilaudid IV and Lyrica in pain regimen, Dr. Jean following. Objective: General- Well appearing, NAD, sitting comfortably in chair eating breakfast MSK- R LE dressing recently changed, minimal edema noted, dry, flaking skin with mild erythema from calf to foot, healing blister noted distal 1, 2 toes, no drainage noted, no lymphatic streaking noted, decreased pain during examination than prior exams. L stump with minimal, foul smelling ser-ang drainage from lateral posterior portion, + tender with movement/ deep palpation of stump, dressing intact, no streaking/ erythema at proximal portion of dressing. Vital Signs Temp 98.2 F 10/02/16 07:38 Pulse 86 10/02/16 07:38 Resp 18 10/02/16 10:43 BP 142/69 10/02/16 07:38 Pulse Ox 95 10/02/16 07:38 Intake & Output 10/01/16 10/02/16 10/02/16 18:59 06:59 18:59 Intake Total 2221 1115 600 Output Total 3000 2775 425 Balance -779 -1660 175 Weight 328 lb 4.8 oz 328 lb 8 oz Intake: IV Fluids 31 25 ABX - VANCOMYCIN 25 NS (0.9%) 31 IVPB 260 590 ABX - VANCOMYCIN 260 535 cefepime 55 Oral 1930 500 600 Output: Urine 450 Mckee 1350 2775 425 Residual 1200 14 Fr 1200 Laboratory Results - last 24 hr 10/01/16 10/01/16 10/01/16 11:25 11:29 16:38 WBC RBC Hgb Hct MCV MCH MCHC RDW Plt Count MPV Neut % (Auto) Lymph % (Auto) [place] % (Auto) Eos % (Auto) Baso % (Auto) Absolute Neuts (auto) Absolute Lymphs (auto) Absolute Monos (auto) Absolute Eos (auto) Absolute Basos (auto) Absolute Nucleated RBC Nucleated RBC % POC Glucose (mg/dL) 262 H 214 H Vancomycin Trough 14.6 10/01/16 10/02/16 10/02/16 22:00 06:15 07:43 WBC 7.8 RBC 4.14 Hgb 10.1 L Hct 32 L MCV 78 L MCH 24 L MCHC 31 RDW 17 H Plt Count 272 MPV 8 Neut % (Auto) 73.1 Lymph % (Auto) 7.1 L [place] % (Auto) 14.9 H Eos % (Auto) 4.3 Baso % (Auto) 0.6 Absolute Neuts (auto) 5.7 Absolute Lymphs (auto) 0.6 L Absolute Monos (auto) 1.2 H Absolute Eos (auto) 0.3 Absolute Basos (auto) 0 Absolute Nucleated RBC 0.01 Nucleated RBC % 0.1 POC Glucose (mg/dL) 208 H 245 H Vancomycin Trough Assessment: 61 y/o male s/p L BKA 09/[address] Meyers. Plan: - Labs improved, BS continue to be elevated but more stable than past - NPO p MN for possible wash-out, dressing change tomorrow - Appreciate Pain managements recommendations. - ABX per Dr. Mosqueda- currently vanco, cefepime - Discussed with Dr. Meyers- will eval Monday AM. Active Medications Generic Name Dose Route Start Last Admin Trade Name Freq PRN Reason Stop Dose Admin Acetaminophen 650 mg 09/20/16 13:29 09/30/16 05:50 Tylenol Tab* PO 650 mg Q4H PRN Administration FEVER/PAIN Al Hydrox/Mg Hydrox/Simethicone 30 ml 09/25/16 17:45 Maalox Plus* PO Q6H PRN INDIGESTION Amlodipine Besylate 5 mg 09/20/16 21:00 10/01/16 22:26 Norvasc Tab* PO 5 mg BEDTIME MICHELLE Administration Atenolol 50 mg 09/21/16 09:00 10/02/16 09:04 Tenormin Tab* PO 50 mg QAM MICHELLE Administration Atorvastatin Calcium 80 mg 09/21/16 09:00 10/02/16 09:05 Lipitor* PO 80 mg DAILY MICHELLE Administration Calcium Carbonate 1,000 mg 09/20/16 16:56 09/25/16 05:16 Tums* PO 1,000 mg Q4H PRN Administration reflux Cetirizine HCl 10 mg 09/24/16 18:00 10/02/16 09:05 Zyrtec* PO 10 mg DAILY MICHELLE Administration Protocol Dextrose 12.5 gm 09/20/16 15:02 D50w Syringe 50 Ml* IV PUSH .FOR FS < 60 - SS PRN FS < 60 Furosemide 20 mg 09/28/16 09:00 10/02/16 09:06 Lasix Tab* PO 20 mg DAILY MICHELLE Administration Heparin Sodium (Porcine) 5,000 units 09/20/16 14:00 10/02/16 06:13 Heparin Vial(*) SUBCUT 5,000 units Q8HR MICHELLE Administration Heparin Sodium (Porcine) 1 ml 09/23/16 18:00 10/02/16 06:16 Heparin Flush Picc/Ml/Cvc(*) FLUSH 1 ml 0600,1800 MICHELLE Administration Protocol Hydromorphone HCl 0.5 mg 10/01/16 21:20 10/02/16 09:56 Dilaudid Iv* IV SLOW PU 0.5 mg Q6H PRN Administration PAIN - BREAKTHROUGH Sodium Chloride 500 mls @ 0 mls/hr 09/27/16 13:00 Ns 0.9% 500 Ml Bag* IV KVO MICHELLE KVO Cefepime HCl 2 gm/ Sodium 50 mls @ 100 mls/hr 09/28/16 11:00 10/02/16 10:37 Chloride IVPB 100 mls/hr Q12H MICHELLE Administration Vancomycin HCl 1,250 mg/ 250 mls @ 166.667 mls/hr 09/28/16 12:00 10/02/16 04: 28 Sodium Chloride IVPB 166.667 mls/hr Q8H MICHELLE Administration Insulin Glargine 55 units 09/24/16 21:00 10/02/16 09:03 Lantus(*) SUBCUT 55 unit BID MICHELLE Administration Insulin Human Lispro 0 units 09/27/16 16:30 10/02/16 09:03 Humalog* SUBCUT 6 unit AC MICHELLE Administration Protocol Lactobacillus Rhamnosus 1 cap 09/20/16 21:00 10/02/16 09:05 Culturelle* PO 1 cap BID MICHELLE Administration Lisinopril 30 mg 09/21/16 09:00 10/02/16 09:06 Prinivil Tab* PO 30 mg DAILY MICHELLE Administration Melatonin 3 mg 10/01/16 16:40 Melatonin (Nf) PO BEDTIME PRN INSOMNIA Nystatin 1 applic 09/28/16 09:00 10/02/16 09:04 Nystatin Top Powder* TOPICAL 1 applic BID MICHELLE Administration Omeprazole 20 mg 09/21/16 07:30 10/02/16 07:35 Prilosec Cap* PO 20 mg DAILY@0730 MICHELLE Administration Ondansetron HCl 4 mg 09/20/16 13:29 09/25/16 02:01 Zofran Inj* IV 4 mg Q4H PRN Administration NAUSEA/VOMITING Oxycodone HCl 30 mg 09/29/16 21:00 10/02/16 09:05 Oxycontin(*) PO 30 mg 0900,2100 MICHELLE Administration Oxycodone HCl 15 mg 09/30/16 18:31 10/01/16 23:49 Roxycodone Tab* PO 15 mg Q4H PRN Administration PAIN Pharmacy Consult 1 note 09/22/16 11:50 Vancomycin Per Pharmacy* FOLLOW UP . PRN PER PROTOCOL Pregabalin 75 mg 10/02/16 09:00 10/02/16 09:05 Lyrica Cap(*) PO 75 mg BID MICHELLE Administration
[2016-10-02] MEDS: HYDROmorphone* 1 MG/ML 1 ML SYR IV SLOW PU PRN ×2 (09:56→16:36)
[2016-10-02] MEDS: Cefepime(*) 2 GM in NS 0.9% 50 ML* 50 ML IVPB SCH ×2 (10:37→22:50)
--- NOTE | 2016-10-02 16:56 | PN ---
Subjective Date of Service: 10/02/16 Interval History: Patient seen and examined at bedside. Pt states that he continues to have burning and throbbing pain in his left stump. Pt states that he feels the pain is improving with the changes to the pain medication. Denies fever, chills, shortness of breath, chest discomfort, N/V/D. [facility] staff report that Pt is having periods of confusion and has been more drowsy today. Family History: Unchanged from Admission Social History: Unchanged from Admission Past Medical History: Unchanged from Admission Objective Active Medications: Acetaminophen (Tylenol Tab*) 650 mg PO Q4H PRN Reason: FEVER/PAIN Al Hydrox/Mg Hydrox/Simethicone (Maalox Plus*) 30 ml PO Q6H PRN Reason: INDIGESTION Amlodipine Besylate (Norvasc Tab*) 5 mg PO BEDTIME MICHELLE Atenolol (Tenormin Tab*) 50 mg PO QAM MICHELLE Atorvastatin Calcium (Lipitor*) 80 mg PO DAILY MICHELLE Calcium Carbonate (Tums*) 1,000 mg PO Q4H PRN Reason: reflux Cetirizine HCl (Zyrtec*) 10 mg PO DAILY [facility] Reason: Protocol Dextrose (D50w Syringe 50 Ml*) 12.5 gm IV PUSH .FOR FS < 60 - SS PRN Reason: FS < 60 Furosemide (Lasix Tab*) 20 mg PO DAILY [facility] Heparin Sodium (Porcine) (Heparin Vial(*)) 5,000 units SUBCUT Q8HR MICHELLE Heparin Sodium (Porcine) (Heparin Flush Picc/Ml/Cvc(*)) 1 ml FLUSH 0600,1800 MICHELLE Reason: Protocol Hydromorphone HCl (Dilaudid Iv*) 0.5 mg IV SLOW PU Q6H PRN Reason: PAIN - BREAKTHROUGH Sodium Chloride (Ns 0.9% 500 Ml Bag*) 500 mls @ 0 mls/hr IV KVO MICHELLE Reason: KVO Cefepime HCl 2 gm/ Sodium (Chloride) 50 mls @ 100 mls/hr IVPB Q12H MICHELLE Vancomycin HCl 1,250 mg/ (Sodium Chloride) 250 mls @ 166.667 mls/hr IVPB Q8H MICHELLE Insulin Glargine (Lantus(*)) 55 units SUBCUT BID MICHELLE Insulin Human Lispro (Humalog*) 0 units SUBCUT AC MICHELLE Reason: Protocol Lactobacillus Rhamnosus (Culturelle*) 1 cap PO BID MICHELLE Lisinopril (Prinivil Tab*) 30 mg PO DAILY [facility] Melatonin (Melatonin (Nf)) 3 mg PO BEDTIME PRN Reason: INSOMNIA Nystatin (Nystatin Top Powder*) 1 applic TOPICAL BID [facility] Omeprazole (Prilosec Cap*) 20 mg PO DAILY@0730 [facility] Ondansetron HCl (Zofran Inj*) 4 mg IV Q4H PRN Reason: NAUSEA/VOMITING Oxycodone HCl (Oxycontin(*)) 30 mg PO 0900,2100 [facility] Oxycodone HCl (Roxycodone Tab*) 15 mg PO Q4H PRN Reason: PAIN Pharmacy Consult (Vancomycin Per Pharmacy*) 1 note FOLLOW UP . PRN Reason: PER PROTOCOL Pregabalin (Lyrica Cap(*)) 75 mg PO BID [facility] Vital Signs 10/01/16 10/01/16 10/01/16 19:08 19:15 19:48 Temperature 98.8 F Pulse Rate 76 Respiratory 18 16 18 Rate Blood Pressure 124/62 (mmHg) O2 Sat by Pulse 93 Oximetry 10/01/16 10/01/16 10/01/16 21:48 22:25 23:14 Temperature 98.0 F Pulse Rate 77 Respiratory 16 16 16 Rate Blood Pressure 142/68 (mmHg) O2 Sat by Pulse 92 Oximetry 10/01/16 10/02/16 10/02/16 23:49 00:00 00:25 Temperature Pulse Rate Respiratory 16 14 Rate Blood Pressure (mmHg) O2 Sat by Pulse 92 Oximetry 10/02/16 10/02/16 10/02/16 00:49 01:49 03:42 Temperature 98.4 F Pulse Rate 80 Respiratory 16 14 16 Rate Blood Pressure 136/72 (mmHg) O2 Sat by Pulse 92 Oximetry 10/02/16 10/02/16 10/02/16 07:38 08:00 09:05 Temperature 98.2 F Pulse Rate 86 Respiratory 18 20 18 Rate Blood Pressure 142/69 (mmHg) O2 Sat by Pulse 95 Oximetry 10/02/16 10/02/16 10/02/16 11:18 14:44 15:32 Temperature 97.9 F 98.6 F Pulse Rate 74 73 Respiratory 16 20 20 Rate Blood Pressure 119/60 131/57 (mmHg) O2 Sat by Pulse 97 95 Oximetry Oxygen Devices in Use Now: Nasal Cannula - 2 L Appearance: NAD, laying in bed Ears/Nose/Mouth/Throat: Mucous Membranes Moist Respiratory: Symmetrical Chest Expansion and Respiratory Effort, Clear to Auscultation Cardiovascular: NL Sounds; No Murmurs; No JVD, RRR Abdominal: NL Sounds; No Tenderness; No Distention Extremities: - - Edema to bilateral LE Skin: - - Dressing to bilateral LE, left stump dressing with serosang drainage and right LE dressing intact. Blisters to 1st and 2nd toes on right foot. Neurological: Alert and Oriented x 3, NL Muscle Strength and Tone Lines/Tubes/Other Access: Clean, Dry and Intact PICC Line - site benign Nutrition: Taking PO's Result Diagrams: 10/02/16 06:15 10/01/16 06:05 Microbiology and Other Data: Microbiology 09/21/16 07:54 Aerobic Blood Culture - Preliminary Blood Venous No Growth Day 1 Anaerobic Blood Culture - Preliminary No Growth Day 1 09/20/16 23:34 Aerobic Blood Culture - Preliminary Blood Venous No Growth Day 1 Anaerobic Blood Culture - Preliminary No Growth Day 1 Diagnostic Imaging: Echo 08/29/16 - LVEF 55-60%, mod LVH, diastolic dysfunction, mild to mod reduced RV function, unable to assess RV function MRI L ankle - osteomyelitis of the L calcaneus that looks to have significantly advanced when compared to 06/2016 MRI R foot - Moderate degree of subcutaneous edema. No evidence of bone marrow edema or replacement to suggest osteomyelitis is present. Assess/Plan/Problems-Billing Assessment: Mr. Cosby is a 60 yo gentleman with known osteomyelitis of L calcaneus, poorly controlled diabetes, chronic RV failure and diastolic dysfunction with significant LE edema as well as untreated MASON, HTN, COPD, morbid obesity and chronic pain who was referred to the hospital by Dr Meyers. - Patient Problems (1) Cellulitis Code(s): L03.90 - CELLULITIS, UNSPECIFIED SNOMED Code(s): 311807039 Comment: - Now s/p left BKA. - Also has blister to R great toe and 2nd toe with erythema. - Continue Vanco and cefepime per ID recommendation. PICC line placed. (2) Urinary retention Code(s): R33.9 - RETENTION OF URINE, UNSPECIFIED SNOMED Code(s): 962792731 Comment: - Suspect related to narcotic use and Pt not being able to get up to use the bathroom - Mckee placed and will continue for now (3) Osteomyelitis Code(s): M86.9 - OSTEOMYELITIS, UNSPECIFIED SNOMED Code(s): 42200503 Comment: - Chronic L calcaneal osteomyelitis - Repeat MRI shows rather significant progression of the osteomyelitis since June - MRI of the R foot - moderate degree of subcutaneous edema. No evidence bone marrow edema or replacement to suggest ostromyelitits. - S/P left BKA by Dr Meyers on 09/26 (4) Chronic pain Code(s): G89.29 - OTHER CHRONIC PAIN SNOMED Code(s): 95839922 Comment: - Chronic back, knee, shoulder, and leg pain. - Was let go from Dr. James's practice due to improper use of pain meds. - Prescribed Suboxone by Dr Gan outpatient. - Dr. Jean consulted for pain management recommendations, input appreciated. - Continue oxycontin with prn oxycodone. - Will stop dilaudid and decrease oxycodone dose as Pt has been confused and more drowsy today. - Started on Lyrica per Dr. Jean. (5) Chronic heart failure Code(s): I50.9 - HEART FAILURE, UNSPECIFIED SNOMED Code(s): 08537369 Comment: - Asymptomatic. - Echo from earlier this month shows RV failure and diastolic dysfunction which appears to be chronic in nature. RV pressure unable to be measured, but assumed he has pulm HTN from untreated MASON. - Attempted CPAP, but still unable to tolerate. - Continue lasix. (6) MASON (obstructive sleep apnea) Code(s): G47.33 - OBSTRUCTIVE SLEEP APNEA (ADULT) (PEDIATRIC) SNOMED Code(s): 65747744 Comment: - Non-compliant with CPAP at home. Attempted CPAP here but pt unable to tolerate. (7) COPD (chronic obstructive pulmonary disease) Code(s): J44.9 - CHRONIC OBSTRUCTIVE PULMONARY DISEASE, UNSPECIFIED SNOMED Code(s): 09300093 Comment: - No acute exacerbation (8) Lymphedema Code(s): I89.0 - LYMPHEDEMA, NOT ELSEWHERE CLASSIFIED SNOMED Code(s): 901094417 Comment: - Chronic, Likely related to RV and diastolic failure. - Continue compression and diuresis. (9) Diabetes Code(s): E11.9 - TYPE 2 DIABETES MELLITUS WITHOUT COMPLICATIONS SNOMED Code(s) : 03679616 Comment: - IDDM. - HgbA1c 9.7%. - BG 200's-320's today. - Continue lantus with mealtime Humalog coverage. (10) Hyperlipidemia Code(s): E78.5 - HYPERLIPIDEMIA, UNSPECIFIED SNOMED Code(s): 34479187 Comment: - Continue statin (11) HTN (hypertension) Code(s): I10 - ESSENTIAL (PRIMARY) HYPERTENSION SNOMED Code(s): 98833684 Comment: - BP well controlled. - Continue lisinopril and atenolol. (12) Morbid obesity Code(s): E66.01 - MORBID (SEVERE) OBESITY DUE TO EXCESS CALORIES SNOMED Code(s ): 992510039 Comment: - BMI 50. - Bariatric surgery within the last 12 months with 65# weight loss (13) DVT prophylaxis Code(s): GGX3216 - SNOMED Code(s): 303607829 Comment: - HSQ (14) Full code status Code(s): Z78.9 - OTHER SPECIFIED HEALTH STATUS SNOMED Code(s): 687056649 Status and Disposition: Inpatient. Pt will likely need rehab.
[2016-10-02] MEDS: amLODIPine TAB* 5 MG PO SCH (20:35)
[2016-10-03] MEDS: Vancomycin(*) 1,250 MG in NS 0.9% 250 ML* 250 ML IVPB SCH ×2 (04:06→12:48)
[2016-10-03] MEDS: oxyCODONE TAB* 5 MG TAB PO PRN ×5 (04:10→20:56)
[2016-10-03 05:44] LABS: Hematocrit 32 % (42-52); Hemoglobin 10.1 g/dl (14.0-18.0); Mean Corpuscular HGB Conc 31 g/dl (31-36); Mean Corpuscular Hemoglobin 24 pg (27-31); Mean Corpuscular Volume 78 fL (80-94); Mean Platelet Volume 8 um3 (7.4-10.4); Red Blood Count 4.12 10^6/ul (4.0-5.4); Red Cell Distribution Width 17 % (10.5-15); White Blood Count 6.9 10^3/ul (3.5-10.8)
[2016-10-03 06:03] LABS: BUN/Creatinine Ratio 23.4 (8-20); Calcium 8.9 mg/dL (8.6-10.3); EGFR African American 132.5 (>60); EGFR Non-African American 103.1 (>60); Potassium 4.3 mmol/L (3.5-5.0)
[2016-10-03 06:47] LABS: FIO2 2
[2016-10-03 06:54] LABS: PCO2 Arterial 74 mmHg (35-45)
[2016-10-03] MEDS: Heparin VIAL(*) 5000 UNITS/ML VIAL (FIVE THOUSAND) SUBCUT SCH ×3 (07:30→20:58)
[2016-10-03] MEDS: oxyCODONE SR TAB(*) 10 MG TAB.SR PO SCH ×2 (07:30→20:55)
[2016-10-03] MEDS: Cetirizine* 10 MG TAB PO SCH (07:31)
[2016-10-03] MEDS: Lisinopril TAB* 10 MG PO SCH (07:31)
[2016-10-03] MEDS: Atorvastatin* 80 MG TAB PO SCH (07:31)
[2016-10-03] MEDS: Atenolol TAB* 50 MG PO SCH (07:31)
[2016-10-03] MEDS: Omeprazole CAP* 20 MG PO SCH (07:31)
[2016-10-03] MEDS ORDERED: HYDROmorphone* 2 MG/ML 1 ML SYR IV SLOW PU PRN (07:45)
[2016-10-03] MEDS: Pregabalin CAP(*) 25 MG PO SCH ×2 (08:48→20:55)
[2016-10-03] MEDS: Insulin LISPRO* 1 UNITS UNIT SUBCUT SCH ×3 (08:49→18:03)
[2016-10-03] MEDS: Furosemide TAB* 20 MG PO SCH (08:49)
[2016-10-03] MEDS: Insulin GLARGINE(*) 1 UNITS UNIT SUBCUT SCH ×2 (08:50→21:00)
[2016-10-03] MEDS: Lactobacillus Acidophilu (GG)* 1 CAP CAP PO SCH ×2 (09:35→20:55)
[2016-10-03] MEDS: Nystatin TOP POWDER* 15 GM BTL TOPICAL SCH ×2 (10:09→21:04)
[2016-10-03] MEDS: Cefepime(*) 2 GM in NS 0.9% 50 ML* 50 ML IVPB SCH (10:59)
[2016-10-03] MEDS: HYDROmorphone* 2 MG/ML 1 ML SYR IV SLOW PU PRN ×2 (11:42→22:22)
--- NOTE | 2016-10-03 11:47 | PN ---
PROGRESS NOTE: DATE OF VISIT: 10/03/16 Priyank is seen for a dressing change. I removed the splint from his left leg. There was significant amount of drainage and a very strong pseudomonas smell and greenish-blackish discharge on the dressings. The sutures are not nearly ready for removal. I placed a Betadine dressing and Wan wrap and this should be changed daily by the nurses and I have contacted Infectious Disease possibly for adding an agent for pseudomonas. Priyank's blood glucose is still poorly controlled as well as his pain regimen. I appreciate Dr. Jean's input adding Lyrica and upping his Suboxone. In my opinion, we need to see improvement in the condition of the stump and better blood sugar control and pain management before he can be discharged to rehab. [id number]/CPS #: [id number] MTDD
--- NOTE | 2016-10-03 12:56 | PN ---
Progress Note - Progress Note SOAP: Subjective: DOS: 10/04/15 CC: leg infection HPI: 60 year old man with lymphedema, chronic left heel ulcer s/p BKA. Pain left foot/amp site, concerned about pain regimen. Right foot blister, foot wrapped. No fever, rash, or diarrhea. Objective: [] Vital Signs Temp 38.3 C 10/03/16 10:57 Pulse 92 10/03/16 10:57 Resp 10 10/03/16 12:41 BP 123/52 10/03/16 10:57 Pulse Ox 90 10/03/16 10:57 Intake & Output 10/02/16 10/03/16 10/03/16 18:59 06:59 18:59 Intake Total 3421 1547 360 Output Total 1525 2075 650 Balance 9966 -528 -290 Weight 328 lb 8 oz 334 lb 8 oz Intake: IV Fluids 384 27 ABX - VANCOMYCIN 280 NS (0.9%) 49 27 cefepime 55 IVPB 1347 280 270 ABX - VANCOMYCIN 280 270 NS (0.9%) 1347 Oral 1690 1240 90 Output: Mckee 1525 2075 650 Other: # Bowel Movements 0 0 Gen:Awake, no distress Neuro:AAOx3 HEENT:PERRL, MMM Neck:supple Heart:RRR no murmur Lungs:CTA BL Abd:+BS NT ND soft Skin: no rash MSK:L BKA, wrapped; R foot trace edema and erythema , calcaneous and great toe small bullae; no wound Laboratory Results - last 24 hr 10/02/16 10/02/16 10/02/16 12:41 17:17 20:47 WBC RBC Hgb Hct MCV MCH MCHC RDW Plt Count MPV Neut % (Auto) Lymph % (Auto) [place] % (Auto) Eos % (Auto) Baso % (Auto) Absolute Neuts (auto) Absolute Lymphs (auto) Absolute Monos (auto) Absolute Eos (auto) Absolute Basos (auto) Absolute Nucleated RBC Nucleated RBC % Patient Temperature ABG pH ABG pCO2 ABG pO2 ABG HCO3 ABG O2 Saturation ABG Base Excess Respiration Rate O2 Delivery Device Ventilator Type Vent Mode FiO2 Inspiratory Time PEEP Pressure Support Pressure Control EPAP IPAP BiPAP Sodium Potassium Chloride Carbon Dioxide Anion Gap BUN Creatinine Est GFR ( Amer) Est GFR (Non-Af Amer) BUN/Creatinine Ratio Glucose POC Glucose (mg/dL) 294 H 320 H 302 H Calcium 10/03/16 10/03/16 10/03/16 05:15 05:15 06:40 WBC 6.9 RBC 4.12 Hgb 10.1 L Hct 32 L MCV 78 L MCH 24 L MCHC 31 RDW 17 H Plt Count 272 MPV 8 Neut % (Auto) 70.8 Lymph % (Auto) 9.0 L [place] % (Auto) 15.1 H Eos % (Auto) 4.5 Baso % (Auto) 0.6 Absolute Neuts (auto) 4.9 Absolute Lymphs (auto) 0.6 L Absolute Monos (auto) 1.0 H Absolute Eos (auto) 0.3 Absolute Basos (auto) 0 Absolute Nucleated RBC 0.01 Nucleated RBC % 0.1 Patient Temperature Not Reportable ABG pH 7.40 ABG pCO2 74 H* ABG pO2 80 ABG HCO3 38.9 H ABG O2 Saturation 98.4 H ABG Base Excess 17.9 H Respiration Rate Not Reportable O2 Delivery Device nc Ventilator Type Not Reportable Vent Mode Not Reportable FiO2 2 Inspiratory Time Not Reportable PEEP Not Reportable Pressure Support Not Reportable Pressure Control Not Reportable EPAP Not Reportable IPAP Not Reportable BiPAP Not Reportable Sodium 133 Potassium 4.3 Chloride 94 L Carbon Dioxide 43 H* Anion Gap -4 L BUN 18 Creatinine 0.77 Est GFR ( Amer) 132.5 Est GFR (Non-Af Amer) 103.1 BUN/Creatinine Ratio 23.4 H Glucose 247 H POC Glucose (mg/dL) Calcium 8.9 Assessment: 1. Left foot chronic osteomyelitis and cellulitis s/p BKA, Dr Meyers concerned there is odor when he changed dressing today 2. Right foot non pressure chronic ulcer 3. diabetes, T2 with neuropathy 4. obesity 5. left leg pain Plan: 1. DC vanco and cefepime; start zosyn 3.375 gm IV Q8hrs by extended infusion 2. 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
[2016-10-03] MEDS: Acetaminophen TAB* 325 MG PO SCH ×2 (13:20→18:32)
--- NOTE | 2016-10-03 17:57 | PN ---
Subjective Date of Service: 10/03/16 Interval History: Patient seen and examined at bedside. Denies fever, chills, shortness of breath , chest discomfort, N/V/D. Pt states that his pain is not well controlled. Pt also reports not eating well, but sugars are elevated. O2 sat 84-86% on room air, O2 sat increased 94% on 2 L via NC. Family History: Unchanged from Admission Social History: Unchanged from Admission Past Medical History: Unchanged from Admission Objective Active Medications: Acetaminophen (Tylenol Tab*) 650 mg PO Q6H MICHELLE Stop: 10/05/16 12:59 Al Hydrox/Mg Hydrox/Simethicone (Maalox Plus*) 30 ml PO Q6H PRN Reason: INDIGESTION Amlodipine Besylate (Norvasc Tab*) 5 mg PO BEDTIME MICHELLE Atenolol (Tenormin Tab*) 50 mg PO QAM MICHELLE Atorvastatin Calcium (Lipitor*) 80 mg PO DAILY [facility]HELLE Calcium Carbonate (Tums*) 1,000 mg PO Q4H PRN Reason: reflux Cetirizine HCl (Zyrtec*) 10 mg PO DAILY [facility]HELLE Reason: Protocol Dextrose (D50w Syringe 50 Ml*) 12.5 gm IV PUSH .FOR FS < 60 - SS PRN Reason: FS < 60 Furosemide (Lasix Tab*) 20 mg PO DAILY [facility] Heparin Sodium (Porcine) (Heparin Vial(*)) 5,000 units SUBCUT Q8HR MICHELLE Heparin Sodium (Porcine) (Heparin Flush Picc/Ml/Cvc(*)) 1 ml FLUSH 0600,1800 MICHELLE Reason: Protocol Hydromorphone HCl (Dilaudid Iv*) 0.5 mg IV SLOW PU Q4H PRN Reason: PAIN Sodium Chloride (Ns 0.9% 500 Ml Bag*) 500 mls @ 0 mls/hr IV KVO MICHELLE Reason: KVO Piperacillin Sod/Tazobactam (Sod 3.375 gm/ Sodium Chloride) 100 mls @ 25 mls/ hr IVPB Q8H MICHELLE Insulin Glargine (Lantus(*)) 60 units SUBCUT BID MICHELLE Insulin Human Lispro (Humalog*) 0 units SUBCUT AC MICHELLE Reason: Protocol Lactobacillus Rhamnosus (Culturelle*) 1 cap PO BID [facility]HELLE Lisinopril (Prinivil Tab*) 30 mg PO DAILY [facility] Melatonin (Melatonin (Nf)) 3 mg PO BEDTIME PRN Reason: INSOMNIA Nystatin (Nystatin Top Powder*) 1 applic TOPICAL BID [facility] Omeprazole (Prilosec Cap*) 20 mg PO DAILY@0730 [facility] Ondansetron HCl (Zofran Inj*) 4 mg IV Q4H PRN Reason: NAUSEA/VOMITING Oxycodone HCl (Oxycontin(*)) 30 mg PO 0900,2100 [facility] Oxycodone HCl (Roxycodone Tab*) 10 mg PO Q4H PRN Reason: PAIN Pregabalin (Lyrica Cap(*)) 75 mg PO BID [facility] Vital Signs 10/02/16 10/02/16 10/02/16 19:13 20:30 20:34 Temperature 98.3 F Pulse Rate 78 76 Respiratory 20 18 18 Rate Blood Pressure 87/73 125/60 (mmHg) O2 Sat by Pulse 95 94 Oximetry 10/03/16 10/03/16 10/03/16 00:11 00:34 04:05 Temperature 98.2 F 97.9 F Pulse Rate 83 79 Respiratory 16 20 20 Rate Blood Pressure 129/68 144/65 (mmHg) O2 Sat by Pulse 94 95 Oximetry 10/03/16 10/03/16 10/03/16 04:10 06:10 07:29 Temperature 98.6 F Pulse Rate 81 Respiratory 20 18 20 Rate Blood Pressure 135/60 (mmHg) O2 Sat by Pulse 97 Oximetry 10/03/16 10/03/16 10/03/16 10:57 11:42 12:41 Temperature 100.9 F Pulse Rate 92 Respiratory 18 16 10 Rate Blood Pressure 123/52 (mmHg) O2 Sat by Pulse 90 Oximetry 10/03/16 10/03/16 10/03/16 12:42 14:41 16:15 Temperature 97.8 F Pulse Rate 74 Respiratory 16 16 18 Rate Blood Pressure 124/62 (mmHg) O2 Sat by Pulse 84 Oximetry Oxygen Devices in Use Now: Nasal Cannula - 2 L Appearance: NAD, laying in bed Ears/Nose/Mouth/Throat: Mucous Membranes Moist Respiratory: Symmetrical Chest Expansion and Respiratory Effort, Clear to Auscultation Cardiovascular: NL Sounds; No Murmurs; No JVD, RRR Abdominal: NL Sounds; No Tenderness; No Distention Extremities: - - Trace to 1+ bilateral LE edema Skin: - - Blister to right great and 2nd toe. Dressing to right LE and left stump clean, dry and intact Neurological: Alert and Oriented x 3, NL Muscle Strength and Tone Lines/Tubes/Other Access: Clean, Dry and Intact Mckee - clear yellow urine, Clean, Dry and Intact PICC Line - site benign Nutrition: Taking PO's Result Diagrams: 10/03/16 05:15 10/03/16 05:15 Microbiology and Other Data: Microbiology 09/21/16 07:54 Aerobic Blood Culture - Preliminary Blood Venous No Growth Day 1 Anaerobic Blood Culture - Preliminary No Growth Day 1 09/20/16 23:34 Aerobic Blood Culture - Preliminary Blood Venous No Growth Day 1 Anaerobic Blood Culture - Preliminary No Growth Day 1 Diagnostic Imaging: Echo 08/29/16 - LVEF 55-60%, mod LVH, diastolic dysfunction, mild to mod reduced RV function, unable to assess RV function MRI L ankle - osteomyelitis of the L calcaneus that looks to have significantly advanced when compared to 06/2016 MRI R foot - Moderate degree of subcutaneous edema. No evidence of bone marrow edema or replacement to suggest osteomyelitis is present. Assess/Plan/Problems-Billing Assessment: Mr. Cosby is a 60 yo gentleman with known osteomyelitis of L calcaneus, poorly controlled diabetes, chronic RV failure and diastolic dysfunction with significant LE edema as well as untreated MASON, HTN, COPD, morbid obesity and chronic pain who was referred to the hospital by Dr Meyers. - Patient Problems (1) Cellulitis Code(s): L03.90 - CELLULITIS, UNSPECIFIED SNOMED Code(s): 347898369 Comment: - Now s/p left BKA. - Low grade fever earlier today and leukocytosis resolved. - Also has blister to R great toe and 2nd toe with erythema. - PICC line placed. - Discontinue Vanco and cefepime. - Started on Zosyn per ID recommendations. (2) Urinary retention Code(s): R33.9 - RETENTION OF URINE, UNSPECIFIED SNOMED Code(s): 826380658 Comment: - Suspect related to narcotic use and Pt not being able to get up to use the bathroom - Mckee placed and will continue for now (3) Osteomyelitis Code(s): M86.9 - OSTEOMYELITIS, UNSPECIFIED SNOMED Code(s): 90334548 Comment: - Chronic L calcaneal osteomyelitis - Repeat MRI shows rather significant progression of the osteomyelitis since June - MRI of the R foot - moderate degree of subcutaneous edema. No evidence bone marrow edema or replacement to suggest ostromyelitits. - S/P left BKA by Dr Meyers on 09/26 (4) Chronic pain Code(s): G89.29 - OTHER CHRONIC PAIN SNOMED Code(s): 77855828 Comment: - Chronic back, knee, shoulder, and leg pain. - Was let go from Dr. James's practice due to improper use of pain meds. - Prescribed Suboxone by Dr Gan outpatient. - Dr. Jean consulted for pain management recommendations, input appreciated. - Continue oxycontin with prn oxycodone. - Started on Lyrica per Dr. Jean. - Will try standing Tylenol for a few days (5) Chronic heart failure Code(s): I50.9 - HEART FAILURE, UNSPECIFIED SNOMED Code(s): 50614834 Comment: - Asymptomatic. - Echo from earlier this month shows RV failure and diastolic dysfunction which appears to be chronic in nature. RV pressure unable to be measured, but assumed he has pulm HTN from untreated MASON. - Attempted CPAP, but still unable to tolerate. - Continue lasix. (6) MASON (obstructive sleep apnea) Code(s): G47.33 - OBSTRUCTIVE SLEEP APNEA (ADULT) (PEDIATRIC) SNOMED Code(s): 46874940 Comment: - Non-compliant with CPAP at home. Attempted CPAP here but pt unable to tolerate. (7) COPD (chronic obstructive pulmonary disease) Code(s): J44.9 - CHRONIC OBSTRUCTIVE PULMONARY DISEASE, UNSPECIFIED SNOMED Code(s): 29648685 Comment: - No acute exacerbation (8) Lymphedema Code(s): I89.0 - LYMPHEDEMA, NOT ELSEWHERE CLASSIFIED SNOMED Code(s): 084030933 Comment: - Chronic, Likely related to RV and diastolic failure. - Continue compression and diuresis. (9) Diabetes Code(s): E11.9 - TYPE 2 DIABETES MELLITUS WITHOUT COMPLICATIONS SNOMED Code(s) : 04999156 Comment: - IDDM. - HgbA1c 9.7%. - BG 200's-400's today. - Continue lantus with mealtime Humalog coverage. - Will increase Lantus dose (10) Hyperlipidemia Code(s): E78.5 - HYPERLIPIDEMIA, UNSPECIFIED SNOMED Code(s): 26179049 Comment: - Continue statin (11) HTN (hypertension) Code(s): I10 - ESSENTIAL (PRIMARY) HYPERTENSION SNOMED Code(s): 56420538 Comment: - BP well controlled. - Continue lisinopril and atenolol. (12) Morbid obesity Code(s): E66.01 - MORBID (SEVERE) OBESITY DUE TO EXCESS CALORIES SNOMED Code(s ): 073830027 Comment: - BMI 50. - Bariatric surgery within the last 12 months with 65# weight loss (13) DVT prophylaxis Code(s): OWN0294 - SNOMED Code(s): 587106473 Comment: - HSQ (14) Full code status Code(s): Z78.9 - OTHER SPECIFIED HEALTH STATUS SNOMED Code(s): 694336538 Status and Disposition: Inpatient. Pt will likely need rehab.
[2016-10-03] MEDS: amLODIPine TAB* 5 MG PO SCH (20:56)
[2016-10-04] MEDS: oxyCODONE TAB* 5 MG TAB PO PRN ×6 (01:00→23:23)
[2016-10-04] MEDS: Acetaminophen TAB* 325 MG PO SCH ×4 (01:00→20:24)
[2016-10-04] MEDS: Heparin VIAL(*) 5000 UNITS/ML VIAL (FIVE THOUSAND) SUBCUT SCH ×3 (05:08→21:35)
[2016-10-04] MEDS: Omeprazole CAP* 20 MG PO SCH (07:33)
[2016-10-04] MEDS: Pregabalin CAP(*) 25 MG PO SCH ×2 (09:33→21:34)
[2016-10-04] MEDS: Lisinopril TAB* 10 MG PO SCH (09:33)
[2016-10-04] MEDS: Furosemide TAB* 20 MG PO SCH (09:33)
[2016-10-04] MEDS: Lactobacillus Acidophilu (GG)* 1 CAP CAP PO SCH ×2 (09:33→21:34)
[2016-10-04] MEDS: oxyCODONE SR TAB(*) 10 MG TAB.SR PO SCH ×2 (09:34→21:34)
[2016-10-04] MEDS: Atorvastatin* 80 MG TAB PO SCH (09:34)
[2016-10-04] MEDS: Cetirizine* 10 MG TAB PO SCH (09:34)
[2016-10-04] MEDS: Atenolol TAB* 50 MG PO SCH (09:34)
[2016-10-04] MEDS: Insulin GLARGINE(*) 1 UNITS UNIT SUBCUT SCH ×2 (09:35→21:35)
[2016-10-04] MEDS: Insulin LISPRO* 1 UNITS UNIT SUBCUT SCH ×3 (09:35→18:06)
[2016-10-04] MEDS: Nystatin TOP POWDER* 15 GM BTL TOPICAL SCH ×2 (09:46→23:00)
--- NOTE | 2016-10-04 12:32 | PN ---
Subjective Date of Service: 10/04/16 Interval History: Patient seen and examined at bedside. Pt states that he continue to have pain, that he feels is not controlled. Denies fever, chills, shortness of breath, chest discomfort, N/V/D. Family History: Unchanged from Admission Social History: Unchanged from Admission Past Medical History: Unchanged from Admission Objective Active Medications: Acetaminophen (Tylenol Tab*) 650 mg PO 0200,0800,1400,2000 [facility] Stop: 10/05/16 12:59 Al Hydrox/Mg Hydrox/Simethicone (Maalox Plus*) 30 ml PO Q6H PRN Reason: INDIGESTION Amlodipine Besylate (Norvasc Tab*) 5 mg PO BEDTIME MICHELLE Atenolol (Tenormin Tab*) 50 mg PO QAM [facility] Atorvastatin Calcium (Lipitor*) 80 mg PO DAILY [facility] Calcium Carbonate (Tums*) 1,000 mg PO Q4H PRN Reason: reflux Cetirizine HCl (Zyrtec*) 10 mg PO DAILY [facility] Dextrose (D50w Syringe 50 Ml*) 12.5 gm IV PUSH .FOR FS < 60 - SS PRN Reason: FS < 60 Furosemide (Lasix Tab*) 20 mg PO DAILY [facility] Heparin Sodium (Porcine) (Heparin Vial(*)) 5,000 units SUBCUT Q8HR [facility] Heparin Sodium (Porcine) (Heparin Flush Picc/Ml/Cvc(*)) 1 ml FLUSH 0600,1800 [facility] Reason: Protocol Hydromorphone HCl (Dilaudid Iv*) 0.5 mg IV SLOW PU Q4H PRN Reason: PAIN Sodium Chloride (Ns 0.9% 500 Ml Bag*) 500 mls @ 0 mls/hr IV KVO MICHELLE Reason: KVO Piperacillin Sod/Tazobactam (Sod 3.375 gm/ Sodium Chloride) 100 mls @ 25 mls/ hr IVPB Q8H [facility] Insulin Glargine (Lantus(*)) 60 units SUBCUT BID [facility] Insulin Human Lispro (Humalog*) 0 units SUBCUT AC MICHELLE Reason: Protocol Lactobacillus Rhamnosus (Culturelle*) 1 cap PO BID [facility] Lisinopril (Prinivil Tab*) 30 mg PO DAILY [facility] Melatonin (Melatonin (Nf)) 3 mg PO BEDTIME PRN Reason: INSOMNIA Nystatin (Nystatin Top Powder*) 1 applic TOPICAL BID MICHELLE Omeprazole (Prilosec Cap*) 20 mg PO DAILY@0730 [facility] Ondansetron HCl (Zofran Inj*) 4 mg IV Q4H PRN Reason: NAUSEA/VOMITING Oxycodone HCl (Oxycontin(*)) 30 mg PO 0900,2100 [facility] Oxycodone HCl (Roxycodone Tab*) 15 mg PO Q4H PRN Reason: PAIN Pregabalin (Lyrica Cap(*)) 75 mg PO BID [facility] Vital Signs 10/03/16 10/03/16 10/03/16 16:15 16:30 18:30 Temperature 97.8 F Pulse Rate 74 Respiratory 18 16 16 Rate Blood Pressure 124/62 (mmHg) O2 Sat by Pulse 84 Oximetry 10/03/16 10/03/16 10/03/16 19:16 20:45 20:55 Temperature 99.0 F Pulse Rate 79 Respiratory 20 20 Rate Blood Pressure 124/55 (mmHg) O2 Sat by Pulse 95 95 Oximetry 10/04/16 10/04/16 10/04/16 01:05 05:07 05:09 Temperature 98.1 F 98.3 F Pulse Rate 76 73 Respiratory 18 16 16 Rate Blood Pressure 122/63 146/74 (mmHg) O2 Sat by Pulse 97 97 Oximetry 10/04/16 10/04/16 10/04/16 07:07 08:00 08:39 Temperature 97.8 F Pulse Rate 75 Respiratory 16 16 20 Rate Blood Pressure 132/63 (mmHg) O2 Sat by Pulse 95 Oximetry Oxygen Devices in Use Now: None Appearance: NAD, laying in bed Respiratory: Symmetrical Chest Expansion and Respiratory Effort, Clear to Auscultation - , diminished Cardiovascular: NL Sounds; No Murmurs; No JVD, RRR Abdominal: NL Sounds; No Tenderness; No Distention Extremities: - - Trace to 1+ edema Skin: - - Dressing to left stump clean, dry and intact. Right LE with dry flaky skin, ~1x1 cm ulcer and ~ 0.5x0.5 cm ulcer, blister to right great toe and 2nd toe. Neurological: Alert and Oriented x 3, NL Muscle Strength and Tone Lines/Tubes/Other Access: Clean, Dry and Intact Peripheral IV - site benign Nutrition: Taking PO's Result Diagrams: 10/03/16 05:15 10/03/16 05:15 Microbiology and Other Data: Microbiology 09/21/16 07:54 Aerobic Blood Culture - Preliminary Blood Venous No Growth Day 1 Anaerobic Blood Culture - Preliminary No Growth Day 1 09/20/16 23:34 Aerobic Blood Culture - Preliminary Blood Venous No Growth Day 1 Anaerobic Blood Culture - Preliminary No Growth Day 1 Diagnostic Imaging: Echo 08/29/16 - LVEF 55-60%, mod LVH, diastolic dysfunction, mild to mod reduced RV function, unable to assess RV function MRI L ankle - osteomyelitis of the L calcaneus that looks to have significantly advanced when compared to 06/2016 MRI R foot - Moderate degree of subcutaneous edema. No evidence of bone marrow edema or replacement to suggest osteomyelitis is present. Assess/Plan/Problems-Billing Assessment: Mr. Cosby is a 60 yo gentleman with known osteomyelitis of L calcaneus, poorly controlled diabetes, chronic RV failure and diastolic dysfunction with significant LE edema as well as untreated MASON, HTN, COPD, morbid obesity and chronic pain who was referred to the hospital by Dr Meyers. - Patient Problems (1) Cellulitis Code(s): L03.90 - CELLULITIS, UNSPECIFIED SNOMED Code(s): 184811097 Comment: - Now s/p left BKA. - Low grade fever yesterday and leukocytosis resolved. - Also has blister to R great toe and 2nd toe with erythema. - PICC line placed. - Continue Zosyn per ID recommendations. (2) Urinary retention Code(s): R33.9 - RETENTION OF URINE, UNSPECIFIED SNOMED Code(s): 467219642 Comment: - Suspect related to narcotic use and Pt not being able to get up to use the bathroom - Mckee placed and will continue for now (3) Osteomyelitis Code(s): M86.9 - OSTEOMYELITIS, UNSPECIFIED SNOMED Code(s): 47815269 Comment: - Chronic L calcaneal osteomyelitis - Repeat MRI shows rather significant progression of the osteomyelitis since June - MRI of the R foot - moderate degree of subcutaneous edema. No evidence bone marrow edema or replacement to suggest ostromyelitits. - S/P left BKA by Dr Meyers on 09/26 (4) Chronic pain Code(s): G89.29 - OTHER CHRONIC PAIN SNOMED Code(s): 06057531 Comment: - Chronic back, knee, shoulder, and leg pain. - Was let go from Dr. James's practice due to improper use of pain meds. - Prescribed Suboxone by Dr Gan outpatient. - Dr. Jean consulted for pain management recommendations, input appreciated. - Continue oxycontin with prn oxycodone. - Started on Lyrica per Dr. Jean. - Will try standing Tylenol for a few days (5) Chronic heart failure Code(s): I50.9 - HEART FAILURE, UNSPECIFIED SNOMED Code(s): 09200599 Comment: - Asymptomatic. - Echo from earlier this month shows RV failure and diastolic dysfunction which appears to be chronic in nature. RV pressure unable to be measured, but assumed he has pulm HTN from untreated MASON. - Attempted CPAP, but still unable to tolerate. - Continue lasix. (6) MASON (obstructive sleep apnea) Code(s): G47.33 - OBSTRUCTIVE SLEEP APNEA (ADULT) (PEDIATRIC) SNOMED Code(s): 76105876 Comment: - Non-compliant with CPAP at home. Attempted CPAP here but pt unable to tolerate. (7) COPD (chronic obstructive pulmonary disease) Code(s): J44.9 - CHRONIC OBSTRUCTIVE PULMONARY DISEASE, UNSPECIFIED SNOMED Code(s): 69382611 Comment: - No acute exacerbation (8) Lymphedema Code(s): I89.0 - LYMPHEDEMA, NOT ELSEWHERE CLASSIFIED SNOMED Code(s): 249338244 Comment: - Chronic, Likely related to RV and diastolic failure. - Continue compression and diuresis. (9) Diabetes Code(s): E11.9 - TYPE 2 DIABETES MELLITUS WITHOUT COMPLICATIONS SNOMED Code(s) : 01260830 Comment: - IDDM. - HgbA1c 9.7%. - BG 200's today. - Continue lantus with mealtime Humalog coverage. (10) Hyperlipidemia Code(s): E78.5 - HYPERLIPIDEMIA, UNSPECIFIED SNOMED Code(s): 99780477 Comment: - Continue statin (11) HTN (hypertension) Code(s): I10 - ESSENTIAL (PRIMARY) HYPERTENSION SNOMED Code(s): 91520868 Comment: - BP well controlled. - Continue lisinopril and atenolol. (12) Morbid obesity Code(s): E66.01 - MORBID (SEVERE) OBESITY DUE TO EXCESS CALORIES SNOMED Code(s ): 741054350 Comment: - BMI 50. - Bariatric surgery within the last 12 months with 65# weight loss (13) DVT prophylaxis Code(s): KCW8927 - SNOMED Code(s): 426250234 Comment: - HSQ (14) Full code status Code(s): Z78.9 - OTHER SPECIFIED HEALTH STATUS SNOMED Code(s): 392117568 Status and Disposition: Inpatient. Pt will likely need rehab.
[2016-10-04 12:37] LABS: Hematocrit 33 % (42-52); Hemoglobin 10.2 g/dl (14.0-18.0); Mean Corpuscular HGB Conc 31 g/dl (31-36); Mean Corpuscular Hemoglobin 24 pg (27-31); Mean Corpuscular Volume 78 fL (80-94); Mean Platelet Volume 8 um3 (7.4-10.4); Red Blood Count 4.24 10^6/ul (4.0-5.4); Red Cell Distribution Width 16 % (10.5-15); White Blood Count 8.2 10^3/ul (3.5-10.8)
[2016-10-04] MEDS ORDERED: HYDROmorphone* 1 MG/ML 1 ML SYR IV SLOW PU PRN (12:46)
[2016-10-04 13:02] LABS: BUN/Creatinine Ratio 22.5 (8-20); Calcium 8.9 mg/dL (8.6-10.3); EGFR African American 126.8 (>60); EGFR Non-African American 98.6 (>60); Potassium 4.3 mmol/L (3.5-5.0)
--- NOTE | 2016-10-04 13:35 | PN ---
Progress Note - Progress Note SOAP: Subjective: []Patient seen OOB in chair. Appears comfortable. Dressing recently changed with betadine soaked dressing. No foul odor or bloody drainage noted. Objective: [] Vital Signs Temp 97.8 F 10/04/16 08:39 Pulse 75 10/04/16 08:39 Resp 16 10/04/16 09:34 BP 132/63 10/04/16 08:39 Pulse Ox 95 10/04/16 08:39 Intake & Output 10/03/16 10/04/16 10/04/16 18:59 06:59 18:59 Intake Total 585 972 200 Output Total 3400 3450 Balance -2815 -2478 200 Weight 330 lb 9.6 oz Intake: IV Fluids 63 NS (0.9%) 63 IVPB 270 229 ABX - VANCOMYCIN 270 ABX - ZOSYN 229 Oral 315 680 200 Output: Mckee 3400 3450 Other: # Bowel Movements 0 Laboratory Results - last 24 hr 10/03/16 10/03/16 10/03/16 11:31 16:33 21:17 WBC RBC Hgb Hct MCV MCH MCHC RDW Plt Count MPV Neut % (Auto) Lymph % (Auto) Faulkner % (Auto) Eos % (Auto) Baso % (Auto) Absolute Neuts (auto) Absolute Lymphs (auto) Absolute Monos (auto) Absolute Eos (auto) Absolute Basos (auto) Absolute Nucleated RBC Nucleated RBC % Sodium Potassium Chloride Carbon Dioxide Anion Gap BUN Creatinine Est GFR ( Amer) Est GFR (Non-Af Amer) BUN/Creatinine Ratio Glucose POC Glucose (mg/dL) 420 H* 325 H 200 H Calcium 10/04/16 10/04/16 10/04/16 07:46 12:15 12:15 WBC 8.2 RBC 4.24 Hgb 10.2 L Hct 33 L MCV 78 L MCH 24 L MCHC 31 RDW 16 H Plt Count 305 MPV 8 Neut % (Auto) 77.2 Lymph % (Auto) 8.4 L Faulkner % (Auto) 10.9 H Eos % (Auto) 2.7 Baso % (Auto) 0.8 Absolute Neuts (auto) 6.3 Absolute Lymphs (auto) 0.7 L Absolute Monos (auto) 0.9 H Absolute Eos (auto) 0.2 Absolute Basos (auto) 0.1 Absolute Nucleated RBC 0 Nucleated RBC % 0 Sodium 131 L Potassium 4.3 Chloride 87 L Carbon Dioxide 42 H* Anion Gap 2 BUN 18 Creatinine 0.80 Est GFR ( Amer) 126.8 Est GFR (Non-Af Amer) 98.6 BUN/Creatinine Ratio 22.5 H Glucose 279 H POC Glucose (mg/dL) 219 H Calcium 8.9 Microbiology 09/26/16 18:30 Anaerobic Culture - Final Wound - Left Gram Stain - Final Wound Culture - Final Serratia Marcescens Staphylococcus Lugdenensis 09/21/16 07:54 Aerobic Blood Culture - Final Blood Venous No Growth Day 5 Anaerobic Blood Culture - Final No Growth Day 5 Blood Culture - Final 09/20/16 23:34 Aerobic Blood Culture - Final Blood Venous No Growth Day 5 Anaerobic Blood Culture - Final No Growth Day 5 Blood Culture - Final no active drainage on L BKA stump right foot continues to improve and is no longer weeping Assessment: []s/p LBKA for chronic osteo left calcaneous Lymphedema RLE, ulcer Right great toe, all improving Plan: []Abx changed to Zosyn by Dr. Mosqueda Continue current daily betadine dressing changes per Dr. Meyers Await rehab bed offer
[2016-10-04 15:05] LABS: C Reactive Protein 37.03 mg/L (< 5.00)
[2016-10-04] MEDS: amLODIPine TAB* 5 MG PO SCH (21:35)
[2016-10-05] MEDS: Acetaminophen TAB* 325 MG PO SCH ×2 (02:55→08:44)
[2016-10-05] MEDS: oxyCODONE TAB* 5 MG TAB PO PRN ×5 (04:40→21:12)
[2016-10-05] MEDS: Heparin VIAL(*) 5000 UNITS/ML VIAL (FIVE THOUSAND) SUBCUT SCH ×3 (06:07→22:02)
[2016-10-05 06:43] LABS: Hematocrit 33 % (42-52); Hemoglobin 10.4 g/dl (14.0-18.0); Mean Corpuscular HGB Conc 31 g/dl (31-36); Mean Corpuscular Hemoglobin 24 pg (27-31); Mean Corpuscular Volume 78 fL (80-94); Mean Platelet Volume 8 um3 (7.4-10.4); Red Blood Count 4.28 10^6/ul (4.0-5.4); Red Cell Distribution Width 17 % (10.5-15)
[2016-10-05 06:52] LABS: BUN/Creatinine Ratio 20.7 (8-20); Calcium 9.1 mg/dL (8.6-10.3); EGFR African American 123.3 (>60); EGFR Non-African American 95.8 (>60); Potassium 3.9 mmol/L (3.5-5.0)
--- NOTE | 2016-10-05 07:51 | PN ---
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 The right lower extremity swelling has resolved significantly and of course now has dried up as his edema and weeping has improved. His left leg, which smelled like pseudomonas 48 hours ago, has been receiving daily Betadine dressing changes, and the swelling has been diminished as well in the left proximal calf and the wound itself much less tender. I have changed his dressing today and the drainage has diminished as well. There is none of the pseudomonas character. He is going to have Betadine b.i.d. dressing change with Awn wrap, and continue his IV antibiotics. [id number]/[facility] #: [id number] CRISTINA
[2016-10-05] MEDS: Pregabalin CAP(*) 25 MG PO SCH ×2 (08:42→20:58)
[2016-10-05] MEDS: Lactobacillus Acidophilu (GG)* 1 CAP CAP PO SCH ×2 (08:43→20:59)
[2016-10-05] MEDS: Omeprazole CAP* 20 MG PO SCH (08:43)
[2016-10-05] MEDS: Atorvastatin* 80 MG TAB PO SCH (08:43)
[2016-10-05] MEDS: Atenolol TAB* 50 MG PO SCH (08:43)
[2016-10-05] MEDS: Lisinopril TAB* 10 MG PO SCH (08:43)
[2016-10-05] MEDS: oxyCODONE SR TAB(*) 10 MG TAB.SR PO SCH ×2 (08:44→20:58)
[2016-10-05] MEDS: Furosemide TAB* 20 MG PO SCH (08:44)
[2016-10-05] MEDS: Cetirizine* 10 MG TAB PO SCH (08:44)
[2016-10-05] MEDS: Insulin GLARGINE(*) 1 UNITS UNIT SUBCUT SCH ×2 (10:29→21:00)
[2016-10-05] MEDS: Insulin LISPRO* 1 UNITS UNIT SUBCUT SCH ×4 (10:35→18:00)
[2016-10-05] MEDS: Nystatin TOP POWDER* 15 GM BTL TOPICAL SCH ×2 (12:06→21:14)
[2016-10-05] MEDS ORDERED: Loperamide CAP* 2 MG PO PRN ×2 (13:53→21:22)
--- NOTE | 2016-10-05 17:09 | PN ---
Subjective Date of Service: 10/05/16 Interval History: Pt states the oxycodone helps his pain but takes about 1hr to start working and he states the pain is still quite significant despite having the pain medication. He has been having diarrhea today and yesterday. He requests imodium. He states at home he will take a probiotic and yogurt when he has diarrhea. He denies any SOB or CP. Family History: Unchanged from Admission Social History: Unchanged from Admission Past Medical History: Unchanged from Admission Objective Active Medications: Al Hydrox/Mg Hydrox/Simethicone (Maalox Plus*) 30 ml PO Q6H PRN PRN Reason: INDIGESTION Amlodipine Besylate (Norvasc Tab*) 5 mg PO BEDTIME [facility] Last Admin: 10/04/16 21:35 Dose: 5 mg Atenolol (Tenormin Tab*) 50 mg PO QAM [facility] Last Admin: 10/05/16 08:43 Dose: 50 mg Atorvastatin Calcium (Lipitor*) 80 mg PO DAILY [facility] Last Admin: 10/05/16 08:43 Dose: 80 mg Calcium Carbonate (Tums*) 1,000 mg PO Q4H PRN PRN Reason: reflux Last Admin: 09/25/16 05:16 Dose: 1,000 mg Cetirizine HCl (Zyrtec*) 10 mg PO DAILY [facility] PRN Reason: Protocol Last Admin: 10/05/16 08:44 Dose: 10 mg Dextrose (D50w Syringe 50 Ml*) 12.5 gm IV PUSH .FOR FS < 60 - SS PRN PRN Reason: FS < 60 Furosemide (Lasix Tab*) 20 mg PO DAILY [facility] Last Admin: 10/05/16 08:44 Dose: 20 mg Heparin Sodium (Porcine) (Heparin Vial(*)) 5,000 units SUBCUT Q8HR [facility] Last Admin: 10/05/16 13:47 Dose: 5,000 units Heparin Sodium (Porcine) (Heparin Flush Picc/Ml/Cvc(*)) 1 ml FLUSH 0600,1800 [facility] PRN Reason: Protocol Last Admin: 10/05/16 10:20 Dose: Not Given Hydromorphone HCl (Dilaudid Iv*) 0.5 mg IV SLOW PU Q4H PRN PRN Reason: PAIN - BREAKTHROUGH Last Admin: 10/05/16 07:06 Dose: 0.5 mg Sodium Chloride (Ns 0.9% 500 Ml Bag*) 500 mls @ 0 mls/hr IV KVO [facility] PRN Reason: KVO Piperacillin Sod/Tazobactam (Sod 3.375 gm/ Sodium Chloride) 100 mls @ 25 mls/ hr IVPB Q8H [facility] Last Admin: 10/05/16 10:29 Dose: 25 mls/hr Insulin Glargine (Lantus(*)) 60 units SUBCUT BID [facility] Last Admin: 10/05/16 10:29 Dose: 60 unit Insulin Human Lispro (Humalog*) 0 units SUBCUT AC [facility] PRN Reason: Protocol Last Admin: 10/05/16 13:48 Dose: 12 unit Lactobacillus Rhamnosus (Culturelle*) 1 cap PO BID [facility] Last Admin: 10/05/16 08:43 Dose: 1 cap Lisinopril (Prinivil Tab*) 30 mg PO DAILY [facility] Last Admin: 10/05/16 08:43 Dose: 30 mg Loperamide HCl (Imodium Cap*) 2 mg PO .SEE DIRECTIONS PRN PRN Reason: DIARRHEA Melatonin (Melatonin (Nf)) 3 mg PO BEDTIME PRN PRN Reason: INSOMNIA Nystatin (Nystatin Top Powder*) 1 applic TOPICAL BID [facility] Last Admin: 10/05/16 12:06 Dose: Not Given Omeprazole (Prilosec Cap*) 20 mg PO DAILY@0730 [facility] Last Admin: 10/05/16 08:43 Dose: 20 mg Ondansetron HCl (Zofran Inj*) 4 mg IV Q4H PRN PRN Reason: NAUSEA/VOMITING Last Admin: 09/25/16 02:01 Dose: 4 mg Oxycodone HCl (Oxycontin(*)) 30 mg PO 0900,2100 [facility] Last Admin: 10/05/16 08:44 Dose: 30 mg Oxycodone HCl (Roxycodone Tab*) 15 mg PO Q4H PRN PRN Reason: PAIN Last Admin: 10/05/16 12:42 Dose: 15 mg Pregabalin (Lyrica Cap(*)) 75 mg PO BID [facility] Last Admin: 10/05/16 08:42 Dose: 75 mg Vital Signs 10/04/16 10/04/16 10/04/16 18:02 18:05 20:00 Temperature Pulse Rate Respiratory 16 18 Rate Blood Pressure (mmHg) O2 Sat by Pulse 96 Oximetry 10/04/16 10/04/16 10/04/16 20:05 21:34 23:19 Temperature 98.4 F Pulse Rate 75 Respiratory 20 20 16 Rate Blood Pressure 132/69 (mmHg) O2 Sat by Pulse 90 Oximetry 10/04/16 10/04/16 10/04/16 23:20 23:23 23:34 Temperature Pulse Rate Respiratory 20 20 20 Rate Blood Pressure (mmHg) O2 Sat by Pulse Oximetry 10/05/16 10/05/16 10/05/16 01:23 02:23 04:05 Temperature 98.0 F Pulse Rate 75 Respiratory 16 18 Rate Blood Pressure 135/61 (mmHg) O2 Sat by Pulse 98 94 Oximetry 10/05/16 10/05/16 10/05/16 04:40 07:00 07:06 Temperature Pulse Rate Respiratory 18 16 22 Rate Blood Pressure (mmHg) O2 Sat by Pulse Oximetry 10/05/16 10/05/16 10/05/16 07:24 08:06 08:18 Temperature 97.9 F Pulse Rate 77 Respiratory 18 16 Rate Blood Pressure 130/75 (mmHg) O2 Sat by Pulse 93 92 Oximetry 10/05/16 10/05/16 10/05/16 08:35 08:38 08:42 Temperature Pulse Rate Respiratory 16 16 16 Rate Blood Pressure (mmHg) O2 Sat by Pulse 92 Oximetry 10/05/16 10/05/16 10/05/16 08:44 10:38 10:42 Temperature Pulse Rate Respiratory 16 16 18 Rate Blood Pressure (mmHg) O2 Sat by Pulse Oximetry 10/05/16 10/05/16 10/05/16 10:44 12:42 13:55 Temperature 98.2 F Pulse Rate 80 Respiratory 18 16 16 Rate Blood Pressure 114/52 (mmHg) O2 Sat by Pulse 94 Oximetry 10/05/16 10/05/16 14:42 15:37 Temperature 98.1 F Pulse Rate 72 Respiratory 16 18 Rate Blood Pressure 124/68 (mmHg) O2 Sat by Pulse 91 Oximetry Oxygen Devices in Use Now: Nasal Cannula - 91% Appearance: Obese middle aged male sitting up in bed, NAD Eyes: No Scleral Icterus Ears/Nose/Mouth/Throat: Mucous Membranes Moist Respiratory: Symmetrical Chest Expansion and Respiratory Effort, Clear to Auscultation - anteriorly Cardiovascular: NL Sounds; No Murmurs; No JVD, RRR, No Edema Abdominal: NL Sounds; No Tenderness; No Distention Extremities: No Clubbing, Cyanosis, - - s/ L BKA-stump in dressing Skin: No Rash or Ulcers, - - R leg wrapped with RHONDA- old blister noted on medial aspect of R 1st toe- no erythema Neurological: Alert and Oriented x 3 Result Diagrams: 10/05/16 06:05 10/05/16 06:05 Microbiology and Other Data: Microbiology 09/21/16 07:54 Aerobic Blood Culture - Preliminary Blood Venous No Growth Day 1 Anaerobic Blood Culture - Preliminary No Growth Day 1 09/20/16 23:34 Aerobic Blood Culture - Preliminary Blood Venous No Growth Day 1 Anaerobic Blood Culture - Preliminary No Growth Day 1 Diagnostic Imaging: Echo 08/29/16 - LVEF 55-60%, mod LVH, diastolic dysfunction, mild to mod reduced RV function, unable to assess RV function MRI L ankle - osteomyelitis of the L calcaneus that looks to have significantly advanced when compared to 06/2016 MRI R foot - Moderate degree of subcutaneous edema. No evidence of bone marrow edema or replacement to suggest osteomyelitis is present. Assess/Plan/Problems-Billing Mr. Cosby is a 60 yo gentleman with known osteomyelitis of L calcaneus, poorly controlled diabetes, chronic RV failure and diastolic dysfunction with significant LE edema as well as untreated MASON, HTN, COPD, morbid obesity and chronic pain who was referred to the hospital by Dr Meyers. - Patient Problems (1) Osteomyelitis Current Visit: Yes Status: Acute Code(s): M86.9 - OSTEOMYELITIS, UNSPECIFIED SNOMED Code(s): 42619249 Comment: s/p L BKA 09/26/16. He is currently a noelle lift and will need STR. Continue zosyn per Dr. Mosqueda. (2) Urinary retention Current Visit: Yes Status: Acute Code(s): R33.9 - RETENTION OF URINE, UNSPECIFIED SNOMED Code(s): 374905579 Comment: The patient has a simpson in place. Will need a voiding trial in next few days. (3) Diabetes Current Visit: Yes Status: Acute Priority: High Code(s): E11.9 - TYPE 2 DIABETES MELLITUS WITHOUT COMPLICATIONS SNOMED Code(s): 52238465 Comment: Sugars are uncontrolled on his current regimen. Increase lantus to 65 units BID and add lispro 5 units with meals in addition to sliding scale. Will likely need many more adjustments to get his sugars controlled. (4) Chronic pain Current Visit: Yes Status: Chronic Code(s): G89.29 - OTHER CHRONIC PAIN SNOMED Code(s): 63855956 Comment: Increase oxycodone to 20mg q4hr prn and continue oxycontin 30mg BID. Monitor for improvement in his pain. (5) HTN (hypertension) Current Visit: Yes Status: Chronic Code(s): I10 - ESSENTIAL (PRIMARY) HYPERTENSION SNOMED Code(s): 58322512 Comment: BP is under good control on lisinopril and atenolol. (6) MASON (obstructive sleep apnea) Current Visit: Yes Status: Acute Code(s): G47.33 - OBSTRUCTIVE SLEEP APNEA ( ADULT) (PEDIATRIC) SNOMED Code(s): 09350653 Comment: Pt's is going to bring in his home CPAP which he can tolerate better than our machine. (7) COPD (chronic obstructive pulmonary disease) Current Visit: Yes Status: Acute Code(s): J44.9 - CHRONIC OBSTRUCTIVE PULMONARY DISEASE, UNSPECIFIED SNOMED Code(s): 88058371 Comment: No signs of exacerbation. (8) Hyperlipidemia Current Visit: Yes Status: Acute Code(s): E78.5 - HYPERLIPIDEMIA, UNSPECIFIED SNOMED Code(s): 06767306 Comment: Continue statin. (9) DVT prophylaxis Current Visit: Yes Status: Acute Code(s): AWK8903 - SNOMED Code(s): 397604645 Comment: - HSQ (10) Full code status Current Visit: Yes Status: Acute Code(s): Z78.9 - OTHER SPECIFIED HEALTH STATUS SNOMED Code(s): 386414317 Status and Disposition: Await rehab bed offer
[2016-10-05] MEDS: amLODIPine TAB* 5 MG PO SCH (20:58)
[2016-10-05] MEDS ORDERED: Insulin LISPRO* 1 UNITS UNIT SUBCUT ONE (21:22)
[2016-10-05] MEDS ORDERED: Dextrose 50% Syringe 50 ML* 25 GM/50 ML SYRINGE IV PUSH PRN (21:22)
[2016-10-05] MEDS ORDERED: HYDROmorphone* 1 MG/ML 1 ML SYR IV SLOW PU ONE (21:22)
[2016-10-06] MEDS: oxyCODONE TAB* 5 MG TAB PO PRN ×5 (04:20→22:23)
[2016-10-06] MEDS: Heparin VIAL(*) 5000 UNITS/ML VIAL (FIVE THOUSAND) SUBCUT SCH ×3 (05:42→22:21)
[2016-10-06] MEDS: Lactobacillus Acidophilu (GG)* 1 CAP CAP PO SCH ×2 (08:40→21:08)
[2016-10-06] MEDS: Atorvastatin* 80 MG TAB PO SCH (08:41)
[2016-10-06] MEDS: Omeprazole CAP* 20 MG PO SCH (08:41)
[2016-10-06] MEDS: Atenolol TAB* 50 MG PO SCH (08:42)
[2016-10-06] MEDS: Lisinopril TAB* 10 MG PO SCH (08:43)
[2016-10-06] MEDS: oxyCODONE SR TAB(*) 10 MG TAB.SR PO SCH ×2 (08:44→21:09)
[2016-10-06] MEDS: Furosemide TAB* 20 MG PO SCH (08:44)
[2016-10-06] MEDS: Insulin LISPRO* 1 UNITS UNIT SUBCUT SCH ×6 (08:45→18:01)
[2016-10-06] MEDS: Insulin GLARGINE(*) 1 UNITS UNIT SUBCUT SCH ×3 (08:47→21:08)
--- NOTE | 2016-10-06 08:52 | PN ---
Subjective Date of Service: 10/06/16 Interval History: Pt is feeling ok. He just got to sitting on the edge of the bed for the first time with PT. He states he was having severe pain in his stump with it dangling. He states he has not had any burning/tingling pain in his stump/leg. He has not had a BM yet today but feels like he needs to soon. No SOB. Family History: Unchanged from Admission Social History: Unchanged from Admission Past Medical History: Unchanged from Admission Objective Active Medications: Al Hydrox/Mg Hydrox/Simethicone (Maalox Plus*) 30 ml PO Q6H PRN PRN Reason: INDIGESTION Amlodipine Besylate (Norvasc Tab*) 5 mg PO BEDTIME [facility] Last Admin: 10/05/16 20:58 Dose: 5 mg Atenolol (Tenormin Tab*) 50 mg PO QAM [facility] Last Admin: 10/05/16 08:43 Dose: 50 mg Atorvastatin Calcium (Lipitor*) 80 mg PO DAILY [facility] Last Admin: 10/05/16 08:43 Dose: 80 mg Calcium Carbonate (Tums*) 1,000 mg PO Q4H PRN PRN Reason: reflux Last Admin: 09/25/16 05:16 Dose: 1,000 mg Cetirizine HCl (Zyrtec*) 10 mg PO DAILY [facility] PRN Reason: Protocol Last Admin: 10/05/16 08:44 Dose: 10 mg Dextrose (D50w Syringe 50 Ml*) 12.5 gm IV PUSH .FOR FS < 60 - SS PRN PRN Reason: FS < 60 Dextrose (D50w Syringe 50 Ml*) 12.5 gm IV PUSH .FOR FS < 60 - SS PRN PRN Reason: FS < 60 Furosemide (Lasix Tab*) 20 mg PO DAILY [facility] Last Admin: 10/05/16 08:44 Dose: 20 mg Heparin Sodium (Porcine) (Heparin Vial(*)) 5,000 units SUBCUT Q8HR [facility] Last Admin: 10/06/16 05:42 Dose: 5,000 units Heparin Sodium (Porcine) (Heparin Flush Picc/Ml/Cvc(*)) 1 ml FLUSH 0600,1800 [facility] PRN Reason: Protocol Last Admin: 10/06/16 06:50 Dose: 1 ml Sodium Chloride (Ns 0.9% 500 Ml Bag*) 500 mls @ 0 mls/hr IV KVO [facility] PRN Reason: KVO Piperacillin Sod/Tazobactam (Sod 3.375 gm/ Sodium Chloride) 100 mls @ 25 mls/ hr IVPB Q8H [facility] Last Admin: 10/06/16 01:45 Dose: 25 mls/hr Insulin Glargine (Lantus(*)) 68 units SUBCUT BID [facility] Insulin Human Lispro (Humalog*) 0 units SUBCUT AC [facility] PRN Reason: Protocol Last Admin: 10/05/16 18:00 Dose: 12 unit Insulin Human Lispro (Humalog*) 5 units SUBCUT AC [facility] Last Admin: 10/05/16 17:59 Dose: 5 units Lactobacillus Rhamnosus (Culturelle*) 1 cap PO BID [facility] Last Admin: 10/05/16 20:59 Dose: 1 cap Lisinopril (Prinivil Tab*) 30 mg PO DAILY [facility] Last Admin: 10/05/16 08:43 Dose: 30 mg Loperamide HCl (Imodium Cap*) 2 mg PO .SEE DIRECTIONS PRN PRN Reason: DIARRHEA Melatonin (Melatonin (Nf)) 3 mg PO BEDTIME PRN PRN Reason: INSOMNIA Nystatin (Nystatin Top Powder*) 1 applic TOPICAL BID [facility] Last Admin: 10/05/16 21:14 Dose: 1 applic Omeprazole (Prilosec Cap*) 20 mg PO DAILY@0730 [facility] Last Admin: 10/05/16 08:43 Dose: 20 mg Ondansetron HCl (Zofran Inj*) 4 mg IV Q4H PRN PRN Reason: NAUSEA/VOMITING Last Admin: 09/25/16 02:01 Dose: 4 mg Oxycodone HCl (Oxycontin(*)) 30 mg PO 0900,2100 [facility] Last Admin: 10/05/16 20:58 Dose: 30 mg Oxycodone HCl (Roxycodone Tab*) 20 mg PO Q4H PRN PRN Reason: PAIN Last Admin: 10/06/16 04:20 Dose: 20 mg Pregabalin (Lyrica Cap(*)) 100 mg PO BID [facility] Vital Signs 10/05/16 10/05/16 10/05/16 10:38 10:42 10:44 Temperature Pulse Rate Respiratory 16 18 18 Rate Blood Pressure (mmHg) O2 Sat by Pulse Oximetry 10/05/16 10/05/16 10/05/16 12:42 13:55 14:42 Temperature 98.2 F Pulse Rate 80 Respiratory 16 16 16 Rate Blood Pressure 114/52 (mmHg) O2 Sat by Pulse 94 Oximetry 10/05/16 10/05/16 10/05/16 15:37 17:01 19:01 Temperature 98.1 F Pulse Rate 72 Respiratory 18 16 17 Rate Blood Pressure 124/68 (mmHg) O2 Sat by Pulse 91 Oximetry 10/05/16 10/05/16 10/05/16 20:00 20:15 20:58 Temperature 98.0 F Pulse Rate 72 Respiratory 17 18 17 Rate Blood Pressure 112/60 (mmHg) O2 Sat by Pulse 91 Oximetry 10/05/16 10/05/16 10/05/16 21:12 22:00 23:00 Temperature Pulse Rate Respiratory 17 17 16 Rate Blood Pressure (mmHg) O2 Sat by Pulse Oximetry 10/05/16 10/05/16 10/05/16 23:05 23:10 23:12 Temperature Pulse Rate Respiratory 16 16 18 Rate Blood Pressure (mmHg) O2 Sat by Pulse Oximetry 10/05/16 10/06/16 10/06/16 23:44 01:55 04:02 Temperature 98.0 F 98.4 F Pulse Rate 70 70 Respiratory 18 20 Rate Blood Pressure 147/77 125/64 (mmHg) O2 Sat by Pulse 93 93 94 Oximetry 10/06/16 10/06/16 10/06/16 04:20 06:20 07:45 Temperature 98.2 F Pulse Rate 75 Respiratory 18 20 16 Rate Blood Pressure 134/70 (mmHg) O2 Sat by Pulse 94 Oximetry 10/06/16 07:56 Temperature Pulse Rate Respiratory 20 Rate Blood Pressure (mmHg) O2 Sat by Pulse Oximetry Oxygen Devices in Use Now: Nasal Cannula - 94%-2L Appearance: Middle aged obese male sitting on the edge of the bed, NAD Eyes: No Scleral Icterus Ears/Nose/Mouth/Throat: Mucous Membranes Moist Respiratory: Symmetrical Chest Expansion and Respiratory Effort, Clear to Auscultation Cardiovascular: NL Sounds; No Murmurs; No JVD, RRR, No Edema Abdominal: NL Sounds; No Tenderness; No Distention Extremities: No Clubbing, Cyanosis, - - s/p L BKA, R lower leg in RHONDA wrap Skin: No Rash or Ulcers, No Nodules or Sclerosis Neurological: Alert and Oriented x 3 Result Diagrams: 10/05/16 06:05 10/05/16 06:05 Microbiology and Other Data: Microbiology 09/21/16 07:54 Aerobic Blood Culture - Preliminary Blood Venous No Growth Day 1 Anaerobic Blood Culture - Preliminary No Growth Day 1 09/20/16 23:34 Aerobic Blood Culture - Preliminary Blood Venous No Growth Day 1 Anaerobic Blood Culture - Preliminary No Growth Day 1 Diagnostic Imaging: Echo 08/29/16 - LVEF 55-60%, mod LVH, diastolic dysfunction, mild to mod reduced RV function, unable to assess RV function MRI L ankle - osteomyelitis of the L calcaneus that looks to have significantly advanced when compared to 06/2016 MRI R foot - Moderate degree of subcutaneous edema. No evidence of bone marrow edema or replacement to suggest osteomyelitis is present. Assess/Plan/Problems-Billing Mr. Cosby is a 60 yo gentleman with known osteomyelitis of L calcaneus, poorly controlled diabetes, chronic RV failure and diastolic dysfunction with significant LE edema as well as untreated MASON, HTN, COPD, morbid obesity and chronic pain who was referred to the hospital by Dr Meyers. - Patient Problems (1) Osteomyelitis Current Visit: Yes Status: Acute Code(s): M86.9 - OSTEOMYELITIS, UNSPECIFIED SNOMED Code(s): 32558662 Comment: s/p L BKA 09/26/16. He is currently a noelle lift and will need STR. Continue zosyn per Dr. Mosqueda-trying to determine how long he needs the IV Abx as he is otherwise ready for d/c to rehab. (2) Urinary retention Current Visit: Yes Status: Acute Code(s): R33.9 - RETENTION OF URINE, UNSPECIFIED SNOMED Code(s): 435837686 Comment: Will attempt a voiding trial today. He understands that if is unable to urinate on his own the simpson will need to be replaced. (3) Diabetes Current Visit: Yes Status: Acute Priority: High Code(s): E11.9 - TYPE 2 DIABETES MELLITUS WITHOUT COMPLICATIONS SNOMED Code(s): 77339079 Comment: This AM his sugar is slightly better. Will increase lantus to 68 units SQ BID and continue lispro 5 units with meals and the lispro sliding scale. Continue to monitor. (4) Chronic pain Current Visit: Yes Status: Chronic Code(s): G89.29 - OTHER CHRONIC PAIN SNOMED Code(s): 91499238 Comment: Continue oxycodone 20mg q4hr prn and oxycontin 30mg BID. He states his pain is somewhat better than it has been. (5) HTN (hypertension) Current Visit: Yes Status: Chronic Code(s): I10 - ESSENTIAL (PRIMARY) HYPERTENSION SNOMED Code(s): 88447705 Comment: BP is under good control on lisinopril and atenolol. (6) MASON (obstructive sleep apnea) Current Visit: Yes Status: Acute Code(s): G47.33 - OBSTRUCTIVE SLEEP APNEA ( ADULT) (PEDIATRIC) SNOMED Code(s): 13254083 Comment: Continue home CPAP. (7) COPD (chronic obstructive pulmonary disease) Current Visit: Yes Status: Acute Code(s): J44.9 - CHRONIC OBSTRUCTIVE PULMONARY DISEASE, UNSPECIFIED SNOMED Code(s): 85221094 Comment: No signs of exacerbation. (8) Hyperlipidemia Current Visit: Yes Status: Acute Code(s): E78.5 - HYPERLIPIDEMIA, UNSPECIFIED SNOMED Code(s): 35355384 Comment: Continue statin. (9) DVT prophylaxis Current Visit: Yes Status: Acute Code(s): LFF1448 - SNOMED Code(s): 508833446 Comment: SQ heparin (10) Full code status Current Visit: Yes Status: Acute Code(s): Z78.9 - OTHER SPECIFIED HEALTH STATUS SNOMED Code(s): 524035617 Status and Disposition: Await rehab bed offer
[2016-10-06] MEDS ORDERED: Pregabalin CAP(*) 100 MG PO SCH ×2 (09:00)
[2016-10-06] MEDS: Cetirizine* 10 MG TAB PO SCH (09:10)
[2016-10-06] MEDS: Nystatin TOP POWDER* 15 GM BTL TOPICAL SCH ×2 (10:43→21:13)
[2016-10-06] MEDS: Loperamide CAP* 2 MG PO PRN (18:03)
[2016-10-06] MEDS: Pregabalin CAP(*) 25 MG PO SCH (21:08)
[2016-10-06] MEDS: amLODIPine TAB* 5 MG PO SCH (21:08)
[2016-10-07] MEDS: oxyCODONE TAB* 5 MG TAB PO PRN ×3 (04:25→12:52)
[2016-10-07] MEDS: Heparin VIAL(*) 5000 UNITS/ML VIAL (FIVE THOUSAND) SUBCUT SCH ×2 (06:02→13:44)
[2016-10-07] MEDS: Insulin LISPRO* 1 UNITS UNIT SUBCUT SCH ×3 (08:55→12:52)
[2016-10-07] MEDS: Omeprazole CAP* 20 MG PO SCH (08:56)
[2016-10-07] MEDS: Furosemide TAB* 20 MG PO SCH (08:56)
[2016-10-07] MEDS: Lisinopril TAB* 10 MG PO SCH (08:56)
[2016-10-07] MEDS: Atenolol TAB* 50 MG PO SCH (08:57)
[2016-10-07] MEDS: Pregabalin CAP(*) 25 MG PO SCH (08:57)
[2016-10-07] MEDS: oxyCODONE SR TAB(*) 10 MG TAB.SR PO SCH (08:57)
[2016-10-07] MEDS: Cetirizine* 10 MG TAB PO SCH (08:57)
[2016-10-07] MEDS: Atorvastatin* 80 MG TAB PO SCH (08:57)
[2016-10-07] MEDS: Insulin GLARGINE(*) 1 UNITS UNIT SUBCUT SCH (09:02)
[2016-10-07] MEDS: Lactobacillus Acidophilu (GG)* 1 CAP CAP PO SCH (10:28)
[2016-10-07] MEDS: Nystatin TOP POWDER* 15 GM BTL TOPICAL SCH (11:03)
[2016-10-07 11:04] VITALS: BP 115/48
[2016-10-07] MEDS ORDERED: Insulin LISPRO* 1 UNITS UNIT SUBCUT SCH (12:01)
--- NOTE | 2016-10-07 12:30 | PN ---
Subjective Date of Service: 10/07/16 Interval History: Pt is feeling well. He is sitting in a wheel chair. He states if his stump is elevated there is minimal pain. With the stump dangling it hurts much more. He denies any SOB. No abdominal pain. He is still having mushy stools. Family History: Unchanged from Admission Social History: Unchanged from Admission Past Medical History: Unchanged from Admission Objective Active Medications: Al Hydrox/Mg Hydrox/Simethicone (Maalox Plus*) 30 ml PO Q6H PRN PRN Reason: INDIGESTION Amlodipine Besylate (Norvasc Tab*) 5 mg PO BEDTIME [facility] Last Admin: 10/06/16 21:08 Dose: 5 mg Atenolol (Tenormin Tab*) 50 mg PO QAM [facility] Last Admin: 10/07/16 08:57 Dose: 50 mg Atorvastatin Calcium (Lipitor*) 80 mg PO DAILY [facility] Last Admin: 10/07/16 08:57 Dose: 80 mg Calcium Carbonate (Tums*) 1,000 mg PO Q4H PRN PRN Reason: reflux Last Admin: 09/25/16 05:16 Dose: 1,000 mg Cetirizine HCl (Zyrtec*) 10 mg PO DAILY [facility] PRN Reason: Protocol Last Admin: 10/07/16 08:57 Dose: 10 mg Dextrose (D50w Syringe 50 Ml*) 12.5 gm IV PUSH .FOR FS < 60 - SS PRN PRN Reason: FS < 60 Furosemide (Lasix Tab*) 20 mg PO DAILY [facility] Last Admin: 10/07/16 08:56 Dose: 20 mg Heparin Sodium (Porcine) (Heparin Vial(*)) 5,000 units SUBCUT Q8HR [facility] Last Admin: 10/07/16 06:02 Dose: 5,000 units Heparin Sodium (Porcine) (Heparin Flush Picc/Ml/Cvc(*)) 1 ml FLUSH 0600,1800 [facility] PRN Reason: Protocol Last Admin: 10/07/16 06:02 Dose: Not Given Piperacillin Sod/Tazobactam (Sod 3.375 gm/ Sodium Chloride) 100 mls @ 25 mls/ hr IVPB Q8H [facility] Last Admin: 10/07/16 10:29 Dose: 25 mls/hr Insulin Glargine (Lantus(*)) 72 units SUBCUT BID [facility] Insulin Human Lispro (Humalog*) 0 units SUBCUT AC [facility] PRN Reason: Protocol Last Admin: 10/07/16 08:55 Dose: 2 unit Insulin Human Lispro (Humalog*) 7 units SUBCUT AC [facility] Lactobacillus Rhamnosus (Culturelle*) 1 cap PO BID [facility] Last Admin: 10/07/16 10:28 Dose: 1 cap Lisinopril (Prinivil Tab*) 30 mg PO DAILY [facility] Last Admin: 10/07/16 08:56 Dose: 30 mg Loperamide HCl (Imodium Cap*) 2 mg PO .SEE DIRECTIONS PRN PRN Reason: DIARRHEA Last Admin: 10/06/16 18:03 Dose: 2 mg Melatonin (Melatonin (Nf)) 3 mg PO BEDTIME PRN PRN Reason: INSOMNIA Nystatin (Nystatin Top Powder*) 1 applic TOPICAL BID [facility] Last Admin: 10/07/16 11:03 Dose: 1 applic Omeprazole (Prilosec Cap*) 20 mg PO DAILY@0730 [facility] Last Admin: 10/07/16 08:56 Dose: 20 mg Ondansetron HCl (Zofran Inj*) 4 mg IV Q4H PRN PRN Reason: NAUSEA/VOMITING Last Admin: 09/25/16 02:01 Dose: 4 mg Oxycodone HCl (Oxycontin(*)) 30 mg PO 0900,2100 [facility] Last Admin: 10/07/16 08:57 Dose: 30 mg Oxycodone HCl (Roxycodone Tab*) 20 mg PO Q4H PRN PRN Reason: PAIN Last Admin: 10/07/16 08:58 Dose: 20 mg Pregabalin (Lyrica Cap(*)) 75 mg PO BID [facility] Last Admin: 10/07/16 08:57 Dose: 75 mg Vital Signs 10/06/16 10/06/16 10/06/16 13:13 15:13 15:35 Temperature Pulse Rate 80 Respiratory 18 18 Rate Blood Pressure 155/108 (mmHg) O2 Sat by Pulse 91 Oximetry 10/06/16 10/06/16 10/06/16 16:21 17:57 18:03 Temperature Pulse Rate 73 Respiratory 19 18 Rate Blood Pressure 134/75 (mmHg) O2 Sat by Pulse Oximetry 10/06/16 10/06/16 10/06/16 19:36 19:57 20:25 Temperature 98.3 F Pulse Rate 75 Respiratory 20 18 18 Rate Blood Pressure 132/68 (mmHg) O2 Sat by Pulse 95 Oximetry 10/06/16 10/06/16 10/06/16 21:08 21:09 22:23 Temperature Pulse Rate Respiratory 16 16 18 Rate Blood Pressure (mmHg) O2 Sat by Pulse Oximetry 10/06/16 10/07/16 10/07/16 23:09 00:00 00:23 Temperature Pulse Rate 69 Respiratory 16 18 16 Rate Blood Pressure 132/74 (mmHg) O2 Sat by Pulse 95 Oximetry 10/07/16 10/07/16 10/07/16 04:19 04:25 06:11 Temperature Pulse Rate 70 Respiratory 18 18 18 Rate Blood Pressure 130/83 (mmHg) O2 Sat by Pulse 95 Oximetry 10/07/16 10/07/16 10/07/16 08:00 08:03 08:57 Temperature 98.1 F Pulse Rate 73 Respiratory 16 15 16 Rate Blood Pressure 115/48 (mmHg) O2 Sat by Pulse 92 Oximetry 10/07/16 10/07/16 10/07/16 08:58 09:54 10:57 Temperature Pulse Rate Respiratory 16 16 Rate Blood Pressure (mmHg) O2 Sat by Pulse 95 Oximetry 10/07/16 11:06 Temperature Pulse Rate Respiratory 16 Rate Blood Pressure (mmHg) O2 Sat by Pulse 95 Oximetry Oxygen Devices in Use Now: Nasal Cannula - 95%-2L Appearance: Middle aged obese male sitting in a wheelchair, NAD Eyes: No Scleral Icterus Ears/Nose/Mouth/Throat: Mucous Membranes Moist Respiratory: Symmetrical Chest Expansion and Respiratory Effort, Clear to Auscultation - few bibasilar crackles Cardiovascular: NL Sounds; No Murmurs; No JVD, RRR, No Edema Abdominal: NL Sounds; No Tenderness; No Distention Extremities: No Clubbing, Cyanosis, - - L BKA-dressing not taken down Skin: No Rash or Ulcers, No Nodules or Sclerosis Neurological: Alert and Oriented x 3 Result Diagrams: 10/05/16 06:05 10/05/16 06:05 Microbiology and Other Data: Microbiology 09/21/16 07:54 Aerobic Blood Culture - Preliminary Blood Venous No Growth Day 1 Anaerobic Blood Culture - Preliminary No Growth Day 1 09/20/16 23:34 Aerobic Blood Culture - Preliminary Blood Venous No Growth Day 1 Anaerobic Blood Culture - Preliminary No Growth Day 1 Diagnostic Imaging: Echo 08/29/16 - LVEF 55-60%, mod LVH, diastolic dysfunction, mild to mod reduced RV function, unable to assess RV function MRI L ankle - osteomyelitis of the L calcaneus that looks to have significantly advanced when compared to 06/2016 MRI R foot - Moderate degree of subcutaneous edema. No evidence of bone marrow edema or replacement to suggest osteomyelitis is present. Assess/Plan/Problems-Billing Mr. Cosby is a 60 yo gentleman with known osteomyelitis of L calcaneus, poorly controlled diabetes, chronic RV failure and diastolic dysfunction with significant LE edema as well as untreated MASON, HTN, COPD, morbid obesity and chronic pain who was referred to the hospital by Dr Meyers. - Patient Problems (1) Osteomyelitis Current Visit: Yes Status: Acute Code(s): M86.9 - OSTEOMYELITIS, UNSPECIFIED SNOMED Code(s): 19241880 Comment: s/p L BKA 09/26/16. He is currently a noelle lift and will need STR-[facility]. He will continue on zosyn for 4 weeks. He will need weekly CBC, CMP, CRP. (2) Urinary retention Current Visit: Yes Status: Acute Code(s): R33.9 - RETENTION OF URINE, UNSPECIFIED SNOMED Code(s): 970125325 Comment: Pt is urinating without any difficulty. (3) Diabetes Current Visit: Yes Status: Acute Priority: High Code(s): E11.9 - TYPE 2 DIABETES MELLITUS WITHOUT COMPLICATIONS SNOMED Code(s): 59045869 Comment: Sugars are still completely out of control. Resume metformin 100mg BID and continue lantus but increase to 72units BID. Continue standing and sliding scale lispro. (4) Chronic pain Current Visit: Yes Status: Chronic Code(s): G89.29 - OTHER CHRONIC PAIN SNOMED Code(s): 23298699 Comment: Continue oxycodone 20mg q4hr prn and oxycontin 30mg BID. (5) HTN (hypertension) Current Visit: Yes Status: Chronic Code(s): I10 - ESSENTIAL (PRIMARY) HYPERTENSION SNOMED Code(s): 67314080 Comment: BP is under good control on lisinopril and atenolol. (6) MASON (obstructive sleep apnea) Current Visit: Yes Status: Acute Code(s): G47.33 - OBSTRUCTIVE SLEEP APNEA ( ADULT) (PEDIATRIC) SNOMED Code(s): 34763913 Comment: Continue home CPAP. (7) COPD (chronic obstructive pulmonary disease) Current Visit: Yes Status: Acute Code(s): J44.9 - CHRONIC OBSTRUCTIVE PULMONARY DISEASE, UNSPECIFIED SNOMED Code(s): 26625842 Comment: No signs of exacerbation. (8) Hyperlipidemia Current Visit: Yes Status: Acute Code(s): E78.5 - HYPERLIPIDEMIA, UNSPECIFIED SNOMED Code(s): 14411107 Comment: Continue statin. (9) DVT prophylaxis Current Visit: Yes Status: Acute Code(s): GBN4726 - SNOMED Code(s): 959879327 Comment: SQ heparin (10) Full code status Current Visit: Yes Status: Acute Code(s): Z78.9 - OTHER SPECIFIED HEALTH STATUS SNOMED Code(s): 618173326 Status and Disposition: d/c to [place]
[2016-10-07] MEDS: Loperamide CAP* 2 MG PO PRN (12:51)
--- NOTE | 2016-10-07 14:13 | DS ---
CC: Dr. Goode, Dr. Mosqueda, and Dr. Meyers * DISCHARGE SUMMARY: DATE OF ADMISSION: 09/20/16 DATE OF DISCHARGE: 10/07/16. PRIMARY CARE PROVIDER: Dr. Goode. ORTHOPEDIC SURGEON: Dr. Meyers. INFECTIOUS DISEASE SPECIALIST: Dr. Mosqueda. PRINCIPAL DIAGNOSES: 1. Left calcaneus osteomyelitis status post left below knee amputation. 2. Right lower extremity cellulitis - Resolved. 3. Uncontrolled type 2 diabetes. 4. Hypertension. 5. Obstructive sleep apnea. 6. Morbid obesity. 7. Urinary retention - resolved. 8. Chronic obstructive pulmonary disease. 9. Chronic pain. DISCHARGE MEDICATIONS: 1. Metformin 1000 mg p.o. b.i.d. 2. Amlodipine 5 mg p.o. q.h.s. 3. Vitamin B complex 1 tab p.o. daily. 4. Omeprazole 20 mg p.o. daily. 5. Lisinopril 30 mg p.o. daily. 6. Lactobacillus 1 cap p.o. b.i.d. 7. Vitamin D 400 units p.o. daily. 8. Tums 1000 mg p.o. b.i.d. p.r.n. indigestion. 9. Lipitor 80 mg p.o. daily. 10. Atenolol 50 mg p.o. daily. 11. OxyContin 30 mg p.o. twice daily. 12. Oxycodone 20 mg p.o. q. 4 hours p.r.n. pain. 13. Lyrica 75 mg p.o. b.i.d. 14. Zosyn 3.375 g IV q. 4 hours x4 weeks with weekly CBC, CMP, and CRP with results to Dr. Mosqueda. 15. Nystatin powder applied topically twice daily to areas of mae intertrigo. 16. Melatonin 3 mg p.o. q.h.s. p.r.n. insomnia. 17. Imodium 2 mg p.o. after each loose stool up to the maximum of 16 mg per day. 18. Lispro 7 units standing with meals and sliding scale with meals. 19. Lantus 72 units subcutaneous twice daily. 20. Lasix 20 mg p.o. daily. 21. Zyrtec 10 mg p.o. daily. HOSPITAL COURSE: Mr. Cosby is a 61-year-old male with a history of hypertension , hyperlipidemia, type 2 diabetes, and known osteomyelitis of the left calcaneus who has been followed by Dr. Meyers, presented to the hospital after being seen in Dr. Meyers's office where his left heel infection was noted to be markedly worse. The patient was directly admitted from Dr. Meyers's office. He was started on IV antibiotics. The patient did undergo consultation with Dr. Mosqueda on 09/21/16. At the time, he recommended treating the patient with vancomycin alone initially. An MRI of both feet were obtained; the right lower extremity was noted to be cellulitic and there were concerns of ulceration, and possible osteomyelitis of the right foot. The right lower extremity MRI did not revealed any evidence of osteomyelitis. The left foot MRI revealed calcaneal osteomyelitis centered in the posterior inferior aspect of the calcaneus which demonstrated interval progression. The patient continued on IV antibiotics through 10/06/16 at which time he underwent a left below knee amputation. The patient has remained on IV antibiotics per Dr. Mosqueda. On , Dr. Meyers during his dressing change was concerned for a possible pseudomonas infection. At the time, the patient's antibiotic was changed to Zosyn 3.375 g IV q. 8 hours. The patient is to continue on the Zosyn for another 4 weeks. Chronic pain has been a longstanding issue for the patient. Prior to his admission, he was on Suboxone. Pain control during the hospitalization was difficult to achieve; however, by discharge the patient's pain is moderately well controlled. He remained on OxyContin 30 mg p.o. twice daily and oxycodone 20 mg p.o. q. 4 hours p.r.n. pain. The patient will need to have the pain medication regimen adjusted (hopefully with improvement in his pain decrease down) by the providers at the rehab. In terms of the patient's type 2 diabetes , this is totally uncontrolled. His Lantus dose has been dramatically increased over the last several days. He should start 72 units of Lantus twice daily starting this evening. Additionally, he will continue on lispro 7 units standing with meals and lispro sliding scale. Additionally, I am starting the patient back on his usual dose of metformin. In terms of the patient's other chronic medical condition, he has been maintained on his usual home medication regimen. The patient has finally gotten to the point where he is able to be lifted and sat in a wheelchair. His stump is relatively comfortable as long as it is elevated and not dangling. The patient will need aggressive physical therapy to get him back as mobile. FOLLOWUP CONCERNS: The patient is being discharged to [facility] rehab today, . ACTIVITY LEVEL: As tolerated. DIET: Low fat, diabetic. CONDITION ON DISCHARGE: Stable. FOLLOWUP: The patient is to have a CBC, CMP, and CRP weekly starting on with results sent to Dr. Mosqueda. The patient should follow up with Dr. Meyers in 7 to 10 days. Dressing changes for the stump are to be Betadine soaked gauze, wrapped, then with Kerlix and then an Wan wrap. TIME SPENT: Fifty five minutes was spent discharging this patient. Please see the complete medical record for further details of this very prolonged and complex hospitalization. [id number]/CPS #: [id number] MTDD
[2016-10-07] MEDS ORDERED: Insulin GLARGINE(*) 1 UNITS UNIT SUBCUT SCH (21:00)
== END 2016-10-07 13:45 | DRG 617 ==
LOC: MED 12:21 → SSU 09-26 19:35
PROVIDERS: ADMIT Hospitalist; ATTEND Hospitalist
PROC: 0Y6J0Z1 Detachment at Left Lower Leg, High, Open Approach (ICD-10-PCS; principal; 2016-09-26 16:15)
PROC: 02HV33Z Insertion of Infusion Device into Superior Vena Cava, Percutaneous Approach (ICD-10-PCS; 2016-09-27)
PROC: 0T9B70Z Drainage of Bladder with Drainage Device, Via Natural or Artificial Opening (ICD-10-PCS; 2016-10-01)
PROC: 0TPBX0Z Removal of Drainage Device from Bladder, External Approach (ICD-10-PCS; 2016-10-06)
DX: E11.621 Type 2 diabetes mellitus with foot ulcer (principal); Z68.41 Body mass index [BMI] 40.0-44.9, adult; E11.40 Type 2 diabetes mellitus with diabetic neuropathy, unspecified; M86.672 Other chronic osteomyelitis, left ankle and foot; I11.0 Hypertensive heart disease with heart failure; I50.32 Chronic diastolic (congestive) heart failure; L97.429 Non-pressure chronic ulcer of left heel and midfoot with unspecified severity; L03.116 Cellulitis of left lower limb; G47.33 Obstructive sleep apnea (adult) (pediatric); E11.65 Type 2 diabetes mellitus with hyperglycemia; I89.0 Lymphedema, not elsewhere classified; J44.9 Chronic obstructive pulmonary disease, unspecified; G89.29 Other chronic pain; E66.01 Morbid (severe) obesity due to excess calories; E11.69 Type 2 diabetes mellitus with other specified complication; L97.519 Non-pressure chronic ulcer of other part of right foot with unspecified severity; L03.031 Cellulitis of right toe; E78.5 Hyperlipidemia, unspecified; M54.9 Dorsalgia, unspecified; M25.519 Pain in unspecified shoulder; R33.9 Retention of urine, unspecified; Z79.4 Long term (current) use of insulin; Z98.84 Bariatric surgery status; Z89.421 Acquired absence of other right toe(s); Z87.891 Personal history of nicotine dependence; Z88.2 Allergy status to sulfonamides; Z91.19 Patient's noncompliance with other medical treatment and regimen
CPT/HCPCS: 36415; 62323; 71020; 80048; 80053; 80202; 82565; 82803; 82947; 83036; 84520; 85025; 86140; 87040; 87070; 87073; 87077; 87185; 87186; 87205; 88307; 88311; 93005; 94660; 94760; A9270-GY; C1751; J0692; J1170; J1644; J1940; J2060; J2250; J2270; J2405; J2543; J2704; J3010; J3370

== ENCOUNTER 2016-10-17 13:01 | Inpatient (IN) | payer OTHER ==
[~2016-10-17 13:01] MED LIST: Buffered Lidocaine 0.9% SYRIN* 5 ML/SYR SYRINGE INTRADERM ONE; Dexamethasone IV* 4 MG/ML 1 ML (4 MG) ONE; Famotidine IV* 10 MG/ML 2 ML (20 mg) IV ONE; HYDROmorphone* 1 MG/ML 1 ML SYR ONE; KETAMINE HCL* 50 MG/ML 10 ML VIAL ONE; Ketorolac INJ* 30 MG/ML 1 ML VIAL ONE; Lidocaine 2% PF * 5 ML VIAL ONE; Metoclopramide TAB* 10 MG PO ONE; Midazolam* 1 MG/ML 5 ML VIAL (5 MG) ONE; Ondansetron INJ* 2 MG/ML VIAL ONE; Propofol* 10 MG/ML 20 ML BTL IV PUSH ONE; fentaNYL* 50 MCG/ML 2 ML VIAL (100 MCG VIAL) ONE
[2016-10-17] MEDS ORDERED: Metoclopramide TAB* 10 MG ONE (13:03)
[2016-10-17] MEDS ORDERED: Buffered Lidocaine 0.9% SYRIN* 5 ML/SYR SYRINGE ONE (13:03)
[2016-10-17] MEDS ORDERED: Famotidine IV* 10 MG/ML 2 ML (20 mg) ONE (13:03)
[2016-10-17] MEDS ORDERED: Bupivacaine 0.5% SDV PF* 30 ML VIAL ONE ×2 (13:40→15:23)
[2016-10-17] MEDS ORDERED: Lidocaine 2% PF* 10 ML AMP ONE (13:40)
[2016-10-17] MEDS ORDERED: fentaNYL* 50 MCG/ML 2 ML VIAL (100 MCG VIAL) ONE (14:09)
[2016-10-17] MEDS ORDERED: ceFAZolin 2 GM PREMIX(*) 2 GM/50 ML BAG IVPB ONE (14:11)
[2016-10-17] MEDS ORDERED: Midazolam* 1 MG/ML 2 ML VIAL (2 MG) ONE (14:41)
[2016-10-17] MEDS ORDERED: diPHENhydraMINE IV* 50 MG/ML 1 ml VIAL (BENADRYL) IV PRN (15:55)
[2016-10-17] MEDS ORDERED: oxyCODONE/Acetamin 5/325 MG* TAB PO PRN (15:55)
[2016-10-17] MEDS ORDERED: Ondansetron ODT TAB* 4 MG PO PRN (16:00)
[2016-10-17] MEDS ORDERED: fentaNYL* 50 MCG/ML 2 ML VIAL (100 MCG VIAL) IV PRN (16:00)
[2016-10-17] MEDS ORDERED: NS 0.9% 1000 ML* 1,000 ML IV SCH (16:15)
[2016-10-17] MEDS ORDERED: oxyCODONE TAB* 5 MG TAB ONE (17:07)
[2016-10-17] MEDS ORDERED: HYDROmorphone PCA* 20 MG/20 ML PCA.SYRING ONE (17:07)
[2016-10-17] MEDS: oxyCODONE TAB* 5 MG TAB PO PRN ×2 (17:12→21:34)
[2016-10-17] MEDS: HYDROmorphone PCA* 20 MG/20 ML PCA.SYRING PCA SCH (17:22)
[2016-10-17] MEDS ORDERED: Vancomycin per Pharmacy* NOTE FOLLOW UP PRN (18:10)
[2016-10-17] MEDS ORDERED: Dextrose 50% Syringe 50 ML* 25 GM/50 ML SYRINGE IV PUSH PRN (19:01)
[2016-10-17] MEDS: Atorvastatin* 20 MG TAB PO SCH (19:16)
[2016-10-17] MEDS ORDERED: Vancomycin(*) 2,000 MG in NS 0.9% 500 ML BAG* 500 ML IVPB ONE ×2 (20:00→21:00)
[2016-10-17] MEDS: Lactobacillus Acidophilu (GG)* 1 CAP CAP PO SCH (20:53)
[2016-10-17] MEDS: amLODIPine TAB* 5 MG PO SCH (20:53)
[2016-10-17] MEDS: Docusate CAP* 100 MG PO SCH (20:53)
[2016-10-17] MEDS: Insulin GLARGINE(*) 1 UNITS UNIT SUBCUT SCH (20:54)
[2016-10-17] MEDS: Nystatin TOP POWDER* 15 GM BTL TOPICAL SCH (20:54)
[2016-10-17] MEDS: ZOSYN 3.375 GM x ONE DOSE over 30 miuntes IVPB ×4 (20:55→21:19)
[2016-10-17] MEDS ORDERED: ZOSYN 3.375 GM x ONE DOSE over 30 miuntes IVPB ×2 (21:00)
[2016-10-17] MEDS: Calcium Carbonate CHEW TAB* 500 MG (TUMS) PO PRN (22:23)
[2016-10-17] MEDS: oxyCODONE/Acetamin 5/325 MG* TAB PO PRN (23:31)
[2016-10-18] MEDS: traZODone TAB* 50 MG TAB PO PRN (01:08)
[2016-10-18] MEDS: oxyCODONE TAB* 5 MG TAB PO PRN ×5 (02:22→18:43)
--- NOTE | 2016-10-18 03:12 | CONS ---
CC: Dr. Goode, [place] * CONSULTATION REPORT: DATE OF CONSULT: 10/17/16 PRIMARY CARE PROVIDER: Dr. Goode with [place]. INFECTIOUS DISEASE SPECIALIST: Dr. Abbe Mosqueda. REFERRING PHYSICIAN: Dr. Vikas Meyers. ATTENDING PHYSICIAN: Dr. Vikas Rodgers (dictated by Elinor Cordoba, [facility]). CHIEF COMPLAINT: Chronic osteomyelitis of left calcaneus, status post left BKA , now status post revision of left stump. HISTORY OF PRESENT ILLNESS: Mr. Cosby is a 61-year-old male with past medical history significant for diabetes mellitus, chronic lymphedema, osteomyelitis of his left calcaneus status post left BKA on September 26, obstructive sleep apnea, chronic pain, and hypertension, who presented to the hospital today for revision of his left BKA with Dr. Meyers. The patient was recently hospitalized from 09/20/16 to 10/07/16, at which time, he was discharged to [facility] for continued rehab. Dr. Meyers has asked for the hospitalist to consult on the patient to assist with medical management of the patient during his hospitalization. PAST MEDICAL HISTORY: 1. Chronic lymphedema. 2. Diabetes mellitus, insulin dependent. 3. COPD. 4. Hypertension. 5. Osteomyelitis of the left calcaneus. 6. Obstructive sleep apnea, uses BiPAP at home. 7. Chronic pain. 8. Morbid obesity with BMI of 44. PAST SURGICAL HISTORY: 1. Status post partial amputation of the right toe. 2. Status post gastric sleeve. 3. Status post knee arthroscopy. 4. Status post left BKA, on 09/26/16. HOME MEDICATIONS: Include: 1. Oxycodone 20 mg oral every 4 hours as needed for pain. 2. OxyContin 30 mg oral twice daily. 3. Amlodipine 5 mg oral daily. 4. Vitamin B complex 1 tablet oral daily. 5. Simvastatin 40 mg oral daily. 6. Betadine apply to the right great toe and right metatarsal 3 times daily. 7. Oxygen 2 L per minute for oxygen less than 88%. 8. Omeprazole 20 mg oral daily. 9. Nystatin powder apply topical twice daily under breasts. 10. Melatonin 3 mg oral daily at bedtime as needed for sleep. 11. Lisinopril 30 mg oral daily. 12. Lactobacillus 1 capsule oral twice daily. 13. Lisinopril 10 units subcutaneous with meals. 14. Lantus insulin 80 units subcutaneous twice daily. 15. Furosemide 20 mg oral daily. 16. Diclofenac 1% gel apply topical twice daily to bilateral shoulders. 17. Vitamin D 400 units oral daily. 18. Zyrtec 10 mg oral daily. 19. Cefepime 2 g intravenous every 12 hours. 20. Tums 1000 mg oral twice daily as needed for indigestion. 21. Atenolol 50 mg oral daily. 22. Ammonium lactate 12% cream apply twice daily to the right lower extremity. ALLERGIES: No known drug allergies. FAMILY HISTORY: The patient's father had a history of NC and passed at age 50. The patient has a brother with history of heart transplant. The patient's mother passed from cancer. The patient denies any family history of diabetes mellitus. SOCIAL HISTORY: The patient is a former smoker. He quit smoking several years ago. He is unsure of how long he smoked. He denies alcohol or recreational drug use. He lives with his . 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 His , Leigh Cosby, will be his surrogate decision maker in the event he is unable to make decisions for himself. REVIEW OF SYSTEMS: I performed a 14-point review of systems. All the pertinent positives and negatives are mentioned in the history of present illness. The remaining review of systems is negative. PHYSICAL EXAM: Vital Signs: Temperature 96.8, heart rate 82, respiratory rate 14, O2 sats 96% on 2 L, blood pressure 157/76. General Appearance: The patient is alert, pleasant, appears to be in no acute distress. HEENT: Normocephalic, atraumatic. Pupils are equal and reactive to light. Extraocular movements are intact. Respiratory: There is no accessory muscle use and the lungs are clear to auscultation bilaterally but diminished in the bases. Cardiovascular: Regular rate and rhythm. S1 and S2 present. There are no murmurs, rubs, or gallops heard. Abdomen: Soft, nontender, nondistended. Bowel sounds present x4. Extremities: There is trace lower extremity edema to the right lower extremity. DP and PT pulses are 2+ on the right lower extremity , unable to palpate popliteal pulse on the left due to large dressing and the patient does have femoral pulse that is 2+ on the left side. Musculoskeletal: There is no clubbing or cyanosis noted. Neurological: The patient is alert and oriented x4. Cranial nerves II through XII are grossly intact. Psychological: The patient is calm and cooperative. Skin: There are no rashes or abnormalities seen. The patient has a dressing that was clean, dry, and intact to the left lower extremity with a wound VAC in place. DIAGNOSTIC STUDIES/LAB DATA: Preoperatively from 10/05/16: Sodium 135, potassium 3.9, chloride 89, CO2 43, BUN 17, creatinine 0.82, and glucose 206. White blood cell count 7.8, hemoglobin 10.4, hematocrit 33, and platelet count 286. IMPRESSION: Mr. Cosby is a 61-year-old male with past medical history significant for chronic lymphedema, diabetes mellitus, chronic obstructive pulmonary disease, hypertension, osteomyelitis of the left calcaneus, status post left utorc-[id number] amputation and obstructive sleep apnea, who presents to the hospital today for revision of his left stump with Dr. Meyers. Hospitalists have been asked to consult on this patient to assist with his medical comorbidities during his hospitalization. ASSESSMENT AND PLAN: 1. Status post revision of left [id number] amputation. Management per Orthopedic Surgery. I recommend trending the patient's H and H. Antibiotic will be continued per Orthopedics. I have recommended the patient be seen in consultation by Dr. Abbe Mosqueda to ensure the patient is on the appropriate antibiotics. 2. Chronic lymphedema. This is greatly improved since the patient was started on diuretics. For now, we will continue his furosemide. 3. Diabetes mellitus. The patient's last hemoglobin A1c from August was 9.7. For now, we can do fingerstick a.c. and h.s. with lispro sliding scale with meals. I am going to decrease the patient's Lantus to 40 units as I am not sure how he is eating here compared to at the halfway. We can adjust his Lantus as needed. 4. Chronic obstructive pulmonary disease. The patient has no signs of exacerbation at this time. We will use supplemental oxygen as needed for oxygen saturation less than 88%. 5. Chronic pain. The patient previously has been followed by Dr. James, who had discharged him. The patient was then following with Dr. Gan and on Suboxone. Since his last discharge, he has been on OxyContin and oxycodone for his pain in addition to Lyrica. I recommend cautious use of adjusting his pain medications during his stay. 6. Obstructive sleep apnea. The patient is now compliant with his BiPAP. He will use it every night. 7. Hypertension. I am going to hold the patient's lisinopril in the perioperative period. I am going to continue his atenolol and amlodipine and possibly restart his lisinopril in the morning. 8. Morbid obesity. The patient is status post a gastric sleeve. Has a BMI of 44. 9. Fluids, electrolytes, and nutrition: The patient is going to be on consistent carbohydrate diet. 10. Code status. Full code. 11. DVT prophylaxis. The patient is at highest risk. He is going to have SCDs and Lovenox per Orthopedic Surgery. 12. Disposition. Inpatient with disposition per Orthopedic Surgery. TIME SPENT: Time for this admission was 60 minutes, greater than half of that was spent [id number] with the patient and discussing past medical history , medications, and the events leading up to their arrival today and performing a physical examination. The case has been reviewed with the attending doctor, Dr. Rodgers, who agrees with the plan of care. Reviewed by LUIS ALFREDO ELIAS 10/20/16 1527 [id number]/[facility] #: [id number] CRISTINA
[2016-10-18] MEDS: oxyCODONE/Acetamin 5/325 MG* TAB PO PRN (03:50)
[2016-10-18] MEDS: Vancomycin(*) 1,250 MG in NS 0.9% 250 ML* 250 ML IVPB SCH ×3 (06:07→22:09)
[2016-10-18] MEDS: Cetirizine* 10 MG TAB PO SCH (08:59)
[2016-10-18] MEDS: Furosemide TAB* 20 MG PO SCH (08:59)
[2016-10-18] MEDS: Omeprazole CAP* 20 MG PO SCH (08:59)
[2016-10-18] MEDS: Docusate CAP* 100 MG PO SCH ×2 (08:59→22:10)
[2016-10-18] MEDS: Lactobacillus Acidophilu (GG)* 1 CAP CAP PO SCH ×2 (08:59→22:09)
[2016-10-18] MEDS: Vitamin THERAPEUTIC TAB PO SCH (08:59)
[2016-10-18] MEDS: Cholecalciferol TAB* 400 UNIT PO SCH (09:00)
[2016-10-18] MEDS ORDERED: Lisinopril TAB* 10 MG PO SCH (09:00)
[2016-10-18] MEDS: Vitamin B Complex TAB PO SCH (09:00)
[2016-10-18] MEDS: Atenolol TAB* 50 MG PO SCH (09:01)
[2016-10-18] MEDS: Insulin GLARGINE(*) 1 UNITS UNIT SUBCUT SCH ×2 (09:02→22:10)
[2016-10-18] MEDS: Enoxaparin(*) 40 MG/0.4 ML SYR SUBCUT SCH (09:02)
[2016-10-18] MEDS ORDERED: Alteplase (CATHFLO)* 2 MG VIAL IV ONE (09:30)
--- NOTE | 2016-10-18 09:34 | PN ---
Progress Note - Progress Note Date of Service: 10/18/16 SOAP: Subjective: []Patient seen at bedside. Complaining of severe stump pain and refusing to work with physical therapy today. Wound vac on and collecting moderate serosanguenous drainage. Blood pressure meds held this am as pressures running low. Objective: [] Vital Signs Temp 97.9 F 10/18/16 08:47 Pulse 67 10/18/16 08:47 Resp 20 10/18/16 08:47 BP 99/64 10/18/16 08:47 Pulse Ox 96 10/18/16 08:47 Intake & Output 10/17/16 10/18/16 10/18/16 18:59 06:59 18:59 Intake Total 1415 1000 Output Total 1700 300 Balance 1415 -700 -300 Weight 325 lb 15.96 oz Intake: IV Fluids 850 LR 800 NS 50ML, Cefazolin 2G 50 Oral 565 1000 Output: Urine 1700 300 Other: # Bowel Movements 0 Laboratory Results - last 24 hr 10/17/16 10/17/16 10/17/16 13:38 15:59 20:40 POC Glucose (mg/dL) 167 H 150 H 349 H 10/18/16 08:53 POC Glucose (mg/dL) 162 H Microbiology 10/17/16 15:09 Gram Stain - Final Wound - Left LLE stump RHONDA is clean and dry, no foul odor Wound vac in place w moderate fluid collection in container Assessment: []s/p revision infected LLE BKA stump w wound vac placement POD #1 Plan: []Wound vac to be changed by Dr. Meyers in a couple of days Pain management currently on Vanco and Zosyn, re consultation with Dr. Mosuqeda requested for continued antibiotic coverage recommendations
[2016-10-18] MEDS ORDERED: Al Hydrox/Mg Hydrox/Simet LIQ* 30 ML UDC PO PRN (10:10)
[2016-10-18] MEDS: Nystatin TOP POWDER* 15 GM BTL TOPICAL SCH ×2 (10:15→22:11)
[2016-10-18] MEDS: Insulin LISPRO* 1 UNITS UNIT SUBCUT SCH ×3 (10:16→18:44)
--- NOTE | 2016-10-18 11:08 | PN ---
Subjective Date of Service: 10/18/16 Interval History: Patient seen this morning. Main complaint is uncontrolled pain at the stump site. Otherwise feeling well, good PO intake, no N/V. Urinating well, no BM yet but claims he had normal BMs the days leading up to surgery. Family History: Unchanged from Admission Social History: Unchanged from Admission Past Medical History: Unchanged from Admission Objective Active Medications: Al Hydrox/Mg Hydrox/Simethicone (Maalox Plus*) 30 ml PO Q4H PRN Amlodipine Besylate (Norvasc Tab*) 5 mg PO BEDTIME MICHELLE Atenolol (Tenormin Tab*) 50 mg PO QAM MICHELLE Atorvastatin Calcium (Lipitor*) 20 mg PO 1700 MICHELLE Calcium Carbonate (Tums*) 1,000 mg PO BID PRN Cetirizine HCl (Zyrtec*) 10 mg PO DAILY MICHELLE Cholecalciferol (Vitamin D Tab*) 400 unit PO DAILY MICHELLE Dextrose (D50w Syringe 50 Ml*) 12.5 gm IV PUSH .FOR FS < 60 - SS PRN Diphenhydramine HCl (Benadryl Iv*) 25 mg IV Q6H PRN Docusate Sodium (Colace Cap*) 100 mg PO BID MICHELLE Enoxaparin Sodium (Lovenox(*)) 40 mg SUBCUT Q24H MICHELLE Furosemide (Lasix Tab*) 20 mg PO DAILY MICHELLE Heparin Sodium (Porcine) (Heparin Flush Picc/Ml/Cvc(*)) 1 ml FLUSH 0600,1800 MICHELLE Hydromorphone HCl (Dilaudid Nurse Special*) 20 mg in 20 mls @ 0 mls/hr MANAGER VISUAL .change Q24H MICHELLE; Per Protocol Sodium Chloride (Ns 0.9% 1000 Ml*) 1,000 mls @ 75 mls/hr IV PER RATE MICHELLE Piperacillin Sod/Tazobactam (Sod 3.375 gm/ Sodium Chloride) 100 mls @ 25 mls/ hr IVPB 0100,0900,1700 MICHELLE Vancomycin HCl 1,250 mg/ (Sodium Chloride) 250 mls @ 166.667 mls/hr IVPB Q8H MICHELLE Insulin Glargine (Lantus(*)) 40 units SUBCUT BID MICHELLE Insulin Human Lispro (Humalog*) 0 - 15 units SUBCUT AC MICHELLE Lactobacillus Rhamnosus (Culturelle*) 1 cap PO BID MICHELLE Multivitamins (Theragran Tab*) 1 tab PO DAILY [facility] Nystatin (Nystatin Top Powder*) 1 applic TOPICAL BID [facility] Omeprazole (Prilosec Cap*) 20 mg PO DAILY@0730 [facility] Ondansetron HCl (Zofran Inj*) 4 mg IV Q6H PRN Oxycodone HCl (Roxycodone Tab*) 20 mg PO Q4H PRN Oxycodone HCl (Oxycontin(*)) 30 mg PO BID [facility] Pharmacy Consult (Vancomycin Per Pharmacy*) 1 note FOLLOW UP . PRN Pharmacy Profile Note (Vancomycin Trough Check) 1 note FOLLOW UP 0530 ONE Trazodone HCl (Desyrel Tab*) 25 mg PO BEDTIME PRN Vitamin B Complex/Vitamin E (Complex B-100*) 1 tab PO DAILY [facility] Vital Signs 10/17/16 10/17/16 10/17/16 13:16 15:55 16:00 Temperature 97.0 F 96.8 F Pulse Rate 67 64 67 Respiratory 16 16 16 Rate Blood Pressure 120/74 127/71 118/65 (mmHg) O2 Sat by Pulse 96 97 Oximetry 10/17/16 10/17/16 10/17/16 17:55 18:05 19:07 Temperature 98.0 F 98.0 F Pulse Rate 72 84 Respiratory 16 16 19 Rate Blood Pressure 126/64 122/68 (mmHg) O2 Sat by Pulse 98 98 99 Oximetry 10/18/16 10/18/16 10/18/16 06:30 08:11 08:47 Temperature 97.9 F Pulse Rate 67 Respiratory 20 16 20 Rate Blood Pressure 99/64 (mmHg) O2 Sat by Pulse 96 Oximetry Oxygen Devices in Use Now: Nasal Cannula Appearance: Middle-aged, M, laying in bed in NAD Eyes: No Scleral Icterus Ears/Nose/Mouth/Throat: Mucous Membranes Moist Neck: NL Appearance and Movements; NL JVP Respiratory: Symmetrical Chest Expansion and Respiratory Effort, Clear to Auscultation Cardiovascular: NL Sounds; No Murmurs; No JVD, RRR Abdominal: - - Obese, soft, NTND, BS+ Lymphatic: No Cervical Adenopathy Extremities: - - L BKA, stump dressed, c/d/i, wound vac Skin: - - Chronic LE skin changes on R Neurological: Alert and Oriented x 3 Microbiology and Other Data: Microbiology 10/17/16 15:09 Gram Stain - Final Wound - Left Assess/Plan/Problems-Billing Assessment: L stump revision in a 61 yo M with hx of HTN, DM, COPD, chronic lymphedema, MASON and hx of osteomyelitis of LLE s/p BKA - Patient Problems (1) Amputation stump infection Current Visit: Yes Comment: s/p revision by Dr. Meyers on 10/17. ID to consult regarding ABx management, currently on Vanc/Zosyn. Wound vac in place (2) Chronic pain Current Visit: No Comment: Patient is currently on Dilaudid MANAGER VISUAL and was receiving short acting oral opiates. Will resume home dose of Oxycontin 30 mg BID and Oxycodone 20 mg q4h prn. Will continue MANAGER VISUAL for now with plans to wean off. (3) Diabetes Current Visit: No Comment: BGs controlled so far. Continue reduced Lantus 40 units BID with HISS. (4) MASON (obstructive sleep apnea) Current Visit: No Comment: Continue home BiPAP. (5) HTN (hypertension) Current Visit: No Comment: BPs soft this AM, Atenolol held. Continue Norvasc. Holding Lisinopril. (6) Lymphedema Current Visit: No Comment: Chronic, likely related to RV and diastolic failure. Continue Lasix. Stop IVF. (7) DVT prophylaxis Current Visit: No Comment: Lovenox/SCDs
[2016-10-18] MEDS: Calcium Carbonate CHEW TAB* 500 MG (TUMS) PO PRN ×2 (11:55→18:43)
[2016-10-18] MEDS: oxyCODONE SR TAB(*) 10 MG TAB.SR PO SCH ×2 (11:55→22:10)
[2016-10-18 12:17] LABS: Hematocrit 33 % (42-52); Hemoglobin 10.4 g/dl (14.0-18.0)
[2016-10-18 12:29] LABS: BUN/Creatinine Ratio 24.2 (8-20); Blood Urea Nitrogen 16 mg/dL (6-24); CO2 Carbon Dioxide 34 mmol/L (22-32); Calcium 8.6 mg/dL (8.6-10.3); Chloride 98 mmol/L (101-111); EGFR African American 158.3 (>60); EGFR Non-African American 123.1 (>60); Glucose 276 mg/dL (70-100); Potassium 4.6 mmol/L (3.5-5.0); Sodium 132 mmol/L (133-145)
--- NOTE | 2016-10-18 16:22 | OP ---
DATE OF OPERATION: 10/17/16 - ROOM #348 DATE OF : 57 SURGEON: Vikas Meyers MD DIRECTOR OF TEACHER EDUCATION: Bibi Sheldon PA-C ANESTHESIOLOGIST: Mike Rizzo MD ANESTHESIA: Spinal PRE-OP DIAGNOSIS: Breakdown left transtibial amputation site. POST-OP DIAGNOSIS: Breakdown left transtibial amputation site with deep necrotic tissue. OPERATIVE PROCEDURE: Revision amputation, debridement, shortening tibia and fibula, closure of wound with retention sutures, and VAC dressing. DESCRIPTION OF PROCEDURE: Patient was taken to the operating room where we excised the previous wound edges with 10 blade. We opened up the anterior flap of the gastroc over the anterior tibial periosteum and there was some necrotic material located at this level. Cultures were sent. We debrided all tissue planes with #10 blade and also shortened the tibia and fibula another 2 cm. Local cultures were sent as well as the bone and tissue for pathology. After 3 L pulsatile lavage, we dropped the tourniquet and obtained hemostasis. Closure consisted of #1 Vicryl sutures for the subcutaneous tissue and then 0 Surgipro sutures on large taper needle with rubber dam retention sutures. We placed the VAC sponge over the wound to control the edema and splinted in extension. [id number]/[facility] #: [id number] [facility]
[2016-10-18] MEDS: HYDROmorphone PCA* 20 MG/20 ML PCA.SYRING PCA SCH (17:32)
[2016-10-18] MEDS: Atorvastatin* 20 MG TAB PO SCH (17:46)
[2016-10-18] MEDS: amLODIPine TAB* 5 MG PO SCH (22:09)
[2016-10-19] MEDS: oxyCODONE TAB* 5 MG TAB PO PRN ×5 (03:27→19:40)
[2016-10-19] MEDS ORDERED: Vancomycin Trough Check NOTE FOLLOW UP ONE (05:30)
[2016-10-19] MEDS: Vancomycin(*) 1,250 MG in NS 0.9% 250 ML* 250 ML IVPB SCH ×3 (06:24→22:39)
[2016-10-19] MEDS: Omeprazole CAP* 20 MG PO SCH (07:16)
[2016-10-19] MEDS: Nystatin TOP POWDER* 15 GM BTL TOPICAL SCH ×2 (08:21→19:44)
[2016-10-19] MEDS: Furosemide TAB* 20 MG PO SCH (08:47)
[2016-10-19] MEDS: Docusate CAP* 100 MG PO SCH ×2 (08:47→21:08)
[2016-10-19] MEDS: Vitamin THERAPEUTIC TAB PO SCH (08:47)
[2016-10-19] MEDS: oxyCODONE SR TAB(*) 10 MG TAB.SR PO SCH ×2 (08:47→21:09)
[2016-10-19] MEDS: Vitamin B Complex TAB PO SCH (08:47)
[2016-10-19] MEDS: Lactobacillus Acidophilu (GG)* 1 CAP CAP PO SCH ×2 (08:47→21:08)
[2016-10-19] MEDS: Atenolol TAB* 50 MG PO SCH (08:47)
[2016-10-19] MEDS: Insulin GLARGINE(*) 1 UNITS UNIT SUBCUT SCH ×2 (08:48→21:10)
[2016-10-19] MEDS: Cetirizine* 10 MG TAB PO SCH (08:48)
[2016-10-19] MEDS: Insulin LISPRO* 1 UNITS UNIT SUBCUT SCH ×3 (08:48→17:01)
[2016-10-19] MEDS: Enoxaparin(*) 40 MG/0.4 ML SYR SUBCUT SCH (08:48)
[2016-10-19] MEDS: Cholecalciferol TAB* 400 UNIT PO SCH (08:48)
--- NOTE | 2016-10-19 08:48 | PN ---
Progress Note - Progress Note Date of Service: 10/19/16 SOAP: Subjective: CC: leg infection HPI: 61 yo man with recent left BKA for chronic osteomyelitis, had wound necrosis, readmitted for stump revision. Feels well, no rash or diarrhea. Burning pain at surgical site. Has sore on his backside which developed before he got here. Objective: [] Vital Signs Temp 36.6 C 10/19/16 07:23 Pulse 84 10/19/16 07:23 Resp 18 10/19/16 07:59 BP 133/64 10/19/16 07:23 Pulse Ox 99 10/19/16 07:59 Intake & Output 10/18/16 10/19/16 10/19/16 18:59 06:59 18:59 Intake Total 2971 2640 Output Total 3325 950 350 Balance -354 1690 -350 Intake: IV Fluids 640 NS (0.9%) 640 IVPB 331 NS (0.9%) 331 Oral 2000 2640 Output: Urine 3325 950 350 Other: Estimated Void Medium # Voids 1 Gen:Awake, no distress HEENT:PERRL, MMM Neck:Supple Heart:RRR no murmur Lungs:CTA BL Abd:+BS NTND soft Skin: no rash; on sacrum there is a large path of non blanching erythema, no ulcer MSK: L leg stump wrapped Laboratory Results - last 24 hr 10/18/16 10/18/16 10/18/16 08:53 12:00 12:00 Hgb 10.4 L Hct 33 L Sodium 132 L Potassium 4.6 Chloride 98 L Carbon Dioxide 34 H BUN 16 Creatinine 0.66 L Est GFR ( Amer) 158.3 Est GFR (Non-Af Amer) 123.1 BUN/Creatinine Ratio 24.2 H Glucose 276 H POC Glucose (mg/dL) 162 H Calcium 8.6 Vancomycin Trough 10/18/16 10/18/16 10/18/16 12:01 17:52 22:01 Hgb Hct Sodium Potassium Chloride Carbon Dioxide BUN Creatinine Est GFR ( Amer) Est GFR (Non-Af Amer) BUN/Creatinine Ratio Glucose POC Glucose (mg/dL) 301 H 191 H 297 H Calcium Vancomycin Trough 10/19/16 10/19/16 05:15 07:19 Hgb Hct Sodium Potassium Chloride Carbon Dioxide BUN Creatinine Est GFR ( Amer) Est GFR (Non-Af Amer) BUN/Creatinine Ratio Glucose POC Glucose (mg/dL) 211 H Calcium Vancomycin Trough 12.4 Assessment: 1. L leg stump necrosis s/p revision 2. chronic osteomyelitis of left calcaneous s/p BKA 3. morbid obesity and lymphedema 4. diabetes with neuropathy Plan: 1. continue vancomycin goal tr 15-20, will change zosyn to cefepime as he had diarrhea with zosyn; await cultures. Grew S. maltophila earlier culture last week which is most likely a colonization as it is not associated with skin or wound infection.
--- NOTE | 2016-10-19 09:03 | PN ---
Subjective Date of Service: 10/19/16 Interval History: Patient seen this morning. Says pain seems to be improving, says he is hopeful to get off of the UI APPLICATION DEVELOPER by the end of the day today. No BM yet. About to eat breakfast. Family History: Unchanged from Admission Social History: Unchanged from Admission Past Medical History: Unchanged from Admission Objective Active Medications: Al Hydrox/Mg Hydrox/Simethicone (Maalox Plus*) 30 ml PO Q4H PRN Amlodipine Besylate (Norvasc Tab*) 5 mg PO BEDTIME MICHELLE Atenolol (Tenormin Tab*) 50 mg PO QAM MICHELLE Atorvastatin Calcium (Lipitor*) 20 mg PO 1700 MICHELLE Calcium Carbonate (Tums*) 1,000 mg PO BID PRN Cetirizine HCl (Zyrtec*) 10 mg PO DAILY MICHELLE Cholecalciferol (Vitamin D Tab*) 400 unit PO DAILY MICHELLE Dextrose (D50w Syringe 50 Ml*) 12.5 gm IV PUSH .FOR FS < 60 - SS PRN Diphenhydramine HCl (Benadryl Iv*) 25 mg IV Q6H PRN Docusate Sodium (Colace Cap*) 100 mg PO BID MICHELLE Enoxaparin Sodium (Lovenox(*)) 40 mg SUBCUT Q24H MICHELLE Furosemide (Lasix Tab*) 20 mg PO DAILY MICHELLE Heparin Sodium (Porcine) (Heparin Flush Picc/Ml/Cvc(*)) 1 ml FLUSH 0600,1800 MICHELLE Hydromorphone HCl (Dilaudid Unloading Checker*) 20 mg in 20 mls @ 0 mls/hr UI APPLICATION DEVELOPER .change Q24H MICHELLE; Per Protocol Vancomycin HCl 1,250 mg/ (Sodium Chloride) 250 mls @ 166.667 mls/hr IVPB Q8H MICHELLE Insulin Glargine (Lantus(*)) 60 units SUBCUT BID MICHELLE Insulin Human Lispro (Humalog*) 0 - 15 units SUBCUT AC MICHELLE Lactobacillus Rhamnosus (Culturelle*) 1 cap PO BID MICHELLE Multivitamins (Theragran Tab*) 1 tab PO DAILY MICHELLE Nystatin (Nystatin Top Powder*) 1 applic TOPICAL BID MICHELLE Omeprazole (Prilosec Cap*) 20 mg PO DAILY@0730 MICHELLE Ondansetron HCl (Zofran Inj*) 4 mg IV Q6H PRN Oxycodone HCl (Roxycodone Tab*) 20 mg PO Q4H PRN Oxycodone HCl (Oxycontin(*)) 30 mg PO BID [facility] Pharmacy Consult (Vancomycin Per Pharmacy*) 1 note FOLLOW UP . PRN Pharmacy Profile Note (Vancomycin Trough Check) 1 note FOLLOW UP ONCE ONE Trazodone HCl (Desyrel Tab*) 25 mg PO BEDTIME PRN Vitamin B Complex/Vitamin E (Complex B-100*) 1 tab PO DAILY [facility] Vital Signs 10/18/16 10/18/16 10/18/16 10:15 11:27 11:55 Temperature 98.0 F Pulse Rate 87 Respiratory 16 20 16 Rate Blood Pressure 114/63 (mmHg) O2 Sat by Pulse 95 Oximetry 10/19/16 10/19/16 10/19/16 06:00 06:51 07:23 Temperature 97.9 F Pulse Rate 84 Respiratory 18 18 18 Rate Blood Pressure 133/64 (mmHg) O2 Sat by Pulse 95 99 Oximetry Oxygen Devices in Use Now: Nasal Cannula Appearance: Middle-aged, M, laying in bed in NAD Eyes: No Scleral Icterus Ears/Nose/Mouth/Throat: Mucous Membranes Moist Neck: NL Appearance and Movements; NL JVP Respiratory: Symmetrical Chest Expansion and Respiratory Effort, Clear to Auscultation Cardiovascular: NL Sounds; No Murmurs; No JVD, RRR Abdominal: - - Obese, soft, NTND, ventral hernia, BS+ Lymphatic: No Cervical Adenopathy Extremities: - - LLE stump with dressing/wound vac in place, c/d/i Neurological: Alert and Oriented x 3 Result Diagrams: 10/18/16 12:00 10/18/16 12:00 Microbiology and Other Data: Assess/Plan/Problems-Billing Assessment: L stump revision in a 61 yo M with hx of HTN, DM, COPD, chronic lymphedema, MASON and hx of osteomyelitis of LLE s/p BKA - Patient Problems (1) Amputation stump infection Current Visit: Yes Comment: s/p revision by Dr. Meyers on 10/17. Appreciate ID assistance, continue Vanc/Cefepime (switched from Zosyn). Wound vac in place (2) Chronic pain Current Visit: No Comment: Continue home dose of Oxycontin 30 mg BID and Oxycodone 20 mg q4h prn. Plan to wean off Dilaudid UI APPLICATION DEVELOPER later today (3) Diabetes Current Visit: No Comment: Increase Lantus to 60 units BID with HISS. (4) MASON (obstructive sleep apnea) Current Visit: No Comment: Continue home BiPAP. (5) HTN (hypertension) Current Visit: No Comment: Continue Norvasc and Atenolol. Holding Lisinopril. (6) Lymphedema Current Visit: No Comment: Chronic, likely related to RV and diastolic failure. Continue Lasix. (7) DVT prophylaxis Current Visit: No Comment: Lovenox/SCD
--- NOTE | 2016-10-19 10:05 | PN ---
Progress Note - Progress Note Date of Service: 10/19/16 SOAP: Subjective: []Patient seen at bedside. Pain is better managed overall but still using STATE ATTORNEY dilaudid which he is hoping to discontinue later today. His LLE stump pain is described at burning pain. Objective: [] Vital Signs Temp 97.9 F 10/19/16 07:23 Pulse 84 10/19/16 07:23 Resp 18 10/19/16 09:04 BP 133/64 10/19/16 07:23 Pulse Ox 99 10/19/16 07:59 Intake & Output 10/18/16 10/19/16 10/19/16 18:59 06:59 18:59 Intake Total 2971 2640 Output Total 3325 950 350 Balance -354 1690 -350 Intake: IV Fluids 640 NS (0.9%) 640 IVPB 331 NS (0.9%) 331 Oral 2000 2640 Output: Urine 3325 950 350 Other: Estimated Void Medium # Voids 1 Laboratory Results - last 24 hr 10/18/16 10/18/16 10/18/16 12:00 12:00 12:01 Hgb 10.4 L Hct 33 L Sodium 132 L Potassium 4.6 Chloride 98 L Carbon Dioxide 34 H BUN 16 Creatinine 0.66 L Est GFR ( Amer) 158.3 Est GFR (Non-Af Amer) 123.1 BUN/Creatinine Ratio 24.2 H Glucose 276 H POC Glucose (mg/dL) 301 H Calcium 8.6 Vancomycin Trough 10/18/16 10/18/16 10/19/16 17:52 22:01 05:15 Hgb Hct Sodium Potassium Chloride Carbon Dioxide BUN Creatinine Est GFR ( Amer) Est GFR (Non-Af Amer) BUN/Creatinine Ratio Glucose POC Glucose (mg/dL) 191 H 297 H Calcium Vancomycin Trough 12.4 10/19/16 07:19 Hgb Hct Sodium Potassium Chloride Carbon Dioxide BUN Creatinine Est GFR ( Amer) Est GFR (Non-Af Amer) BUN/Creatinine Ratio Glucose POC Glucose (mg/dL) 211 H Calcium Vancomycin Trough LLE stump remains dry and intact with wound vac in place and running. Assessment: []s/p revision infected L BKA stump POD #2 Plan: []IV abx, Vanco and cefepime as per Dr. Mosqueda Wound vac change per Dr. Meyers
[2016-10-19] MEDS: Calcium Carbonate CHEW TAB* 500 MG (TUMS) PO PRN ×2 (13:47→21:08)
[2016-10-19] MEDS: Atorvastatin* 20 MG TAB PO SCH (16:35)
[2016-10-19] MEDS: amLODIPine TAB* 5 MG PO SCH (21:09)
[2016-10-20] MEDS: oxyCODONE TAB* 5 MG TAB PO PRN ×6 (00:01→22:20)
[2016-10-20] MEDS: Vancomycin(*) 1,250 MG in NS 0.9% 250 ML* 250 ML IVPB SCH ×3 (05:53→22:20)
[2016-10-20] MEDS: Cetirizine* 10 MG TAB PO SCH (08:22)
[2016-10-20] MEDS: Omeprazole CAP* 20 MG PO SCH (08:22)
[2016-10-20] MEDS: Furosemide TAB* 20 MG PO SCH (08:22)
[2016-10-20] MEDS: Docusate CAP* 100 MG PO SCH ×2 (08:22→21:18)
[2016-10-20] MEDS: Cholecalciferol TAB* 400 UNIT PO SCH (08:22)
[2016-10-20] MEDS: Lactobacillus Acidophilu (GG)* 1 CAP CAP PO SCH ×2 (08:23→21:17)
[2016-10-20] MEDS: Vitamin THERAPEUTIC TAB PO SCH (08:23)
[2016-10-20] MEDS: Vitamin B Complex TAB PO SCH (08:23)
[2016-10-20] MEDS: oxyCODONE SR TAB(*) 10 MG TAB.SR PO SCH ×2 (08:24→21:17)
[2016-10-20] MEDS: Insulin LISPRO* 1 UNITS UNIT SUBCUT SCH ×4 (08:25→17:12)
[2016-10-20] MEDS: Insulin GLARGINE(*) 1 UNITS UNIT SUBCUT SCH ×2 (08:25→21:38)
[2016-10-20] MEDS: Enoxaparin(*) 40 MG/0.4 ML SYR SUBCUT SCH (08:29)
[2016-10-20] MEDS: Atenolol TAB* 50 MG PO SCH (08:29)
[2016-10-20] MEDS: Nystatin TOP POWDER* 15 GM BTL TOPICAL SCH ×2 (08:32→21:22)
--- NOTE | 2016-10-20 10:45 | PN ---
Progress Note - Progress Note Date of Service: 10/20/16 SOAP: Subjective: []Patient seen OOB in chair, just noelle lifted from bed. Still c/o moderate burning stump pain. 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 Objective: [] Vital Signs Temp 98.0 F 10/20/16 07:22 Pulse 105 10/20/16 07:22 Resp 20 10/20/16 08:24 BP 112/65 10/20/16 07:22 Pulse Ox 99 10/20/16 07:22 Intake & Output 10/19/16 10/20/16 10/20/16 18:59 06:59 18:59 Intake Total 1363 3159 360 Output Total 1650 1475 1250 Balance -287 1684 -890 Intake: IV Fluids 309 373 NS (0.9%) 309 373 IVPB 334 461 ABX - VANCOMYCIN 334 461 Oral 720 2325 360 Output: Urine 1650 1475 1250 Other: Estimated Void Medium Date of Last Bowel 10/20/16 Movement # Bowel Movements 1 Estimated Stool Amount Medium Large # Voids 1 Laboratory Results - last 24 hr 10/19/16 10/19/16 10/19/16 11:42 16:38 20:58 POC Glucose (mg/dL) 349 H 282 H 271 H 10/20/16 07:50 POC Glucose (mg/dL) 145 H Microbiology 10/17/16 15:09 Anaerobic Culture - Preliminary Wound - Left Gram Stain - Final Wound Culture - Final Stenotrophomas Maltophilia Vre Enterococcus Faecium LLE stump remains clean and dry with wound vac working well. Assessment: []s/p Revision infected LLE BKA stump POD #3 Plan: []Wound vac dressing change per Dr. Meyers Continue current IV abx and pain medications as needed, hopefully off CRYPTOLOGIC TECHNICIAN soon
[2016-10-20] MEDS: Calcium Carbonate CHEW TAB* 500 MG (TUMS) PO PRN (12:45)
[2016-10-20 14:43] LABS: Hematocrit 32 % (42-52); Hemoglobin 9.8 g/dl (14.0-18.0); Mean Corpuscular HGB Conc 31 g/dl (31-36); Mean Corpuscular Hemoglobin 25 pg (27-31); Mean Corpuscular Volume 80 fL (80-94); Mean Platelet Volume 8 um3 (7.4-10.4); Red Blood Count 3.98 10^6/ul (4.0-5.4); Red Cell Distribution Width 17 % (10.5-15); White Blood Count 9.2 10^3/ul (3.5-10.8)
[2016-10-20] MEDS: HYDROmorphone PCA* 20 MG/20 ML PCA.SYRING PCA SCH (14:43)
[2016-10-20] MEDS: Ondansetron INJ* 2 MG/ML VIAL IV PRN (14:43)
--- NOTE | 2016-10-20 15:36 | PN ---
Subjective Date of Service: 10/20/16 Interval History: Patient seen this afternoon. Had an episode of nausea and diaphoresis earlier this afternoon after starting lunch. No emesis. Reports a transient pain through his abdomen which resolved. No further problems. Says his behind is itchy. Does not think he is ready to come off [employer], agreed for stop time order tomorrow AM. Family History: Unchanged from Admission Social History: Unchanged from Admission Past Medical History: Unchanged from Admission Objective Active Medications: Al Hydrox/Mg Hydrox/Simethicone (Maalox Plus*) 30 ml PO Q4H PRN PRN Reason: INDIGESTION Amlodipine Besylate (Norvasc Tab*) 5 mg PO BEDTIME [facility] Last Admin: 10/19/16 21:09 Dose: 5 mg Atenolol (Tenormin Tab*) 50 mg PO QAM [facility] Last Admin: 10/20/16 08:29 Dose: 50 mg Atorvastatin Calcium (Lipitor*) 20 mg PO 1700 [facility] Last Admin: 10/19/16 16:35 Dose: 20 mg Calcium Carbonate (Tums*) 1,000 mg PO BID PRN PRN Reason: INDIGESTION Last Admin: 10/20/16 12:45 Dose: 1,000 mg Cetirizine HCl (Zyrtec*) 10 mg PO DAILY [facility] PRN Reason: Protocol Last Admin: 10/20/16 08:22 Dose: 10 mg Cholecalciferol (Vitamin D Tab*) 400 unit PO DAILY [facility] Last Admin: 10/20/16 08:22 Dose: 400 unit Dextrose (D50w Syringe 50 Ml*) 12.5 gm IV PUSH .FOR FS < 60 - SS PRN PRN Reason: FS < 60 Diphenhydramine HCl (Benadryl Iv*) 25 mg IV Q6H PRN PRN Reason: itching Docusate Sodium (Colace Cap*) 100 mg PO BID [facility] Last Admin: 10/20/16 08:22 Dose: 100 mg Enoxaparin Sodium (Lovenox(*)) 40 mg SUBCUT Q24H [facility] Last Admin: 10/20/16 08:29 Dose: 40 mg Furosemide (Lasix Tab*) 20 mg PO DAILY [facility] Last Admin: 10/20/16 08:22 Dose: 20 mg Heparin Sodium (Porcine) (Heparin Flush Picc/Ml/Cvc(*)) 1 ml FLUSH 0600,1800 [facility] PRN Reason: Protocol Last Admin: 10/20/16 05:51 Dose: 1 ml Hydroxyzine HCl (Atarax Tab*) 25 mg PO Q4H PRN PRN Reason: ITCHING Hydromorphone HCl (Dilaudid Guidance [employer] Control System Engineer*) 20 mg in 20 mls @ 0 mls/hr [employer] .change Q24H [facility]; Per Protocol PRN Reason: Protocol Stop: 10/21/16 08:00 Last Admin: 10/20/16 14:43 Dose: 1 mls/hr Vancomycin HCl 1,250 mg/ (Sodium Chloride) 250 mls @ 166.667 mls/hr IVPB Q8H [facility] Last Admin: 10/20/16 14:43 Dose: 166.667 mls/hr Insulin Glargine (Lantus(*)) 80 units SUBCUT BID [facility] Insulin Human Lispro (Humalog*) 0 - 15 units SUBCUT AC [facility] PRN Reason: Protocol Last Admin: 10/20/16 12:47 Dose: 12 unit Insulin Human Lispro (Humalog*) 0 - 15 units SUBCUT AC [facility] PRN Reason: Protocol Lactobacillus Rhamnosus (Culturelle*) 1 cap PO BID [facility] Last Admin: 10/20/16 08:23 Dose: 1 cap Multivitamins (Theragran Tab*) 1 tab PO DAILY [facility] Last Admin: 10/20/16 08:23 Dose: 1 tab Nystatin (Nystatin Top Powder*) 1 applic TOPICAL BID [facility] Last Admin: 10/20/16 08:32 Dose: 1 applic Omeprazole (Prilosec Cap*) 20 mg PO DAILY@0730 [facility] Last Admin: 10/20/16 08:22 Dose: 20 mg Ondansetron HCl (Zofran Inj*) 4 mg IV Q6H PRN PRN Reason: nausea Last Admin: 10/20/16 14:43 Dose: 4 mg Oxycodone HCl (Roxycodone Tab*) 20 mg PO Q4H PRN PRN Reason: PAIN Last Admin: 10/20/16 12:46 Dose: 20 mg Oxycodone HCl (Oxycontin(*)) 30 mg PO BID [facility] Last Admin: 10/20/16 08:24 Dose: 30 mg Pharmacy Consult (Vancomycin Per Pharmacy*) 1 note FOLLOW UP . PRN PRN Reason: PER PROTOCOL Pharmacy Profile Note (Vancomycin Trough Check) 1 note FOLLOW UP ONCE ONE Stop: 10/21/16 05:31 Trazodone HCl (Desyrel Tab*) 25 mg PO BEDTIME PRN PRN Reason: insomnia Last Admin: 10/18/16 01:08 Dose: 25 mg Vitamin B Complex/Vitamin E (Complex B-100*) 1 tab PO DAILY [facility] Last Admin: 10/20/16 08:23 Dose: 1 tab Vital Signs 10/19/16 10/19/16 10/19/16 15:50 16:00 16:36 Temperature 98.7 F 98.7 F Pulse Rate 70 70 Respiratory 23 18 23 Rate Blood Pressure 128/69 128/69 (mmHg) O2 Sat by Pulse 99 98 99 Oximetry 10/19/16 10/19/16 10/19/16 17:04 18:30 19:30 Temperature Pulse Rate Respiratory 18 18 20 Rate Blood Pressure (mmHg) O2 Sat by Pulse Oximetry 10/20/16 10/20/16 10/20/16 12:46 13:31 14:43 Temperature 97.5 F Pulse Rate 74 Respiratory 18 14 18 Rate Blood Pressure 132/79 (mmHg) O2 Sat by Pulse 93 Oximetry Oxygen Devices in Use Now: Nasal Cannula Appearance: Middle-aged, obese, M, laying in bed in NAD Eyes: No Scleral Icterus Ears/Nose/Mouth/Throat: Mucous Membranes Moist Neck: NL Appearance and Movements; NL JVP Respiratory: Symmetrical Chest Expansion and Respiratory Effort, Clear to Auscultation Cardiovascular: NL Sounds; No Murmurs; No JVD, RRR Abdominal: - - Obese, soft, NTND, BS+ Lymphatic: No Cervical Adenopathy Extremities: - - Chronic RLE skin changes, L BKA with dressing in place, wound vac removed Neurological: Alert and Oriented x 3 Result Diagrams: 10/20/16 14:30 10/18/16 12:00 Microbiology and Other Data: Assess/Plan/Problems-Billing Assessment: L stump revision in a 61 yo M with hx of HTN, DM, COPD, chronic lymphedema, MASON and hx of osteomyelitis of LLE s/p BKA - Patient Problems (1) Amputation stump infection Current Visit: Yes Comment: s/p revision by Dr. Meyers on 10/17. Appreciate ID assistance, continue Vanc/Cefepime (switched from Zosyn). Wound vac removed by Dr. Meyers on 10/20. 1+ VRE on culture, will defer to Dr. Mosqueda to adjust ABx if organism felt to be contributing (2) Chronic pain Current Visit: No Comment: Continue home dose of Oxycontin 30 mg BID and Oxycodone 20 mg q4h prn. Stop time set for [employer] (3) Nausea Current Visit: Yes Comment: diaphoresis. Unclear etiology. No fever. WBC normal. Zofran prn. Monitor. (4) Diabetes Current Visit: No Comment: BGs elevated today. Increase Lantus to 80 units BID (home dose) with HISS. (5) MASON (obstructive sleep apnea) Current Visit: No Comment: Continue home BiPAP. (6) HTN (hypertension) Current Visit: No Comment: Continue Norvasc and Atenolol. Holding Lisinopril. (7) Lymphedema Current Visit: No Comment: Chronic, likely related to RV and diastolic failure. Continue Lasix. (8) DVT prophylaxis Current Visit: No Comment: Lovenox/SCD
[2016-10-20] MEDS: Atorvastatin* 20 MG TAB PO SCH (17:02)
[2016-10-20] MEDS: hydrOXYzine HCL TAB* 25 MG PO PRN ×2 (17:11→21:47)
[2016-10-20] MEDS: amLODIPine TAB* 5 MG PO SCH (21:18)
--- NOTE | 2016-10-21 00:19 | PN ---
PROGRESS NOTE: DATE OF SERVICE: 10/20/16 SUBJECTIVE: Priyank is seen on 10/20/26. He is feeling better overall. He is on vancomycin and cefepime. He has couple of organisms growing out of his most recent debridement. Today, I have changed his dressing on his left stump. The VAC was discontinued and has had significant amount of drainage, but at this point the erythema is much improved along the wound. Skin edges are apposing well. So, we will switch to a dry dressing as there is some maceration along the skin edges. This will be changed twice a day and he is to continue in the hospital here until we see really essentially complete wound healing of his stump. [id number]/[facility] #: [id number] CRISTINA
[2016-10-21] MEDS: oxyCODONE TAB* 5 MG TAB PO PRN ×5 (03:53→21:34)
[2016-10-21] MEDS: hydrOXYzine HCL TAB* 25 MG PO PRN ×4 (04:04→19:40)
[2016-10-21] MEDS ORDERED: Vancomycin Trough Check NOTE FOLLOW UP ONE (05:30)
[2016-10-21 05:36] LABS: EGFR African American 155.6 (>60)
[2016-10-21 05:58] LABS: Vancomycin Trough 13.2 mcg/mL
[2016-10-21] MEDS: Vancomycin(*) 1,250 MG in NS 0.9% 250 ML* 250 ML IVPB SCH ×3 (06:12→22:28)
--- NOTE | 2016-10-21 08:47 | PN ---
Progress Note - Progress Note Date of Service: 10/21/16 SOAP: Subjective: 61 y/o male s/p L BKA 09/26, revision 10/17 for infection. Patient reports itching improved, having electrical shock pain with dressing changes at base of stump. VSS, afebrile. Objective: General- SItting in chair well, nAD MSK- Dressing changed, minimal bleeding from lateral stump, retention sutures in place, mild to moderate swelling, no odor/ drainage noted. Vital Signs Temp 98.5 F 10/21/16 03:40 Pulse 73 10/21/16 03:59 Resp 16 10/21/16 05:25 BP 130/61 10/21/16 03:59 Pulse Ox 98 10/21/16 04:00 Intake & Output 10/20/16 10/21/16 10/21/16 18:59 06:59 18:59 Intake Total 1390 1800 Output Total 2275 1050 Balance -885 750 Intake: IV Fluids 100 750 ABX - VANCOMYCIN 500 NS (0.9%) 100 250 IVPB 250 ABX - VANCOMYCIN 250 Oral 1040 1050 Output: Urine 2275 1050 Other: # Bowel Movements 1 Estimated Stool Amount Large Laboratory Results - last 24 hr 10/20/16 10/20/16 10/20/16 11:45 13:32 14:30 WBC 9.2 RBC 3.98 L Hgb 9.8 L Hct 32 L MCV 80 MCH 25 L MCHC 31 RDW 17 H Plt Count 235 MPV 8 Neut % (Auto) 73.8 Lymph % (Auto) 11.1 L [place] % (Auto) 8.6 Eos % (Auto) 5.4 Baso % (Auto) 1.1 Absolute Neuts (auto) 6.8 Absolute Lymphs (auto) 1.0 Absolute Monos (auto) 0.8 Absolute Eos (auto) 0.5 Absolute Basos (auto) 0.1 Absolute Nucleated RBC 0 Nucleated RBC % 0 BUN Creatinine Est GFR ( Amer) Est GFR (Non-Af Amer) POC Glucose (mg/dL) 301 H 300 H Vancomycin Trough 10/20/16 10/20/16 10/21/16 17:03 21:22 05:13 WBC RBC Hgb Hct MCV MCH MCHC RDW Plt Count MPV Neut % (Auto) Lymph % (Auto) [place] % (Auto) Eos % (Auto) Baso % (Auto) Absolute Neuts (auto) Absolute Lymphs (auto) Absolute Monos (auto) Absolute Eos (auto) Absolute Basos (auto) Absolute Nucleated RBC Nucleated RBC % BUN 10 Creatinine 0.67 Est GFR ( Amer) 155.6 Est GFR (Non-Af Amer) 121.0 POC Glucose (mg/dL) 211 H 252 H Vancomycin Trough 13.2 10/21/16 08:00 WBC RBC Hgb Hct MCV MCH MCHC RDW Plt Count MPV Neut % (Auto) Lymph % (Auto) [place] % (Auto) Eos % (Auto) Baso % (Auto) Absolute Neuts (auto) Absolute Lymphs (auto) Absolute Monos (auto) Absolute Eos (auto) Absolute Basos (auto) Absolute Nucleated RBC Nucleated RBC % BUN Creatinine Est GFR ( Amer) Est GFR (Non-Af Amer) POC Glucose (mg/dL) 182 H Vancomycin Trough Assessment: 61 y/o male s/p L BKA 09/26, revision 10/17 for infection. Plan: - Dr. Mosqueda following for ID- continue Vanco, cefepime--> may switch to Linezolid if no wound improvement - DVT prophylaxis- lovenox - Continue Wound care BID - PT/ OT Active Medications Generic Name Dose Route Start Last Admin Trade Name Freq PRN Reason Stop Dose Admin Al Hydrox/Mg Hydrox/Simethicone 30 ml 10/18/16 10:10 Maalox Plus* PO Q4H PRN INDIGESTION Amlodipine Besylate 5 mg 10/17/16 21:00 10/20/16 21:18 Norvasc Tab* PO 5 mg BEDTIME [facility] Administration Atenolol 50 mg 10/18/16 09:00 10/20/16 08:29 Tenormin Tab* PO 50 mg QAM [facility] Administration Atorvastatin Calcium 20 mg 10/17/16 17:00 10/20/16 17:02 Lipitor* PO 20 mg 1700 MICHELLE Administration Calcium Carbonate 1,000 mg 10/17/16 16:08 10/20/16 12:45 Tums* PO 1,000 mg BID PRN Administration INDIGESTION Cetirizine HCl 10 mg 10/18/16 09:00 10/20/16 08:22 Zyrtec* PO 10 mg DAILY [facility]HELLE Administration Protocol Cholecalciferol 400 unit 10/18/16 09:00 10/20/16 08:22 Vitamin D Tab* PO 400 unit DAILY [facility] Administration Dextrose 12.5 gm 10/17/16 19:01 D50w Syringe 50 Ml* IV PUSH .FOR FS < 60 - SS PRN FS < 60 Diphenhydramine HCl 25 mg 10/17/16 15:55 Benadryl Iv* IV Q6H PRN itching Docusate Sodium 100 mg 10/17/16 21:00 10/20/16 21:18 Colace Cap* PO 100 mg BID MICHELLE Administration Enoxaparin Sodium 40 mg 10/18/16 09:00 10/20/16 08:29 Lovenox(*) SUBCUT 40 mg Q24H [facility] Administration Furosemide 20 mg 10/18/16 09:00 10/20/16 08:22 Lasix Tab* PO 20 mg DAILY [facility] Administration Heparin Sodium (Porcine) 1 ml 10/18/16 18:00 10/21/16 05:27 Heparin Flush Picc/Ml/Cvc(*) FLUSH 1 ml 0600,1800 MICHELLE Administration Protocol Hydroxyzine HCl 25 mg 10/20/16 15:24 10/21/16 04:04 Atarax Tab* PO 25 mg Q4H PRN Administration ITCHING Vancomycin HCl 1,250 mg/ 250 mls @ 166.667 mls/hr 10/18/16 06:00 10/21/16 06: 12 Sodium Chloride IVPB 166.667 mls/hr Q8H [facility] Administration Insulin Glargine 80 units 10/20/16 21:00 10/20/16 21:38 Lantus(*) SUBCUT 80 units BID [facility] Administration Insulin Human Lispro 0 - 15 units 10/18/16 07:30 10/20/16 17:11 Humalog* SUBCUT 6 unit AC [facility] Administration Protocol Insulin Human Lispro 0 - 15 units 10/20/16 16:30 10/20/16 17:12 Humalog* SUBCUT Not Given AC [facility] Protocol Lactobacillus Rhamnosus 1 cap 10/17/16 21:00 10/20/16 21:17 Culturelle* PO 1 cap BID [facility] Administration Multivitamins 1 tab 10/18/16 09:00 10/20/16 08:23 Theragran Tab* PO 1 tab DAILY [facility] Administration Nystatin 1 applic 10/17/16 21:00 10/20/16 21:22 Nystatin Top Powder* TOPICAL 1 applic BID [facility] Administration Omeprazole 20 mg 10/18/16 07:30 10/20/16 08:22 Prilosec Cap* PO 20 mg DAILY@0730 [facility] Administration Ondansetron HCl 4 mg 10/17/16 15:55 10/20/16 14:43 Zofran Inj* IV 4 mg Q6H PRN Administration nausea Oxycodone HCl 20 mg 10/18/16 07:35 10/21/16 03:53 Roxycodone Tab* PO 20 mg Q4H PRN Administration PAIN Oxycodone HCl 30 mg 10/18/16 11:00 10/20/16 21:17 Oxycontin(*) PO 30 mg BID [facility] Administration Pharmacy Consult 1 note 10/17/16 18:10 Vancomycin Per Pharmacy* FOLLOW UP . PRN PER PROTOCOL Trazodone HCl 25 mg 10/17/16 15:55 10/18/16 01:08 Desyrel Tab* PO 25 mg BEDTIME PRN Administration insomnia Vitamin B Complex/Vitamin E 1 tab 10/18/16 09:00 10/20/16 08:23 Complex B-100* PO 1 tab DAILY [facility] Administration
[2016-10-21] MEDS: Insulin LISPRO* 1 UNITS UNIT SUBCUT SCH ×6 (09:11→18:11)
[2016-10-21] MEDS: Enoxaparin(*) 40 MG/0.4 ML SYR SUBCUT SCH (09:12)
[2016-10-21] MEDS: Furosemide TAB* 20 MG PO SCH (09:13)
[2016-10-21] MEDS: Atenolol TAB* 50 MG PO SCH (09:13)
[2016-10-21] MEDS: Cholecalciferol TAB* 400 UNIT PO SCH (09:13)
[2016-10-21] MEDS: oxyCODONE SR TAB(*) 10 MG TAB.SR PO SCH (09:13)
[2016-10-21] MEDS: Omeprazole CAP* 20 MG PO SCH (09:13)
[2016-10-21] MEDS: Docusate CAP* 100 MG PO SCH ×2 (09:14→21:34)
[2016-10-21] MEDS: Vitamin THERAPEUTIC TAB PO SCH (09:14)
[2016-10-21] MEDS: Insulin GLARGINE(*) 1 UNITS UNIT SUBCUT SCH ×2 (09:14→21:35)
[2016-10-21] MEDS: Cetirizine* 10 MG TAB PO SCH (09:14)
[2016-10-21] MEDS: Nystatin TOP POWDER* 15 GM BTL TOPICAL SCH ×2 (09:18→21:35)
[2016-10-21] MEDS: Vitamin B Complex TAB PO SCH (09:18)
[2016-10-21] MEDS: Lactobacillus Acidophilu (GG)* 1 CAP CAP PO SCH ×2 (09:18→21:35)
[2016-10-21 09:20] LABS: C Reactive Protein 47.21 mg/L (< 5.00)
[2016-10-21] MEDS: Cefepime(*) 2 GM in NS 0.9% 50 ML* 50 ML IVPB SCH ×2 (09:27→21:34)
[2016-10-21] MEDS ORDERED: Gabapentin CAP(*) 100 MG PO SCH (16:00)
[2016-10-21] MEDS: Atorvastatin* 20 MG TAB PO SCH (17:34)
[2016-10-21] MEDS: oxyCODONE SR TAB(*) 40 MG TAB.SR PO SCH (20:28)
[2016-10-21] MEDS: amLODIPine TAB* 5 MG PO SCH (21:35)
[2016-10-22] MEDS: oxyCODONE TAB* 5 MG TAB PO PRN ×6 (02:50→23:08)
[2016-10-22] MEDS: hydrOXYzine HCL TAB* 25 MG PO PRN ×5 (05:41→22:40)
[2016-10-22] MEDS: Vancomycin(*) 1,250 MG in NS 0.9% 250 ML* 250 ML IVPB SCH (05:42)
[2016-10-22] MEDS: Docusate CAP* 100 MG PO SCH ×2 (08:01→21:50)
[2016-10-22] MEDS: Vitamin THERAPEUTIC TAB PO SCH (08:13)
[2016-10-22] MEDS: Furosemide TAB* 20 MG PO SCH (08:14)
[2016-10-22] MEDS: Omeprazole CAP* 20 MG PO SCH (08:14)
[2016-10-22] MEDS: oxyCODONE SR TAB(*) 40 MG TAB.SR PO SCH ×2 (08:15→21:50)
[2016-10-22] MEDS: Vitamin B Complex TAB PO SCH (08:15)
[2016-10-22] MEDS: Cetirizine* 10 MG TAB PO SCH (08:17)
[2016-10-22] MEDS: Lactobacillus Acidophilu (GG)* 1 CAP CAP PO SCH ×2 (08:17→21:49)
[2016-10-22] MEDS: Cholecalciferol TAB* 400 UNIT PO SCH (08:17)
[2016-10-22] MEDS: Insulin GLARGINE(*) 1 UNITS UNIT SUBCUT SCH ×2 (08:18→21:50)
[2016-10-22] MEDS: Enoxaparin(*) 40 MG/0.4 ML SYR SUBCUT SCH (08:20)
[2016-10-22] MEDS: Atenolol TAB* 50 MG PO SCH (08:21)
[2016-10-22] MEDS: Cefepime(*) 2 GM in NS 0.9% 50 ML* 50 ML IVPB SCH ×2 (08:32→21:49)
--- NOTE | 2016-10-22 08:58 | PN ---
Progress Note - Progress Note Date of Service: 10/22/16 SOAP: Subjective: 61 y/o male s/p L BKA 09/26, revision 10/17 for infection. Patient reports having electrical shock pain at base of stump, describes some muscle spasms. VSS, afebrile. Objective: General- Laying in bed, NAD, A&O MSK- Dressing is c/d/i. Pt is able to bed the knee. Sensation is intact to light touch. Vital Signs Temp 98.3 F 10/22/16 07:39 Pulse 83 10/22/16 07:39 Resp 16 10/22/16 08:15 BP 107/77 10/22/16 07:39 Pulse Ox 96 10/22/16 07:39 Intake & Output 10/21/16 10/22/16 10/22/16 18:59 06:59 18:59 Intake Total 595 2843 Output Total 200 725 200 Balance 395 2118 -200 Intake: IV Fluids 330 943 ABX - VANCOMYCIN 763 NS (0.9%) 330 180 IVPB 265 ABX - VANCOMYCIN 265 Oral 1900 Output: Urine 200 725 200 Other: Estimated Void Medium Date of Last Bowel 10/21/16 10/21/16 Movement # Bowel Movements 1 Estimated Stool Amount Medium Medium Assessment: 61 y/o male s/p L BKA 09/26, revision 10/17 for infection. Plan: - Dr. Mosqueda following for ID- continue abx management - DVT prophylaxis- lovenox - Continue Wound care BID - PT/ OT - Dressing change by provider tomorrow
[2016-10-22] MEDS: Insulin LISPRO* 1 UNITS UNIT SUBCUT SCH ×6 (10:31→18:33)
[2016-10-22] MEDS: Nystatin TOP POWDER* 15 GM BTL TOPICAL SCH ×2 (10:55→21:51)
[2016-10-22] MEDS: Vancomycin(*) 1,000 MG in NS 0.9% 250 ML* 250 ML IVPB SCH ×2 (13:15→18:56)
[2016-10-22] MEDS: Calcium Carbonate CHEW TAB* 500 MG (TUMS) PO PRN (16:16)
--- NOTE | 2016-10-22 16:32 | PN ---
Subjective Date of Service: 10/22/16 Interval History: Patient seen this afternoon. Had another episode of nausea and diaphoresis earlier today. He states it lasted about 10-15 mins and resolved. Similar to prior episode but no abdominal pain today. Otherwise doing OK, brought in some tonic water for cramping he was having. Family History: Unchanged from Admission Social History: Unchanged from Admission Past Medical History: Unchanged from Admission Objective Active Medications: Al Hydrox/Mg Hydrox/Simethicone (Maalox Plus*) 30 ml PO Q4H PRN Amlodipine Besylate (Norvasc Tab*) 5 mg PO BEDTIME [facility] Atenolol (Tenormin Tab*) 50 mg PO QAM [facility] Atorvastatin Calcium (Lipitor*) 20 mg PO 1700 [facility] Calcium Carbonate (Tums*) 1,000 mg PO BID PRN Cetirizine HCl (Zyrtec*) 10 mg PO DAILY [facility] Cholecalciferol (Vitamin D Tab*) 400 unit PO DAILY [facility] Dextrose (D50w Syringe 50 Ml*) 12.5 gm IV PUSH .FOR FS < 60 - SS PRN Diphenhydramine HCl (Benadryl Iv*) 25 mg IV Q6H PRN Docusate Sodium (Colace Cap*) 100 mg PO BID [facility] Enoxaparin Sodium (Lovenox(*)) 40 mg SUBCUT Q24H [facility] Furosemide (Lasix Tab*) 20 mg PO DAILY [facility] Heparin Sodium (Porcine) (Heparin Flush Picc/Ml/Cvc(*)) 1 ml FLUSH 0600,1800 [facility] Hydroxyzine HCl (Atarax Tab*) 25 mg PO Q4H PRN Cefepime HCl 2 gm/ Sodium (Chloride) 50 mls @ 100 mls/hr IVPB Q12H [facility] Vancomycin HCl 1,000 mg/ (Sodium Chloride) 250 mls @ 166.667 mls/hr IVPB Q6H [facility] Insulin Glargine (Lantus(*)) 80 units SUBCUT BID [facility] Insulin Human Lispro (Humalog*) 0 - 15 units SUBCUT AC [facility] Insulin Human Lispro (Humalog*) 0 - 15 units SUBCUT AC [facility] Lactobacillus Rhamnosus (Culturelle*) 1 cap PO BID [facility] Multivitamins (Theragran Tab*) 1 tab PO DAILY [facility] Nystatin (Nystatin Top Powder*) 1 applic TOPICAL BID [facility] Omeprazole (Prilosec Cap*) 20 mg PO DAILY@0730 [facility] Ondansetron HCl (Zofran Inj*) 4 mg IV Q6H PRN Oxycodone HCl (Roxycodone Tab*) 30 mg PO Q4H PRN Oxycodone HCl (Oxycontin(*)) 40 mg PO BID [facility] Pharmacy Consult (Vancomycin Per Pharmacy*) 1 note FOLLOW UP . PRN Pharmacy Profile Note (Vancomycin Trough Check) 1 note FOLLOW UP 1130 ONE Trazodone HCl (Desyrel Tab*) 25 mg PO BEDTIME PRN Vitamin B Complex/Vitamin E (Complex B-100*) 1 tab PO DAILY [facility] Vital Signs 10/21/16 10/21/16 10/21/16 17:33 19:18 19:43 Temperature 99.8 F Pulse Rate 85 Respiratory 16 14 16 Rate Blood Pressure 140/42 (mmHg) O2 Sat by Pulse 92 Oximetry 10/21/16 10/22/16 10/22/16 23:33 00:07 02:50 Temperature 99.7 F Pulse Rate 76 Respiratory 15 18 16 Rate Blood Pressure 144/83 (mmHg) O2 Sat by Pulse 91 Oximetry 10/22/16 10/22/16 10/22/16 03:49 04:50 06:55 Temperature 99.3 F Pulse Rate 68 Respiratory 18 16 16 Rate Blood Pressure 147/65 (mmHg) O2 Sat by Pulse 93 Oximetry 10/22/16 10/22/16 10/22/16 07:39 08:15 08:55 Temperature 98.3 F Pulse Rate 83 Respiratory 20 16 18 Rate Blood Pressure 107/77 (mmHg) O2 Sat by Pulse 96 Oximetry 10/22/16 10/22/16 10/22/16 10:55 11:03 12:55 Temperature 98.1 F Pulse Rate 71 Respiratory 16 20 20 Rate Blood Pressure 125/67 (mmHg) O2 Sat by Pulse 93 Oximetry Oxygen Devices in Use Now: Nasal Cannula Appearance: Middle-aged, M, laying in bed in NAD Eyes: No Scleral Icterus Ears/Nose/Mouth/Throat: Mucous Membranes Moist Neck: NL Appearance and Movements; NL JVP Respiratory: Symmetrical Chest Expansion and Respiratory Effort, Clear to Auscultation Cardiovascular: NL Sounds; No Murmurs; No JVD, RRR Abdominal: - - Obese, soft, NTND, ventral hernia, BS+ Lymphatic: No Cervical Adenopathy Extremities: - - Minimal LE edema, LLE BKA with dressing over stump, c/d/i Skin: No Rash or Ulcers Neurological: Alert and Oriented x 3 Result Diagrams: 10/20/16 14:30 10/21/16 05:13 Microbiology and Other Data: Assess/Plan/Problems-Billing Assessment: L stump revision in a 61 yo M with hx of HTN, DM, COPD, chronic lymphedema, MASON and hx of osteomyelitis of LLE s/p BKA - Patient Problems (1) Amputation stump infection Current Visit: Yes Comment: s/p revision by Dr. Meyers on 10/17. Appreciate ID assistance, continue Vanc/Cefepime (switched from Zosyn). Wound vac removed by Dr. Meyers on 10/20. (2) Chronic pain Current Visit: No Comment: Increased Oxycontin 40 mg BID and Oxycodone 30 mg q4h prn. Weaned off of SCENIC ARTIST (3) Nausea Current Visit: Yes Comment: diaphoresis. Recurred. Checked TSH which was normal. Will check troponin, EKG. Can get EKG if symptoms recur again (4) Diabetes Current Visit: No Comment: BGs elevated. Continue Lantus 80 units BID (home dose) with increased HISS. (5) MASON (obstructive sleep apnea) Current Visit: No Comment: Continue home BiPAP. (6) HTN (hypertension) Current Visit: No Comment: Continue Norvasc and Atenolol. Holding Lisinopril. (7) Lymphedema Current Visit: No Comment: Chronic, likely related to RV and diastolic failure. Continue Lasix. (8) DVT prophylaxis Current Visit: No Comment: Lovenox/SCD
[2016-10-22] MEDS: Atorvastatin* 20 MG TAB PO SCH (18:32)
[2016-10-22] MEDS: amLODIPine TAB* 5 MG PO SCH (21:50)
[2016-10-23] MEDS: Vancomycin(*) 1,000 MG in NS 0.9% 250 ML* 250 ML IVPB SCH ×5 (00:03→23:51)
[2016-10-23] MEDS: oxyCODONE TAB* 5 MG TAB PO PRN ×5 (02:35→21:45)
[2016-10-23] MEDS: hydrOXYzine HCL TAB* 25 MG PO PRN ×5 (05:52→21:46)
[2016-10-23] MEDS: Cetirizine* 10 MG TAB PO SCH (07:18)
[2016-10-23] MEDS: Cholecalciferol TAB* 400 UNIT PO SCH (07:18)
[2016-10-23] MEDS: Lactobacillus Acidophilu (GG)* 1 CAP CAP PO SCH ×2 (07:18→20:59)
[2016-10-23] MEDS: Insulin LISPRO* 1 UNITS UNIT SUBCUT SCH ×6 (07:18→18:16)
[2016-10-23] MEDS: Vitamin B Complex TAB PO SCH (07:18)
[2016-10-23] MEDS: Omeprazole CAP* 20 MG PO SCH (07:18)
[2016-10-23] MEDS: Atenolol TAB* 50 MG PO SCH (07:19)
[2016-10-23] MEDS: Furosemide TAB* 20 MG PO SCH (07:19)
[2016-10-23] MEDS: oxyCODONE SR TAB(*) 40 MG TAB.SR PO SCH ×2 (07:19→20:59)
[2016-10-23] MEDS: Enoxaparin(*) 40 MG/0.4 ML SYR SUBCUT SCH (07:21)
[2016-10-23] MEDS: Docusate CAP* 100 MG PO SCH ×2 (07:36→20:58)
[2016-10-23] MEDS: Cefepime(*) 2 GM in NS 0.9% 50 ML* 50 ML IVPB SCH ×2 (08:03→20:51)
[2016-10-23] MEDS: Vitamin THERAPEUTIC TAB PO SCH (08:13)
--- NOTE | 2016-10-23 09:22 | PN ---
Progress Note - Progress Note Date of Service: 10/23/16 SOAP: Subjective: POD #6 Left leg stump revision. Doing well, c/o less pain. Denies CP/SOB, f/c. Objective: Vitals: Temp Pulse Resp BP Pulse Ox 97.9 F 81 18 132/70 92 10/23/16 07:32 10/23/16 07:32 10/23/16 07:32 10/23/16 07:32 10/23/16 08:24 Gen: A&Ox3, NAD sitting in chair LLE: Incision healing well, mild maceration to mid portion. Edema improved. Sensation intact Labs: Laboratory Results - last 24 hr 10/22/16 10/22/16 10/22/16 08:24 12:21 13:00 POC Glucose (mg/dL) 132 H 253 H Troponin I TSH 1.95 10/22/16 10/22/16 10/22/16 16:35 17:15 21:56 POC Glucose (mg/dL) 199 H 175 H Troponin I 0.01 TSH 10/23/16 07:15 POC Glucose (mg/dL) 117 H Troponin I TSH Assessment: POD #6 Left leg stump revision Plan: Betadine dressing applied today. Will keep in place until tomorrow Continue IV abx per ID
[2016-10-23] MEDS ORDERED: Insulin LISPRO* 1 UNITS UNIT SUBCUT ONE (09:28)
[2016-10-23] MEDS: Insulin GLARGINE(*) 1 UNITS UNIT SUBCUT SCH ×2 (09:37→21:01)
[2016-10-23] MEDS: Nystatin TOP POWDER* 15 GM BTL TOPICAL SCH ×2 (12:08→21:48)
[2016-10-23] MEDS: Calcium Carbonate CHEW TAB* 500 MG (TUMS) PO PRN (17:38)
[2016-10-23] MEDS: Atorvastatin* 20 MG TAB PO SCH (17:46)
[2016-10-23] MEDS ORDERED: NS 0.9% 50 ML* 0 ML ONE (20:44)
[2016-10-23] MEDS: amLODIPine TAB* 5 MG PO SCH (20:58)
[2016-10-24] MEDS: hydrOXYzine HCL TAB* 25 MG PO PRN ×5 (02:00→20:38)
[2016-10-24] MEDS: oxyCODONE TAB* 5 MG TAB PO PRN ×5 (02:00→22:22)
[2016-10-24] MEDS: Vancomycin(*) 1,000 MG in NS 0.9% 250 ML* 250 ML IVPB SCH ×4 (05:45→23:48)
[2016-10-24 06:17] LABS: EGFR African American 145.5 (>60); EGFR Non-African American 113.2 (>60)
[2016-10-24] MEDS: Insulin LISPRO* 1 UNITS UNIT SUBCUT SCH ×7 (08:17→18:19)
[2016-10-24] MEDS: Nystatin TOP POWDER* 15 GM BTL TOPICAL SCH ×2 (08:18→20:39)
[2016-10-24] MEDS: Docusate CAP* 100 MG PO SCH ×3 (08:27→20:42)
[2016-10-24] MEDS: Atenolol TAB* 50 MG PO SCH (08:27)
[2016-10-24] MEDS: Omeprazole CAP* 20 MG PO SCH (08:28)
[2016-10-24] MEDS: Furosemide TAB* 20 MG PO SCH (08:28)
[2016-10-24] MEDS: Vitamin B Complex TAB PO SCH (08:28)
[2016-10-24] MEDS: Lactobacillus Acidophilu (GG)* 1 CAP CAP PO SCH ×2 (08:28→20:37)
[2016-10-24] MEDS: Cholecalciferol TAB* 400 UNIT PO SCH (08:28)
[2016-10-24] MEDS: Cetirizine* 10 MG TAB PO SCH (08:28)
[2016-10-24] MEDS: Vitamin THERAPEUTIC TAB PO SCH (08:28)
[2016-10-24] MEDS: oxyCODONE SR TAB(*) 40 MG TAB.SR PO SCH ×2 (08:28→20:37)
[2016-10-24] MEDS: Enoxaparin(*) 40 MG/0.4 ML SYR SUBCUT SCH (08:29)
[2016-10-24] MEDS: Cefepime(*) 2 GM in NS 0.9% 50 ML* 50 ML IVPB SCH ×2 (08:36→20:42)
[2016-10-24] MEDS: Insulin GLARGINE(*) 1 UNITS UNIT SUBCUT SCH ×2 (09:37→20:37)
[2016-10-24 10:17] LABS: C Reactive Protein 38.79 mg/L (< 5.00)
[2016-10-24] MEDS ORDERED: Vancomycin Trough Check NOTE FOLLOW UP ONE (11:30)
[2016-10-24 12:24] LABS: C Reactive Protein 34.47 mg/L (< 5.00)
--- NOTE | 2016-10-24 13:06 | PN ---
Progress Note - Progress Note Date of Service: 10/24/16 SOAP: Subjective: POD #7 left leg stump revision. Doing well. States that he is still having some burning pain to distal stump. Denies CP/SOB. Objective: Vitals: Temp Pulse Resp BP Pulse Ox 98.8 F 71 18 108/62 95 10/24/16 11:31 /07/08 11:31 10/24/16 12:06 10/24/16 11:31 10/24/16 11:31 Gen: A&O x3, NAD rest LLE: Incision C/D, small amount of wound dehiscence but improved from yesterday. No significant edema. Sensation intact Labs: Laboratory Results - last 24 hr 10/23/16 10/23/16 10/23/16 12:19 17:04 20:58 BUN Creatinine Est GFR ( Amer) Est GFR (Non-Af Amer) POC Glucose (mg/dL) 173 H 150 H 246 H C-Reactive Protein Vancomycin Trough 10/24/16 10/24/16 10/24/16 05:42 07:43 11:15 BUN 11 Creatinine 0.71 Est GFR ( Amer) 145.5 Est GFR (Non-Af Amer) 113.2 POC Glucose (mg/dL) 120 H C-Reactive Protein 38.79 H 34.47 H Vancomycin Trough 18.0 10/24/16 12:03 BUN Creatinine Est GFR ( Amer) Est GFR (Non-Af Amer) POC Glucose (mg/dL) 283 H C-Reactive Protein Vancomycin Trough Assessment: POD #7 Left leg stump revision Plan: New betadine WTD dressing applied. Continue elevation frequently Continue IV abx
--- NOTE | 2016-10-24 17:12 | PN ---
Progress Note - Progress Note Date of Service: 10/24/16 SOAP: Subjective: CC: leg infection HPI: 61 yo man with recent left BKA for chronic osteomyelitis, had wound necrosis, readmitted for stump revision. Feels well, no rash or diarrhea. Burning pain at surgical site. Incision intact, no drainage he's aware of. Objective: [] Vital Signs Temp 37.1 C 10/24/16 11:31 Pulse 70 10/24/16 15:19 Resp 18 10/24/16 16:08 BP 129/66 10/24/16 15:19 Pulse Ox 94 10/24/16 16:00 Intake & Output 10/23/16 10/24/16 10/24/16 18:59 06:59 18:59 Intake Total 2641 2204 1428 Output Total 1175 1000 775 Balance 1466 1204 653 Intake: IV Fluids 30 704 ABX - VANCOMYCIN 539 Cefepime 55 NS (0.9%) 30 110 IVPB 651 708 ABX - VANCOMYCIN 536 620 Cefepime 55 NS (0.9%) 60 88 Oral 1960 1500 720 Output: Urine 1175 1000 775 Other: Date of Last Bowel 10/23/16 Movement # Bowel Movements 1 1 Estimated Stool Amount Small Medium Small Gen:Awake, no distress HEENT:PERRL, MMM Neck:Supple Heart:RRR no murmur Lungs:CTA BL Abd:+BS NTND soft Skin: no rash MSK: L leg stump incision intact trace erythema Assessment: 1. L leg stump necrosis s/p revision 2. chronic osteomyelitis of left calcaneous s/p BKA 3. morbid obesity and lymphedema 4. diabetes with neuropathy 5. elevated crp, improving Plan: 1. continue vancomycin goal tr 15-20, and cefepime day I am away until 10/31 and can see him then at [facility] [place] or in fu as outpatient if he leaves before then, in that case please arrange appt with my office at discharge
[2016-10-24] MEDS: Atorvastatin* 20 MG TAB PO SCH (17:31)
[2016-10-24] MEDS: amLODIPine TAB* 5 MG PO SCH (20:38)
[2016-10-24] MEDS: Calcium Carbonate CHEW TAB* 500 MG (TUMS) PO PRN (21:22)
[2016-10-25] MEDS: oxyCODONE TAB* 5 MG TAB PO PRN ×6 (02:35→23:58)
[2016-10-25] MEDS: Vancomycin(*) 1,000 MG in NS 0.9% 250 ML* 250 ML IVPB SCH ×4 (06:18→23:58)
[2016-10-25] MEDS: hydrOXYzine HCL TAB* 25 MG PO PRN ×3 (06:25→15:33)
[2016-10-25] MEDS: Omeprazole CAP* 20 MG PO SCH (07:36)
[2016-10-25] MEDS: Insulin LISPRO* 1 UNITS UNIT SUBCUT SCH ×6 (07:51→18:20)
--- NOTE | 2016-10-25 09:01 | PN ---
Progress Note - Progress Note Date of Service: 10/25/16 SOAP: Subjective: [Pt is doing well. He does have some pain but it is controlled. He denies CP, SOB, calf pain or f/c. Objective: 61 M NAD, sitting comfortably in bed LLE- dressing c/d/i, knee nontender to palpation, no warmth or erythema RLE- swelling improved, chronic skin changes, +DF/PF, NVI Vital Signs Temp Pulse Resp BP Pulse Ox 97.9 F 65 16 121/63 96 10/25/16 07:46 10/25/16 07:46 10/25/16 07:46 10/25/16 07:46 10/25/16 07:46 Laboratory Results - last 24 hr 10/24/16 10/24/16 10/24/16 05:42 07:43 11:15 POC Glucose (mg/dL) 120 H C-Reactive Protein 38.79 H 34.47 H Vancomycin Trough 18.0 10/24/16 10/24/16 10/24/16 12:03 17:08 20:36 POC Glucose (mg/dL) 283 H 154 H 140 H C-Reactive Protein Vancomycin Trough 10/25/16 07:41 POC Glucose (mg/dL) 118 H C-Reactive Protein Vancomycin Trough Assessment: POD 8 L leg stump revision Plan: Cont IV abx per ID Dressing change tomorrow
[2016-10-25] MEDS: oxyCODONE SR TAB(*) 40 MG TAB.SR PO SCH ×2 (09:13→22:21)
[2016-10-25] MEDS: Atenolol TAB* 50 MG PO SCH (09:14)
[2016-10-25] MEDS: Cetirizine* 10 MG TAB PO SCH (09:14)
[2016-10-25] MEDS: Vitamin THERAPEUTIC TAB PO SCH (09:14)
[2016-10-25] MEDS: Lactobacillus Acidophilu (GG)* 1 CAP CAP PO SCH ×2 (09:14→22:21)
[2016-10-25] MEDS: Furosemide TAB* 20 MG PO SCH (09:14)
[2016-10-25] MEDS: Docusate CAP* 100 MG PO SCH ×2 (09:14→21:32)
[2016-10-25] MEDS: Vitamin B Complex TAB PO SCH (09:14)
[2016-10-25] MEDS: Cholecalciferol TAB* 400 UNIT PO SCH (09:14)
[2016-10-25] MEDS: Cefepime(*) 2 GM in NS 0.9% 50 ML* 50 ML IVPB SCH ×2 (09:17→21:26)
[2016-10-25] MEDS: Insulin GLARGINE(*) 1 UNITS UNIT SUBCUT SCH ×2 (09:18→21:26)
[2016-10-25] MEDS: Enoxaparin(*) 40 MG/0.4 ML SYR SUBCUT SCH (09:18)
[2016-10-25] MEDS: Nystatin TOP POWDER* 15 GM BTL TOPICAL SCH ×2 (09:28→21:36)
--- NOTE | 2016-10-25 13:04 | PN ---
Subjective Date of Service: 10/25/16 Interval History: Patient seen this afternoon. No complaints. Pain seems well controlled. No fever or chills. Family History: Unchanged from Admission Social History: Unchanged from Admission Past Medical History: Unchanged from Admission Objective Active Medications: Al Hydrox/Mg Hydrox/Simethicone (Maalox Plus*) 30 ml PO Q4H PRN PRN Reason: INDIGESTION Amlodipine Besylate (Norvasc Tab*) 5 mg PO BEDTIME [facility] Last Admin: 10/24/16 20:38 Dose: 5 mg Atenolol (Tenormin Tab*) 50 mg PO QAM [facility] Last Admin: 10/25/16 09:14 Dose: 50 mg Atorvastatin Calcium (Lipitor*) 20 mg PO 1700 [facility] Last Admin: 10/24/16 17:31 Dose: 20 mg Calcium Carbonate (Tums*) 1,000 mg PO BID PRN PRN Reason: INDIGESTION Last Admin: 10/24/16 21:22 Dose: 1,000 mg Cetirizine HCl (Zyrtec*) 10 mg PO DAILY [facility] PRN Reason: Protocol Last Admin: 10/25/16 09:14 Dose: 10 mg Cholecalciferol (Vitamin D Tab*) 400 unit PO DAILY [facility] Last Admin: 10/25/16 09:14 Dose: 400 unit Dextrose (D50w Syringe 50 Ml*) 12.5 gm IV PUSH .FOR FS < 60 - SS PRN PRN Reason: FS < 60 Diphenhydramine HCl (Benadryl Iv*) 25 mg IV Q6H PRN PRN Reason: itching Docusate Sodium (Colace Cap*) 100 mg PO BID [facility] Last Admin: 10/25/16 09:14 Dose: 100 mg Enoxaparin Sodium (Lovenox(*)) 40 mg SUBCUT Q24H [facility] Last Admin: 10/25/16 09:18 Dose: 40 mg Furosemide (Lasix Tab*) 20 mg PO DAILY [facility] Last Admin: 10/25/16 09:14 Dose: 20 mg Heparin Sodium (Porcine) (Heparin Flush Picc/Ml/Cvc(*)) 1 ml FLUSH 0600,1800 [facility] PRN Reason: Protocol Last Admin: 10/25/16 06:12 Dose: Not Given Hydroxyzine HCl (Atarax Tab*) 25 mg PO Q4H PRN PRN Reason: ITCHING Last Admin: 10/25/16 10:50 Dose: 25 mg Cefepime HCl 2 gm/ Sodium (Chloride) 50 mls @ 100 mls/hr IVPB Q12H [facility] Last Admin: 10/25/16 09:17 Dose: 100 mls/hr Vancomycin HCl 1,000 mg/ (Sodium Chloride) 250 mls @ 166.667 mls/hr IVPB Q6H [facility] Last Admin: 10/25/16 12:00 Dose: 166.667 mls/hr Insulin Glargine (Lantus(*)) 80 units SUBCUT BID [facility] Last Admin: 10/25/16 09:18 Dose: 80 units Insulin Human Lispro (Humalog*) 0 - 15 units SUBCUT AC [facility] PRN Reason: Protocol Last Admin: 10/25/16 07:51 Dose: Not Given Insulin Human Lispro (Humalog*) 0 - 15 units SUBCUT AC [facility] PRN Reason: Protocol Last Admin: 10/25/16 09:17 Dose: 12 unit Lactobacillus Rhamnosus (Culturelle*) 1 cap PO BID [facility] Last Admin: 10/25/16 09:14 Dose: 1 cap Multivitamins (Theragran Tab*) 1 tab PO DAILY [facility] Last Admin: 10/25/16 09:14 Dose: 1 tab Nystatin (Nystatin Top Powder*) 1 applic TOPICAL BID [facility] Last Admin: 10/25/16 09:28 Dose: 1 applic Omeprazole (Prilosec Cap*) 20 mg PO DAILY@0730 [facility] Last Admin: 10/25/16 07:36 Dose: 20 mg Ondansetron HCl (Zofran Inj*) 4 mg IV Q6H PRN PRN Reason: nausea Last Admin: 10/20/16 14:43 Dose: 4 mg Oxycodone HCl (Roxycodone Tab*) 30 mg PO Q4H PRN PRN Reason: PAIN Last Admin: 10/25/16 10:49 Dose: 30 mg Oxycodone HCl (Oxycontin(*)) 40 mg PO BID [facility] Last Admin: 10/25/16 09:13 Dose: 40 mg Pharmacy Consult (Vancomycin Per Pharmacy*) 1 note FOLLOW UP . PRN PRN Reason: PER PROTOCOL Pharmacy Profile Note (Vancomycin Trough Check) 1 note FOLLOW UP 0530 ONE Stop: 10/27/16 05:31 Trazodone HCl (Desyrel Tab*) 25 mg PO BEDTIME PRN PRN Reason: insomnia Last Admin: 10/18/16 01:08 Dose: 25 mg Vitamin B Complex/Vitamin E (Complex B-100*) 1 tab PO DAILY [facility] Last Admin: 10/25/16 09:14 Dose: 1 tab Vital Signs 10/24/16 10/24/16 10/24/16 14:08 15:19 15:29 Temperature 98.0 F Pulse Rate 70 Respiratory 18 20 Rate Blood Pressure 129/66 (mmHg) O2 Sat by Pulse 94 Oximetry 10/24/16 10/25/16 10/25/16 23:34 00:06 02:35 Temperature 98.1 F Pulse Rate 73 Respiratory 16 18 16 Rate Blood Pressure 121/53 (mmHg) O2 Sat by Pulse 94 Oximetry 10/25/16 10/25/16 10/25/16 11:13 12:23 12:30 Temperature 97.2 F Pulse Rate 60 Respiratory 16 16 Rate Blood Pressure 125/61 (mmHg) O2 Sat by Pulse 97 97 Oximetry Oxygen Devices in Use Now: Nasal Cannula Appearance: Middle-aged, obese, M, laying in chair in NAD Eyes: No Scleral Icterus Ears/Nose/Mouth/Throat: Mucous Membranes Moist Neck: NL Appearance and Movements; NL JVP Respiratory: Symmetrical Chest Expansion and Respiratory Effort, Clear to Auscultation Cardiovascular: NL Sounds; No Murmurs; No JVD, RRR Abdominal: - - Obese, soft, non-tender Extremities: - - Minimal LE edema, chronic RLE skin changes, L BKA with dressing in place Neurological: Alert and Oriented x 3 Result Diagrams: 10/20/16 14:30 10/24/16 05:42 Microbiology and Other Data: Assess/Plan/Problems-Billing Assessment: L stump revision in a 61 yo M with hx of HTN, DM, COPD, chronic lymphedema, MASON and hx of osteomyelitis of LLE s/p BKA - Patient Problems (1) Amputation stump infection Current Visit: Yes Comment: s/p revision by Dr. Meyers on 10/17. Appreciate ID assistance, continue Vanc/Cefepime (switched from Zosyn). Wound vac removed by Dr. Meyers on 10/20. Plan from ortho to observe in the hospital until patient is far along in healing process (2) Chronic pain Current Visit: No Comment: Continue increased Oxycontin 40 mg BID and Oxycodone 30 mg q4h prn. Weaned off of [employer] (3) Diabetes Current Visit: No Comment: Continue Lantus 80 units BID (home dose) with HISS. (4) MASON (obstructive sleep apnea) Current Visit: No Comment: Continue home BiPAP. (5) HTN (hypertension) Current Visit: No Comment: Continue Norvasc and Atenolol. Holding Lisinopril. BPs maintaining. If he becomes HTN can restart Lisinopril. (6) Lymphedema Current Visit: No Comment: Chronic, likely related to RV and diastolic failure. Continue Lasix. (7) DVT prophylaxis Current Visit: No Comment: Lovenox/SCD Status and Disposition: Will sign off at this time. Please contact if you have any further questions
[2016-10-25] MEDS: Atorvastatin* 20 MG TAB PO SCH (18:21)
[2016-10-25] MEDS ORDERED: NS 0.9% 50 ML* 50 ML ONE (21:24)
[2016-10-25] MEDS: amLODIPine TAB* 5 MG PO SCH (21:28)
[2016-10-26] MEDS: hydrOXYzine HCL TAB* 25 MG PO PRN ×6 (00:14→20:31)
[2016-10-26] MEDS: oxyCODONE TAB* 5 MG TAB PO PRN ×5 (04:08→20:30)
[2016-10-26] MEDS: Vancomycin(*) 1,000 MG in NS 0.9% 250 ML* 250 ML IVPB SCH ×3 (05:43→18:27)
[2016-10-26] MEDS: Omeprazole CAP* 20 MG PO SCH (07:31)
[2016-10-26] MEDS: Cholecalciferol TAB* 400 UNIT PO SCH (09:53)
[2016-10-26] MEDS: oxyCODONE SR TAB(*) 40 MG TAB.SR PO SCH ×2 (09:53→20:29)
[2016-10-26] MEDS: Vitamin B Complex TAB PO SCH (09:53)
[2016-10-26] MEDS: Atenolol TAB* 50 MG PO SCH (09:53)
[2016-10-26] MEDS: Furosemide TAB* 20 MG PO SCH (09:54)
[2016-10-26] MEDS: Cetirizine* 10 MG TAB PO SCH (09:54)
[2016-10-26] MEDS: Vitamin THERAPEUTIC TAB PO SCH (09:54)
[2016-10-26] MEDS: Lactobacillus Acidophilu (GG)* 1 CAP CAP PO SCH ×2 (09:54→20:29)
[2016-10-26] MEDS: Docusate CAP* 100 MG PO SCH ×2 (09:55→20:28)
[2016-10-26] MEDS: Insulin LISPRO* 1 UNITS UNIT SUBCUT SCH ×6 (09:56→18:30)
[2016-10-26] MEDS: Insulin GLARGINE(*) 1 UNITS UNIT SUBCUT SCH ×2 (09:56→20:37)
[2016-10-26] MEDS: Enoxaparin(*) 40 MG/0.4 ML SYR SUBCUT SCH (09:58)
[2016-10-26] MEDS: Nystatin TOP POWDER* 15 GM BTL TOPICAL SCH ×2 (10:00→20:41)
[2016-10-26] MEDS: Cefepime(*) 2 GM in NS 0.9% 50 ML* 50 ML IVPB SCH ×2 (10:02→20:38)
--- NOTE | 2016-10-26 10:18 | PN ---
Progress Note - Progress Note Date of Service: 10/26/16 SOAP: Subjective: []Patient seen OOB in chair. Feels that his stump pain is improving some. States his sugars have been slightly better as well. Objective: [] Vital Signs Temp 98.1 F 10/26/16 04:28 Pulse 70 10/26/16 04:28 Resp 18 10/26/16 09:53 BP 119/58 10/26/16 04:28 Pulse Ox 98 10/26/16 04:28 Intake & Output 10/25/16 10/26/16 10/26/16 18:59 06:59 18:59 Intake Total 1090 3962 270 Output Total 800 400 200 Balance 290 3562 70 Intake: IV Fluids 1202 270 ABX - VANCOMYCIN 270 NS (0.9%) 1202 IVPB 330 60 ABX - VANCOMYCIN 270 Cefepime 60 60 Oral 760 2700 Output: Urine 800 400 200 Laboratory Results - last 24 hr 10/25/16 10/25/16 10/25/16 12:04 16:18 21:19 POC Glucose (mg/dL) 287 H 235 H 216 H 10/26/16 07:33 POC Glucose (mg/dL) 155 H Left stump dressings were removed. Still with some maceration along mid portion of incision line with wet necrosis in 3 small areas. No foul odor. Assessment: []s/p revision infected BKA stump Plan: []Continue with Wet to dry betadine dressing changes using gauze and NOT telfa, kerlex and RHONDA to help debride superficial wet necrosis. IV Cefepime and Vanco
[2016-10-26] MEDS: Calcium Carbonate CHEW TAB* 500 MG (TUMS) PO PRN ×2 (10:35→21:22)
[2016-10-26] MEDS: DICLOFENAC 1% TOPICAL SCH ×3 (15:13→20:34)
[2016-10-26] MEDS: Atorvastatin* 20 MG TAB PO SCH (16:06)
[2016-10-26] MEDS: amLODIPine TAB* 5 MG PO SCH (20:29)
[2016-10-27] MEDS: oxyCODONE TAB* 5 MG TAB PO PRN ×6 (00:30→20:19)
[2016-10-27] MEDS: hydrOXYzine HCL TAB* 25 MG PO PRN ×6 (00:31→20:19)
[2016-10-27] MEDS: Vancomycin(*) 1,000 MG in NS 0.9% 250 ML* 250 ML IVPB SCH ×4 (00:32→18:23)
[2016-10-27] MEDS ORDERED: Vancomycin Trough Check NOTE FOLLOW UP ONE (05:30)
[2016-10-27] MEDS: Omeprazole CAP* 20 MG PO SCH (08:32)
[2016-10-27] MEDS: Vitamin B Complex TAB PO SCH (08:57)
[2016-10-27] MEDS: Furosemide TAB* 20 MG PO SCH (08:57)
[2016-10-27] MEDS: Insulin LISPRO* 1 UNITS UNIT SUBCUT SCH ×6 (08:57→18:23)
[2016-10-27] MEDS: oxyCODONE SR TAB(*) 40 MG TAB.SR PO SCH ×2 (08:58→20:20)
[2016-10-27] MEDS: Cholecalciferol TAB* 400 UNIT PO SCH (08:58)
[2016-10-27] MEDS: Lactobacillus Acidophilu (GG)* 1 CAP CAP PO SCH ×2 (08:58→20:19)
[2016-10-27] MEDS: Docusate CAP* 100 MG PO SCH ×2 (08:58→20:22)
[2016-10-27] MEDS: Cetirizine* 10 MG TAB PO SCH (08:58)
[2016-10-27] MEDS: Vitamin THERAPEUTIC TAB PO SCH (08:58)
[2016-10-27] MEDS: Atenolol TAB* 50 MG PO SCH (08:58)
[2016-10-27] MEDS: Enoxaparin(*) 40 MG/0.4 ML SYR SUBCUT SCH (08:59)
--- NOTE | 2016-10-27 09:08 | PN ---
Progress Note - Progress Note Date of Service: 10/27/16 SOAP: Subjective: []Patient seen OOB in chair. No changes orthopedically. Objective: [] Vital Signs Temp 97.9 F 10/27/16 07:54 Pulse 69 10/27/16 07:54 Resp 16 10/27/16 08:58 BP 133/59 10/27/16 07:54 Pulse Ox 92 10/27/16 07:54 Intake & Output 10/26/16 10/27/16 10/27/16 18:59 06:59 18:59 Intake Total 2058 1751 Output Total 675 1575 Balance 1383 176 Intake: IV Fluids 678 60 ABX - VANCOMYCIN 540 Cefepime 100 NS (0.9%) 38 60 IVPB 611 ABX - VANCOMYCIN 541 Cefepime 70 Oral 1380 1080 Output: Urine 675 1575 Laboratory Results - last 24 hr 10/26/16 10/26/16 10/26/16 11:35 16:51 20:27 POC Glucose (mg/dL) 254 H 149 H 132 H Vancomycin Trough 10/27/16 05:34 POC Glucose (mg/dL) Vancomycin Trough 18.9 Left LLE stump dressing to be changed later today, no drainage through dressing Assessment: []s/p revision infected BKA stump LLE Plan: []Change dressing with betadine soaked 4x4s, kerlex and RHONDA Continue IV Cefepime and Vanco
[2016-10-27] MEDS: Insulin GLARGINE(*) 1 UNITS UNIT SUBCUT SCH ×2 (09:12→20:21)
[2016-10-27] MEDS: DICLOFENAC 1% TOPICAL SCH ×4 (09:13→20:24)
[2016-10-27] MEDS: Cefepime(*) 2 GM in NS 0.9% 50 ML* 50 ML IVPB SCH ×2 (09:13→20:20)
[2016-10-27] MEDS: Nystatin TOP POWDER* 15 GM BTL TOPICAL SCH ×2 (10:48→20:22)
[2016-10-27] MEDS: Atorvastatin* 20 MG TAB PO SCH (16:39)
[2016-10-27] MEDS: amLODIPine TAB* 5 MG PO SCH (20:20)
[2016-10-27] MEDS: traZODone TAB* 50 MG TAB PO PRN (20:21)
[2016-10-28] MEDS: hydrOXYzine HCL TAB* 25 MG PO PRN ×6 (00:14→22:30)
[2016-10-28] MEDS: oxyCODONE TAB* 5 MG TAB PO PRN ×6 (00:15→22:24)
[2016-10-28] MEDS: Vancomycin(*) 1,000 MG in NS 0.9% 250 ML* 250 ML IVPB SCH ×5 (00:18→23:42)
[2016-10-28] MEDS: Omeprazole CAP* 20 MG PO SCH (07:37)
[2016-10-28] MEDS: Insulin LISPRO* 1 UNITS UNIT SUBCUT SCH ×6 (08:15→18:16)
[2016-10-28] MEDS: Cefepime(*) 2 GM in NS 0.9% 50 ML* 50 ML IVPB SCH ×2 (08:57→21:04)
[2016-10-28] MEDS: Cholecalciferol TAB* 400 UNIT PO SCH (08:59)
[2016-10-28] MEDS: Cetirizine* 10 MG TAB PO SCH (08:59)
[2016-10-28] MEDS: Atenolol TAB* 50 MG PO SCH (09:00)
[2016-10-28] MEDS: Lactobacillus Acidophilu (GG)* 1 CAP CAP PO SCH ×2 (09:00→21:01)
[2016-10-28] MEDS: Vitamin B Complex TAB PO SCH (09:00)
[2016-10-28] MEDS: Docusate CAP* 100 MG PO SCH ×3 (09:00→21:44)
[2016-10-28] MEDS: Furosemide TAB* 20 MG PO SCH (09:00)
[2016-10-28] MEDS: Vitamin THERAPEUTIC TAB PO SCH (09:00)
[2016-10-28] MEDS: DICLOFENAC 1% TOPICAL SCH ×4 (09:01→21:05)
[2016-10-28] MEDS: oxyCODONE SR TAB(*) 40 MG TAB.SR PO SCH ×2 (09:01→21:01)
[2016-10-28] MEDS: Enoxaparin(*) 40 MG/0.4 ML SYR SUBCUT SCH (09:02)
[2016-10-28] MEDS: Insulin GLARGINE(*) 1 UNITS UNIT SUBCUT SCH ×2 (09:26→21:03)
--- NOTE | 2016-10-28 11:09 | PN ---
Progress Note - Progress Note Date of Service: 10/28/16 SOAP: Subjective: []Patient seen OOB in chair. In good spirits today. Feels that his pain continues to improve. Objective: [] Vital Signs Temp 98.0 F 10/28/16 08:23 Pulse 71 10/28/16 08:23 Resp 16 10/28/16 09:01 BP 118/72 10/28/16 08:23 Pulse Ox 95 10/28/16 08:23 Intake & Output 10/27/16 10/28/16 10/28/16 18:59 06:59 18:59 Intake Total 1900 3150 356 Output Total 200 1150 300 Balance 1700 2000 56 Intake: IV Fluids 160 450 53 ABX - VANCOMYCIN 450 ABX - ZOSYN 100 NS (0.9%) 60 53 IVPB 183 ABX - VANCOMYCIN 183 Oral 1740 2700 120 Output: Urine 200 1150 300 Other: Date of Last Bowel 10/28/16 Movement # Bowel Movements 1 Estimated Stool Amount Large Laboratory Results - last 24 hr 10/27/16 10/27/16 10/27/16 07:32 12:09 16:42 POC Glucose (mg/dL) 123 H 254 H 220 H 10/27/16 10/28/16 20:19 07:44 POC Glucose (mg/dL) 194 H 104 Dressings removed from LLE stump Improving with less edema, and much less wet necrosis, only 1 small area noted mid incision new betadine soaked 4x4s, kerlex and RHONDA wraps applied without difficulty Assessment: []s/p revision infected BKA LLE Plan: []Continue current antibiotics-Cefepime and Vanco Daily betadine wet-dry dressing changes
[2016-10-28] MEDS: Calcium Carbonate CHEW TAB* 500 MG (TUMS) PO PRN ×2 (12:43→19:51)
[2016-10-28] MEDS: Nystatin TOP POWDER* 15 GM BTL TOPICAL SCH ×2 (14:44→21:15)
[2016-10-28] MEDS: Atorvastatin* 20 MG TAB PO SCH (17:17)
[2016-10-28] MEDS: amLODIPine TAB* 5 MG PO SCH (21:01)
[2016-10-28] MEDS: traZODone TAB* 50 MG TAB PO PRN (23:00)
[2016-10-29] MEDS: oxyCODONE TAB* 5 MG TAB PO PRN ×6 (02:23→23:31)
[2016-10-29] MEDS: hydrOXYzine HCL TAB* 25 MG PO PRN ×6 (02:23→23:30)
[2016-10-29] MEDS: Vancomycin(*) 1,000 MG in NS 0.9% 250 ML* 250 ML IVPB SCH (06:35)
[2016-10-29] MEDS: Omeprazole CAP* 20 MG PO SCH (07:58)
[2016-10-29] MEDS: Insulin LISPRO* 1 UNITS UNIT SUBCUT SCH ×6 (08:09→17:59)
[2016-10-29] MEDS: Docusate CAP* 100 MG PO SCH ×2 (08:10→21:10)
[2016-10-29] MEDS: Nystatin TOP POWDER* 15 GM BTL TOPICAL SCH ×2 (08:10→21:13)
[2016-10-29] MEDS: DICLOFENAC 1% TOPICAL SCH ×4 (09:01→21:13)
[2016-10-29] MEDS: Cefepime(*) 2 GM in NS 0.9% 50 ML* 50 ML IVPB SCH ×2 (09:02→21:07)
[2016-10-29] MEDS: Insulin GLARGINE(*) 1 UNITS UNIT SUBCUT SCH ×2 (09:05→21:12)
[2016-10-29] MEDS: Vitamin THERAPEUTIC TAB PO SCH (09:07)
[2016-10-29] MEDS: oxyCODONE SR TAB(*) 40 MG TAB.SR PO SCH ×2 (09:07→21:11)
[2016-10-29] MEDS: Cetirizine* 10 MG TAB PO SCH (09:07)
[2016-10-29] MEDS: Lactobacillus Acidophilu (GG)* 1 CAP CAP PO SCH ×2 (09:07→21:10)
[2016-10-29] MEDS: Vitamin B Complex TAB PO SCH (09:07)
[2016-10-29] MEDS: Furosemide TAB* 20 MG PO SCH (09:07)
[2016-10-29] MEDS: Atenolol TAB* 50 MG PO SCH (09:08)
[2016-10-29] MEDS: Cholecalciferol TAB* 400 UNIT PO SCH (09:08)
[2016-10-29] MEDS: Enoxaparin(*) 40 MG/0.4 ML SYR SUBCUT SCH (09:09)
--- NOTE | 2016-10-29 09:35 | PN ---
Progress Note - Progress Note Date of Service: 10/29/16 SOAP: Subjective: POD #12 Left leg stump revision. Doing very well, pain decreased. Denies CP/SOB Objective: Vitals: Temp Pulse Resp BP Pulse Ox 98.2 F 72 20 119/64 93 10/29/16 08:20 10/29/16 08:20 10/29/16 09:07 10/29/16 08:20 10/29/16 08:20 Gen: A&Ox3, NAD at rest sitting in chair LLE: Incision healing well with sutures in place, 2 small areas of dehiscence to mid portion of wound measuring approx 1cm round. No d/c from wound, no significant edema or erythema to stump Assessment: POD #12 Left leg stump revision Plan: Continue daily betadine WTD dressing changes Continue IV abx D/C to rehab once wound is fully healed
[2016-10-29] MEDS: Vancomycin(*) 1,250 MG in NS 0.9% 250 ML* 250 ML IVPB SCH ×2 (13:33→21:54)
[2016-10-29] MEDS: Atorvastatin* 20 MG TAB PO SCH (17:58)
[2016-10-29] MEDS: traZODone TAB* 50 MG TAB PO PRN ×2 (21:10→21:52)
[2016-10-29] MEDS: amLODIPine TAB* 5 MG PO SCH (21:12)
[2016-10-30] MEDS: oxyCODONE TAB* 5 MG TAB PO PRN ×5 (05:22→22:12)
[2016-10-30] MEDS: hydrOXYzine HCL TAB* 25 MG PO PRN ×4 (05:22→22:13)
[2016-10-30] MEDS: Vancomycin(*) 1,250 MG in NS 0.9% 250 ML* 250 ML IVPB SCH ×3 (05:47→22:13)
[2016-10-30] MEDS: Nystatin TOP POWDER* 15 GM BTL TOPICAL SCH ×2 (08:13→20:58)
[2016-10-30] MEDS: Omeprazole CAP* 20 MG PO SCH (08:49)
[2016-10-30] MEDS ORDERED: NS 0.9% 50 ML* 50 ML ONE (09:00)
[2016-10-30] MEDS: Insulin LISPRO* 1 UNITS UNIT SUBCUT SCH ×6 (09:06→17:36)
[2016-10-30] MEDS: Insulin GLARGINE(*) 1 UNITS UNIT SUBCUT SCH ×2 (09:08→20:52)
[2016-10-30] MEDS: Enoxaparin(*) 40 MG/0.4 ML SYR SUBCUT SCH (09:09)
[2016-10-30] MEDS: Docusate CAP* 100 MG PO SCH ×2 (09:09→20:51)
[2016-10-30] MEDS: Cetirizine* 10 MG TAB PO SCH (09:10)
[2016-10-30] MEDS: Lactobacillus Acidophilu (GG)* 1 CAP CAP PO SCH ×2 (09:10→20:58)
[2016-10-30] MEDS: Vitamin B Complex TAB PO SCH (09:10)
[2016-10-30] MEDS: Furosemide TAB* 20 MG PO SCH (09:10)
[2016-10-30] MEDS: Cefepime(*) 2 GM in NS 0.9% 50 ML* 50 ML IVPB SCH ×2 (09:10→20:53)
[2016-10-30] MEDS: Cholecalciferol TAB* 400 UNIT PO SCH (09:10)
[2016-10-30] MEDS: Vitamin THERAPEUTIC TAB PO SCH (09:17)
[2016-10-30] MEDS: Atenolol TAB* 50 MG PO SCH (09:17)
[2016-10-30] MEDS: oxyCODONE SR TAB(*) 40 MG TAB.SR PO SCH ×2 (09:18→20:51)
--- NOTE | 2016-10-30 09:43 | PN ---
Progress Note - Progress Note Date of Service: 10/30/16 SOAP: Subjective: [Subjective: POD #13 Left leg stump revision. Doing very well, pain decreased. Denies n/v, f/ c/ns Objective: Gen: A&Ox3, NAD at rest sitting in chair LLE: Incision healing well with sutures in place. No d/c from wound.. Pt is able to move knee. NV intact proximal to site. Vital Signs Temp 97.5 F 10/30/16 03:57 Pulse 69 10/30/16 03:57 Resp 16 10/30/16 09:21 BP 145/62 10/30/16 03:57 Pulse Ox 96 10/30/16 03:57 Intake & Output 10/29/17 10/30/16 10/30/16 18:59 06:59 18:59 Intake Total 2315 1855 Output Total 1976 1200 400 Balance 338 655 -400 Intake: IV Fluids 675 55 ABX - VANCOMYCIN 530 Cefepime 55 55 NS (0.9%) 90 Oral 1640 1800 Output: Urine 1974 1200 400 Straight Cath 2 Other: Estimated Void Medium # Bowel Movements 0 Assessment: POD #13 Left leg stump revision Plan: Continue daily betadine WTD dressing changes Continue IV abx D/C to rehab once wound is fully healed
[2016-10-30] MEDS: DICLOFENAC 1% TOPICAL SCH ×4 (09:52→20:56)
[2016-10-30] MEDS ORDERED: Alteplase (CATHFLO)* 2 MG VIAL IV ONE (10:39)
[2016-10-30] MEDS: Atorvastatin* 20 MG TAB PO SCH (17:35)
[2016-10-30] MEDS: Calcium Carbonate CHEW TAB* 500 MG (TUMS) PO PRN (17:56)
[2016-10-30] MEDS: amLODIPine TAB* 5 MG PO SCH (20:51)
[2016-10-30] MEDS: traZODone TAB* 50 MG TAB PO PRN ×2 (20:51→22:16)
[2016-10-31] MEDS: hydrOXYzine HCL TAB* 25 MG PO PRN ×6 (02:08→23:29)
[2016-10-31] MEDS: oxyCODONE TAB* 5 MG TAB PO PRN ×6 (02:08→23:27)
[2016-10-31] MEDS ORDERED: Vancomycin Trough Check NOTE FOLLOW UP ONE (05:30)
[2016-10-31] MEDS: Vancomycin(*) 1,250 MG in NS 0.9% 250 ML* 250 ML IVPB SCH ×3 (05:51→22:38)
[2016-10-31 06:12] LABS: Hematocrit 31 % (42-52); Hemoglobin 9.8 g/dl (14.0-18.0); Mean Platelet Volume 8 um3 (7.4-10.4)
[2016-10-31 06:25] LABS: EGFR African American 140.9 (>60); EGFR Non-African American 109.6 (>60); Vancomycin Trough 16.4 mcg/mL
[2016-10-31] MEDS: Cefepime(*) 2 GM in NS 0.9% 50 ML* 50 ML IVPB SCH ×2 (08:37→21:10)
[2016-10-31] MEDS: oxyCODONE SR TAB(*) 40 MG TAB.SR PO SCH ×2 (08:37→19:28)
[2016-10-31] MEDS: Lactobacillus Acidophilu (GG)* 1 CAP CAP PO SCH ×2 (08:38→21:07)
[2016-10-31] MEDS: Cetirizine* 10 MG TAB PO SCH (08:38)
[2016-10-31] MEDS: Vitamin THERAPEUTIC TAB PO SCH (08:38)
[2016-10-31] MEDS: Furosemide TAB* 20 MG PO SCH (08:38)
[2016-10-31] MEDS: Cholecalciferol TAB* 400 UNIT PO SCH (08:38)
[2016-10-31] MEDS: Vitamin B Complex TAB PO SCH (08:38)
[2016-10-31] MEDS: Docusate CAP* 100 MG PO SCH ×2 (08:39→19:32)
[2016-10-31] MEDS: Enoxaparin(*) 40 MG/0.4 ML SYR SUBCUT SCH (08:42)
[2016-10-31] MEDS: Atenolol TAB* 50 MG PO SCH (09:05)
[2016-10-31] MEDS: Insulin LISPRO* 1 UNITS UNIT SUBCUT SCH ×6 (09:20→18:14)
[2016-10-31] MEDS: Omeprazole CAP* 20 MG PO SCH (09:20)
--- NOTE | 2016-10-31 09:21 | PN ---
Progress Note - Progress Note Date of Service: 10/31/16 SOAP: Subjective: []Patient sitting at edge of bed, feels sleepy and c/o of a headache. Nsg reports that he has been more somnolent over the last 2 days without changes in his pain medications. He states he took a sleeping pill last night and slept for 8 hrs. Medicine has discontinued following him. He wants to wait on having dressing change on LLE stump until he has been moved into his chair. Objective: [] Vital Signs Temp 97.4 F 10/31/16 07:36 Pulse 68 10/31/16 07:36 Resp 16 10/31/16 08:37 BP 138/65 10/31/16 07:36 Pulse Ox 94 10/31/16 07:36 Intake & Output 10/30/16 10/31/16 10/31/16 18:59 06:59 18:59 Intake Total 1780 990 480 Output Total 1260 100 Balance 520 890 480 Intake: Oral 1780 990 480 Output: Urine 1260 100 Other: # Bowel Movements 1 Estimated Stool Amount Medium # Voids 2 Laboratory Results - last 24 hr 10/30/16 10/30/16 10/30/16 11:23 16:34 20:34 Hgb Hct Plt Count MPV BUN Creatinine Est GFR ( Amer) Est GFR (Non-Af Amer) POC Glucose (mg/dL) 245 H 211 H 148 H Vancomycin Trough 10/31/16 10/31/16 10/31/16 05:30 05:30 07:07 Hgb 9.8 L Hct 31 L Plt Count 208 MPV 8 BUN 14 Creatinine 0.73 Est GFR ( Amer) 140.9 Est GFR (Non-Af Amer) 109.6 POC Glucose (mg/dL) 148 H Vancomycin Trough 16.4 no active drainage on his LLE RHONDA dressing change pending Assessment: []s/p revision infected LLE stump- 2 weeks post op. Plan: []Dressing change when in chair betadine WTD Vanco and Cefepime Rehab when wound is healed per Dr. Meyers Reconsult medicine for continued medical follow and diabetes management
[2016-10-31] MEDS: Insulin GLARGINE(*) 1 UNITS UNIT SUBCUT SCH ×2 (09:22→21:08)
[2016-10-31] MEDS: DICLOFENAC 1% TOPICAL SCH ×4 (09:23→19:32)
--- NOTE | 2016-10-31 12:07 | PN ---
Progress Note - Progress Note Date of Service: 10/31/16 Note: LLE stump dressings changed still a small area or wet necrosis in mid portion of the incision, but overall improvement continues no foul odor New betadine soaked 4x4s, Kerlex and RHONDA wraps applied without difficulty
--- NOTE | 2016-10-31 14:03 | PN ---
Subjective Date of Service: 10/31/16 Interval History: Due to patient complexity, hospital medicine asked to reconsult and continue following with patient. Nursing concern expressed for patient somnolence. I did see and examine the patient at bedside. He is sleeping but arouses very easily to voice. He reports that "I always dose off in the daytime." He also endorses being bored. Nursing stated that the patient woke up somewhat confused and remained very somnolent through his morning assessment. He denies fever/chills, reports good pain control. Denies any other complaints. Family History: Unchanged from Admission Social History: Unchanged from Admission Past Medical History: Unchanged from Admission Objective Active Medications: Al Hydrox/Mg Hydrox/Simethicone (Maalox Plus*) 30 ml PO Q4H PRN PRN Reason: INDIGESTION Amlodipine Besylate (Norvasc Tab*) 5 mg PO BEDTIME [facility] Last Admin: 10/30/16 20:51 Dose: 5 mg Atenolol (Tenormin Tab*) 50 mg PO QAM [facility] Last Admin: 10/31/16 09:05 Dose: 50 mg Atorvastatin Calcium (Lipitor*) 20 mg PO 1700 [facility] Last Admin: 10/30/16 17:35 Dose: 20 mg Calcium Carbonate (Tums*) 1,000 mg PO BID PRN PRN Reason: INDIGESTION Last Admin: 10/30/16 17:56 Dose: 1,000 mg Cetirizine HCl (Zyrtec*) 10 mg PO DAILY [facility] PRN Reason: Protocol Last Admin: 10/31/16 08:38 Dose: 10 mg Cholecalciferol (Vitamin D Tab*) 400 unit PO DAILY [facility] Last Admin: 10/31/16 08:38 Dose: 400 unit Dextrose (D50w Syringe 50 Ml*) 12.5 gm IV PUSH .FOR FS < 60 - SS PRN PRN Reason: FS < 60 Diclofenac Sodium (Voltaren 1% Gel (Nf)) 1 applic TOPICAL QID [facility] PRN Reason: Protocol Last Admin: 10/31/16 12:57 Dose: Not Given Diphenhydramine HCl (Benadryl Iv*) 25 mg IV Q6H PRN PRN Reason: itching Docusate Sodium (Colace Cap*) 100 mg PO BID [facility] Last Admin: 10/31/16 08:39 Dose: 100 mg Enoxaparin Sodium (Lovenox(*)) 40 mg SUBCUT Q24H [facility] Last Admin: 10/31/16 08:42 Dose: 40 mg Furosemide (Lasix Tab*) 20 mg PO DAILY [facility] Last Admin: 10/31/16 08:38 Dose: 20 mg Heparin Sodium (Porcine) (Heparin Flush Picc/Ml/Cvc(*)) 1 ml FLUSH 0600,1800 [facility] PRN Reason: Protocol Last Admin: 10/31/16 05:51 Dose: 1 ml Hydroxyzine HCl (Atarax Tab*) 25 mg PO Q4H PRN PRN Reason: ITCHING Last Admin: 10/31/16 11:11 Dose: 25 mg Cefepime HCl 2 gm/ Sodium (Chloride) 50 mls @ 100 mls/hr IVPB Q12H [facility] Last Admin: 10/31/16 08:37 Dose: 100 mls/hr Vancomycin HCl 1,250 mg/ (Sodium Chloride) 250 mls @ 166.667 mls/hr IVPB Q8H [facility] Last Admin: 10/31/16 05:51 Dose: 166.667 mls/hr Insulin Glargine (Lantus(*)) 80 units SUBCUT BID [facility] Last Admin: 10/31/16 09:22 Dose: 80 units Insulin Human Lispro (Humalog*) 0 - 15 units SUBCUT AC [facility] PRN Reason: Protocol Last Admin: 10/31/16 13:02 Dose: 6 unit Insulin Human Lispro (Humalog*) 0 - 15 units SUBCUT AC [facility] PRN Reason: Protocol Last Admin: 10/31/16 13:02 Dose: 14 unit Lactobacillus Rhamnosus (Culturelle*) 1 cap PO BID [facility] Last Admin: 10/31/16 08:38 Dose: 1 cap Multivitamins (Theragran Tab*) 1 tab PO DAILY [facility] Last Admin: 10/31/16 08:38 Dose: 1 tab Omeprazole (Prilosec Cap*) 20 mg PO DAILY@0730 [facility] Last Admin: 10/31/16 09:20 Dose: 20 mg Ondansetron HCl (Zofran Inj*) 4 mg IV Q6H PRN PRN Reason: nausea Last Admin: 10/20/16 14:43 Dose: 4 mg Oxycodone HCl (Roxycodone Tab*) 30 mg PO Q4H PRN PRN Reason: PAIN Last Admin: 10/31/16 11:10 Dose: 30 mg Oxycodone HCl (Oxycontin(*)) 40 mg PO BID [facility] Last Admin: 10/31/16 08:37 Dose: 40 mg Pharmacy Consult (Vancomycin Per Pharmacy*) 1 note FOLLOW UP . PRN PRN Reason: PER PROTOCOL Trazodone HCl (Desyrel Tab*) 25 mg PO BEDTIME PRN PRN Reason: insomnia Last Admin: 10/30/16 22:16 Dose: 25 mg Vitamin B Complex/Vitamin E (Complex B-100*) 1 tab PO DAILY [facility] Last Admin: 10/31/16 08:38 Dose: 1 tab Vital Signs 10/30/16 10/30/16 10/30/16 14:00 15:34 16:00 Temperature 97.9 F Pulse Rate 64 Respiratory 16 14 16 Rate Blood Pressure 125/65 (mmHg) O2 Sat by Pulse 94 Oximetry 10/30/16 10/30/16 10/30/16 17:12 18:18 19:13 Temperature Pulse Rate Respiratory 16 16 Rate Blood Pressure (mmHg) O2 Sat by Pulse 94 Oximetry 10/30/16 10/30/16 10/30/16 19:18 20:18 20:51 Temperature 97.8 F Pulse Rate 67 Respiratory 18 14 15 Rate Blood Pressure 118/61 (mmHg) O2 Sat by Pulse 95 Oximetry 10/30/16 10/30/16 10/30/16 22:12 22:51 23:49 Temperature 97.9 F Pulse Rate 73 Respiratory 20 15 14 Rate Blood Pressure 123/56 (mmHg) O2 Sat by Pulse 92 Oximetry 10/30/16 10/31/16 10/31/16 23:50 02:08 03:32 Temperature 98.0 F Pulse Rate 69 Respiratory 15 15 16 Rate Blood Pressure 139/63 (mmHg) O2 Sat by Pulse 95 Oximetry 10/31/16 10/31/16 10/31/16 04:08 06:21 07:36 Temperature 97.4 F Pulse Rate 68 Respiratory 14 15 18 Rate Blood Pressure 138/65 (mmHg) O2 Sat by Pulse 94 Oximetry 10/31/16 10/31/16 10/31/16 07:43 08:37 10:57 Temperature 98.0 F Pulse Rate 69 Respiratory 16 16 17 Rate Blood Pressure 128/77 (mmHg) O2 Sat by Pulse 96 Oximetry 10/31/16 10/31/16 10/31/16 11:10 11:19 11:37 Temperature 98.5 F Pulse Rate 69 Respiratory 16 18 Rate Blood Pressure 135/74 (mmHg) O2 Sat by Pulse 94 89 Oximetry Oxygen Devices in Use Now: Nasal Cannula Appearance: Male patient, OOB to chair, drowsy but arousable, NAD Eyes: No Scleral Icterus Ears/Nose/Mouth/Throat: Mucous Membranes Moist Neck: NL Appearance and Movements; NL JVP Respiratory: Symmetrical Chest Expansion and Respiratory Effort, Clear to Auscultation Cardiovascular: NL Sounds; No Murmurs; No JVD, RRR Abdominal: NL Sounds; No Tenderness; No Distention Extremities: - - RLE chronic venous changes, LLE dressing c/d/i to stump Neurological: Alert and Oriented x 3 Lines/Tubes/Other Access: Clean, Dry and Intact Peripheral IV Result Diagrams: 10/31/16 05:30 10/31/16 05:30 Microbiology and Other Data: Assess/Plan/Problems-Billing Assessment: L stump revision in a 61 yo M with hx of HTN, DM, COPD, chronic lymphedema, MASON and hx of osteomyelitis of LLE s/p BKA - Patient Problems (1) Amputation stump infection Code(s): T87.40 - INFECTION OF AMPUTATION STUMP, UNSPECIFIED EXTREMITY Comment : S/p revision by Dr. Meyers on 10/17. Appreciate ID assistance, continue vancomycin/cefepime (switched from Zosyn). Wound vac removed by Dr. Meyers on 10/20. Plan from ortho to observe in the hospital until patient is far along in healing process (2) Chronic pain Status: Chronic Code(s): G89.29 - OTHER CHRONIC PAIN Comment: Continue increased oxycontin 40 mg BID and oxycodone 30 mg q4h prn. Concern for somnolence, no evidence of this at this time. Patient has good pain control at this time; would like to keep pain medication consistent. Continue to monitor closely. May need to reduce qHS trazodone if concern persists. (3) Diabetes Code(s): E11.9 - TYPE 2 DIABETES MELLITUS WITHOUT COMPLICATIONS Comment: Fair control, BG mid 100s - 250s Will add additional 10 units (for total of 90 units) this evening. Continue Lispro SSI with carb coverage. (4) MASON (obstructive sleep apnea) Code(s): G47.33 - OBSTRUCTIVE SLEEP APNEA (ADULT) (PEDIATRIC) Comment: Continue home BiPAP. (5) HTN (hypertension) Code(s): I10 - ESSENTIAL (PRIMARY) HYPERTENSION Comment: Normotensive Continue amlodipine, atenolol. Lisinopril on hold. (6) Lymphedema Code(s): I89.0 - LYMPHEDEMA, NOT ELSEWHERE CLASSIFIED Comment: Chronic, likely related to RV and diastolic failure. Continue furosemide. (7) DVT prophylaxis Status: Acute Code(s): [id number] - Comment: SQ Lovenox SCDs Status and Disposition: Inpatient. Dispo per ortho. Hospitalist co-medical management.
[2016-10-31] MEDS: Atorvastatin* 20 MG TAB PO SCH (17:01)
[2016-10-31] MEDS: Ondansetron INJ* 2 MG/ML VIAL IV PRN (18:22)
--- NOTE | 2016-10-31 19:53 | PN ---
PROGRESS NOTE: DATE OF SERVICE: 10/31/16 HISTORY AND HOSPITAL COURSE: Priyank is having minimal pain now in his left stump. Dressing is changed today and healing well, much less swelling, small open area at the distal mid third, but shallow and not particularly purulent. We are going switch to a saline wet-to-dry dressing for his left stump. Continue IV antibiotic coverage and PICC line is in place. Plan will be for discharge soon back to his referring rehab. Nonweightbearing with b.i.d. saline dressings, left stump, and a followup with Dr. Meyers in 7 to 10 days' time. [id number]/[facility] #: [id number] MTDD
[2016-10-31] MEDS ORDERED: Insulin GLARGINE(*) 1 UNITS UNIT SUBCUT ONE (21:00)
[2016-10-31] MEDS: amLODIPine TAB* 5 MG PO SCH (21:06)
[2016-10-31] MEDS: traZODone TAB* 50 MG TAB PO PRN (21:07)
[2016-11-01] MEDS: oxyCODONE TAB* 5 MG TAB PO PRN ×3 (05:25→13:52)
[2016-11-01] MEDS: hydrOXYzine HCL TAB* 25 MG PO PRN ×3 (05:26→13:53)
[2016-11-01] MEDS: Vancomycin(*) 1,250 MG in NS 0.9% 250 ML* 250 ML IVPB SCH ×2 (05:34→14:46)
[2016-11-01 06:04] LABS: BUN/Creatinine Ratio 18.6 (8-20); Calcium 9.2 mg/dL (8.6-10.3); EGFR African American 147.9 (>60); Potassium 4.3 mmol/L (3.5-5.0)
[2016-11-01] MEDS: Insulin LISPRO* 1 UNITS UNIT SUBCUT SCH ×4 (07:23→13:54)
[2016-11-01] MEDS: Docusate CAP* 100 MG PO SCH (09:00)
[2016-11-01] MEDS: DICLOFENAC 1% TOPICAL SCH ×2 (09:00→13:10)
[2016-11-01] MEDS: Cetirizine* 10 MG TAB PO SCH (09:06)
[2016-11-01] MEDS: Furosemide TAB* 20 MG PO SCH (09:06)
[2016-11-01] MEDS: Atenolol TAB* 50 MG PO SCH (09:06)
[2016-11-01] MEDS: oxyCODONE SR TAB(*) 40 MG TAB.SR PO SCH (09:06)
[2016-11-01] MEDS: Cholecalciferol TAB* 400 UNIT PO SCH (09:07)
[2016-11-01] MEDS: Vitamin B Complex TAB PO SCH (09:07)
[2016-11-01] MEDS: Lactobacillus Acidophilu (GG)* 1 CAP CAP PO SCH (09:07)
[2016-11-01] MEDS: Enoxaparin(*) 40 MG/0.4 ML SYR SUBCUT SCH (09:07)
[2016-11-01] MEDS: Cefepime(*) 2 GM in NS 0.9% 50 ML* 50 ML IVPB SCH (09:07)
[2016-11-01] MEDS: Vitamin THERAPEUTIC TAB PO SCH (09:07)
[2016-11-01] MEDS: Omeprazole CAP* 20 MG PO SCH (09:56)
[2016-11-01] MEDS: Insulin GLARGINE(*) 1 UNITS UNIT SUBCUT SCH (09:57)
--- NOTE | 2016-11-01 11:17 | PN ---
Subjective Date of Service: 11/01/16 Interval History: No nursing concerns this AM for somnolence or increased confusion. Patient's CO2 level mildly elevated - patient admits to taking his BiPAP off at night, "because it annoys me." Discussed with the patient the importance of using the machine as long as possible during the night, given his history of MASON. Patient verbalized understanding. No other complaints. Patient in agreement with plan for discharge to [facility], pending insurance approval. Family History: Unchanged from Admission Social History: Unchanged from Admission Past Medical History: Unchanged from Admission Objective Active Medications: Al Hydrox/Mg Hydrox/Simethicone (Maalox Plus*) 30 ml PO Q4H PRN PRN Reason: INDIGESTION Amlodipine Besylate (Norvasc Tab*) 5 mg PO BEDTIME [facility] Last Admin: 10/31/16 21:06 Dose: 5 mg Atenolol (Tenormin Tab*) 50 mg PO QAM [facility] Last Admin: 11/01/16 09:06 Dose: 50 mg Atorvastatin Calcium (Lipitor*) 20 mg PO 1700 [facility] Last Admin: 10/31/16 17:01 Dose: 20 mg Calcium Carbonate (Tums*) 1,000 mg PO BID PRN PRN Reason: INDIGESTION Last Admin: 10/30/16 17:56 Dose: 1,000 mg Cetirizine HCl (Zyrtec*) 10 mg PO DAILY [facility] PRN Reason: Protocol Last Admin: 11/01/16 09:06 Dose: 10 mg Cholecalciferol (Vitamin D Tab*) 400 unit PO DAILY [facility] Last Admin: 11/01/16 09:07 Dose: 400 unit Dextrose (D50w Syringe 50 Ml*) 12.5 gm IV PUSH .FOR FS < 60 - SS PRN PRN Reason: FS < 60 Diclofenac Sodium (Voltaren 1% Gel (Nf)) 1 applic TOPICAL QID [facility] PRN Reason: Protocol Last Admin: 11/01/16 09:00 Dose: Not Given Diphenhydramine HCl (Benadryl Iv*) 25 mg IV Q6H PRN PRN Reason: itching Docusate Sodium (Colace Cap*) 100 mg PO BID [facility] Last Admin: 11/01/16 09:00 Dose: Not Given Enoxaparin Sodium (Lovenox(*)) 40 mg SUBCUT Q24H [facility] Last Admin: 11/01/16 09:07 Dose: 40 mg Furosemide (Lasix Tab*) 20 mg PO DAILY [facility] Last Admin: 11/01/16 09:06 Dose: 20 mg Heparin Sodium (Porcine) (Heparin Flush Picc/Ml/Cvc(*)) 1 ml FLUSH 0600,1800 MICHELLE PRN Reason: Protocol Last Admin: 11/01/16 09:56 Dose: 1 ml Hydroxyzine HCl (Atarax Tab*) 25 mg PO Q4H PRN PRN Reason: ITCHING Last Admin: 11/01/16 09:56 Dose: 25 mg Cefepime HCl 2 gm/ Sodium (Chloride) 50 mls @ 100 mls/hr IVPB Q12H [facility] Last Admin: 11/01/16 09:07 Dose: 100 mls/hr Vancomycin HCl 1,250 mg/ (Sodium Chloride) 250 mls @ 166.667 mls/hr IVPB Q8H [facility] Last Admin: 11/01/16 05:34 Dose: 166.667 mls/hr Insulin Glargine (Lantus(*)) 80 units SUBCUT BID [facility] Last Admin: 11/01/16 09:57 Dose: 80 units Insulin Human Lispro (Humalog*) 0 - 15 units SUBCUT AC [facility] PRN Reason: Protocol Last Admin: 11/01/16 07:23 Dose: Not Given Insulin Human Lispro (Humalog*) 0 - 15 units SUBCUT AC [facility] PRN Reason: Protocol Last Admin: 11/01/16 09:58 Dose: 11 unit Lactobacillus Rhamnosus (Culturelle*) 1 cap PO BID [facility] Last Admin: 11/01/16 09:07 Dose: 1 cap Multivitamins (Theragran Tab*) 1 tab PO DAILY [facility] Last Admin: 11/01/16 09:07 Dose: 1 tab Omeprazole (Prilosec Cap*) 20 mg PO DAILY@0730 [facility] Last Admin: 11/01/16 09:56 Dose: 20 mg Ondansetron HCl (Zofran Inj*) 4 mg IV Q6H PRN PRN Reason: nausea Last Admin: 10/31/16 18:22 Dose: 4 mg Oxycodone HCl (Roxycodone Tab*) 30 mg PO Q4H PRN PRN Reason: PAIN Last Admin: 11/01/16 09:56 Dose: 30 mg Oxycodone HCl (Oxycontin(*)) 40 mg PO BID [facility] Last Admin: 11/01/16 09:06 Dose: 40 mg Pharmacy Consult (Vancomycin Per Pharmacy*) 1 note FOLLOW UP . PRN PRN Reason: PER PROTOCOL Trazodone HCl (Desyrel Tab*) 25 mg PO BEDTIME PRN PRN Reason: insomnia Last Admin: 10/31/16 21:07 Dose: 25 mg Vitamin B Complex/Vitamin E (Complex B-100*) 1 tab PO DAILY [facility] Last Admin: 11/01/16 09:07 Dose: 1 tab Vital Signs 10/31/16 10/31/16 10/31/16 11:19 11:37 13:10 Temperature 98.5 F Pulse Rate 69 Respiratory 18 16 Rate Blood Pressure 135/74 (mmHg) O2 Sat by Pulse 94 89 Oximetry 10/31/16 10/31/16 10/31/16 15:23 15:41 17:23 Temperature 98.0 F Pulse Rate 65 Respiratory 16 20 18 Rate Blood Pressure 143/68 (mmHg) O2 Sat by Pulse 95 Oximetry 10/31/16 10/31/16 10/31/16 19:28 19:31 19:39 Temperature Pulse Rate Respiratory 18 18 18 Rate Blood Pressure (mmHg) O2 Sat by Pulse Oximetry 10/31/16 10/31/16 10/31/16 19:57 21:28 23:16 Temperature 98.1 F 97.9 F Pulse Rate 70 66 Respiratory 22 18 16 Rate Blood Pressure 144/90 121/59 (mmHg) O2 Sat by Pulse 94 93 Oximetry 10/31/16 11/01/16 11/01/16 23:27 01:27 05:25 Temperature Pulse Rate Respiratory 20 18 22 Rate Blood Pressure (mmHg) O2 Sat by Pulse Oximetry 11/01/16 11/01/16 11/01/16 05:32 07:25 09:06 Temperature 98.0 F Pulse Rate 73 Respiratory 18 16 16 Rate Blood Pressure 153/65 (mmHg) O2 Sat by Pulse 92 Oximetry 11/01/16 09:56 Temperature Pulse Rate Respiratory 16 Rate Blood Pressure (mmHg) O2 Sat by Pulse Oximetry Oxygen Devices in Use Now: Nasal Cannula Appearance: Male patient, lying in bed, NAD Eyes: No Scleral Icterus Ears/Nose/Mouth/Throat: Mucous Membranes Moist Neck: NL Appearance and Movements; NL JVP Respiratory: Symmetrical Chest Expansion and Respiratory Effort, Clear to Auscultation Cardiovascular: NL Sounds; No Murmurs; No JVD, RRR Neurological: Alert and Oriented x 3 Result Diagrams: 10/31/16 05:30 07 05:30 Microbiology and Other Data: Assess/Plan/Problems-Billing Assessment: L stump revision in a 61 yo M with hx of HTN, DM, COPD, chronic lymphedema, MASON and hx of osteomyelitis of LLE s/p BKA - Patient Problems (1) Amputation stump infection Code(s): T87.40 - INFECTION OF AMPUTATION STUMP, UNSPECIFIED EXTREMITY Comment : S/p revision by Dr. Meyers on 10/17. Appreciate ID assistance, continue vancomycin/cefepime Wound vac removed by Dr. Meyers on 10/20. Plan to d/c to [facility]hab with continued IV antibiotics (2) Chronic pain Status: Chronic Code(s): G89.29 - OTHER CHRONIC PAIN Comment: Continue increased oxycontin 40 mg BID and oxycodone 30 mg q4h prn. Suspect somnolence secondary to BiPAP non-compliance Patient has good pain control at this time. (3) Diabetes Code(s): E11.9 - TYPE 2 DIABETES MELLITUS WITHOUT COMPLICATIONS Comment: Fair control Continue Lantus 80 units qAM and 90 units qPM, with careful attention to fasting BG Continue Lispro SSI with carb coverage. (4) MASON (obstructive sleep apnea) Code(s): G47.33 - OBSTRUCTIVE SLEEP APNEA (ADULT) (PEDIATRIC) Comment: Continue home BiPAP. (5) HTN (hypertension) Code(s): I10 - ESSENTIAL (PRIMARY) HYPERTENSION Comment: Normotensive Continue amlodipine, atenolol. Resume lisinopril on discharge (6) Lymphedema Code(s): I89.0 - LYMPHEDEMA, NOT ELSEWHERE CLASSIFIED Comment: Chronic, likely related to RV and diastolic failure. Continue furosemide. (7) DVT prophylaxis Status: Acute Code(s): AYJ9212 - Comment: SQ Lovenox SCDs Status and Disposition: Inpatient. Dispo per ortho. Hospitalist co-medical management. Plan for dc to [facility].
--- NOTE | 2016-11-01 12:46 | DS ---
DISCHARGE SUMMARY: DATE OF ADMISSION: 10/17/16 DATE OF DISCHARGE: 11/01/16 ATTENDING PHYSICIAN: Dr. Meyers. (DICTATED BY ELIS PARNELL) ADMISSION DIAGNOSIS: Breakdown, left transtibial amputation site with deep necrotic tissue. DISCHARGE DIAGNOSES: 1. Breakdown, left transtibial amputation site with deep necrotic tissue. 2. Chronic lymphedema. 3. Diabetes mellitus. 4. Chronic obstructive pulmonary disease. 5. Chronic pain. 6. Obstructive sleep apnea. 7. Hypertension. 8. Morbid obesity. SURGERY PERFORMED: Revision, infected left lower extremity stump status post BKA. HISTORY OF PRESENT ILLNESS: The patient is a 61-year-old male with multiple medical problems including diabetes mellitus, chronic lymphedema, osteomyelitis of the left calcaneus, status post BKA that was done initially on 09/26/16. The patient was discharged to [facility] and was reevaluated at the end of September and was noted to have wet necrotic tissue of the incision. He was readmitted on 10/17/16 under the service of Dr. Vikas Meyers, at which time he was taken back to the operating room for revision of his infected stump and placement of wound VAC. He had the wound VAC placed for roughly 7 to 10 days, which there noted to be improvement and he was switched over to Betadine wet-to-dry dressing changes daily. The patient was reevaluated by Dr. Mosqueda from Infectious Disease and was placed on vancomycin and cefepime. He continued to improve and he progressed to saline-soaked 4x4 wet-to-dry dressing changes. He was followed by the medical service regarding his multiple medical comorbidities and was found to be stable for discharge to [facility], 11/01/16. CONDITION ON DISCHARGE: He is afebrile. His dressings were changed this morning and there is significant improvement with minimal necrosis at the incision site. New saline-soaked wet-to-dry dressings were then applied with Kerlix and Wan wraps. DISCHARGE INSTRUCTIONS: Per Dr. Mosqueda's recommendations, we will continue with vancomycin 1250 mg q.8 hours and cefepime 2 g q.12 hours x14 more days. He should have a vanco trough, a CBC, CMP, CRP weekly with results sent to Dr. Mosqueda. He will remain nonweightbearing, Toro transfers. Dr. Meyers would like to see him in followup in roughly 7 to 10 days in the office for reevaluation of his wound. ELIS PARNELL [id number]/[facility] #: [id number] CRISTINA
[2016-11-01 13:37] VITALS: BP 110/61
[2016-11-01] MEDS ORDERED: Insulin GLARGINE(*) 1 UNITS UNIT SUBCUT SCH (21:00)
[2016-11-02] MEDS ORDERED: Insulin GLARGINE(*) 1 UNITS UNIT SUBCUT SCH (09:00)
== END 2016-11-01 15:15 | DRG 475 ==
LOC: AA 13:01 → EDSTATUS 15:00 → SSU 15:55
PROVIDERS: ADMIT Orthopaedic Surgery; ATTEND Orthopaedic Surgery
PROC: 02HV33Z Insertion of Infusion Device into Superior Vena Cava, Percutaneous Approach (ICD-10-PCS; 2016-10-17)
PROC: 0Y6J0Z1 Detachment at Left Lower Leg, High, Open Approach (ICD-10-PCS; principal; 2016-10-17 15:00)
DX: T87.54 Necrosis of amputation stump, left lower extremity (principal); Z68.41 Body mass index [BMI] 40.0-44.9, adult; E11.40 Type 2 diabetes mellitus with diabetic neuropathy, unspecified; K52.1 Toxic gastroenteritis and colitis; I10 Essential (primary) hypertension; E66.01 Morbid (severe) obesity due to excess calories; I45.10 Unspecified right bundle-branch block; M19.90 Unspecified osteoarthritis, unspecified site; T87.44 Infection of amputation stump, left lower extremity; J44.9 Chronic obstructive pulmonary disease, unspecified; Y83.5 Amputation of limb(s) as the cause of abnormal reaction of the patient, or of later complication, without mention of misadventure at the time of the procedure; G47.33 Obstructive sleep apnea (adult) (pediatric); I89.0 Lymphedema, not elsewhere classified; G89.29 Other chronic pain; Z79.4 Long term (current) use of insulin; Z82.49 Family history of ischemic heart disease and other diseases of the circulatory system; Z89.512 Acquired absence of left leg below knee; Z98.84 Bariatric surgery status; Z89.421 Acquired absence of other right toe(s); Y92.9 Unspecified place or not applicable; Z80.9 Family history of malignant neoplasm, unspecified; Z84.89 Family history of other specified conditions; Z87.891 Personal history of nicotine dependence; T36.0X5A Adverse effect of penicillins, initial encounter; R11.0 Nausea; R51 Headache
CPT/HCPCS: 36415; 80048; 80202; 82565; 84443; 84484; 84520; 85014; 85018; 85025; 85049; 86140; 87070; 87073; 87077; 87186; 87205; 88304; 88311; 93005; 94660; 94760; A9270-GY; J0690; J0692; J1100; J1170; J1650; J1885; J2001; J2250; J2270; J2405; J2543; J2704; J2997; J3010; J3370

== ENCOUNTER 2017-07-03 08:04 | Day surgery (SDC) | payer OTHER ==
[~2017-07-03 08:04] MED LIST changes: -Dexamethasone IV* 4 MG/ML 1 ML (4 MG) ONE; +DiMENhydriNATE IV* 50 MG/ML VIAL IV PUSH PRN; +Famotidine IV* 10 MG/ML 2 ML (20 mg) ONE; -HYDROmorphone* 1 MG/ML 1 ML SYR ONE; -KETAMINE HCL* 50 MG/ML 10 ML VIAL ONE; -Ketorolac INJ* 30 MG/ML 1 ML VIAL ONE; -Lidocaine 2% PF * 5 ML VIAL ONE; -Metoclopramide TAB* 10 MG PO ONE; -Midazolam* 1 MG/ML 5 ML VIAL (5 MG) ONE; +Morphine INJ* 2 MG/ML 1 ML CARPUJECT IV PRN; +Naloxone* 0.4 MG/ML 1 ML VIAL IV PRN; -Ondansetron INJ* 2 MG/ML VIAL ONE; +PROCHLORPERAZINE INJ 5 MG/ML 2 ML VIAL IV PRN; -Propofol* 10 MG/ML 20 ML BTL IV PUSH ONE; +Scopolamine 1.5 mg* PATCH TRANSDERM PRN; +ceFAZolin 2 GM in 100 MLS NS (*) BAG IVPB ONE; -fentaNYL* 50 MCG/ML 2 ML VIAL (100 MCG VIAL) ONE; +oxyCODONE/Acetamin 5/325 MG* TAB PO PRN
[2017-07-03] MEDS ORDERED: fentaNYL* 50 MCG/ML 2 ML VIAL (100 MCG VIAL) ONE ×3 (09:33→12:15)
[2017-07-03] MEDS ORDERED: KETAMINE HCL* 50 MG/ML 10 ML VIAL ONE (09:34)
[2017-07-03] MEDS ORDERED: Midazolam* 1 MG/ML 10 ML VIAL (10 MG) ONE (09:34)
[2017-07-03] MEDS ORDERED: ceFAZolin 1 GM in Dextrose (*) 1 GM/50 ML BAG IVPB ONE (09:52)
[2017-07-03] MEDS ORDERED: Bupivacaine 0.5% SDV PF* 10-30ML VIAL ONE (10:16)
[2017-07-03] MEDS ORDERED: Propofol* 10 MG/ML 20 ML BTL IV PUSH ONE (10:55)
[2017-07-03] MEDS ORDERED: Lidocaine 2% PF * 5 ML VIAL ONE (10:55)
[2017-07-03] MEDS: fentaNYL* 50 MCG/ML 2 ML VIAL (100 MCG VIAL) IV PRN ×5 (11:44→12:17)
[2017-07-03] MEDS ORDERED: oxyCODONE/Acetamin 5/325 MG* TAB ONE (12:05)
[2017-07-03 12:21] VITALS: BP 109/69
--- NOTE | 2017-07-04 08:27 | OP ---
OPERATIVE REPORT: DATE OF OPERATION: 07/03/17 DATE OF : 57 SURGEON: Vikas Meyers MD CYANIDE POT HARDENER: Bibi Sheldon PA-C. PRE-OP DIAGNOSIS: Chronic ulceration right second toe with surrounding cellulitis and deep infection . POST-OP DIAGNOSIS: Chronic ulceration right second toe with surrounding cellulitis and deep infectio n. OPERATIVE PROCEDURE: Disarticulation, right second toe MTP joint. DESCRIPTION OF PROCEDURE: Patient was taken to the operating where ankle Esmarch was applied. We ma de a transverse elliptical incision at the proximal phalanx level of his right second toe. We dissec mackenzie subperiosteally to disarticulate the second toe at the MTP joint level. This was sent to patholo gy, deep cultures were sent. We then irrigated thoroughly, dropped the tourniquet and closed dorsal plantar flaps with 2-0 Vicryl suture and 3-0 nylon for the skin and a compression dressing applied. [id number]/[facility] #: [id number]
[2017-07-06] MEDS ORDERED: Scopolamine PATCH Remove* 1 NOTE MISC PATCH OFF ONE (05:56)
== END 2017-07-03 12:40 | disposition home or self-care (01) ==
LOC: OR 08:04
PROVIDERS: ATTEND Orthopaedic Surgery
DX: M86.671 Other chronic osteomyelitis, right ankle and foot (principal); E11.9 Type 2 diabetes mellitus without complications; Z79.4 Long term (current) use of insulin; Z79.84 Long term (current) use of oral hypoglycemic drugs; J44.9 Chronic obstructive pulmonary disease, unspecified; I10 Essential (primary) hypertension; E78.2 Mixed hyperlipidemia; G47.33 Obstructive sleep apnea (adult) (pediatric); Z87.891 Personal history of nicotine dependence
CPT/HCPCS: 87070; 87073; 87205; A9270-GY; J0690; J2250; J2704; J3010

== ENCOUNTER → 2018-02-01 11:02 | Day surgery (SDC) | payer OTHER, MEDICARE ==
[~2018-02-01 11:02] MED LIST changes: -Buffered Lidocaine 0.9% SYRIN* 5 ML/SYR SYRINGE INTRADERM ONE; +Dextrose 50% Syringe 50 ML* 25 GM/50 ML SYRINGE ONE; -DiMENhydriNATE IV* 50 MG/ML VIAL IV PUSH PRN; -Famotidine IV* 10 MG/ML 2 ML (20 mg) IV ONE; -Famotidine IV* 10 MG/ML 2 ML (20 mg) ONE; +Flumazenil* 0.1 MG/ML 5 ML MDV ONE; +Heparin 2 UNITS/ML IVPREMIX* 2,000 ML IV ONE; +Heparin(*) 1000 UNIT/ML 10 ML VIAL CATH LAB IV ONE; +Iohexol 350 (CONTRAST) 200 ML MDV IV ONE; +LORazepam TAB(*) 1 MG ONE; +Lidocaine 1% INJ* 10 MG/ML 30 ML SDV ONE; +Midazolam* 1 MG/ML 10 ML VIAL (10 MG) ONE; -Morphine INJ* 2 MG/ML 1 ML CARPUJECT IV PRN; -Naloxone* 0.4 MG/ML 1 ML VIAL IV PRN; +Naloxone* 0.4 MG/ML 1 ML VIAL ONE; +Ondansetron INJ* 2 MG/ML VIAL ONE; -PROCHLORPERAZINE INJ 5 MG/ML 2 ML VIAL IV PRN; -Scopolamine 1.5 mg* PATCH TRANSDERM PRN; -ceFAZolin 2 GM in 100 MLS NS (*) BAG IVPB ONE; +fentaNYL* 50 MCG/ML 2 ML VIAL (100 MCG VIAL) ONE; +nitroGLYCERIN DRIP* 0 MCG/0 ML BTL ONE; -oxyCODONE/Acetamin 5/325 MG* TAB PO PRN
[2018-02-01 12:24] LABS: ABS Basophils 0 10^3/ul (0-0.2); ABS Eosinophils 0.2 10^3/ul (0-0.6); ABS Lymphocytes 0.7 10^3/ul (1.0-4.8); ABS Monocytes 0.7 10^3/ul (0-0.8); ABS Neutrophils 6.8 10^3/ul (1.5-7.7); ABS Nucleated RBC 0 10^3/ul; Eosinophil % 2.9 % (0-6); Hematocrit 34 % (42-52); Hemoglobin 11.5 g/dl (14.0-18.0); Lymphocyte % 8.4 % (25-47); Mean Corpuscular HGB Conc 34 g/dl (31-36); Mean Corpuscular Hemoglobin 32 pg (27-31); Mean Corpuscular Volume 94 fL (80-94); Nucleated Red Blood Cells % 0.1; Platelet Count 234 10^3/ul (150-450); Red Blood Count 3.65 10^6/ul (4.00-5.40); Red Cell Distribution Width 16 % (10.5-15); White Blood Count 8.5 10^3/ul (3.5-10.8)
[2018-02-01 12:35] LABS: INR 0.95 (0.77-1.02)
[2018-02-01 13:01] LABS: EGFR Non-African American 96.9 (>60)
--- NOTE | 2018-02-01 15:52 | RAD ---
CPT II Codes: G9500 Procedure(s) performed: 1. Diagnostic pelvic and right lower extremity arteriogram. 2. Minx closure device to the left common femoral arteriotomy. Date of service: February 01, 2018 Indication for procedure: Nonhealing right forefoot wound in a patient with a history of left BKA Comparison: OMA dated January 05, 2018 that was of of limited diagnostic utility due to suspected calcified atherosclerosis Contrast: 150 mL Omnipaque 350 Fluoroscopy Time: 7 minutes Vessels Accessed: Percutaneous access was obtained with ultrasound guidance in the left common femoral artery in the retrograde direction towards the heart. Catheter arteriography, with the catheter tip located within the lumen of the following arteries, was performed at the left external iliac artery, left common iliac artery, aorta and superficial femoral artery. Anesthesia: Conscious sedation with IV Fentanyl and Versed as well as local 1% lidocaine injected locally at the arteriotomy site. Conscious sedation time: Timeout: 1315 hours Case end: 1401 hours Total conscious sedation time: 46 minutes Additional medications: * The patient received 1 mg of p.o. Ativan prior to the onset of the procedure. PROCEDURE NOTE AND INTRAPROCEDURAL IMAGING FINDINGS: Image quality and image acquisition is severely limited throughout the examination due to the patient's large body habitus attenuating the fluoroscopic imaging over the abdomen and pelvis and the patient's back and hip discomfort causing him to move throughout most of the procedure. Immediately prior to the procedure the patient signed consent after thoroughly discussing all risks, benefits and alternative therapies. The patient was positioned on the fluoroscopy table in the supine position and the bilateral groins were shaved, prepped and the patient was draped in standard sterile fashion. Using fluoroscopic imaging the location of the left common femoral head was marked externally with a skin marker on the patient's groin. Utilizing sonographic guidance and palpation, the left common femoral artery was cannulated overlying the femoral head with an 18-gauge needle. An ultrasound image was saved. A 0.035" wire was slowly and smoothly advanced into the common femoral artery under fluoroscopic imaging. No buckling of the wire was visualized to indicate dissection. With the wire securing percutaneous arterial access, the needle was removed and a 5-Cypriot SideArm access sheath was advanced under fluoroscopic control into the common femoral artery retrograde into the left external iliac artery securing access. To further characterize and exactly locate the extent of atherosclerotic disease involving the pelvis and right lower extremity diagnostic catheter arteriography was necessary. Power injector arteriography of the lower abdominal aorta and bilateral iliac arteries was performed demonstrating the visualized arteries to be adequately patent. Utilizing a 5-Cypriot rim catheter and hydrophilic wire the contralateral iliac artery was accessed and the wire advanced into the right superficial femoral artery. Over the wire the reverse curve catheter was replaced with the 5-Cypriot multiside hole flush catheter and contrast arteriography was performed. The right common femoral artery, proximal femoral profundus and proximal right superficial femoral artery are adequately patent. Arteriography more inferiorly demonstrates multiple foci of calcified stenoses in the distal right superficial femoral artery as it courses through Nikos's canal but patency is maintained. As noted above, image quality is limited by motion artifact. The popliteal artery provides patent in-line flow into the tibioperoneal trunk and proximal infrapopliteal arteries. The right posterior tibial artery is the dominant artery in the right upper leg. The anterior tibial artery becomes increasingly diminutive at the mid-level right lower leg though motion artifact prevents more reliable evaluation of the artery. Finally 2 digital subtraction angiographic images were acquired of the right lower leg and foot however the patient moved throughout image acquisition rendering the images of limited diagnostic utility. The right posterior tibial artery is the dominant flow into the foot and fills the plantar arteries proximally. There is no filling of the distal right anterior tibial artery or peroneal artery observed but this could be due to severe motion distortion. There is no significant filling of the pedal loop to determine if there is distal communication between branches of the CASH and HALFTONE OPERATOR. At this point the patient's back pain and inability to remain still prevented further imaging. A wire was reinserted and the flush catheter and both were removed under fluoroscopic control. Through the side arm of the access sheath arteriography of the left common femoral artery demonstrated an appropriate puncture of the common femoral artery above the bifurcation and below the inferior epigastric artery. After an appropriate resterilization of the arteriotomy and exchange for new sterile gloves, a Minx closure device was deployed at the common femoral arteriotomy and pressure held for approximately 15 minutes. There were no signs of bleeding at the percutaneous arterial access site and the site was dressed with sterile gauze and Tegaderm. The patient tolerated the procedure well and was transferred to angiography holding bay for standard post procedural observation. SUMMARY OF PROCEDURE, IMAGING FINDINGS AND INTERVENTIONS PERFORMED: 1. Diagnostic studies performed: * Percutaneous access was obtained with ultrasound guidance in the left common femoral artery in the retrograde direction towards the heart. * Catheter arteriography, with the catheter tip located within the lumen of the following arteries, was performed at the left external iliac artery, left common iliac artery, aorta and superficial femoral artery. * Catheter arteriography was performed of the lower abdominal aorta and bilateral iliac arterial system up to the bilateral proximal superficial femoral arteries and all arteries of the right lower extremity as far as the right foot. * At the conclusion of the procedure arteriography was performed through the side arm of the access sheath to image the distal left external iliac artery, left common femoral artery and proximal superficial femoral artery and femoral profundus. 2. Interpretation of diagnostic studies performed: * Patent in-line flow is documented from the abdominal aorta through the bilateral iliac arterial system up to the proximal bilateral femoral arteries. * There are multifocal calcified stenoses in the distal right SFA as it courses through Nikos's canal but in-line flow is maintained into the proximal infrapopliteal arteries. * The patient's dominant arterial flow to the right foot is provided by the posterior tibial artery. * There is no definite filling of the distal most right CASH or peroneal arteries but the image acquisition is distorted by patient motion. 2 arteriograms were attempted of the right foot but both imaging sequences were rendered mostly nondiagnostic due to the patient aggressively moving his leg and foot. * Arteriography performed for the purpose of deploying a percutaneous arterial closure device demonstrates adequately patent left external iliac artery, common femoral artery and proximal superficial femoral artery and femoral profundus. 3. Surgical interventions performed: * Closure of the right common femoral artery was achieved with a Minx closure device followed by 15 minutes of gentle manual pressure. Plan: 1. Evaluation of the distal infrapopliteal arteries can be further supplemented with duplex arterial ultrasound on a nonemergent basis. 2. After revascularization of the infrapopliteal arteries is deemed necessary for wound healing and to preserve the right foot and lower leg that is anticipated that anesthesiology support will be necessary.
[2018-02-01 16:12] VITALS: BP 131/81
== END | disposition home or self-care (01) ==
LOC: CHICATH 11:02
PROVIDERS: ATTEND Radiology Diagnostic Radiology
DX: I70.261 Atherosclerosis of native arteries of extremities with gangrene, right leg (principal); E11.52 Type 2 diabetes mellitus with diabetic peripheral angiopathy with gangrene; Z79.4 Long term (current) use of insulin; E78.2 Mixed hyperlipidemia; G47.33 Obstructive sleep apnea (adult) (pediatric); I10 Essential (primary) hypertension; I89.0 Lymphedema, not elsewhere classified; Z89.512 Acquired absence of left leg below knee; Z87.891 Personal history of nicotine dependence
CPT/HCPCS: 36415; 75625; 76937; 80048; 85025; 85610; 85730; 99156; 99157; A9270-GY; C1769; C1887; C1894; J1644; J2250; J2310; J2405; J3010

== ENCOUNTER → 2018-03-29 09:54 | Day surgery (SDC) | payer MEDICARE, OTHER ==
[~2018-03-29 09:54] MED LIST changes: +Acetaminophen TAB* 325 MG PO PRN; +Atropine SYRINGE* 0.1 MG/ML 10 ML SYRINGE (1 MG) ONE; +Buffered Lidocaine 0.9% SYRIN* 5 ML/SYR SYRINGE INTRADERM ONE; +Bupivacaine 0.5% SDV PF* 30ML VIAL ONE; +Bupivacaine-MPF SPINAL* 7.5 MG/ML - 2ML AMP ONE; +Clopidogrel TAB* 300 MG PO ONE; +Dexmedetomidine* 200 MCG/2 ML 2 ML VIAL ONE; -Dextrose 50% Syringe 50 ML* 25 GM/50 ML SYRINGE ONE; +EPINEPHrine SYR 0.1MG/ML* SYRINGE ONE; -Flumazenil* 0.1 MG/ML 5 ML MDV ONE; +Glycopyrrolate IV* 0.2 MG/ML 1 ML VIAL ONE; +Heparin 2 UNITS/ML IVPREMIX* 1,000 ML IV ONE; -Heparin 2 UNITS/ML IVPREMIX* 2,000 ML IV ONE; +Heparin VIAL(*) 5000 UNITS/ML VIAL (FIVE THOUSAND) ONE; -Heparin(*) 1000 UNIT/ML 10 ML VIAL CATH LAB IV ONE; +Iodixanol 320 (CONTRAST) 100 ML SDV ONE; +KETAMINE HCL* 50 MG/ML 10 ML VIAL ONE; -LORazepam TAB(*) 1 MG ONE; +Lidocaine 2% PF * 5 ML VIAL ONE; -Midazolam* 1 MG/ML 10 ML VIAL (10 MG) ONE; +Midazolam* 1 MG/ML 2 ML VIAL (2 MG) ONE; +Midazolam* 1 MG/ML 5 ML VIAL (5 MG) ONE; +Naloxone* 0.4 MG/ML 1 ML VIAL IV PRN; -Naloxone* 0.4 MG/ML 1 ML VIAL ONE; +Ondansetron INJ* 2 MG/ML VIAL IV PRN; -Ondansetron INJ* 2 MG/ML VIAL ONE; +Phenylephrine INJ* 10 MG/ML 1 ML VIAL (10 MG) ONE; +Phenylephrine IV* 40 MCG/ML 10 ML SYRINGE ONE; +Propofol* 0 MG/0 ML BTL ONE; +Rocuronium* 10 MG/ML VIAL ONE; +Succinylcholine* 20 MG/ML 10 ML VIAL ONE; +fentaNYL* 50 MCG/ML 2 ML VIAL (100 MCG VIAL) IV PRN; -nitroGLYCERIN DRIP* 0 MCG/0 ML BTL ONE
[2018-03-29 11:32] LABS: ABS Basophils 0 10^3/ul (0-0.2); ABS Eosinophils 0.2 10^3/ul (0-0.6); ABS Lymphocytes 0.6 10^3/ul (1.0-4.8); ABS Monocytes 0.7 10^3/ul (0-0.8); ABS Neutrophils 6.8 10^3/ul (1.5-7.7); ABS Nucleated RBC 0 10^3/ul; Eosinophil % 2.5 %; Hematocrit 37 % (42-52); Lymphocyte % 7.5 %; Mean Corpuscular HGB Conc 33 g/dl (31-36); Mean Corpuscular Hemoglobin 30 pg (27-31); Mean Corpuscular Volume 92 fL (80-94); Nucleated Red Blood Cells % 0.1; Platelet Count 212 10^3/ul (150-450); Red Blood Count 3.96 10^6/ul (4.00-5.40); Red Cell Distribution Width 15 % (10.5-15); White Blood Count 8.3 10^3/ul (3.5-10.8)
[2018-03-29 11:46] LABS: EGFR Non-African American 91.6 (>60)
[2018-03-29 12:14] LABS: INR 0.97 (0.77-1.02)
[2018-03-29 17:59] VITALS: BP 119/80
== END | disposition home or self-care (01) ==
LOC: OR 09:54
PROVIDERS: ATTEND Radiology Diagnostic Radiology
DX: I70.261 Atherosclerosis of native arteries of extremities with gangrene, right leg (principal); J44.9 Chronic obstructive pulmonary disease, unspecified; Z99.81 Dependence on supplemental oxygen; I10 Essential (primary) hypertension; E78.5 Hyperlipidemia, unspecified; E66.9 Obesity, unspecified; Z68.42 Body mass index [BMI] 45.0-49.9, adult; Z87.891 Personal history of nicotine dependence; K21.9 Gastro-esophageal reflux disease without esophagitis; E11.9 Type 2 diabetes mellitus without complications; Z79.4 Long term (current) use of insulin
CPT/HCPCS: 36415; 76937; 80048; 85025; 85347; 85610; A9270-GY; C1725; C1760; C1769; C1887; C1894; J0171; J0330; J0461; J1644; J2250; J2704; J3010

== ENCOUNTER 2020-04-23 12:09 | Inpatient (IN) ==
[2020-04-23 13:13] LABS: ABS Eosinophils 0.1 10^3/ul (0-0.6); ABS Lymphocytes 0.6 10^3/ul (1.0-4.8); ABS Monocytes 0.9 10^3/ul (0-0.8); ABS Neutrophils 8.1 10^3/ul (1.5-7.7); Eosinophil % 1.2 %; Hematocrit 40 % (42-52); Lymphocyte % 5.9 %; Mean Corpuscular HGB Conc 32 g/dL (31-36); Mean Corpuscular Hemoglobin 29 pg (27-31); Mean Corpuscular Volume 91 fL (80-94); Mean Platelet Volume 8.2 fL (7.4-10.4); Platelet Count 197 10^3/uL (150-450); Red Blood Count 4.43 10^6 /uL (4.18-5.48); Red Cell Distribution Width 16 % (10-15); White Blood Count 9.7 10^3/uL (3.5-10.8)
[2020-04-23 13:23] LABS: INR 1.21 (0.82-1.09)
[2020-04-23 13:25] LABS: Albumin 3.9 g/dL (3.2-5.2); Albumin/Globulin Ratio 1.3 (1-3); BUN/Creatinine Ratio 18.1 (8-20); C Reactive Protein 6.02 mg/L (<8.01); Calcium 9.1 mg/dL (8.6-10.3); EGFR African American 23.8 (>60); EGFR Non-African American 19.6 (>60); Globulin 3.1 g/dL (2-4); Potassium 4.3 mmol/L (3.5-5.0); Total Bilirubin 0.3 mg/dL (0.2-1.0)
[2020-04-23] MEDS: Lactated Ringers 1000 ml BAG 1,000 ML IV SCH (16:33)
[2020-04-23] MEDS: Prochlorperazine 5 mg/ml 2 ml VIAL (10 mg) IV PRN (16:33)
[2020-04-23] MEDS ORDERED: Dextrose 50% Syringe 50 ml 25 GM/50 ML SYRINGE IV PUSH PRN (16:50)
[2020-04-23] MEDS ORDERED: Lactated Ringers 1000 ml BAG 1,000 ML IV SCH (17:00)
[2020-04-23 17:15] LABS: Erythrocyte Sed Rate 20 mm/Hr (0-19)
[2020-04-23] MEDS: cefTRIAXone 1 gm/50 mL NS BAG 1 GM/50 ML BAG IVPB SCH (20:53)
[2020-04-23] MEDS: Heparin 5000 UNITS/ML 1 mL VIAL SUBCUT SCH (20:56)
[2020-04-23] MEDS: Insulin GLARGINE 100 un/ml 10 ml VIAL SUBCUT SCH (20:56)
[2020-04-24] MEDS: Heparin 5000 UNITS/ML 1 mL VIAL SUBCUT SCH ×3 (05:15→21:53)
[2020-04-24 06:08] LABS: ABS Eosinophils 0.1 10^3/ul (0-0.6); ABS Lymphocytes 0.6 10^3/ul (1.0-4.8); ABS Monocytes 0.9 10^3/ul (0-0.8); ABS Neutrophils 6.5 10^3/ul (1.5-7.7); Eosinophil % 1.7 %; Hematocrit 39 % (42-52); Hemoglobin 12.1 g/dL (14.0-18.0); Lymphocyte % 6.9 %; Mean Corpuscular HGB Conc 31 g/dL (31-36); Mean Corpuscular Hemoglobin 29 pg (27-31); Mean Corpuscular Volume 93 fL (80-94); Mean Platelet Volume 8.3 fL (7.4-10.4); Platelet Count 155 10^3/uL (150-450); Red Blood Count 4.16 10^6 /uL (4.18-5.48); Red Cell Distribution Width 16 % (10-15); White Blood Count 8.2 10^3/uL (3.5-10.8)
[2020-04-24] MEDS: Lactated Ringers 1000 ml BAG 1,000 ML IV SCH ×2 (06:16→15:31)
[2020-04-24 06:31] LABS: BUN/Creatinine Ratio 17.6 (8-20); Calcium 8.7 mg/dL (8.6-10.3); EGFR African American 24.5 (>60); EGFR Non-African American 20.2 (>60); Potassium 3.9 mmol/L (3.5-5.0)
[2020-04-24] MEDS: Insulin GLARGINE 100 un/ml 10 ml VIAL SUBCUT SCH ×2 (10:22→21:53)
[2020-04-24] MEDS: Prochlorperazine 5 mg/ml 2 ml VIAL (10 mg) IV PRN (12:25)
[2020-04-24] MEDS: Fluticasone NASAL SPRAY 50MCG 16 gm SPRAY BTL BOTH NARES SCH (13:49)
[2020-04-24 14:58] LABS: Urine Appearance Clear; Urine Bilirubin Negative (Negative); Urine Blood Negative (Negative); Urine Color Yellow; Urine Glucose Negative (Negative); Urine Ketones Negative (Negative); Urine Nitrite Negative (Negative); Urine Protein Negative (Negative); Urine Specific Gravity 1.012 (1.010-1.030); Urine Urobilinogen Negative (Negative)
[2020-04-24 15:15] LABS: Urine Creatinine Concentration 81.52 mg/dL
[2020-04-24] MEDS: DOXYcycline 100 MG in NS 0.9% 250 ml 250 ML IVPB SCH (22:01)
[2020-04-24] MEDS: cefTRIAXone 1 gm/50 mL NS BAG 1 GM/50 ML BAG IVPB SCH (22:01)
[2020-04-24] MEDS: Saline NASAL SPRAY 0.65% BTL BOTH NARES PRN (23:50)
[2020-04-25] MEDS: Lactated Ringers 1000 ml BAG 1,000 ML IV SCH ×3 (02:00→20:52)
[2020-04-25] MEDS ORDERED: Influenza VAC *QUAD* 2020-21* 0.5 ML SYRINGE IM ONE (09:00)
[2020-04-25] MEDS: Heparin 5000 UNITS/ML 1 mL VIAL SUBCUT SCH ×3 (09:42→23:06)
[2020-04-25 10:06] LABS: BUN/Creatinine Ratio 15.2 (8-20); Calcium 8.3 mg/dL (8.6-10.3); EGFR African American 26.7 (>60); EGFR Non-African American 22.1 (>60); Magnesium 1.8 mg/dL (1.9-2.7); Potassium 4.1 mmol/L (3.5-5.0)
[2020-04-25] MEDS: DOXYcycline 100 MG in NS 0.9% 250 ml 250 ML IVPB SCH ×2 (10:26→21:30)
[2020-04-25] MEDS: Insulin GLARGINE 100 un/ml 10 ml VIAL SUBCUT SCH ×3 (10:39→23:37)
[2020-04-25] MEDS: Nystatin TOP POWDER 15 GM BTL TOPICAL SCH ×3 (10:50→21:30)
[2020-04-25] MEDS: Fluticasone NASAL SPRAY 50MCG 16 gm SPRAY BTL BOTH NARES SCH (10:50)
[2020-04-25 11:49] LABS: ABS Eosinophils 0.2 10^3/ul (0-0.6); ABS Lymphocytes 0.5 10^3/ul (1.0-4.8); ABS Monocytes 0.6 10^3/ul (0-0.8); ABS Neutrophils 5.3 10^3/ul (1.5-7.7); Eosinophil % 2.5 %; Hematocrit 37 % (42-52); Lymphocyte % 6.9 %; Mean Corpuscular HGB Conc 32 g/dL (31-36); Mean Corpuscular Hemoglobin 29 pg (27-31); Mean Corpuscular Volume 90 fL (80-94); Mean Platelet Volume 8.1 fL (7.4-10.4); Nucleated Red Blood Cells % 0.1; Platelet Count 155 10^3/uL (150-450); Red Blood Count 4.12 10^6 /uL (4.18-5.48); Red Cell Distribution Width 16 % (10-15); White Blood Count 6.5 10^3/uL (3.5-10.8)
[2020-04-25] MEDS: cefTRIAXone 1 gm/50 mL NS BAG 1 GM/50 ML BAG IVPB SCH (22:54)
[2020-04-26] MEDS: Lactated Ringers 1000 ml BAG 1,000 ML IV SCH ×2 (05:10→14:06)
[2020-04-26] MEDS: Heparin 5000 UNITS/ML 1 mL VIAL SUBCUT SCH ×3 (05:11→22:02)
[2020-04-26 07:04] LABS: ABS Eosinophils 0.2 10^3/ul (0-0.6); ABS Lymphocytes 0.6 10^3/ul (1.0-4.8); ABS Monocytes 0.6 10^3/ul (0-0.8); ABS Neutrophils 4.4 10^3/ul (1.5-7.7); Eosinophil % 3.1 %; Hematocrit 37 % (42-52); Hemoglobin 11.7 g/dL (14.0-18.0); Lymphocyte % 9.8 %; Mean Corpuscular HGB Conc 31 g/dL (31-36); Mean Corpuscular Hemoglobin 29 pg (27-31); Mean Corpuscular Volume 93 fL (80-94); Mean Platelet Volume 8.2 fL (7.4-10.4); Platelet Count 133 10^3/uL (150-450); Red Blood Count 4.01 10^6 /uL (4.18-5.48); Red Cell Distribution Width 16 % (10-15); White Blood Count 5.8 10^3/uL (3.5-10.8)
[2020-04-26 07:20] LABS: BUN/Creatinine Ratio 13.7 (8-20); Calcium 8.4 mg/dL (8.6-10.3); EGFR African American 27.4 (>60); EGFR Non-African American 22.6 (>60); Magnesium 1.9 mg/dL (1.9-2.7); Potassium 4.1 mmol/L (3.5-5.0)
[2020-04-26 07:39] LABS: TSH Ultra Thyroid Stim Horm 0.88 mcIU/mL (0.34-5.60)
[2020-04-26] MEDS: DOXYcycline 100 MG in NS 0.9% 250 ml 250 ML IVPB SCH ×2 (09:49→23:25)
[2020-04-26] MEDS: Fluticasone NASAL SPRAY 50MCG 16 gm SPRAY BTL BOTH NARES SCH (10:09)
[2020-04-26] MEDS: Nystatin TOP POWDER 15 GM BTL TOPICAL SCH ×3 (10:09→22:17)
[2020-04-26] MEDS: Insulin GLARGINE 100 un/ml 10 ml VIAL SUBCUT SCH ×2 (12:40→19:17)
[2020-04-26] MEDS: cefTRIAXone 1 gm/50 mL NS BAG 1 GM/50 ML BAG IVPB SCH (22:02)
[2020-04-27] MEDS: Heparin 5000 UNITS/ML 1 mL VIAL SUBCUT SCH (05:31)
[2020-04-27 06:25] LABS: ABS Eosinophils 0.2 10^3/ul (0-0.6); ABS Lymphocytes 0.5 10^3/ul (1.0-4.8); ABS Monocytes 0.6 10^3/ul (0-0.8); ABS Neutrophils 4.6 10^3/ul (1.5-7.7); Eosinophil % 3.2 %; Hematocrit 38 % (42-52); Hemoglobin 11.7 g/dL (14.0-18.0); Mean Corpuscular HGB Conc 31 g/dL (31-36); Mean Corpuscular Hemoglobin 29 pg (27-31); Mean Corpuscular Volume 92 fL (80-94); Mean Platelet Volume 7.8 fL (7.4-10.4); Platelet Count 124 10^3/uL (150-450); Red Blood Count 4.08 10^6 /uL (4.18-5.48); Red Cell Distribution Width 16 % (10-15); White Blood Count 5.8 10^3/uL (3.5-10.8)
[2020-04-27] MEDS: Lactated Ringers 1000 ml BAG 1,000 ML IV SCH (06:33)
[2020-04-27 06:38] LABS: BUN/Creatinine Ratio 13.1 (8-20); Calcium 8.4 mg/dL (8.6-10.3); EGFR African American 28.4 (>60); EGFR Non-African American 23.5 (>60); Potassium 4.5 mmol/L (3.5-5.0)
[2020-04-27] MEDS: DOXYcycline 100 MG in NS 0.9% 250 ml 250 ML IVPB SCH ×2 (08:29→21:21)
[2020-04-27] MEDS: Saline NASAL SPRAY 0.65% BTL BOTH NARES PRN ×2 (09:31→13:14)
[2020-04-27] MEDS: Nystatin TOP POWDER 15 GM BTL TOPICAL SCH ×3 (09:32→21:37)
[2020-04-27] MEDS: Fluticasone NASAL SPRAY 50MCG 16 gm SPRAY BTL BOTH NARES SCH (09:34)
[2020-04-27] MEDS: Insulin GLARGINE 100 un/ml 10 ml VIAL SUBCUT SCH (13:11)
[2020-04-27] MEDS ORDERED: Lactated Ringers 1000 ml BAG 1,000 ML IV ONE (13:21)
[2020-04-28] MEDS: cefTRIAXone 1 gm/50 mL NS BAG 1 GM/50 ML BAG IVPB SCH (02:23)
[2020-04-28 06:09] LABS: ABS Eosinophils 0.3 10^3/ul (0-0.6); ABS Lymphocytes 0.5 10^3/ul (1.0-4.8); ABS Monocytes 0.6 10^3/ul (0-0.8); ABS Neutrophils 4.1 10^3/ul (1.5-7.7); Hematocrit 36 % (42-52); Hemoglobin 11.1 g/dL (14.0-18.0); Lymphocyte % 8.3 %; Mean Corpuscular HGB Conc 31 g/dL (31-36); Mean Corpuscular Hemoglobin 29 pg (27-31); Mean Corpuscular Volume 93 fL (80-94); Platelet Count 113 10^3/uL (150-450); Red Blood Count 3.83 10^6 /uL (4.18-5.48); Red Cell Distribution Width 16 % (10-15); White Blood Count 5.5 10^3/uL (3.5-10.8)
[2020-04-28] MEDS: DOXYcycline 100 MG in NS 0.9% 250 ml 250 ML IVPB SCH ×2 (09:32→20:06)
[2020-04-28] MEDS: Fluticasone NASAL SPRAY 50MCG 16 gm SPRAY BTL BOTH NARES SCH (09:32)
[2020-04-28] MEDS: Nystatin TOP POWDER 15 GM BTL TOPICAL SCH ×4 (09:32→20:06)
[2020-04-28 10:44] LABS: BUN/Creatinine Ratio 15.7 (8-20); Calcium 8.4 mg/dL (8.6-10.3); EGFR African American 33.9 (>60); Potassium 4.8 mmol/L (3.5-5.0)
[2020-04-28] MEDS: Insulin GLARGINE 100 un/ml 10 ml VIAL SUBCUT SCH (12:37)
[2020-04-28 15:22] LABS: C Reactive Protein 8.77 mg/L (<8.01)
[2020-04-28] MEDS ORDERED: Petrolatum 5 gm PACKET TOPICAL ONE ×2 (16:39→21:00)
[2020-04-28] MEDS ORDERED: IODINE TOPICAL ONE (16:40)
[2020-04-28] MEDS ORDERED: POVIDONE TOPICAL ONE (16:40)
[2020-04-28] MEDS ORDERED: Povidone Iodine SWABSTICK TOPICAL ONE ×2 (18:00→21:00)
[2020-04-29] MEDS: cefTRIAXone 1 gm/50 mL NS BAG 1 GM/50 ML BAG IVPB SCH (00:36)
[2020-04-29] MEDS: Nystatin TOP POWDER 15 GM BTL TOPICAL SCH ×3 (08:43→20:07)
[2020-04-29] MEDS: Saline NASAL SPRAY 0.65% BTL BOTH NARES PRN (08:43)
[2020-04-29] MEDS: DOXYcycline 100 MG in NS 0.9% 250 ml 250 ML IVPB SCH (08:48)
[2020-04-29] MEDS: Fluticasone NASAL SPRAY 50MCG 16 gm SPRAY BTL BOTH NARES SCH (08:48)
[2020-04-29] MEDS ORDERED: NS 0.9% 1000 ml BAG 1,000 ML IV SCH (11:15)
[2020-04-29] MEDS: Insulin GLARGINE 100 un/ml 10 ml VIAL SUBCUT SCH (12:17)
[2020-04-29 12:23] LABS: BUN/Creatinine Ratio 17.5 (8-20); Calcium 8.8 mg/dL (8.6-10.3); EGFR African American 39.7 (>60); EGFR Non-African American 32.8 (>60); Potassium 4.5 mmol/L (3.5-5.0)
[2020-04-29 13:48] LABS: Urine Appearance Cloudy; Urine Bilirubin Negative (Negative); Urine Blood 3+ (Negative); Urine Color Yellow; Urine Glucose Negative (Negative); Urine Ketones Negative (Negative); Urine Nitrite Negative (Negative); Urine Protein 1+(30 mg/dL) (Negative); Urine Specific Gravity 1.011 (1.010-1.030); Urine Urobilinogen Negative (Negative)
[2020-04-29 13:53] LABS: Urine Bacteria Absent (Absent); Urine Red Blood Cell 3+(>10/hpf) (Absent); Urine White Blood Cell 3+(>20/hpf) (Absent)
[2020-04-30] MEDS: cefTRIAXone 1 gm/50 mL NS BAG 1 GM/50 ML BAG IVPB SCH (01:26)
[2020-04-30] MEDS ORDERED: DOXYcycline 100 MG in NS 0.9% 250 ml 250 ML IVPB SCH (06:00)
[2020-04-30 07:11] LABS: Calcium 8.2 mg/dL (8.6-10.3); Potassium 4.6 mmol/L (3.5-5.0)
[2020-04-30 07:17] LABS: BUN/Creatinine Ratio 18.6 (8-20); EGFR African American 44.1 (>60); EGFR Non-African American 36.4 (>60)
[2020-04-30] MEDS: Fluticasone NASAL SPRAY 50MCG 16 gm SPRAY BTL BOTH NARES SCH (08:08)
[2020-04-30] MEDS: Nystatin TOP POWDER 15 GM BTL TOPICAL SCH ×3 (08:20→20:39)
[2020-04-30] MEDS ORDERED: NS 0.9% 1000 ml BAG 1,000 ML IV SCH (11:30)
[2020-04-30] MEDS: Insulin GLARGINE 100 un/ml 10 ml VIAL SUBCUT SCH (12:16)
[2020-04-30] MEDS: Amoxicillin/Clavul 500/125 TAB (Augmentin 500 mg tab) PO SCH ×2 (12:16→20:20)
[2020-05-01 06:59] LABS: BUN/Creatinine Ratio 15.9 (8-20); C Reactive Protein 9.96 mg/L (<8.01); Calcium 8.1 mg/dL (8.6-10.3); EGFR African American 43.8 (>60); EGFR Non-African American 36.2 (>60); Magnesium 1.7 mg/dL (1.9-2.7); Potassium 4.3 mmol/L (3.5-5.0)
[2020-05-01] MEDS ORDERED: Magnesium Sulf 4 GM/100 ML IV 4,000 MG/100 ML BAG IVPB ONE (08:24)
[2020-05-01] MEDS: Nystatin TOP POWDER 15 GM BTL TOPICAL SCH ×3 (08:52→22:21)
[2020-05-01] MEDS: Fluticasone NASAL SPRAY 50MCG 16 gm SPRAY BTL BOTH NARES SCH (08:54)
[2020-05-01] MEDS: Amoxicillin/Clavul 500/125 TAB (Augmentin 500 mg tab) PO SCH ×2 (10:15→22:14)
[2020-05-01] MEDS: Insulin GLARGINE 100 un/ml 10 ml VIAL SUBCUT SCH (11:56)
[2020-05-01] MEDS: HYDROcodone/ACETAMIN 5/325 mg TAB PO PRN (18:44)
[2020-05-02] MEDS: HYDROcodone/ACETAMIN 5/325 mg TAB PO PRN ×4 (01:03→20:55)
[2020-05-02 07:18] LABS: Anion Gap 6 mmol/L (2-11); BUN/Creatinine Ratio 16.6 (8-20); Blood Urea Nitrogen 29 mg/dL (6-24); CO2 Carbon Dioxide 35 mmol/L (22-32); Calcium 8.5 mg/dL (8.6-10.3); Chloride 96 mmol/L (101-111); EGFR African American 47.9 (>60); EGFR Non-African American 39.6 (>60); Glucose 102 mg/dL (70-100); Magnesium 1.8 mg/dL (1.9-2.7); Potassium 4.3 mmol/L (3.5-5.0); Sodium 137 mmol/L (135-145)
[2020-05-02] MEDS ORDERED: Magnesium Sulfate 2 gm BAG 2 GM/50 ML BAG IVPB ONE (07:49)
[2020-05-02] MEDS: Amoxicillin/Clavul 500/125 TAB (Augmentin 500 mg tab) PO SCH ×2 (08:23→20:44)
[2020-05-02] MEDS: Fluticasone NASAL SPRAY 50MCG 16 gm SPRAY BTL BOTH NARES SCH (08:29)
[2020-05-02] MEDS: Nystatin TOP POWDER 15 GM BTL TOPICAL SCH ×3 (08:29→20:48)
[2020-05-02] MEDS ORDERED: NS 0.9% 1000 ml BAG 1,000 ML IV SCH (11:00)
[2020-05-02] MEDS: Enoxaparin 40 MG/0.4 ML SYR SUBCUT SCH (12:43)
[2020-05-02] MEDS: Insulin GLARGINE 100 un/ml 10 ml VIAL SUBCUT SCH (12:44)
[2020-05-02 13:01] LABS: % Iron Saturation 12 % (15-55); Iron 39 ug/dL (50-212); Total Iron Binding Capacity 316 mcg/dL (250-450); Transferrin 226 mg/dL (203-362); Unsaturated Iron Binding < 301 ug/dL
[2020-05-02] MEDS ORDERED: oxyCODONE/Acetamin 5/325 mg TAB PO PRN (13:11)
[2020-05-02 13:21] LABS: Ferritin 67.3 ng/mL (24-336)
[2020-05-03] MEDS: Amoxicillin/Clavul 500/125 TAB (Augmentin 500 mg tab) PO SCH ×2 (08:36→22:37)
[2020-05-03] MEDS: HYDROcodone/ACETAMIN 5/325 mg TAB PO PRN ×3 (08:41→23:39)
[2020-05-03] MEDS: Fluticasone NASAL SPRAY 50MCG 16 gm SPRAY BTL BOTH NARES SCH (08:55)
[2020-05-03] MEDS: Nystatin TOP POWDER 15 GM BTL TOPICAL SCH ×3 (08:55→23:39)
[2020-05-03 09:12] LABS: BUN/Creatinine Ratio 16.5 (8-20); Calcium 8.5 mg/dL (8.6-10.3); EGFR African American 49.5 (>60); EGFR Non-African American 40.9 (>60); Magnesium 1.9 mg/dL (1.9-2.7); Potassium 4.8 mmol/L (3.5-5.0)
[2020-05-03] MEDS ORDERED: Dextrose 50% Syringe 50 ml 25 GM/50 ML SYRINGE IV PUSH PRN (10:52)
[2020-05-03] MEDS: Enoxaparin 40 MG/0.4 ML SYR SUBCUT SCH (13:39)
[2020-05-03] MEDS: Insulin GLARGINE 100 un/ml 10 ml VIAL SUBCUT SCH (13:41)
[2020-05-04 07:15] LABS: BUN/Creatinine Ratio 15.1 (8-20); Calcium 8.3 mg/dL (8.6-10.3); EGFR African American 44.6 (>60); EGFR Non-African American 36.9 (>60); Magnesium 1.8 mg/dL (1.9-2.7); Potassium 4.7 mmol/L (3.5-5.0)
[2020-05-04] MEDS: Amoxicillin/Clavul 500/125 TAB (Augmentin 500 mg tab) PO SCH ×2 (09:49→20:43)
[2020-05-04] MEDS: Fluticasone NASAL SPRAY 50MCG 16 gm SPRAY BTL BOTH NARES SCH (09:53)
[2020-05-04] MEDS: Nystatin TOP POWDER 15 GM BTL TOPICAL SCH ×3 (09:53→21:35)
[2020-05-04] MEDS: Insulin GLARGINE 100 un/ml 10 ml VIAL SUBCUT SCH (09:54)
[2020-05-04] MEDS: HYDROcodone/ACETAMIN 5/325 mg TAB PO PRN ×2 (11:58→18:01)
[2020-05-04] MEDS: Enoxaparin 40 MG/0.4 ML SYR SUBCUT SCH (11:58)
[2020-05-04] MEDS ORDERED: Magnesium Sulfate IV 3 GM in NS 0.9% 100 ml BAG 100 ML IVPB ONE (18:00)
[2020-05-05] MEDS: HYDROcodone/ACETAMIN 5/325 mg TAB PO PRN ×3 (00:21→19:53)
[2020-05-05 07:03] LABS: BUN/Creatinine Ratio 16.8 (8-20); Calcium 8.2 mg/dL (8.6-10.3); EGFR African American 50.5 (>60); EGFR Non-African American 41.8 (>60); Potassium 4.6 mmol/L (3.5-5.0)
[2020-05-05] MEDS: Nystatin TOP POWDER 15 GM BTL TOPICAL SCH ×3 (09:51→23:08)
[2020-05-05] MEDS: Fluticasone NASAL SPRAY 50MCG 16 gm SPRAY BTL BOTH NARES SCH (09:55)
[2020-05-05] MEDS: Amoxicillin/Clavul 500/125 TAB (Augmentin 500 mg tab) PO SCH ×2 (09:55→19:52)
[2020-05-05] MEDS: Insulin GLARGINE 100 un/ml 10 ml VIAL SUBCUT SCH (13:27)
[2020-05-05] MEDS: Enoxaparin 40 MG/0.4 ML SYR SUBCUT SCH (13:27)
[2020-05-05] MEDS ORDERED: Lidocaine 4% TOPICAL 50 ML TOP.SOLN TOPICAL ONE (14:21)
[2020-05-05] MEDS ORDERED: Lidocaine 2% JELLY 6 ML TOPICAL ONE (15:00)
[2020-05-06] MEDS: Amoxicillin/Clavul 500/125 TAB (Augmentin 500 mg tab) PO SCH ×2 (07:37→21:55)
[2020-05-06] MEDS: Fluticasone NASAL SPRAY 50MCG 16 gm SPRAY BTL BOTH NARES SCH (07:40)
[2020-05-06] MEDS: HYDROcodone/ACETAMIN 5/325 mg TAB PO PRN ×3 (07:56→21:57)
[2020-05-06] MEDS: Insulin GLARGINE 100 un/ml 10 ml VIAL SUBCUT SCH (09:13)
[2020-05-06] MEDS: Nystatin TOP POWDER 15 GM BTL TOPICAL SCH ×3 (13:06→21:58)
[2020-05-06] MEDS: Enoxaparin 40 MG/0.4 ML SYR SUBCUT SCH (13:19)
[2020-05-06] MEDS ORDERED: Lidocaine 2% JELLY 6 ML TOPICAL PRN (14:56)
[2020-05-07 05:40] LABS: Hematocrit 32 % (42-52); Hemoglobin 10.1 g/dL (14.0-18.0); Mean Platelet Volume 8.9 fL (7.4-10.4); Platelet Count 168 10^3/uL (150-450)
[2020-05-07] MEDS: Fluticasone NASAL SPRAY 50MCG 16 gm SPRAY BTL BOTH NARES SCH (09:49)
[2020-05-07] MEDS: Nystatin TOP POWDER 15 GM BTL TOPICAL SCH ×2 (09:50→13:15)
[2020-05-07] MEDS: Amoxicillin/Clavul 500/125 TAB (Augmentin 500 mg tab) PO SCH (09:50)
[2020-05-07] MEDS: Insulin GLARGINE 100 un/ml 10 ml VIAL SUBCUT SCH (10:40)
[2020-05-07] MEDS: HYDROcodone/ACETAMIN 5/325 mg TAB PO PRN (12:06)
[2020-05-07] MEDS: Enoxaparin 40 MG/0.4 ML SYR SUBCUT SCH (13:13)
[2020-05-07 15:00] VITALS: BP 130/68
== END 2020-05-07 15:40 | disposition home health service (06) | DRG 383 ==
LOC: ED 12:09 → MEDTELE 16:46
PROVIDERS: ADMIT Hospitalist; ATTEND Internal Medicine

== ENCOUNTER 2021-04-01 16:23 | Inpatient (IN) ==
[2021-04-01 16:47] LABS: Hematocrit 33 % (42-52); Hemoglobin 10.1 g/dL (14.0-18.0); Mean Corpuscular HGB Conc 30 g/dL (31-36); Mean Corpuscular Hemoglobin 27 pg (27-31); Mean Corpuscular Volume 90 fL (80-94); Mean Platelet Volume 8.6 fL (7.4-10.4); Platelet Count 438 10^3/uL (150-450); Red Blood Count 3.72 10^6 /uL (4.18-5.48); Red Cell Distribution Width 18 % (10-15); White Blood Count 34.1 10^3/uL (3.5-10.8)
[2021-04-01] MEDS ORDERED: Vancomycin 1,500 MG in NS 0.9% 250 ml 250 ML IVPB ONE (16:50)
[2021-04-01] MEDS ORDERED: Cefepime 1 GM in Dextrose 1 GM/50 ML BAG IV ONE (16:50)
[2021-04-01] MEDS ORDERED: Lactated Ringers 1000 ml BAG 1,000 ML IV ONE (16:50)
[2021-04-01 16:54] LABS: ABS Basophils 0.4 10^3/ul (0-0.2); ABS Lymphocytes 0.6 10^3/ul (1.0-4.8); ABS Neutrophils 31.1 10^3/ul (1.5-7.7); Lymphocyte % 1.9 %; Nucleated Red Blood Cells % 0.1
[2021-04-01] MEDS ORDERED: CALCIUM GLUCONATE 1GM/50ML NS 1 GM/50 ML BAG IV ONE (16:54)
[2021-04-01] MEDS ORDERED: Norepinephrine 16MCG/ML IVPRE 4,000 MCG/250 ML BAG IV SCH (17:00)
[2021-04-01 17:02] LABS: ALT 27 U/L (7-52); AST 66 U/L (13-39); Albumin 3.7 g/dL (3.2-5.2); Albumin/Globulin Ratio 1.1 (1-3); Alkaline Phosphatase 96 U/L (35-149); C Reactive Protein 87.53 mg/L (<8.01); Calcium 9.6 mg/dL (8.6-10.3); Globulin 3.5 g/dL (2-4); Glucose 247 mg/dL (70-100); Magnesium 3.1 mg/dL (1.9-2.7); Sodium 141 mmol/L (135-145); Total Protein 7.2 g/dL (6.4-8.9); eGFR CKD-EPI 3.2 (>60)
[2021-04-01 17:04] LABS: Chloride 112 mmol/L (101-111)
[2021-04-01] MEDS ORDERED: Propofol 10 mg/ml 100 ML BTL 100 ML IV ONE (17:06)
[2021-04-01 17:08] LABS: Anion Gap 21 mmol/L (2-11); CO2 Carbon Dioxide 8 mmol/L (22-32); Potassium 7.7 mmol/L (3.5-5.0)
[2021-04-01] MEDS ORDERED: Albuterol 2.5mg/3 ml (0.083%) NEB.SOLN INH ONE (17:08)
[2021-04-01 17:09] LABS: Troponin I 0.06 ng/mL (<0.03)
[2021-04-01] MEDS ORDERED: Dextrose 50% Syringe 50 ml 25 GM/50 ML SYRINGE IV PUSH ONE (17:09)
[2021-04-01] MEDS ORDERED: Sodium Bicarb 8.4% Vial 50 ML 150 MEQ in D5W 1000 ml BAG 850 ML IV ONE (17:15)
[2021-04-01 17:19] LABS: Blood Urea Nitrogen 222 mg/dL (6-24); Lipase 818 U/L (11.0-82.0)
[2021-04-01] MEDS ORDERED: Dextrose 50% Syringe 50 ml 25 GM/50 ML SYRINGE IV PUSH PRN (17:24)
[2021-04-01 17:25] LABS: Urine Appearance Turbid; Urine Bilirubin Negative (Negative); Urine Blood 1+ (Negative); Urine Color Yellow; Urine Glucose Negative (Negative); Urine Ketones Negative (Negative); Urine Nitrite Negative (Negative); Urine Protein 2+(100 mg/dL) (Negative); Urine Specific Gravity 1.015 (1.002-1.030); Urine Urobilinogen Negative (Negative)
[2021-04-01 17:32] LABS: Urine Bacteria Absent (Absent); Urine Red Blood Cell Absent (Absent); Urine White Blood Cell 3+(>20/hpf) (Absent)
[2021-04-01 18:46] LABS: Rapid COVID-19 Molecular Undetected (Undetected)
[2021-04-01 18:49] LABS: Influenza A Molecular Negative (Negative); Influenza B Molecular Negative (Negative)
[2021-04-01] MEDS ORDERED: Albuterol (2.5 MG) 0.5 % CONC 0.5 ML NEB.SOLN INH ONE (19:48)
[2021-04-01 20:41] LABS: Troponin I 0.06 ng/mL (<0.03)
[2021-04-01 20:42] LABS: Potassium 7.2 mmol/L (3.5-5.0)
[2021-04-01 23:05] LABS: Glucose 277 mg/dL (70-100)
[2021-04-01 23:10] LABS: PCO2 Arterial 30 mmHg (35-45); PO2 Arterial 358 mmHg (80-100)
[2021-04-01] MEDS ORDERED: Sodium Bicarbonate 8.4% SYR 50 ml SYRINGE IV ONE (23:15)
[2021-04-01] MEDS ORDERED: Norepinephrine 16MCG/ML IVPRE 4,000 MCG/250 ML BAG IV ONE (23:37)
[2021-04-02 01:31] LABS: Hematocrit 32 % (42-52); Hemoglobin 9.9 g/dL (14.0-18.0); Mean Corpuscular HGB Conc 31 g/dL (31-36); Mean Corpuscular Hemoglobin 27 pg (27-31); Mean Corpuscular Volume 88 fL (80-94); Mean Platelet Volume 8.4 fL (7.4-10.4); Platelet Count 416 10^3/uL (150-450); Red Blood Count 3.67 10^6 /uL (4.18-5.48); Red Cell Distribution Width 18 % (10-15); White Blood Count 43.9 10^3/uL (3.5-10.8)
[2021-04-02 01:47] LABS: Calcium 8.6 mg/dL (8.6-10.3); eGFR CKD-EPI 3.3 (>60)
[2021-04-02 01:50] LABS: Potassium 5.9 mmol/L (3.5-5.0)
[2021-04-02 01:59] LABS: PCO2 Arterial 30 mmHg (35-45); PO2 Arterial 139 mmHg (80-100)
[2021-04-02] MEDS ORDERED: NS 0.9% 1000 ml BAG 1,000 ML IV ONE (02:03)
[2021-04-02] MEDS ORDERED: Sodium Bicarbonate 8.4% SYR 50 ml SYRINGE IV ONE ×2 (02:21→04:48)
[2021-04-02] MEDS ORDERED: Desmopressin Acetate 4 MCG/ML 1 ML SDV SUBCUT ONE ×2 (02:53)
[2021-04-02] MEDS ORDERED: Propofol 10 mg/ml 100 ML BTL 100 ML IV SCH (03:00)
[2021-04-02] MEDS ORDERED: Vancomycin per Pharmacy 1 EA NOTE FOLLOW UP SCH (03:00)
[2021-04-02] MEDS ORDERED: DESMOPRESSIN ACETATE IVPB ONE (03:07)
[2021-04-02] MEDS ORDERED: NS 0.9% IVPB ONE (03:07)
[2021-04-02] MEDS ORDERED: Dextrose 50% Syringe 50 ml 25 GM/50 ML SYRINGE IV PUSH PRN (03:32)
[2021-04-02] MEDS ORDERED: Vasopressin 100 UNITS in D5W 250 ml BAG 245 ML IV SCH ×2 (04:00→05:45)
[2021-04-02 04:19] LABS: Anisocytosis 1+; Burr Cells 2+
[2021-04-02 04:20] LABS: ABS Basophils 0.3 10^3/ul (0-0.2); ABS Eosinophils 0.1 10^3/ul (0-0.6); ABS Lymphocytes 0.7 10^3/ul (1.0-4.8); ABS Monocytes 2.8 10^3/ul (0-0.8); ABS Nucleated RBC 0.1 10^3/ul; Eosinophil % 0.3 %; Lymphocyte % 1.7 %; Nucleated Red Blood Cells % 0.2
[2021-04-02 04:37] LABS: PCO2 Arterial 31 mmHg (35-45); PO2 Arterial 106 mmHg (80-100)
[2021-04-02 04:41] LABS: Hematocrit 29 % (42-52); Hemoglobin 9.3 g/dL (14.0-18.0); Mean Corpuscular HGB Conc 32 g/dL (31-36); Mean Corpuscular Hemoglobin 28 pg (27-31); Mean Corpuscular Volume 87 fL (80-94); Mean Platelet Volume 8.4 fL (7.4-10.4); Platelet Count 373 10^3/uL (150-450); Red Blood Count 3.35 10^6 /uL (4.18-5.48); Red Cell Distribution Width 18 % (10-15); White Blood Count 38.1 10^3/uL (3.5-10.8)
[2021-04-02 04:47] LABS: ABS Basophils 0.1 10^3/ul (0-0.2); ABS Lymphocytes 0.5 10^3/ul (1.0-4.8); ABS Neutrophils 35.5 10^3/ul (1.5-7.7); ABS Nucleated RBC 0.1 10^3/ul; Lymphocyte % 1.3 %; Nucleated Red Blood Cells % 0.1
[2021-04-02 04:48] LABS: INR 1.24 (0.86-1.15)
[2021-04-02 05:00] LABS: Albumin 2.9 g/dL (3.2-5.2); Calcium 8.1 mg/dL (8.6-10.3); Globulin 2.8 g/dL (2-4); Total Bilirubin 0.5 mg/dL (0.2-1.0); Total Protein 5.7 g/dL (6.4-8.9)
[2021-04-02] MEDS ORDERED: Norepinephrine 16MCG/ML IVPRE 4,000 MCG/250 ML BAG IV SCH (05:45)
[2021-04-02] MEDS ORDERED: Vancomycin - DIALYSIS DOSING 1 EA NOTE FOLLOW UP SCH (06:00)
[2021-04-02] MEDS ORDERED: Norepinephrine *QUAD STRENGTH* 16 mg/250 mL NS per protocol IV SCH (06:00)
[2021-04-02] MEDS: Sodium Bicarb 8.4% Vial 50 ML 150 MEQ in D5W 1000 ml BAG 850 ML IV SCH ×2 (06:33→11:48)
[2021-04-02] MEDS ORDERED: Norepinephrine 16MCG/ML IVPRE 4,000 MCG/250 ML BAG IV ONE (08:29)
[2021-04-02] MEDS: PHENYLEPHRINE DRIP IVPREMIX 50 MG/250 ML BAG IV SCH ×2 (09:00→12:59)
[2021-04-02 09:21] LABS: Hepatitis B Surface Antigen Nonreactive (Nonreactive)
[2021-04-02 09:26] LABS: Hepatitis B Core IgM Nonreactive (Nonreactive)
[2021-04-02 09:38] LABS: Hepatitis B Surface Ab Not Immune (Immune); Hepatitis C Antibody Negative (Negative)
[2021-04-02 09:48] LABS: PCO2 Arterial 35 mmHg (35-45); PO2 Arterial 105 mmHg (80-100)
[2021-04-02] MEDS ORDERED: Insulin GLARGINE 100 un/ml 10 ml VIAL SUBCUT ONE (10:49)
[2021-04-02] MEDS ORDERED: Pantoprazole VIAL 40 MG VIAL IV SCH (11:00)
[2021-04-02] MEDS: Chlorhexidine MOUTHWASH 0.12% 15 ML UDC TOPICAL SCH ×2 (11:36→14:49)
[2021-04-02 11:39] LABS: Albumin 2.7 g/dL (3.2-5.2); Calcium 7.5 mg/dL (8.6-10.3); Globulin 2.6 g/dL (2-4); Magnesium 2.2 mg/dL (1.9-2.7); Phosphorus 9.3 mg/dL (2.5-5.0); Potassium 4.3 mmol/L (3.5-5.0); Total Bilirubin 0.4 mg/dL (0.2-1.0); Total Protein 5.3 g/dL (6.4-8.9); eGFR CKD-EPI 3.8 (>60)
[2021-04-02] MEDS: Heparin 1,000 UNIT/ML 10 ml (10,000 UNITS) CATHLAB/DIALYSIS DIALYSIS SCH ×3 (14:35→16:12)
[2021-04-02] MEDS ORDERED: LORazepam 2 mg VIAL 1 ml IV PUSH ONE (17:23)
[2021-04-02] MEDS ORDERED: Lorazepam PYXIS KEY PRN ×2 (17:23→22:48)
[2021-04-02] MEDS ORDERED: Morphine 10 MG/ML VIAL (1 ml) ONE (17:26)
[2021-04-02] MEDS ORDERED: Lorazepam PYXIS KEY ONE (17:26)
[2021-04-02] MEDS ORDERED: LORazepam 2 mg VIAL 1 ml ONE (17:26)
[2021-04-02] MEDS ORDERED: Cefepime 1 GM in Dextrose 1 GM/50 ML BAG IV SCH (18:00)
[2021-04-02] MEDS: Morphine 2 MG/ML SYRINGE IV PRN ×3 (18:44→22:47)
[2021-04-02] MEDS ORDERED: Insulin GLARGINE 100 un/ml 10 ml VIAL SUBCUT SCH (21:00)
[2021-04-02 22:11] VITALS: BP 58/43
[2021-04-02] MEDS ORDERED: LORazepam 2 mg VIAL 1 ml IV PUSH PRN (22:48)
== END 2021-04-02 23:47 | disposition expired | DRG 710 ==
LOC: ED 16:23 → ICU 04-02 01:58
PROVIDERS: ADMIT Hospitalist; ATTEND Hospitalist